=== PATIENT | male | born 1945 | race Caucasian/White ===

== ENCOUNTER → 2017-08-07 10:37 | Outpatient (CLI) | payer MEDICARE, BC, SELFPAY ==
--- NOTE | 2017-08-07 10:48 | XR_ITS ---
XR abdomen min 2V HISTORY: ITS.REASON: LLQ PAIN ORDERING PHYSICIAN: Matthew Cazares MD PATIENT AGE: 71 years COMPARISON: None FINDINGS: The bowel gas pattern is unremarkable. No obvious obstruction.. No abnormal calcifications are evident. No obvious renal or ureteral calculi.. No acute bony anomalies evident. Degenerative changes are present in the lumbar spine with lower lumbar scoliosis convex left with facet arthritic changes noted. Multiple pelvic calcifications are present consistent with phleboliths IMPRESSION: No acute finding
== END ==
PROVIDERS: PCP Family Medicine; Visit Provider Family Medicine
DX: R10.32 Left lower quadrant pain (principal)
CPT/HCPCS: 74019

== ENCOUNTER → 2017-09-28 12:22 | Outpatient (CLI) | payer MEDICARE, BC, SELFPAY ==
[2017-09-28 13:28] LABS: Blood Urea Nitrogen 13 mg/dL (7-18); Creatinine,Serum 1.43 mg/dL (0.70-1.30); Estimated Glomerular Filt Rate 49 ml/min (>60); GFR (African American) 59 ML/MIN (>60)
--- NOTE | 2017-09-28 13:47 | CT_ITS ---
CT abdomen pelvis w con COMPARISON: CT scan abdomen pelvis without contrast 10/05/2015 HISTORY: Left lower quadrant pain, known diffuse diverticulosis of the colon, fever TECHNIQUE: Multiaxial scans obtained from hemidiaphragms the pelvic floor and were performed with IV and oral contrast. Sagittal and coronal reformats were evaluated as well. FINDINGS: The lower lung mims are clear except for minimal atelectasis at the right base. There is mild generalized cardio megaly. There is a [id number] sized hiatal hernia. There is a dominant hypodense lesion consistent with hepatic cyst upper portion of the right lobe of the liver which has shown interval increase in size from the previous exam now measuring 5.1 x 5.5 x 5.2 cm. There are several other additional tiny hepatic cysts in both the right and left lobe of the liver. Stomach spleen [place] gallbladder appear grossly normal. The adrenal glands are normal. The kidneys are normal size and show symmetrical function both appearing normal. The small bowel is grossly normal. I do not definitely identify the appendix but there are no pericecal inflammatory changes. There is mild diffuse diverticulosis of the ascending and transverse colon with marked and diffuse diverticulosis of the descending and sigmoid colon. There is pericolonic fat stranding of the descending sigmoid junction consistent with acute diverticulitis. There is no obvious perforation and there is no abscess noted. Urinary bladder is partially decompressed, the prostate is slightly enlarged. IMPRESSION: 1 diffuse diverticulosis involving most of the colon but most prominent involving the descending and sigmoid colon with a focal area of acute diverticulitis descending sigmoid junction. 2. Interval enlargement of prominent cystic lesion involving the superior aspect of the right lobe of the liver
== END ==
PROVIDERS: PCP Family Medicine; Visit Provider Family Medicine
DX: R10.32 Left lower quadrant pain (principal); K57.30 Diverticulosis of large intestine without perforation or abscess without bleeding
CPT/HCPCS: 36415; 74177; 82565; 84520; Q9967

== ENCOUNTER → 2017-12-10 08:50 | Outpatient (POV) | payer MEDICARE, BC, SELFPAY | PROVIDERS: PCP Physician Assistant; Visit Provider Physician Assistant | DX: Z00.00 Encounter for general adult medical examination without abnormal findings (principal) ==

== ENCOUNTER → 2017-12-18 07:52 | Outpatient (CLI) | payer MEDICARE, BC, SELFPAY ==
[2017-12-18 11:10] LABS: Alanine Aminotransferase 31 U/L (12-78); Albumin Level 3.6 gm/dL (3.4-5.0); Alkaline Phosphatase 85 U/L (46-116); Aspartate Amino Transferase 23 U/L (15-37); Bilirubin,Direct 0.1 mg/dL (0.0-0.2); Bilirubin,Indirect 0.4 mg/dL (0.0-0.9); Bilirubin,Total 0.5 mg/dL (0.2-1.0); Cholesterol 120 mg/dL (140-200); HDL Cholesterol 30 mg/dL (27-67); LDL Cholesterol 50 mg/dL (0-130); Total Protein,Serum 7.4 gm/dL (6.4-8.2); Triglycerides 200 mg/dL (30-200); VLDL Cholesterol 40 mg/dL (0-40)
== END ==
PROVIDERS: PCP Internal Medicine; Visit Provider Urology
DX: I25.110 Atherosclerotic heart disease of native coronary artery with unstable angina pectoris (principal); R55 Syncope and collapse; R06.09 Other forms of dyspnea; R60.9 Edema, unspecified; E78.4 Other hyperlipidemia; R42 Dizziness and giddiness; I10 Essential (primary) hypertension
CPT/HCPCS: 36415; 80061; 80076

== ENCOUNTER → 2017-12-19 11:24 | Outpatient (CLI) | payer MEDICARE, BC, SELFPAY ==
--- NOTE | 2017-12-19 11:25 | NM_ITS ---
SPECT MYOCARDIAL PERFUSION SCAN, REST AND STRESS: EXERCISE STRESS: [facility] REVIEW QGS EF AND WALL MOTION EVALUATION: QPS - PERFUSION EVALUATION: HISTORY: Chest pain, dyspnea PROCEDURE: Rest imaging performed after administration of10.36 millicuries Tc MIBI. Dose administered at11:30 a.m., with imaging thereafter. Stress imaging was then performed following6 minutes of exercise stress. The patient achieved a heart [id number] with projected heart rate of128 . Resting BP149/93 with stress 156/90. At maximum exercise stress,29.9 millicuries Tc MIBI administered at1:10 a.m. with [id number] minutes thereafter. FINDINGS: Perfusion Evaluation: The single slice spect images as well as the [facility] bull's-eye data summary were reviewed. Wall Motion and Ejection Fraction Evaluation: Gated SPECT review and analysis used to evaluate these features. There is a 55 % left ventricular ejection fraction. There seems to be good wall motion Stress images reveal decreased activity in the apex inferior wall and a portion of the anterior wall. Rest images reveal improved activity. 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 High risk abnormal stress test with normal ejection fraction normal wall motion. Patient did experience angina with exercise
--- NOTE | 2017-12-19 12:23 | HMH.ITSHM ---
OMEPRAZOLE LEVOTHYROXINE ASA B12
--- NOTE | 2017-12-19 14:09 | HMH.ITSHM ---
lisinopril omeprazole levothyroxine aspirin b-12
== END ==
PROVIDERS: PCP Internal Medicine; Visit Provider Internal Medicine
DX: R06.00 Dyspnea, unspecified (principal); I25.10 Atherosclerotic heart disease of native coronary artery without angina pectoris; R94.31 Abnormal electrocardiogram [ECG] [EKG]
CPT/HCPCS: 78452; 93017; A9502

== ENCOUNTER → 2018-04-04 10:43 | Outpatient (CLI) | payer MEDICARE, BC, SELFPAY ==
[2018-04-08 05:21] LABS: PSA, Free 2.33 ng/mL
== END ==
PROVIDERS: PCP Family Medicine; Visit Provider Urology
DX: R97.20 Elevated prostate specific antigen [PSA] (principal)
CPT/HCPCS: 36415; 84153; 84154

== ENCOUNTER → 2018-04-11 06:16 | Outpatient (CLI) | payer MEDICARE, BC, SELFPAY ==
--- NOTE | 2018-04-11 06:18 | NM_ITS ---
History and Indications: Coronary artery disease, hypertension, diabetes, family history, chest pain, shortness of breath and fatigue Procedure: Patient exercised on Hadley protocol 7 minutes, resting heart rate was 57 bpm resting blood pressure 130/79, with exercise maximum heart rate achieved was 116 bpm which is equal to 77% of the maximum predicted heart rate and a blood pressure was 240/88. Test was started due to body discomfort and chest and shortness of breath. Patient has good exercise capacity achieved 10.1mets of workload on treadmill, the blood pressure response to exercise was adequate. Electrocardiogram: Resting electrocardiogram showed sinus bradycardia, nonspecific ST-T changes, with exercise there is [address] segment depression noted from the baseline EKG. The EKG portion of the exercise Myoview is positive for ischemia. Cardiac stress and resting SPECT images: Cardiac stress and rest SPECT images were obtained using technetium 99 Myoview 32.1 mCi at stress and 10.7 mCi at rest, gated SPECT further analysis of segmental wall motion and calculation of the ejection fraction also done. Cardiac stress and rest SPECT images show decreased tracer activity in the inferior wall which improves on the resting suggestive of reversible ischemia, computer derived ejection fraction is 56% with no regional wall motion abnormality, right ventricle is normal size and contractility. Conclusion: 1. The EKG portion of the exercise Myoview is positive for ischemia, patient has good exercise capacity achieved 10.1mets of workload on treadmill, the blood pressure response to exercise was adequate, patient did not achieve the target heart rate. Test was started due to widening discomfort and chest. 2. Mild reversible ischemia seen in the inferior wall, computer derived ejection fraction is percent with no regional wall motion abnormality, right ventricle is normal size and contractility. 3. Abnormal exercise Myoview study.
--- NOTE | 2018-04-11 09:08 | HMH.ITSHM ---
BISOPROLOL LEVOTHYROXINE ATORVASTATIN LISINOPRIL BRILINTIN MELATONIN
== END ==
PROVIDERS: PCP Family Medicine; Visit Provider Internal Medicine
DX: R06.09 Other forms of dyspnea; R42 Dizziness and giddiness; I11.9 Hypertensive heart disease without heart failure
CPT/HCPCS: 78452; 93017; A9502

== ENCOUNTER → 2018-04-18 14:06 | Outpatient (CLI) | payer MEDICARE, BC, SELFPAY ==
[2018-04-18 15:17] VITALS: PULSE 65
== END ==
PROVIDERS: PCP Family Medicine; Visit Provider Internal Medicine
DX: R06.09 Other forms of dyspnea (principal)
CPT/HCPCS: 94060; 94640; 94726; 94729

== ENCOUNTER 2018-04-22 08:55 | Outpatient (RCR) | payer MEDICARE, BC, SELFPAY | END 2018-07-05 15:08 | disposition home or self-care (01) | LOC: PT 08:55 | PROVIDERS: PCP Family Medicine; Visit Provider Internal Medicine | DX: I11.9 Hypertensive heart disease without heart failure (principal); R06.09 Other forms of dyspnea | CPT/HCPCS: 93798 ==

== ENCOUNTER → 2018-05-28 08:07 | Outpatient (POV) | payer MEDICARE, BC, SELFPAY | PROVIDERS: Visit Provider Dermatology | DX: Z00.00 Encounter for general adult medical examination without abnormal findings (principal) ==

== ENCOUNTER → 2018-09-26 09:39 | Outpatient (CLI) | payer MEDICARE, BC, SELFPAY | PROVIDERS: Visit Provider Urology | DX: R97.20 Elevated prostate specific antigen [PSA] (principal) | CPT/HCPCS: 36415; 84153 ==

== ENCOUNTER 2018-11-14 03:45 | Inpatient (IN) ==
[2018-11-14 04:28] LABS: Microscopic, Urine URINE MICROSCOPIC (MICROSCOPIC)
[2018-11-14 04:32] LABS: Basophils % 0.2 % (0.1-2.0); Eosinophils # 0.2 K/mm3 (0.0-0.4); Eosinophils % 1.5 % (0.1-12.0); Hematocrit 41.8 % (42.0-52.0); Hemoglobin 14.2 g/dL (14.1-18.0); Lymphocytes # 1.4 K/mm3 (0.7-4.5); Lymphocytes % 13.3 % (10-50); Mean Corpuscular Hemoglobin 30.9 pg (27.0-31.2); Mean Corpuscular Volume 91.1 fl (80-94); Mean Platelet Volume 7.5 fl (7.4-10.4); Monocytes # 0.5 K/mm3 (0.1-1.0); Monocytes % 4.8 % (1.7-9.3); Neutrophils # 8.2 K/mm3 (1.8-7.8); Neutrophils % 80.2 % (37.0-80.0); Platelet Count 170 K/mm3 (142-424); Red Blood Count 4.59 M/mm3 (4.60-6.20); Red Cell Distribution Width 14.2 % (11.5-17.5); White Blood Count 10.3 K/mm3 (4.8-10.8)
[2018-11-14 04:44] LABS: Albumin Level 3.7 gm/dL (3.4-5.0); Anion Gap 16.7 mEq/L (5-15); Appearance,Urine CLEAR (Clear); Bilirubin,Direct 0.1 mg/dL (0.0-0.2); Bilirubin,Indirect 0.4 mg/dL (0.0-0.9); Bilirubin,Total 0.5 mg/dL (0.2-1.0); Bilirubin,Urine Negative (Negative); Blood, Urine Negative (Negative); C-Reactive Protein 0.3 mg/L (0.0-0.9); Calcium 8.9 mg/dL (8.5-10.1); Color,Urine YELLOW (Yellow); Glucose,Urine (UA) Negative (Negative); Ketones,Urine Negative (Negative); Leukocyte Esterase,Urine Negative (Negative); Potassium 3.7 mmoL/L (3.5-5.1); Protein,Urine Negative (Negative); Total Protein,Serum 7.9 gm/dL (6.4-8.2); Urobilinogen,Urine 0.2 EU/dl (0.2)
[2018-11-14 04:50] LABS: Bacteria,Urine Trace /lpf; WBC,Urine Occasional #/hpf (0-3)
--- NOTE | 2018-11-14 06:34 | Emergency Department Note ---
ED Disposition Clinical Impression: Diverticulitis Disposition: Admitted As Inpatient Condition on Discharge: Fair Instructions: DI for Acute Abdomen Referrals: Matthew Cazares MD [Primary Care Provider] - - Critical Care Critical Care Time: No Attestation: On 11/14/18, the high probability of a clinically significant, sudden or life threatening deterioration of the following system(s) required my full and direct attention, intervention and personal management. The time I documented below is in addition to time spent performing reported procedures but includes the follo wing listed in this critical care notation. Medical Decision Making - Medical Records Medical records reviewed: Yes: I reviewed the patient's medical records. - Eduard Inquiry Pt receiving controlled substance: No Vital Signs: 11/14/18 03:54 11/14/18 04:42 11/14/18 05:24 Temperature 98.9 F Temperature Source Oral Pulse Rate [Right] 83 88 67 Respiratory Rate 18 16 18 Blood Pressure [Right Arm] 133/100 H 129/87 125/87 Blood Pressure Mean [Right Arm] 111 101 99 Blood Pressure Source [Right Arm] Automatic Cuff Automatic Cuff Automatic Cuff Blood Pressure Position [Right Arm] Sitting Sitting Supine 02 Sat by Pulse Oximetry 96 96 98 Oxygen Delivery Method Room Air Room Air 11/14/18 06:00 Temperature Temperature Source Pulse Rate [Right] 74 Respiratory Rate 18 Blood Pressure [Right Arm] 134/96 H Blood Pressure Mean [Right Arm] 108 Blood Pressure Source [Right Arm] Automatic Cuff Blood Pressure Position [Right Arm] Sitting 02 Sat by Pulse Oximetry 96 Oxygen Delivery Method Room Air - Lab Data Lab results reviewed: Yes: I reviewed the patient's lab results. Lab Results 11/14/18 04:02: WBC 10.3, RBC 4.59 L, Hgb 14.2, Hct 41.8 L, MCV 91.1, MCH 30.9, MCHC 34.0, RDW 14.2, Plt Count 170, MPV 7.5, Neut % (Auto) 80.2 H, Lymph % (Auto) 13.3, [place] % (Auto) 4.8, Eos % (Auto) 1.5, Baso % (Auto) 0.2, Neut # (Auto) 8.2 H, Lymph # (Auto) 1.4, [place] # (Auto) 0.5, Eos # (Auto) 0.2, Baso # (Auto) 0.0 11/14/18 04:02: Sodium 141, Potassium 3.7, Chloride 103, Carbon Dioxide 25, Anion Gap 16.7 H, BUN 16, Creatinine 1.47 H, Estimated Creat Clear 67, Estimated GFR 47 L, Est GFR ( Amer) 57 L, Glucose 118 H, Calcium 8.9, Total Bilirubin 0.5, Direct Bilirubin 0.1, Indirect Bilirubin 0.4, AST 20, ALT 33, Alkaline Phosphatase 84, C-Reactive Protein 0.3, Total Protein 7.9, Albumin 3.7, Amylase 77 11/14/18 04:02: Lactate 1.0 11/14/18 04:02: Urine Color Yellow, Urine Appearance Clear, Urine pH 6.0, Ur Specific [place] 1.020, Urine Protein Negative, Urine Glucose (UA) Negative, Urine Ketones Negative, Urine Blood Negative, Urine Nitrate Negative, Urine Bilirubin Negative, Urine Urobilinogen 0.2, Ur Leukocyte Esterase Negative, Urine WBC Occasional, Urine Bacteria Trace 11/14/18 04:02: ESR 20 11/14/18 04:02: Lipase 142 Result diagrams: 11/14/18 04:02 11/14/18 04:02 Orders (Tests/Meds): ED MEDICATIONS Generic Name Dose Route Start Last Admin Trade Name Freq PRN Reason Stop Dose Admin Sodium Chloride 1,000 mls @ 999 mls/hr 11/14/18 04:15 11/14/18 04:03 Sod Chlor 0.9% 1000ml Bag IV 11/14/18 05:15 999 mls/hr .Q1H1M RENU Administration Sodium Chloride 1,000 mls @ 999 mls/hr 11/14/18 05:15 11/14/18 05:19 Sod Chlor 0.9% 1000ml Bag IV 11/14/18 06:15 999 mls/hr .Q1H1M RENU Administration Discontinued Medications Generic Name Dose Route Start Last Admin Trade Name Freq PRN Reason Stop Dose Admin Diatrizoate Meglum/Diatrizoate Sod 30 ml 11/14/18 04:00 11/14/18 04:18 Gastrografin 66%-10% 30ml PO 11/14/18 04:01 30 ml ONCE ONE Administration Ioversol 75 ml 11/14/18 05:49 11/14/18 05:51 Rad-Optiray 350 100ml Vial IV 11/14/18 05:50 75 ml ONCE ONE Administration Protocol Ketorolac Tromethamine 30 mg 11/14/18 04:02 11/14/18 04:03 Toradol 30mg/Ml Vial IV 11/14/18 04:03 30 mg ONCE ONE Administration Morphine Sulfate 4 mg 11/14/18 06:28 Morphine 4mg/Ml Syringe IV 11/14/18 06:29 ONCE ONE Ondansetron HCl 4 mg 11/14/18 04:02 11/14/18 04:03 Zofran 4mg/2ml Vial IV 11/14/18 04:03 4 mg ONCE ONE Administration Ondansetron HCl 4 mg 11/14/18 06:28 Zofran 4mg/2ml Vial IV 11/14/18 06:29 ONCE ONE Sodium Chloride 10 ml 11/14/18 05:49 11/14/18 05:51 Rad-Saline Flush 10ml Syringe IV 11/14/18 05:50 10 ml ONCE ONE Administration ORDERS Category Date Time Status Blood Culture Stat Micro 11/14/18 04:02 Received - CT Data CT Scan: Abdomen, Pelvis Time Received: 06:[address] Reviewed: Yes: I have viewed the radiologist's interpretation Preliminary Findings: Abnormal (see report) - Physician Consults Physician Consulted: maurice Reason -: Admission Nausea/Vomiting/Diarrhea HPI - General Chief complaint: Abdominal Pain Stated complaint: Sharp pain in lower l side Time Seen by Provider: 11/14/18 04:30 Mode of Arrival: Ambulatory Source of Information: Patient, Relative, Medical Record Limitations: No Limitations Description of Symptoms (Recalled from ER Triage Doc. by RN): Lower Abd pain started about midnight tonight - History of Present Illness HPI Narrative: lt lower abd pain with nausea with hx of diverticulitis complaint: nausea, abdominal pain Onset (ago): hour(s) Associated Abdominal Pain: Yes Location of pain: LLQ Severity: moderate Associated symptoms: denies other symptoms - Related Data Home Medications Medication Instructions Recorded Confirmed aspirin 81 mg tablet,delayed 81 mg PO DAILY tab 11/15/17 11/14/18 release esomeprazole magnesium 40 mg 40 mg PO DAILY cap 11/15/17 11/14/18 capsule,delayed release levothyroxine 25 mcg tablet 25 mcg PO DAILY tab 11/15/17 11/14/18 bisoprolol fumarate 5 mg tablet 5 mg PO DAILY tab 12/03/17 11/14/18 lisinopril 10 mg tablet 10 mg PO DAILY tab 12/03/17 11/14/18 melatonin 10 mg capsule 10 mg PO HS PRN 01/01/18 11/14/18 Atorvastatin Calcium [Atorvastatin 10 mg PO DAILY 11/14/18 11/14/18 10mg Tab] Ticagrelor [Brilinta 90mg Tablet] 90 mg PO BID 11/14/18 11/14/18 Previous Rx's Medication Instructions Recorded nitroglycerin 0.4 mg sublingual 0.4 mg SUBLINGUAL Q5M PRN #30 tab 12/20/17 tablet Allergies Allergy/AdvReac Type Severity Reaction Status Date / Time Penicillins Allergy Unknown I-HIVES Verified 11/14/18 04:01 [facility] History - Hepatitis A Screen Drug use history?: No High risk sexual behaviors?: No History of sexually transmitted infection?: No Currently employed?: No Childcare worker?: No Do you have indoor plumbing?: Yes Do you have electricity?: Yes Attestation statement:: This patient has been screened for Hepatitis A risk factors. I have reviewed the patient's past medical history: Yes Medical History: Reports:: Gastroesophageal Reflux Disease(GERD), Hypertension Denies:: Cancer, Diabetes Mellitus Type 1, Diabetes Mellitus Type 2, Internal Pacemaker, MRSA, Seizures Other Medical History: Reports: Hypothyroidism Laterality Cases: Bilateral: Total Knee Replacement Other Surgeries: Yes: No Previous Surgery. No: Pacemaker Amputation: No Fractures: No - Social History Smoking Status: Never smoker Alcohol Intake: never Alcohol Intake Frequency:: other Substance Use Type: denies use Occupational Status: retired Housing: house Household Members: spouse - Psychiatric History Expresses thoughts of harming self/others: None Suicide Plan Description: No Plan Family Hx:: Heart Attack Comment: father from [place] complications at age 78 ROS Obtained: Yes All systems reviewed & no additional complaints - Constitutional Constitutional: Denies fever(s) - Eyes Eyes: Denies change in vision - ENT Ears, Nose, Mouth, and Throat: Denies sore throat - Cardiovascular Cardiovascular: Denies chest pain - Respiratory Respiratory: No cough - Gastrointestinal Gastrointestingal: Reports: abdominal pain, vomiting - Genitourinary Male Genitourinary: Denies hematuria - Musculoskeletal Musculoskeletal: Denies joint pain - Integumentary/Breasts Skin/Breast: Denies rash - Neurologic Neurologic: Denies seizure-like activity Physical Exam - General General appearance: alert, obese - Head Head exam: normocephalic - Eye Eye exam: Present: PERRL, EOMI. Absent: scleral icterus - ENT ENT exam: Present: mucous membranes dry - Neck Neck exam: Present: trachea midline - Respiratory Respiratory exam: Present: normal lung sounds bilaterally. Absent: respiratory distress - Cardiovascular Cardiovascular exam: Present: regular rate, systolic murmur - Abdominal Exam Abdominal exam: Present: soft, tenderness Abdominal tenderness: Present: LLQ, moderate - Extremities Exam Extremities exam: Absent: calf tenderness - Neurological Exam Neurological exam: Present: alert, oriented X3, CN II-XII intact - Psychiatric Psychiatric exam: Present: normal affect - Skin Skin exam: Absent: rash
--- NOTE | 2018-11-14 09:38 | Pharmacy Consult Notes ---
[facility] Pharmacy VTE Monitoring - Patient Demographics Admission date: 11/14/18 Report Date: 11/14/18 Time: 09:38 Allergies/Adverse Reactions: Patient Allergies Penicillins Allergy (Unknown, Verified 11/14/18 04:01) I-HIVES Height: 1.75 m Weight: 101.803 kg Patient Problems: Current Active Problems (Updated 11/14/18 @ 06:37 by Arvind Flores MD) Diverticulitis (Acute) - VTE Risk Labs: VTE Related Lab Results Hgb 14.2 g/dL (14.1-18.0) 11/14/18 04:02 Hct 41.8 % (42.0-52.0) L 11/14/18 04:02 Plt Count 170 K/mm3 (142-424) 11/14/18 04:02 BUN 16 mg/dL (7-18) 11/14/18 04:02 Creatinine 1.47 mg/dL (0.70-1.30) H 11/14/18 04:02 Estimated Creat Clear 67 mL/min (50-200) 11/14/18 04:02 Was VTE Risk Assessment Performed: Yes VTE Score: 6 VTE Risk Level: Moderate Risk - Prophylaxis VTE Prophylaxis Ordered?: Yes Types of VTE Prophylaxis: TEDS Knee High Location of Applied Device: Bilateral Lower Extremeties - VTE Diagnosis Confirmed Treatment or plan recommended: Continue Current Treatment
--- NOTE | 2018-11-14 10:46 | History & Physical Report ---
*Admission Date: 11/14/18 <Mira Wood 11/14/18 10:57> *Chief complaint: Diarrhea and abdominal pain <Gerard Wood11/14/18 10:57> *History of present illness: Mr. Bowers is a 72yo white male with hx of HTN, HLP, ASCVD, Hypothyroidism, GERD, and diverticulosis who awoke overnight around midnight with left lower quadrant abdominal pain and diarrhea. He also reports some nausea with one episode of "spitting up phlegm", however, he denies emesis. As his abdominal pain was increasing, he presented to the [facility] ED and was found to have evidence of diverticulitis on CT. He was admitted for IV antibiotics and hydration. This morning, he continues with left lower quadrant abdominal pain and diarrhea. He is only slightly nauseated. <Mira Wood 11/14/18 10:57> [facility] History Medical History: Reports:: Atherosclerotic Heart Disease <Matthew Cazares 11/14/18 11:22> Reports:: Gastroesophageal Reflux Disease(GERD), Hyperlipidemia, Hypertension Denies:: Cancer, Diabetes Mellitus Type 1, Diabetes Mellitus Type 2, Internal Pacemaker, MRSA, Seizures <Mira Wood 11/14/18 10:57> *Have you ever received a pneumonia vaccine?: Yes <Gerard Wood11/14/18 10:57> *Have you received a flu vaccine this season?: Yes <Gerard Wood11/14/18 10:57> Other Medical History: Reports: Other (diverticulosis of colon, colon polyps, BPH) <Matthew Cazares 11/14/18 11:22> Reports: Hypothyroidism <Gerard Wood11/14/18 10:57> Laterality Cases: Bilateral: Arthroscopy Knee, Total Knee Replacement <Mira Wood 11/14/18 10:57> Other Surgeries: Yes: Colonoscopy (most recent in 2014) <Matthew Cazares 11/14/18 11:22> Yes: No Previous Surgery, Cancer Surgery (melanoma skin CA removal), Other. No: Pacemaker <Mira Wood 11/14/18 10:57> Amputation: No <Mira Wood 11/14/18 10:57> Fractures: No <Israel,Mira - 11/14/18 10:57> - *Social History Smoking Status: Never smoker <IsraelMira - 11/14/18 10:57> Alcohol Intake: never <Gerard Wood11/14/18 10:57> Alcohol Intake Frequency:: other <Gerard Wood11/14/18 10:57> Substance Use Type: denies use <Israel11/14/18 10:57> *Occupational Status:: retired <IsraelGreard11/14/18 10:57> Housing: house <Gerard Wood11/14/18 10:57> Household Members: spouse <Gerard Wood11/14/18 10:57> *Travel in the last 8 weeks: None <IsraelMira - 11/14/18 10:57> - Psychiatric History Expresses thoughts of harming self/others: None <IsraelMira - 11/14/18 10:57> Suicide Plan Description: No Plan <IsraelMira - 11/14/18 10:57> Family Hx:: Heart Attack <Israel11/14/18 10:57> Review of Systems - Constitutional Reports headache(s), Denies body ache(s), Denies chills, Denies fever(s) <IsraelMira - 11/14/18 10:57> - ENT Reports neck pain (right neck stiffness and discomfort for 4-5 days), Denies nasal congestion, Denies sore throat <IsraelMira - 11/14/18 10:57> - *Cardiovascular Denies chest pain, Denies shortness of breath, Denies generalized swelling, Denies lightheadedness <IsraelMira - 11/14/18 10:57> - *Respiratory Denies chest congestion, Denies cough <Israel11/14/18 10:57> - *Gastrointestinal Reports loose stools, Reports nausea, Denies abdominal pain, Denies cramping, Denies vomiting <Gerard Wood11/14/18 10:57> - *Genitourinary Denies difficulty urinating <Israel11/14/18 10:57> - *Neurologic Reports headache(s), Denies seizure-like activity <Mira Wood - 11/14/18 10:57> Meds Home Medications Medication Instructions Recorded Confirmed Type aspirin 81 mg tablet,delayed 81 mg PO DAILY tab 11/15/17 11/14/18 History release esomeprazole magnesium 40 mg 40 mg PO DAILY cap 11/15/17 11/14/18 History capsule,delayed release levothyroxine 25 mcg tablet 25 mcg PO DAILY tab 11/15/17 11/14/18 History bisoprolol fumarate 5 mg tablet 5 mg PO DAILY tab 12/03/17 11/14/18 History lisinopril 10 mg tablet 10 mg PO DAILY tab 12/03/17 11/14/18 History nitroglycerin 0.4 mg sublingual 0.4 mg SUBLINGUAL Q5M PRN #30 tab 12/20/17 11/14/18 Rx tablet melatonin 10 mg capsule 10 mg PO HS PRN 01/01/18 11/14/18 History Atorvastatin Calcium [Atorvastatin 10 mg PO DAILY 11/14/18 11/14/18 History 10mg Tab] Ticagrelor [Brilinta 90mg Tablet] 90 mg PO BID 11/14/18 11/14/18 History <Matthew Cazares - 11/14/18 11:22> Allergies Allergy/AdvReac Type Severity Reaction Status Date / Time Penicillins Allergy Unknown I-HIVES Verified 11/14/18 04:01 <Matthew Cazares - 11/14/18 11:22> Exam Vital signs and Labs for Last 24 Hours: Temp Pulse Resp BP Pulse Ox 98 F 57 L 16 125/83 98 11/14/18 07:41 11/14/18 07:41 11/14/18 07:41 11/14/18 07:41 11/14/18 07:43 Laboratory Results - last 24 hr 11/14/18 04:02: WBC 10.3, RBC 4.59 L, Hgb 14.2, Hct 41.8 L, MCV 91.1, MCH 30.9, MCHC 34.0, RDW 14.2, Plt Count 170, MPV 7.5, Neut % (Auto) 80.2 H, Lymph % (Auto) 13.3, [place] % (Auto) 4.8, Eos % (Auto) 1.5, Baso % (Auto) 0.2, Neut # (Auto) 8.2 H, Lymph # (Auto) 1.4, [place] # (Auto) 0.5, Eos # (Auto) 0.2, Baso # (Auto) 0.0 11/14/18 04:02: Sodium 141, Potassium 3.7, Chloride 103, Carbon Dioxide 25, Anion Gap 16.7 H, BUN 16, Creatinine 1.47 H, Estimated Creat Clear 67, Estimated GFR 47 L, Est GFR ( Amer) 57 L, Glucose 118 H, Calcium 8.9, Total Bilirubin 0.5, Direct Bilirubin 0.1, Indirect Bilirubin 0.4, AST 20, ALT 33, Alkaline Phosphatase 84, C-Reactive Protein 0.3, Total Protein 7.9, Albumin 3.7, Amylase 77 11/14/18 04:02: Lactate 1.0 11/14/18 04:02: Urine Color Yellow, Urine Appearance Clear, Urine pH 6.0, Ur Specific [place] 1.020, Urine Protein Negative, Urine Glucose (UA) Negative, Urine Ketones Negative, Urine Blood Negative, Urine Nitrate Negative, Urine Bilirubin Negative, Urine Urobilinogen 0.2, Ur Leukocyte Esterase Negative, Urine WBC Occasional, Urine Bacteria Trace 11/14/18 04:02: ESR 20 11/14/18 04:02: Lipase 142 <[place],Matthew - 11/14/18 11:22> Temp Pulse Resp BP Pulse Ox 98 F 57 L 16 125/83 98 11/14/18 07:41 11/14/18 07:41 11/14/18 07:41 11/14/18 07:41 11/14/18 07:43 Laboratory Results - last 24 hr 11/14/18 04:02: WBC 10.3, RBC 4.59 L, Hgb 14.2, Hct 41.8 L, MCV 91.1, MCH 30.9, MCHC 34.0, RDW 14.2, Plt Count 170, MPV 7.5, Neut % (Auto) 80.2 H, Lymph % (Auto) 13.3, [place] % (Auto) 4.8, Eos % (Auto) 1.5, Baso % (Auto) 0.2, Neut # (Auto) 8.2 H, Lymph # (Auto) 1.4, [place] # (Auto) 0.5, Eos # (Auto) 0.2, Baso # (Auto) 0.0 11/14/18 04:02: Sodium 141, Potassium 3.7, Chloride 103, Carbon Dioxide 25, Anion Gap 16.7 H, BUN 16, Creatinine 1.47 H, Estimated Creat Clear 67, Estimated GFR 47 L, Est GFR ( Amer) 57 L, Glucose 118 H, Calcium 8.9, Total Bilirubin 0.5, Direct Bilirubin 0.1, Indirect Bilirubin 0.4, AST 20, ALT 33, Alkaline Phosphatase 84, C-Reactive Protein 0.3, Total Protein 7.9, Albumin 3.7, Amylase 77 11/14/18 04:02: Lactate 1.0 11/14/18 04:02: Urine Color Yellow, Urine Appearance Clear, Urine pH 6.0, Ur Specific [place] 1.020, Urine Protein Negative, Urine Glucose (UA) Negative, Urine Ketones Negative, Urine Blood Negative, Urine Nitrate Negative, Urine Bilirubin Negative, Urine Urobilinogen 0.2, Ur Leukocyte Esterase Negative, Urine WBC Occasional, Urine Bacteria Trace 11/14/18 04:02: ESR 20 11/14/18 04:02: Lipase 142 <Mira Wood 11/14/18 10:57> I & O for Last 24 hours: Intake & Output 11/11/18 11/12/18 11/13/18 11/14/18 23:59 23:59 23:59 23:59 Intake Total 1999 Output Total 400 / 400 Balance 1600 / 1600 Weight 224 lb 7 oz <Matthew Cazares - 11/14/18 11:22> Intake & Output 11/11/18 11/12/18 11/13/18 11/14/18 11:59 11:59 11:59 11:59 Intake Total 1999 Balance 1999 Weight 224 lb 7 oz <Mira Wood 11/14/18 10:57> - Constitutional no acute distress <Mira Wood 11/14/18 10:57> - *Routine HEENT Exam Head: Present: normocephalic, atraumatic <Mira Wood 11/14/18 10:57> Eye: Present: PERRL, normal accommodation <Mira Wood 11/14/18 10:57> ENT: Present: mucous membranes moist <Mira Wood 11/14/18 10:57> - *Routine Neck Exam Present: supple, full ROM. Absent: lymphadenopathy <Mira Wood 11/14/18 10:57> - *Routine Respiratory Exam Present: CTA bilaterally <Mira Wood 11/14/18 10:57> - *Routine Cardiovascular Exam Present: RRR <Mira Wood 11/14/18 10:57> - *Routine Abdominal Exam Comments: BS present x 4, soft, not distended, ttp LLQ with palpation of the LUQ causing LLQ pain as well <Mira Wood 11/14/18 10:57> - *Routine Extremities Exam Present: full ROM, pulses intact. Absent: edema, calf tenderness <Mira Wood 11/14/18 10:57> - *Routine Neurological Exam Present: alert, oriented X3, normal speech <Mira Wood 11/14/18 10:57> H&P: Result - Imaging and Cardiology CT scan - abdomen Status: final report <Mira Wood 11/14/18 10:57> Additional comments: IMPRESSION: Acute diverticulitis of the sigmoid colon. No abscess or perforation. Follow-up is recommended. This is the same area that diverticulitis was noted in on 09/28/2017. Neoplasm could have a similar appearance therefore, follow-up is suggested with colonoscopy once the acute inflammation has subsided. There is diffuse diverticulosis of the descending and sigmoid colon as before. <Mira Wood 11/14/18 10:57> Assessment and Plan (1) Diverticulitis Current visit: Yes Status: Acute Category: Medical Code(s): K57.92 - Diverticulitis of intestine, part unspecified, without perforation or abscess without bleeding (2) BRBPR (bright red blood per rectum) Current visit: Yes Status: Acute Category: Medical Code(s): K62.5 - Hemorrhage of anus and rectum (3) GERD (gastroesophageal reflux disease) Current visit: Yes Status: Acute Category: Medical Code(s): K21.9 - Gastro-esophageal reflux disease without esophagitis (4) Diverticulosis of colon Current visit: Yes Status: Acute Category: Medical Code(s): K57.30 - Diverticulosis of large intestine without perforation or abscess without bleeding (5) CAD (coronary artery disease) Current visit: No Status: Chronic Qualifiers: Coronary Disease-Associated Artery/Lesion type: [place] artery [place] vs. transplanted heart: [place] heart Associated angina: with stable angina Qualified Code(s): I25.118 - Atherosclerotic heart disease of [place] coronary artery with other forms of angina pectoris Category: Medical Code(s): I25.10 - Atherosclerotic heart disease of [place] coronary artery without angina pectoris (6) HLD (hyperlipidemia) Current visit: No Status: Chronic Qualifiers: Hyperlipidemia type: other hyperlipidemia Category: Medical Code(s): E78.5 - Hyperlipidemia, unspecified (7) HTN (hypertension) Current visit: No Status: Chronic Qualifiers: Hypertension type: essential hypertension Qualified Code(s): I10 - Essential (primary) hypertension Category: Medical Code(s): I10 - Essential (primary) hypertension <Matthew Cazares - 11/14/18 11:22> - Assessment and plan all Dx Assessment and Plan for all problems:: Saw patient agree with above note, will continue with antibiotic treatment initiated in the ER, OK for clear liquid diet today. <Matthew Cazares - 11/14/18 11:22> Will continue current care. Further per Dr. Cazares. <Mira Wood - 11/14/18 10:57>
[2018-11-15 07:21] LABS: Basophils % 0.1 % (0.1-2.0); Eosinophils # 0.1 K/mm3 (0.0-0.4); Eosinophils % 2.3 % (0.1-12.0); Hematocrit 36.4 % (42.0-52.0); Hemoglobin 12.5 g/dL (14.1-18.0); Lymphocytes # 1.1 K/mm3 (0.7-4.5); Mean Corpuscular HGB Conc 34.2 g/dL (31.8-35.4); Mean Corpuscular Hemoglobin 30.4 pg (27.0-31.2); Mean Platelet Volume 7.8 fl (7.4-10.4); Monocytes # 0.3 K/mm3 (0.1-1.0); Monocytes % 7.6 % (1.7-9.3); Neutrophils # 2.8 K/mm3 (1.8-7.8); Platelet Count 123 K/mm3 (142-424); White Blood Count 4.3 K/mm3 (4.8-10.8)
[2018-11-15 07:46] LABS: Anion Gap 13.6 mEq/L (5-15); Potassium 3.6 mmoL/L (3.5-5.1)
[2018-11-15 07:57] LABS: Calcium 7.9 mg/dL (8.5-10.1)
--- NOTE | 2018-11-15 08:20 | Progress Note ---
<Peggy Ring - Last Filed: 11/15/18 08:17> Internal Medicine - PN: Subj *Date: 11/15/18 *Time: 08:18 Interval history: Patient states he is feeling better this morning. He still has pain in the left lower quadrant but it has improved. He states he is no longer nauseated. He thinks the nausea was caused by the pain medication. He slept off and on last night. He is tolerating his diet. Exam Vital signs and Labs for Last 24 Hours: Temp Pulse Resp BP Pulse Ox 98.4 F 64 17 148/89 H 97 11/15/18 07:28 11/15/18 07:28 11/15/18 07:28 11/15/18 07:28 11/15/18 07:54 Laboratory Results - last 24 hr 11/15/18 06:35: WBC 4.3 L D, RBC 4.10 L, Hgb 12.5 L, Hct 36.4 L, MCV 89.0, MCH 30.4, MCHC 34.2, RDW 14.0, Plt Count 123 L D, MPV 7.8, Neut % (Auto) 64.0, Lymph % (Auto) 26.0, [place] % (Auto) 7.6, Eos % (Auto) 2.3, Baso % (Auto) 0.1, Neut # (Auto) 2.8, Lymph # (Auto) 1.1, [place] # (Auto) 0.3, Eos # (Auto) 0.1, Baso # (Auto) 0.0 11/15/18 06:53: Sodium 143, Potassium 3.6, Chloride 108 H, Carbon Dioxide 25, Anion Gap 13.6, BUN 9 D, Creatinine 1.24, Estimated Creat Clear 80, Estimated GFR 58 L, Est GFR ( Amer) 70 D, Glucose 104, Calcium 7.9 L D, Magnesium 2.0 I & O for Last 24 hours: Intake & Output 11/12/18 11/13/18 11/14/18 11/15/18 11:59 11:59 11:59 11:59 Intake Total 2000 / 1999 1640 / 1640 Output Total 400 / 400 1300 / 1300 Balance 1600 / 1600 340 / 340 Weight 224 lb 7 oz 225 lb 9 oz - Constitutional no acute distress - *Routine Respiratory Exam Present: CTA bilaterally - *Routine Cardiovascular Exam Present: RRR - *Routine Abdominal Exam Present: soft, normoactive bowel sounds, tenderness (ttp in the LLQ) - *Routine Extremities Exam Absent: cyanosis, clubbing, edema - *Routine Skin Exam Present: warm. Absent: rash - *Routine Neurological Exam Present: alert, oriented X3 Assessment and Plan (1) Diverticulitis Current visit: Yes Status: Acute Category: Medical Code(s): K57.92 - Diverticulitis of intestine, part unspecified, without perforation or abscess without bleeding (2) BRBPR (bright red blood per rectum) Current visit: Yes Status: Acute Category: Medical Code(s): K62.5 - Hemorrhage of anus and rectum (3) GERD (gastroesophageal reflux disease) Current visit: Yes Status: Acute Category: Medical Code(s): K21.9 - Gastro-esophageal reflux disease without esophagitis (4) Diverticulosis of colon Current visit: Yes Status: Acute Category: Medical Code(s): K57.30 - Diverticulosis of large intestine without perforation or abscess without bleeding (5) CAD (coronary artery disease) Current visit: No Status: Chronic Qualifiers: Coronary Disease-Associated Artery/Lesion type: [place] artery [place] vs. transplanted heart: [place] heart Associated angina: with stable angina Qualified Code(s): I25.118 - Atherosclerotic heart disease of [place] coronary artery with other forms of angina pectoris Category: Medical Code(s): I25.10 - Atherosclerotic heart disease of [place] coronary artery without angina pectoris (6) HLD (hyperlipidemia) Current visit: No Status: Chronic Qualifiers: Hyperlipidemia type: other hyperlipidemia Category: Medical Code(s): E78.5 - Hyperlipidemia, unspecified (7) HTN (hypertension) Current visit: No Status: Chronic Qualifiers: Hypertension type: essential hypertension Qualified Code(s): I10 - Essential (primary) hypertension Category: Medical Code(s): I10 - Essential (primary) hypertension - Assessment and plan all Dx Assessment and Plan for all problems:: Patient is improving symptomatically. He will need a colonoscopy once diverticulitis has resolved. Will discuss further care with Dr. Cazares. <Matthew Cazares - Last Filed: 11/15/18 09:07> Internal Medicine - PN: Subj *Date: 11/15/18 *Time: 09:05 Exam Vital signs and Labs for Last 24 Hours: Temp Pulse Resp BP Pulse Ox 98.4 F 64 17 148/89 H 97 11/15/18 07:28 11/15/18 07:28 11/15/18 07:28 11/15/18 07:28 11/15/18 07:54 Laboratory Results - last 24 hr 11/15/18 06:35: WBC 4.3 L D, RBC 4.10 L, Hgb 12.5 L, Hct 36.4 L, MCV 89.0, MCH 30.4, MCHC 34.2, RDW 14.0, Plt Count 123 L D, MPV 7.8, Neut % (Auto) 64.0, Lymph % (Auto) 26.0, [place] % (Auto) 7.6, Eos % (Auto) 2.3, Baso % (Auto) 0.1, Neut # (Auto) 2.8, Lymph # (Auto) 1.1, [place] # (Auto) 0.3, Eos # (Auto) 0.1, Baso # (Auto) 0.0 11/15/18 06:53: Sodium 143, Potassium 3.6, Chloride 108 H, Carbon Dioxide 25, Anion Gap 13.6, BUN 9 D, Creatinine 1.24, Estimated Creat Clear 80, Estimated GFR 58 L, Est GFR ( Amer) 70 D, Glucose 104, Calcium 7.9 L D, Magnesium 2.0 I & O for Last 24 hours: Intake & Output 11/12/18 11/13/18 11/14/18 11/15/18 23:59 23:59 23:59 23:59 Intake Total 3690 / 3690 580 / 580 Output Total 1700 / 1700 Balance 1989 580 / 580 Weight 224 lb 7 oz 225 lb 9 oz Assessment and Plan (1) Diverticulitis Current visit: Yes Status: Acute Category: Medical Code(s): K57.92 - Diverticulitis of intestine, part unspecified, without perforation or abscess without bleeding (2) BRBPR (bright red blood per rectum) Current visit: Yes Status: Acute Category: Medical Code(s): K62.5 - Hemorrhage of anus and rectum (3) GERD (gastroesophageal reflux disease) Current visit: Yes Status: Acute Category: Medical Code(s): K21.9 - Gastro-esophageal reflux disease without esophagitis (4) Diverticulosis of colon Current visit: Yes Status: Acute Category: Medical Code(s): K57.30 - Diverticulosis of large intestine without perforation or abscess without bleeding (5) CAD (coronary artery disease) Current visit: No Status: Chronic Qualifiers: Coronary Disease-Associated Artery/Lesion type: [place] artery [place] vs. transplanted heart: [place] heart Associated angina: with stable angina Qualified Code(s): I25.118 - Atherosclerotic heart disease of [place] coronary artery with other forms of angina pectoris Category: Medical Code(s): I25.10 - Atherosclerotic heart disease of [place] coronary artery without angina pectoris (6) HLD (hyperlipidemia) Current visit: No Status: Chronic Qualifiers: Hyperlipidemia type: other hyperlipidemia Category: Medical Code(s): E78.5 - Hyperlipidemia, unspecified (7) HTN (hypertension) Current visit: No Status: Chronic Qualifiers: Hypertension type: essential hypertension Qualified Code(s): I10 - Essential (primary) hypertension Category: Medical Code(s): I10 - Essential (primary) hypertension - Assessment and plan all Dx Assessment and Plan for all problems:: Saw patient. He vomited twice last night, he had no bowel movements. Plan a trial of full liquids today, will start Lovenox for DVT prophylaxis.
[2018-11-16 07:23] LABS: Basophils % 0.5 % (0.1-2.0); Eosinophils # 0.1 K/mm3 (0.0-0.4); Eosinophils % 2.7 % (0.1-12.0); Hematocrit 37.5 % (42.0-52.0); Hemoglobin 12.9 g/dL (14.1-18.0); Lymphocytes # 1.4 K/mm3 (0.7-4.5); Lymphocytes % 35.5 % (10-50); Mean Corpuscular HGB Conc 34.3 g/dL (31.8-35.4); Mean Corpuscular Hemoglobin 30.4 pg (27.0-31.2); Mean Corpuscular Volume 88.7 fl (80-94); Mean Platelet Volume 7.6 fl (7.4-10.4); Monocytes # 0.3 K/mm3 (0.1-1.0); Monocytes % 8.1 % (1.7-9.3); Neutrophils % 53.2 % (37.0-80.0); Platelet Count 137 K/mm3 (142-424); Red Blood Count 4.23 M/mm3 (4.60-6.20); Red Cell Distribution Width 14.1 % (11.5-17.5); White Blood Count 3.8 K/mm3 (4.8-10.8)
[2018-11-16 07:37] LABS: Anion Gap 13.6 mEq/L (5-15); Calcium 8.3 mg/dL (8.5-10.1); Potassium 3.6 mmoL/L (3.5-5.1)
--- NOTE | 2018-11-16 08:39 | Progress Note ---
Internal Medicine - PN: Subj *Date: 11/16/18 *Time: 08:37 Interval history: Patient feels a little better this morning. No vomiting over night, tolerating full liquids. Exam Vital signs and Labs for Last 24 Hours: Temp Pulse Resp BP Pulse Ox 97.6 F 82 18 128/81 97 11/16/18 08:00 11/16/18 08:00 11/16/18 08:00 11/16/18 08:00 11/16/18 08:00 Laboratory Results - last 24 hr 11/16/18 06:15: WBC 3.8 L, RBC 4.23 L, Hgb 12.9 L, Hct 37.5 L, MCV 88.7, MCH 30.4, MCHC 34.3, RDW 14.1, Plt Count 137 L, MPV 7.6, Neut % (Auto) 53.2, Lymph % (Auto) 35.5, [place] % (Auto) 8.1, Eos % (Auto) 2.7, Baso % (Auto) 0.5, Neut # (Auto) 2.0, Lymph # (Auto) 1.4, [place] # (Auto) 0.3, Eos # (Auto) 0.1, Baso # (Auto) 0.0 11/16/18 06:15: Sodium 141, Potassium 3.6, Chloride 109 H, Carbon Dioxide 22, Anion Gap 13.6, BUN 9, Creatinine 1.17, Estimated Creat Clear 84, Estimated GFR 62, Est GFR ( Amer) 75, Glucose 92, Calcium 8.3 L I & O for Last 24 hours: Intake & Output 11/13/18 11/14/18 11/15/18 11/16/18 23:59 23:59 23:59 23:59 Intake Total 3690 / 3690 1839 / 0 3626 / 3626 Output Total 1700 / 1700 Balance 1989 / 0 3626 / 3626 Weight 224 lb 7 oz 225 lb 8.985 oz 222 lb 14.4 oz Microbiology Reports for the Last 24 Hours: Microbiology 11/14/18 04:02 Blood Blood Culture - Preliminary NO GROWTH AFTER 48 HOURS 11/14/18 04:02 Blood Blood Culture - Preliminary NO GROWTH AFTER 48 HOURS - Constitutional no acute distress - *Routine HEENT Exam Head: Present: normocephalic Eye: Present: EOMI ENT: Present: mucous membranes moist - *Routine Neck Exam Present: supple. Absent: lymphadenopathy - *Routine Respiratory Exam Present: CTA bilaterally - *Routine Cardiovascular Exam Present: RRR - *Routine Abdominal Exam Present: soft, normoactive bowel sounds, tenderness (LLQ). Absent: rebound, guarding - *Routine Extremities Exam Absent: cyanosis, clubbing, edema - *Routine Skin Exam Present: warm. Absent: rash - *Routine Neurological Exam Present: alert, oriented X3 Assessment and Plan (1) Diverticulitis Current visit: Yes Status: Acute Category: Medical Code(s): K57.92 - Diverticulitis of intestine, part unspecified, without perforation or abscess without bleeding (2) BRBPR (bright red blood per rectum) Current visit: Yes Status: Acute Category: Medical Code(s): K62.5 - Hemorrhage of anus and rectum (3) GERD (gastroesophageal reflux disease) Current visit: Yes Status: Acute Category: Medical Code(s): K21.9 - Gastro-esophageal reflux disease without esophagitis (4) Diverticulosis of colon Current visit: Yes Status: Acute Category: Medical Code(s): K57.30 - Diverticulosis of large intestine without perforation or abscess without bleeding (5) CAD (coronary artery disease) Current visit: No Status: Chronic Qualifiers: Coronary Disease-Associated Artery/Lesion type: [place] artery [place] vs. transplanted heart: [place] heart Associated angina: with stable angina Qualified Code(s): I25.118 - Atherosclerotic heart disease of [place] coronary artery with other forms of angina pectoris Category: Medical Code(s): I25.10 - Atherosclerotic heart disease of [place] coronary artery without angina pectoris (6) HLD (hyperlipidemia) Current visit: No Status: Chronic Qualifiers: Hyperlipidemia type: other hyperlipidemia Category: Medical Code(s): E78.5 - Hyperlipidemia, unspecified (7) HTN (hypertension) Current visit: No Status: Chronic Qualifiers: Hypertension type: essential hypertension Qualified Code(s): I10 - Essential (primary) hypertension Category: Medical Code(s): I10 - Essential (primary) hypertension - Assessment and plan all Dx Assessment and Plan for all problems:: Patient is slowly improving. Plan to saline lock IVF today and advance to a bland/soft diet.
--- NOTE | 2018-11-17 10:13 | Progress Note ---
Internal Medicine - PN: Subj *Date: 11/17/18 *Time: 10:13 Exam Vital signs and Labs for Last 24 Hours: Temp Pulse Resp BP Pulse Ox 97.8 F 64 18 118/81 96 11/17/18 08:00 11/17/18 08:00 11/17/18 08:00 11/17/18 08:00 11/17/18 08:00 I & O for Last 24 hours: Intake & Output 11/14/18 11/15/18 11/16/18 11/17/18 23:59 23:59 23:59 23:59 Intake Total 3690 / 3690 1989 4916 / 4916 480 / 480 Output Total 1700 / 1700 Balance 1989 4916 / 4916 480 / 480 Weight 101.803 kg 102.313 kg 101.106 kg 100.607 kg Assessment and Plan (1) Diverticulitis Current visit: Yes Status: Acute Category: Medical Code(s): K57.92 - Diverticulitis of intestine, part unspecified, without perforation or abscess without bleeding (2) BRBPR (bright red blood per rectum) Current visit: Yes Status: Acute Category: Medical Code(s): K62.5 - Hemorrhage of anus and rectum (3) GERD (gastroesophageal reflux disease) Current visit: Yes Status: Acute Category: Medical Code(s): K21.9 - Gastro-esophageal reflux disease without esophagitis (4) Diverticulosis of colon Current visit: Yes Status: Acute Category: Medical Code(s): K57.30 - Diverticulosis of large intestine without perforation or abscess without bleeding (5) CAD (coronary artery disease) Current visit: No Status: Chronic Qualifiers: Coronary Disease-Associated Artery/Lesion type: [place] artery [place] vs. transplanted heart: [place] heart Associated angina: with stable angina Qualified Code(s): I25.118 - Atherosclerotic heart disease of [place] coronary artery with other forms of angina pectoris Category: Medical Code(s): I25.10 - Atherosclerotic heart disease of [place] coronary artery without angina pectoris (6) HLD (hyperlipidemia) Current visit: No Status: Chronic Qualifiers: Hyperlipidemia type: other hyperlipidemia Category: Medical Code(s): E78.5 - Hyperlipidemia, unspecified (7) HTN (hypertension) Current visit: No Status: Chronic Qualifiers: Hypertension type: essential hypertension Qualified Code(s): I10 - Essential (primary) hypertension Category: Medical Code(s): I10 - Essential (primary) hypertension The patient's infection will respond to the chosen ABx?: Yes Is the patient receiving the right drug, dose, and route?: Yes Could a more targeted ABx be ordered?: No (AFEBRILE, WBC DOWN, AND CULTURES -)
--- NOTE | 2018-11-17 11:04 | Progress Note ---
Internal Medicine - PN: Subj *Date: 11/17/18 *Time: 11:02 Interval history: Pt feels better today, anxious to go home. Exam Vital signs and Labs for Last 24 Hours: Temp Pulse Resp BP Pulse Ox 97.8 F 64 18 118/81 96 11/17/18 08:00 11/17/18 08:00 11/17/18 08:00 11/17/18 08:00 11/17/18 08:00 I & O for Last 24 hours: Intake & Output 11/14/18 11/15/18 11/16/18 11/17/18 23:59 23:59 23:59 23:59 Intake Total 3690 / 3690 1989 4916 / 4916 480 / 480 Output Total 1700 / 1700 Balance 1989 4916 / 4916 480 / 480 Weight 224 lb 7 oz 225 lb 8.985 oz 222 lb 14.4 oz 221 lb 12.8 oz - Constitutional no acute distress - *Routine HEENT Exam Head: Present: normocephalic Eye: Present: EOMI ENT: Present: mucous membranes moist - *Routine Neck Exam Present: supple. Absent: lymphadenopathy - *Routine Respiratory Exam Present: CTA bilaterally - *Routine Cardiovascular Exam Present: RRR - *Routine Abdominal Exam Present: soft, normoactive bowel sounds, tenderness (only minimal LLQ) - *Routine Extremities Exam Absent: cyanosis, clubbing, edema - *Routine Skin Exam Present: warm. Absent: rash - *Routine Neurological Exam Present: alert, oriented X3 Assessment and Plan (1) Diverticulitis Current visit: Yes Status: Acute Category: Medical Code(s): K57.92 - Diverticulitis of intestine, part unspecified, without perforation or abscess without bleeding (2) BRBPR (bright red blood per rectum) Current visit: Yes Status: Acute Category: Medical Code(s): K62.5 - Hemorrhage of anus and rectum (3) GERD (gastroesophageal reflux disease) Current visit: Yes Status: Acute Category: Medical Code(s): K21.9 - Gastro-esophageal reflux disease without esophagitis (4) Diverticulosis of colon Current visit: Yes Status: Acute Category: Medical Code(s): K57.30 - Diverticulosis of large intestine without perforation or abscess without bleeding (5) CAD (coronary artery disease) Current visit: No Status: Chronic Qualifiers: Coronary Disease-Associated Artery/Lesion type: cahto artery [place] vs. transplanted heart: cahto heart Associated angina: with stable angina Qualified Code(s): I25.118 - Atherosclerotic heart disease of cahto coronary artery with other forms of angina pectoris Category: Medical Code(s): I25.10 - Atherosclerotic heart disease of cahto coronary artery without angina pectoris (6) HLD (hyperlipidemia) Current visit: No Status: Chronic Qualifiers: Hyperlipidemia type: other hyperlipidemia Category: Medical Code(s): E78.5 - Hyperlipidemia, unspecified (7) HTN (hypertension) Current visit: No Status: Chronic Qualifiers: Hypertension type: essential hypertension Qualified Code(s): I10 - Essential (primary) hypertension Category: Medical Code(s): I10 - Essential (primary) hypertension - Assessment and plan all Dx Assessment and Plan for all problems:: Plan discharge today with oral Levaquin and Flagyl and iron. Office f/u in 5 days.
--- NOTE | 2018-11-18 13:39 | Discharge Summary ---
General - General Admission date:: 11/14/18 Discharge date: 11/17/18 HPI HPI: Mr. Bowers is a 72yo white male with hx of HTN, HLP, ASCVD, Hypothyroidism, GERD, and diverticulosis who awoke overnight around midnight with left lower quadrant abdominal pain and diarrhea. He also reports some nausea with one episode of "spitting up phlegm", however, he denies emesis. As his abdominal pain was increasing, he presented to the [facility] ED and was found to have evidence of diverticulitis on CT. He was admitted for IV antibiotics and hydration. Hospital Course Hospital Course: The patient's abdominal CT showed acute diverticulitis of the sigmoid colon. There was no abscess or perforation. Radiology did recommend a follow-up colonoscopy once inflammation subsided. The patient was continued on antibiotics and a clear liquid diet. He initally had vomiting and nausea, but this did improve and he began tolerating a diet, therefore it was advanced. He was also started on Lovenox for DVT prophylaxis. His diet was advanced to a bland diet and he tolerated this well. His pain improved and he was anxious to go home. He was stable to be discharged home on Levaquin and Flagyl along with iron and he will follow-up in the office with Dr. Cazares in 5 days. Objective Vital signs: Temp Pulse Resp BP Pulse Ox 97.8 F 64 18 118/81 96 11/17/18 08:00 11/17/18 08:00 11/17/18 08:00 11/17/18 08:00 11/17/18 08:00 Narrative: - Constitutional no acute distress - *Routine HEENT Exam Head: Present: normocephalic, atraumatic Eye: Present: PERRL, normal accommodation ENT: Present: mucous membranes moist - *Routine Neck Exam Present: supple, full ROM. Absent: lymphadenopathy - *Routine Respiratory Exam Present: CTA bilaterally - *Routine Cardiovascular Exam Present: RRR - *Routine Abdominal Exam Comments: BS present x 4, soft, not distended, ttp LLQ with palpation of the LUQ causing LLQ pain as well - *Routine Extremities Exam Present: full ROM, pulses intact. Absent: edema, calf tenderness - *Routine Neurological Exam Present: alert, oriented X3, normal speech Results Labs on day of discharge: Preliminary micro results at discharge 11/14/18 04:02 Blood Culture - Preliminary Blood NO GROWTH AFTER 48 HOURS 11/14/18 04:02 Blood Culture - Preliminary Blood NO GROWTH AFTER 48 HOURS DS: Diagnosis - Discharge Diagnosis (1) Diverticulitis Status: Acute (2) BRBPR (bright red blood per rectum) Status: Acute (3) GERD (gastroesophageal reflux disease) Status: Acute (4) Diverticulosis of colon Status: Acute (5) CAD (coronary artery disease) Status: Chronic (6) HLD (hyperlipidemia) Status: Chronic (7) HTN (hypertension) Status: Chronic Discharge Plan - Patient Discharge Instructions ACTIVITY: Continue current activity DIET: continue same diet Patient Instructions: DI for Diverticulitis, DI for Abdominal Pain-Adult - Follow up Plan Follow up with: Matthew Cazares MD [Primary Care Provider] - 11/22/18 Disposition: Home, Self-[facility] Medications: Home Medications Medication Instructions Recorded Confirmed Type aspirin 81 mg tablet,delayed 81 mg PO DAILY tab 11/15/17 11/14/18 History release esomeprazole magnesium 40 mg 40 mg PO DAILY cap 11/15/17 11/14/18 History capsule,delayed release levothyroxine 25 mcg tablet 25 mcg PO DAILY tab 11/15/17 11/14/18 History bisoprolol fumarate 5 mg tablet 5 mg PO DAILY tab 12/03/17 11/14/18 History lisinopril 10 mg tablet 10 mg PO DAILY tab 12/03/17 11/14/18 History nitroglycerin 0.4 mg sublingual 0.4 mg SUBLINGUAL Q5M PRN #30 tab 12/20/17 11/14/18 Rx tablet melatonin 10 mg capsule 10 mg PO HS PRN 01/01/18 11/14/18 History Atorvastatin Calcium [Atorvastatin 10 mg PO DAILY 11/14/18 11/14/18 History 10mg Tab] Ticagrelor [Brilinta 90mg Tablet] 90 mg PO BID 11/14/18 11/14/18 History Ferrous Sulfate [Ferrous Sulfate 325 mg PO DAILY #30 tab 11/17/18 Rx 325mg Tablet] levoFLOXacin [Levaquin 500mg 500 mg PO DAILY #7 tab 11/17/18 Rx tab] metroNIDAZOLE [Flagyl 500mg 500 mg PO TID #21 tab 11/17/18 Rx Tablet] Prescriptions/Medication Reconciliation: New Ferrous Sulfate [Ferrous Sulfate 325mg Tablet] 325 mg PO DAILY #30 tab metroNIDAZOLE [Flagyl 500mg Tablet] 500 mg PO TID #21 tab levoFLOXacin [Levaquin 500mg tab] 500 mg PO DAILY #7 tab Continued levothyroxine 25 mcg tablet 25 mcg PO DAILY tab aspirin 81 mg tablet,delayed release 81 mg PO DAILY tab lisinopril 10 mg tablet 10 mg PO DAILY tab bisoprolol fumarate 5 mg tablet 5 mg PO DAILY tab nitroglycerin 0.4 mg sublingual tablet 0.4 mg SUBLINGUAL Q5M PRN #30 tab PRN Reason: chest pain melatonin 10 mg capsule 10 mg PO HS PRN PRN Reason: Insomnia esomeprazole magnesium 40 mg capsule,delayed release 40 mg PO DAILY cap Atorvastatin Calcium [Atorvastatin 10mg Tab] 10 mg PO DAILY Ticagrelor [Brilinta 90mg Tablet] 90 mg PO BID
== END 2018-11-17 11:55 | disposition home or self-care (01) | DRG 392 ==
LOC: 2ND 03:45 → ER 03:45 → OBSVTOIN 06:34 → 2ND 07:43
PROVIDERS: ADMIT Family Medicine; ATTEND Family Medicine
CPT/HCPCS: 36415; 74177; 80048; 80076; 81001; 82150; 83605; 83690; 83735; 85025; 85651; 86140; 87040; 96365; 96366; 96367; 96375; 96376; 99285; J1956; J2405; Q9967

== ENCOUNTER → 2019-04-03 09:36 | Outpatient (CLI) | payer MEDICARE, BC, SELFPAY ==
[2019-04-04 10:11] LABS: PSA, Free 2.35 ng/mL; Prostate Specific Ag 7.6 ng/mL (0.0-4.0)
== END ==
PROVIDERS: Visit Provider Urology
DX: R97.20 Elevated prostate specific antigen [PSA] (principal)
CPT/HCPCS: 36415; 84153; 84154

== ENCOUNTER → 2019-07-07 09:38 | Outpatient (CLI) | payer MEDICARE, BC, SELFPAY ==
--- NOTE | 2019-07-07 09:38 | CA_ITS ---
APPROVED REPORT [employer] Manager: VIANEY Laterality: Bilateral Study Quality: Good Indications: screening CAD HTN HLP Doppler Spectral Velocity Analysis dICA (R) 78.20/33.80 cm/s dICA (L) 76.50/29.40 cm/s Gonsalo (R) 60.90/20.80 cm/s Gonsalo (L) 67.40/30.50 cm/s pICA (R) 44.10/15.40 cm/s pICA (L) 56.10/18.20 cm/s dCCA (R) 102.10/25.00 cm/s dCCA (L) 83.40/20.90 cm/s pCCA (R) 103.40/21.20 cm/s pCCA (L) 73.80/17.10 cm/s Vert (R) 35.30/10.30 cm/s Vert (L) 52.70/21.80 cm/s ICA/CCA 0.77 ICA/CCA 0.91 Conclusion No increased velocities to suggest hemodynamically significant stenosis in either internal carotid artery. Electronically signed by : Santhosh Morgan MD 07/07/2019 17:03:33
== END ==
PROVIDERS: PCP Family Medicine; Visit Provider Physician Assistant
DX: E78.5 Hyperlipidemia, unspecified (principal); I10 Essential (primary) hypertension; I11.9 Hypertensive heart disease without heart failure; I25.10 Atherosclerotic heart disease of native coronary artery without angina pectoris; R00.1 Bradycardia, unspecified; R42 Dizziness and giddiness
CPT/HCPCS: 93880

== ENCOUNTER → 2019-09-09 10:13 | Outpatient (POV) | payer MEDICARE, BC, SELFPAY | PROVIDERS: PCP Family Medicine; Visit Provider Dermatology | DX: Z00.00 Encounter for general adult medical examination without abnormal findings (principal) ==

== ENCOUNTER → 2019-10-02 10:39 | Outpatient (CLI) | payer MEDICARE, BC, SELFPAY ==
[2019-10-03 15:44] LABS: PSA, Free 3.66 ng/mL; Prostate Specific Ag 9.5 ng/mL (0.0-4.0)
== END ==
PROVIDERS: Visit Provider Urology
DX: R97.20 Elevated prostate specific antigen [PSA] (principal)
CPT/HCPCS: 84153; 84154

== ENCOUNTER 2019-11-23 22:00 | Observation (INO) | payer MEDICARE, BC, SELFPAY ==
[2019-11-23 22:12] VITALS: BP 150/104; PULSE 65; RESP 20; TEMP 36.6; O2SAT 96; BMI 33.2
--- NOTE | 2019-11-23 22:19 | CT_ITS ---
PROCEDURE: CT ABDOMEN PELVIS WO CON CLINICAL INDICATION: Abd and back pain nausea, abdominal pain, upper abdominal pain COMPARISON: ABDPELW CT abdomen pelvis w con from 11/14/2018 US GALLBLADDER from 11/24/2019 TECHNIQUE: Axial images obtained with sagittal and coronal reformats. All CT scans at the facility use one or more dose reduction, viz: automated exposure control, ma/kV adjustment per patient size (including targeted exams where dose is matched to indication, i.e. head), or iterative reconstruction technique. FINDINGS: LOWER THORAX: There is a noncalcified 6 mm nodule in the left lower lobe in the costophrenic angle unchanged. Small hiatal hernia suspected. There are coronary artery calcifications and/or stents noted. There is a 4.7 x 3.3 cm cyst in the hepatic dome and other smaller cystic lesions present in the liver which do not appear significantly changed. The spleen, adrenal gland, and pancreas have an unremarkable appearance. The gallbladder is distended with minimal stranding of the pericholecystic fat. There are left peripelvic renal cysts. No renal or ureteral calculi. No intestinal obstruction or free air. No evidence of appendicitis. There are multiple colonic diverticula noted throughout the colon but no evidence of diverticulitis. Urinary bladder wall is slightly thickened. There is degenerative disc disease at L4-5 with endplate sclerosis. IMPRESSION: 1. Distended gallbladder with mild stranding of the pericholecystic fat. Cholecystitis is a consideration. Gallbladder ultrasound suggested. 2. Pancolonic diverticulosis without diverticulitis. 3. Other nonacute findings as described above. Dictated by: Santhosh Morgan MD 11/24/2019 09:05 Electronically signed by Santhosh Morgan MD in [place] 11/24/2019 09:05
--- NOTE | 2019-11-23 22:22 | XR_ITS ---
PROCEDURE: XR CHEST 2V CLINICAL HISTORY: Pain Chest pain, history melanoma COMPARISON: CT ABDOMEN PELVIS WO CON from 11/23/2019 FINDINGS: The cardiomediastinal silhouette and pulmonary vascularity are within normal limits. No lobar consolidation or collapse. On the lateral view there is a small area of increased density overlying the T8 vertebral body anteriorly and may be due to overlying sclerosis of the vertebral body or osteophyte and may be confirmed with follow-up. No acute bony findings. IMPRESSION: No acute finding. Small area of increased density overlying the T8 vertebral body anteriorly and superiorly and may be due to an area of sclerosis/osteophyte. Cannot exclude underlying nodule and follow-up is suggested Dictated by: Santhosh Morgan MD 11/24/2019 05:33 Electronically signed by Santhosh Morgan MD in [place] 11/24/2019 05:33
--- NOTE | 2019-11-23 22:22 | ECG_ITS ---
APPROVED REPORT Exam: Resting ECG HR:62 bpm ECG Measurements Heart Rate 62 AXES VT 208 P 23 QRSd 92 QRS -19 QT 450 T -19 QTc 456 <Conclusion> Sinus rhythm with marked sinus arrhythmia Otherwise normal ECG Electronically signed by : Jamari May, 11/24/2019 20:57:37
[2019-11-23 22:27] LABS: Microscopic, Urine URINE MICROSCOPIC (MICROSCOPIC)
[2019-11-23 22:30] LABS: Basophils # 0.1 K/mm3 (0-0.2); Basophils % 0.7 % (0.1-2.0); Eosinophils # 0.2 K/mm3 (0.0-0.4); Eosinophils % 3.4 % (0.1-12.0); Hematocrit 42.1 % (42.0-52.0); Hemoglobin 14.7 g/dL (14.1-18.0); Lymphocytes # 3.2 K/mm3 (0.7-4.5); Mean Corpuscular Volume 88.5 fl (80-94); Mean Platelet Volume 8.5 fl (7.4-10.4); Monocytes # 0.6 K/mm3 (0.1-1.0); Monocytes % 7.7 % (1.7-9.3); Neutrophils # 3.2 K/mm3 (1.8-7.8); Neutrophils % 44.3 % (37.0-80.0); Platelet Count 148 K/mm3 (142-424); Red Blood Count 4.75 M/mm3 (4.60-6.20); Red Cell Distribution Width 14.1 % (11.5-17.5); White Blood Count 7.2 K/mm3 (4.8-10.8)
[2019-11-23 22:40] LABS: Appearance,Urine CLEAR (Clear); Bilirubin,Urine Negative (Negative); Blood, Urine Negative (Negative); Color,Urine YELLOW (Yellow); Glucose,Urine (UA) Negative (Negative); Ketones,Urine Negative (Negative); Leukocyte Esterase,Urine Negative (Negative); Nitrate,Urine Negative (Negative); PH,Urine 6.5 (5.0-8.5); Protein,Urine Negative (Negative); Specific Gravity, Urine 1.015 (1.005-1.030); Urobilinogen,Urine 0.2 EU/dl (0.2)
[2019-11-23 22:43] LABS: Amorphous Sediment,Urine Trace /lpf
[2019-11-23 22:45] LABS: Alanine Aminotransferase 27 U/L (12-78); Albumin Level 4.4 g/dl (3.5-5.0); Albumin/Globulin Ratio 1.3 (1.1-1.8); Alkaline Phosphatase 79 U/L (38-126); Anion Gap 11.7 mEq/L (5-15); Aspartate Amino Transferase 33 U/L (17-59); Bilirubin,Total 0.5 mg/dl (0.2-1.3); Blood Urea Nitrogen 18 mg/dl (9-20); Calcium 9.5 mg/dl (8.4-10.2); Carbon Dioxide 25 mmol/L (22.0-30.0); Chloride 107 mmol/L (98-107); Creatinine Clearance Estimated 70 mL/min (50-200); Estimated Glomerular Filt Rate 50 ml/min (>60); GFR (African American) 60 ML/MIN (>60); Globulin 3.4 g/dL (1.3-3.2); Glucose 102 mg/dl (74-100); Potassium 3.7 mmoL/L (3.5-5.1); Sodium 140 mmol/L (136-145); Total Protein,Serum 7.8 g/dl (6.3-8.2)
[2019-11-23 22:48] LABS: Amylase 119 U/L (30-110); Lipase 120 U/L (23-300)
[2019-11-23 22:50] LABS: C-Reactive Protein 1.9 mg/L (0-4)
[2019-11-23 22:51] VITALS: BP 152/86; PULSE 86; RESP 16; O2SAT 97
[2019-11-23 22:58] LABS: Erythrocyte Sedimentation Rate 19 mm/hr (0-20)
[2019-11-23 23:01] LABS: Troponin I < 0.01 ng/ml (0.00-0.034)
--- NOTE | 2019-11-23 23:01 | PC.NURSE ---
Pt's updated on admission and condition
[2019-11-23 23:06] LABS: Lactic Acid 1.5 mmol/L (0.7-2.1)
--- NOTE | 2019-11-23 23:11 | HMH.EDNVD ---
ED Disposition Clinical Impression: Cholecystitis Disposition: Admitted As Inpatient Condition on Discharge: Fair Instructions: DI for Acute Abdomen Referrals: Matthew Cazares MD [Primary Care Provider] - - Critical Care Critical Care Time: No Attestation: On 11/23/19, the high probability of a clinically significant, sudden or life threatening deterioration of the following system(s) required my full and direct attention, intervention and personal management. The time I documented below is in addition to time spent performing reported procedures but includes the following listed in this critical care notation. Medical Decision Making - Medical Records Medical records reviewed: Yes: I reviewed the patient's medical records. - Eduard Inquiry Pt receiving controlled substance: No Vital Signs: 11/23/19 22:12 11/23/19 22:51 Temperature 97.9 F Temperature Source Oral Pulse Rate [Right] 65 86 Respiratory Rate 20 16 Blood Pressure [Right Arm] 150/104 H 152/86 H Blood Pressure Mean [Right Arm] 119 108 Blood Pressure Source [Right Arm] Automatic Cuff Blood Pressure Position [Right Arm] Supine 02 Sat by Pulse Oximetry 96 97 Oxygen Delivery Method Room Air Room Air - Lab Data Lab results reviewed: Yes: I reviewed the patient's lab results. Lab Results 11/23/19 22:15: Urine Color Yellow, Urine Appearance Clear, Urine pH 6.5, Ur Specific [place] 1.015, Urine Protein Negative, Urine Glucose (UA) Negative, Urine Ketones Negative, Urine Blood Negative, Urine Nitrate Negative, Urine Bilirubin Negative, Urine Urobilinogen 0.2, Ur Leukocyte Esterase Negative, Amorphous Sediment Trace 11/23/19 22:15: WBC 7.2, RBC 4.75, Hgb 14.7, Hct 42.1, MCV 88.5, MCH 31.0, MCHC 35.0, RDW 14.1, Plt Count 148, MPV 8.5, Neut % (Auto) 44.3, Lymph % (Auto) 44.0, [place] % (Auto) 7.7, Eos % (Auto) 3.4, Baso % (Auto) 0.7, Neut # (Auto) 3.2, Lymph # (Auto) 3.2, [place] # (Auto) 0.6, Eos # (Auto) 0.2, Baso # (Auto) 0.1, ESR 19 11/23/19 22:15: Sodium 140, Potassium 3.7, Chloride 107, Carbon Dioxide 25, Anion Gap 11.7, BUN 18, Creatinine 1.40 H, Estimated Creat Clear 70, Estimated GFR 50 L, Est GFR ( Amer) 60, Glucose 102 H, Calcium 9.5, Total Bilirubin 0.5, AST 33, ALT 27, Alkaline Phosphatase 79, Troponin I < 0.01, C-Reactive Protein 1.9, Total Protein 7.8, Albumin 4.4, Globulin 3.4 H, Albumin/Globulin Ratio 1.3 11/23/19 22:15: Amylase 119 H, Lipase 120 11/23/19 22:50: Lactate 1.5 Result diagrams: 11/23/19 22:15 11/23/19 22:15 Orders (Tests/Meds): ED MEDICATIONS Generic Name Dose Route Start Last Admin Trade Name Freq PRN Reason Stop Dose Admin Sodium Chloride 1,000 mls @ 999 mls/hr 11/23/19 22:30 11/23/19 22:42 Sod Chlor 0.9% 1000ml Bag IV 11/23/19 23:30 999 mls/hr .Q1H1M RENU Administration Sodium Chloride 8 ml 11/23/19 22:29 11/23/19 22:42 Sodium Chloride 0.9% 10ml Vial IV 12/23/19 22:28 8 ml NEEDED PRN Administration dilute pepcid Discontinued Medications Generic Name Dose Route Start Last Admin Trade Name Bonifacioq PRN Reason Stop Dose Admin Butorphanol Tartrate 1 mg 11/23/19 22:29 11/23/19 22:42 Stadol 1mg/1ml Vial IV 11/23/19 22:30 Not Given ONCE ONE Famotidine 20 mg 11/23/19 22:29 11/23/19 22:42 Pepcid 20mg/2ml Vial IV 11/23/19 22:30 20 mg ONCE ONE Administration Hydromorphone HCl 1 mg 11/23/19 22:39 11/23/19 22:42 Dilaudid 2mg/Ml Syringe IV 11/23/19 22:40 1 mg ONCE ONE Administration Hydromorphone HCl 1 mg 11/23/19 23:13 11/23/19 23:21 Dilaudid 2mg/Ml Syringe IV 11/23/19 23:14 1 mg ONCE ONE Administration Metoclopramide HCl 10 mg 11/23/19 22:29 11/23/19 22:42 Reglan 10mg/2ml Vial IVP 11/23/19 22:30 10 mg ONCE ONE Administration Ondansetron HCl 4 mg 11/23/19 22:21 11/23/19 22:41 Zofran 4mg/2ml Vial IV 11/23/19 22:22 4 mg ONCE ONE Administration ORDERS Category Date Time Status CT abdomen pelvis wo con Stat Cat Sca
--- NOTE | 2019-11-23 23:19 | PC.NURSE ---
Dr Flores on phone with Dr Rodriguez for admission
[2019-11-23 23:48] VITALS: BP 148/78; PULSE 84; RESP 16; TEMP 36.6; O2SAT 97
[2019-11-24] VITALS (21 sets, daily range): BP systolic 127–145; BP diastolic 78–98; PULSE 79–94; RESP 14–20; TEMP 36.3–43; O2SAT 91–99; BMI 33.0
--- NOTE | 2019-11-24 00:35 | PC.NURSE ---
pt arrived to floor via wheelchair from ED
[2019-11-24 02:05] LABS: Troponin I < 0.01 ng/ml (0.00-0.034)
[2019-11-24 04:44] LABS: Alanine Aminotransferase 24 U/L (12-78); Albumin Level 4.1 g/dl (3.5-5.0); Albumin/Globulin Ratio 1.3 (1.1-1.8); Alkaline Phosphatase 71 U/L (38-126); Anion Gap 11.4 mEq/L (5-15); Aspartate Amino Transferase 30 U/L (17-59); Bilirubin,Total 0.4 mg/dl (0.2-1.3); Blood Urea Nitrogen 15 mg/dl (9-20); Calcium 9.2 mg/dl (8.4-10.2); Carbon Dioxide 25 mmol/L (22.0-30.0); Chloride 108 mmol/L (98-107); Creatinine Clearance Estimated 81 mL/min (50-200); Estimated Glomerular Filt Rate 60 ml/min (>60); GFR (African American) 72 ML/MIN (>60); Globulin 3.2 g/dL (1.3-3.2); Glucose 102 mg/dl (74-100); Potassium 5.4 mmoL/L (3.5-5.1); Sodium 139 mmol/L (136-145); Total Protein,Serum 7.3 g/dl (6.3-8.2)
[2019-11-24 05:05] LABS: Troponin I < 0.01 ng/ml (0.00-0.034)
--- NOTE | 2019-11-24 06:15 | PC.NURSE ---
Pt to floor 0035, during admission process reported pain increasing. Given in report from Nanda Gonzalez Rn it was difficult to get pain under control when pt first arrived, also vomiting. Phoned Dr Rodriguez who gave additional order for Dilaudid at that time and increased Dilaudid from 1 mg every 4 hours to 2mg every 4 hours. Shortly after giving that dose for breakthrough pain, pt became nauseated again, it would be quite some time before Zofran would be available to give. Dr Rodriguez phoned again with Phenergan order 12.5mg IV every 4 hours PRN N/V. Phenergan given with pt sleeping thereafter, awakening easily for vital signs then back to sleep. Resting at this time, call light w/i reach, IV infusing well, monitoring continues.
--- NOTE | 2019-11-24 07:24 | HMH.PHAVTE ---
[facility] Pharmacy VTE Monitoring - Patient Demographics Admission date: 11/24/19 Report Date: 11/24/19 Time: 07:24 Allergies/Adverse Reactions: Patient Allergies Penicillins Allergy (Unknown, Verified 10/02/19 10:03) I-HIVES codeine Allergy (Verified 11/23/19 23:51) Height: 1.75 m Weight: 101.293 kg Patient Problems: Current Active Problems Cholecystitis (Acute) - VTE Risk Labs: VTE Related Lab Results Hgb 14.7 g/dL (14.1-18.0) 11/23/19 22:15 Hct 42.1 % (42.0-52.0) 11/23/19 22:15 Plt Count 148 K/mm3 (142-424) 11/23/19 22:15 BUN 15 mg/dl (9-20) 11/24/19 04:30 Creatinine 1.20 mg/dl (0.66-1.25) 11/24/19 04:30 Estimated Creat Clear 81 mL/min (50-200) 11/24/19 04:30 Was VTE Risk Assessment Performed: Yes VTE Score: 3 VTE Risk Level: Low Risk Clinical Trial Participant: No - Prophylaxis VTE Prophylaxis Ordered?: Yes Types of VTE Prophylaxis: TEDS Knee High Location of Applied Device: Bilateral Lower Extremeties
--- NOTE | 2019-11-24 07:27 | HMH.PHAINT ---
HOME MEDICATION RECONCILIATION COMPLETED USING LIST FROM [facility]
--- NOTE | 2019-11-24 07:46 | PC.NURSE ---
DR. FERNANDEZ PHONED THIS RN IN REGARDS TO SURGERY CONSULT. THIS RN REPORTED INFORMATION, STATED OKAY.
--- NOTE | 2019-11-24 08:00 | US_ITS ---
PROCEDURE: US GALLBLADDER CLINICAL INDICATION: abd pain Abdominal pain, follow-up abnormal CT with enlarged gallbladder COMPARISON: No exams were available for comparison FINDINGS: Pancreas: Poorly visualized due to overlying bowel Liver: 4.4 cm hepatic cyst in the a patent dome.. There is appropriate direction of blood flow within a non dilated portal vein. Right kidney: Unremarkable appearing. No hydronephrosis. Gallbladder: The gallbladder is distended with mild thickening of the wall. The gallbladder wall measures up to 5 mm. No shadowing stones are evident. There is minimal amount of pericholecystic fluid suspected. IMPRESSION: Distended gallbladder with mildly thickened wall and minimal pericholecystic fluid. No stones are evident. A calculus cholecystitis is a consideration. Please correlate with clinical findings. Dictated by: Santhosh Morgan MD 11/24/2019 09:08 Electronically signed by Santhosh Morgan MD in [place] 11/24/2019 09:08
--- NOTE | 2019-11-24 09:25 | HMH.GSCON ---
*Admission Date: 11/24/19 *Reason for consult:: Cholecystitis *History of present illness: Patient is a very pleasant 73-year-old male who is under the care of Dr. Matthew Cazares. He presented to the emergency department late yesterday evening after he had acute onset of epigastric and right upper quadrant pain radiating through to his back. This was quite severe. He underwent evaluation in the emergency department which included noncontrast CT scan. By [facility] report this was read as hydropic gallbladder . He was admitted for inpatient management. He states that his symptoms have somewhat subsided since admission but he still does have some tenderness in the epigastrium. He has a history of previous diverticulitis but the symptoms do not resemble previous diverticulitis symptoms. He underwent gallbladder ultrasound this morning. Review of Systems - Review of Systems Review of systems:: pertinent systems reviewed and negative unless documented below - *Neurologic Denies seizure-like activity [facility] History Medical History: Reports:: Atherosclerotic Heart Disease, Cancer (right shoulder and right omar), Gastroesophageal Reflux Disease(GERD), Hyperlipidemia, Hypertension Denies:: Diabetes Mellitus Type 1, Diabetes Mellitus Type 2, Internal Pacemaker, Lung Disease, MRSA, Seizures *Have you ever received a pneumonia vaccine?: Yes *Have you received a flu vaccine this season?: Yes Other Medical History: Reports: Arthritis, Hypothyroidism, Thyroid Disease (mildest dose of Sythroid), Other. Denies: Blood Transfusion Reaction Laterality Cases: Right: Carpal Tunnel Release, Other, Bilateral: Arthroscopy Knee, Total Knee Replacement Other Surgeries: Yes: No Previous Surgery, Appendectomy, Cancer Surgery, Cardiac Catheterization, Colonoscopy, Coronary Stent, EGD, Other. No: Pacemaker Amputation: No Fractures: No - *Social History Educational Level: Completed High School Smoking Status: Never smoker Alcohol Intake: never Alcohol Intake Frequency:: other Substance Use Type: denies use *Occupational Status:: employed Housing: house Household Members: spouse *Travel in the last 8 weeks: None Family Hx:: Heart Attack, Hyperlipidemia, Hypertension Meds Home Medications Medication Instructions Recorded Confirmed Type aspirin 81 mg tablet,delayed 81 mg PO DAILY tab 11/15/17 11/24/19 History release esomeprazole magnesium 40 mg 40 mg PO DAILY cap 11/15/17 11/24/19 History capsule,delayed release levothyroxine 25 mcg tablet 25 mcg PO DAILY tab 11/15/17 11/24/19 History bisoprolol fumarate 5 mg tablet 5 mg PO DAILY tab 12/03/17 11/24/19 History lisinopril 10 mg tablet 10 mg PO DAILY tab 12/03/17 11/24/19 History nitroglycerin 0.4 mg sublingual 0.4 mg SUBLINGUAL Q5M PRN #30 tab 12/20/17 11/23/19 Rx tablet melatonin 10 mg capsule 10 mg PO HS PRN 01/01/18 11/24/19 History Atorvastatin Calcium [Atorvastatin 10 mg PO DAILY 11/14/18 11/24/19 History 10mg Tab] Allergies Allergy/AdvReac Type Severity Reaction Status Date / Time Penicillins Allergy Unknown I-HIVES Verified 10/02/19 10:03 codeine Allergy Verified 11/23/19 23:51 Exam Vital signs and Labs for Last 24 Hours: Temp Pulse Resp BP Pulse Ox 98.5 F 94 H 20 144/98 H 94 L 11/24/19 08:00 11/24/19 08:00 11/24/19 08:00 11/24/19 08:00 11/24/19 08:00 Laboratory Results - last 24 hr 11/23/19 22:15: Urine Color Yellow, Urine Appearance Clear, Urine pH 6.5, Ur Specific [place] 1.015, Urine Protein Negative, Urine Glucose (UA) Negative, Urine Ketones Negative, Urine Blood Negative, Urine Nitrate Negative, Urine Bilirubin Negative, Urine Urobilinogen 0.2, Ur Leukocyte Esterase Negative, Amorphous Sediment Trace 11/23/19 22:15: WBC 7.2, RBC 4.75, Hgb 14.7, Hct 42.1, MCV 88.5, MCH 31.0, MCHC 35.0, RDW 14.1, Plt Count 148, MPV 8.5, Neut % (Auto) 44.3, Lymph % (Auto) 44.0, [place] % (Auto) 7.7, Eos % (Auto) 3.4, Baso % (Auto) 0.7, Neut # (Auto) 3.2, Lymph # (Auto) 3
--- NOTE | 2019-11-24 09:36 | HMH.HP ---
*Admission Date: 11/24/19 <Teresa Muhammad 11/24/19 09:42> *Chief complaint: Abdominal pain <Teresa Muhammad 11/24/19 09:42> *History of present illness: Mr Bowers is a 73-year-old female with a history of coronary artery disease with stent in 2018, hypertension, GERD, hypothyroidism, peptic ulcer disease, lumbar degenerative disc disease, osteoarthritis, melanoma x2, pandiverticulosis, BPH who presented to [facility] with right upper quadrant radiating to the back. He did experience nausea as well. He did not vomit until this a.m. He has had diarrhea stools for the past 2 days.Has fever hematemesis melena and hematochezia. With evaluation in the emergency room He was given a liter of IV fluids, Stadol, Pepcid, Dilaudid, Reglan and Zofran IV; laboratory data revealed a normal CBC, normal renal function, potassium of 3.7, normal troponin I, and a slightly elevated amylase at 119. Patient has vomited once this morning. Pain has improved. He has been seen by surgery who report an abnormal gallbladder ultrasound. Patient has been seen by cardiology for clearance for surgery with the following: Assessment and Plan for all problems:: 1. Preop evaluation for cholecystectomy. Patient has a history of coronary artery disease that appears clinically stable at this time on current medical therapy. Will obtain an echocardiogram to confirm preserved ejection fraction but feel that the patient is a low and acceptable risk to proceed with planned gallbladder surgery. 2. History of coronary artery disease, clinically stable on medical therapy. Continue aspirin therapy. 3. Hypertension, controlled on combination of beta-jason and BALBIR inhibitor therapy. 4. Hyperlipidemia, continue statin therapy. <Teresa Muhammad 11/24/19 11:42> [facility] History Medical History: Reports:: Atherosclerotic Heart Disease, Cancer (right shoulder and right omar), Gastroesophageal Reflux Disease(GERD), Hyperlipidemia, Hypertension Denies:: Diabetes Mellitus Type 1, Diabetes Mellitus Type 2, Internal Pacemaker, Lung Disease, MRSA, Seizures <Teresa Muhammad 11/24/19 09:42> *Have you ever received a pneumonia vaccine?: Yes <Teresa Muhammad 11/24/19 09:42> *Have you received a flu vaccine this season?: Yes <Teresa Muhammad 11/24/19 09:42> Other Medical History: Reports: Arthritis, Hypothyroidism, Thyroid Disease (mildest dose of Sythroid), Other. Denies: Blood Transfusion Reaction <Teresa Muhammad 11/24/19 09:42> Laterality Cases: Right: Carpal Tunnel Release, Other, Bilateral: Arthroscopy Knee, Cataract, Total Knee Replacement <Teresa Muhammad 11/24/19 13:02> Other Surgeries: Yes: Appendectomy, Cancer Surgery, Cardiac Catheterization, Colonoscopy, Coronary Stent, EGD, Skin Cancer Excision (melanoma excision x 2). No: Pacemaker <Teresa Muhammad 11/24/19 11:42> Amputation: No <Teresa Muhammad 11/24/19 09:42> Fractures: No <Teresa Muhammad 11/24/19 09:42> Comment: Bleeding ulcer 1973; melanoma removed from the right shoulder 2002; torn ACL surgery in 1997 and 2004; rotator cuff tear repair right shoulder 2010 <Teresa Muhammad 11/24/19 13:02> - *Social History Educational Level: Completed High School <Teresa Muhammad 11/24/19 09:42> Smoking Status: Never smoker <Teresa Muhammad 11/24/19 09:42> Alcohol Intake: never <Teresa Muhammad 11/24/19 09:42> Alcohol Intake Frequency:: other <Teresa Muhammad 11/24/19 09:42> Substance Use Type: denies use <Teresa Muhammad 11/24/19 09:42> *Occupational Status:: employed <Teresa Muhammad 11/24/19 09:42> Housing: house <Teresa Muhammad 11/24/19 09:42> Household Members: spouse <Teresa Muhammad 11/24/19 09:42> *Travel in the last 8 weeks: None <Teresa Muhammad 11/24/19 09:42> Family Hx:: Heart Attack, Hyperlipidemia, Hypertension <Teresa Muhammad 11/24/19 09:42> Review of Systems - Constitutional Reports headache(s), Denies fever(s) <Teresa Muhammad 11/24/19 11:42> - Eyes Reports change in vision
--- NOTE | 2019-11-24 09:59 | HMH.CNCARD ---
History of Present Illness Consult date: 11/24/19 Requesting physician: Santi Paz Consult reason: pre-op evaluation Chief complaint: Abdominal pain Additional Medical History:: 1. Hypertension, since 1999 2. Hypothyroidism, since 2009 3. Family history of coronary artery disease in his father with history of CVA in his 50s and RI in his early 70s 4. History of near syncope, chest pain and abnormal EKG A. Cardiac cath, 2014, mild CAD with insignificant myocardial bridge of the mid LAD segment B. Drug-eluting stent to ramus artery, 12/2017 ANGIOGRAPHIC RESULTS: 1. The left main artery normal 2. The left anterior descending artery is proximally normal and then has mid vessel 30% stenoses. 3. The ramus intermedius is a large vessel and has a proximal 50 and 70% stenosis 4. The circumflex artery is a large caliber dominant vessel and normal 5. The right coronary artery is nondominant yet still a large vessel and normal 6. The DIAS ventriculogram reveals normal 65% 7. The left ventricular end-diastolic pressure normal left ventricular end-diastolic pressure IMPRESSION: 1. Severe disease in the large ramus intermedius 2. Successful stenting of the large ramus intermedius severe disease reduced to 0% with 1 drug-eluting stent 3. Normal ejection fraction 4. Normal left ventricular end-diastolic pressure C. Abnormal stress test, 03/2018, with inferior ischemia felt to be secondary to diaphragmatic attenuation due to normal wall motion and 10.1 METS of activity achieved on a treadmill with baseline abnormal EKG exacerbated during activity. Patient has remained asymptomatic since then on beta-jason therapy. 5. 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 6. GERD with history of peptic ulcer disease 7. History melanoma x2 of right shoulder and cheek 8. Pandiverticulosis History of present illness: Mr Bowers is a 73-year-old female with a history of coronary artery disease with stent in 2018, hypertension, GERD, hypothyroidism, peptic ulcer disease, lumbar degenerative disc disease, osteoarthritis, melanoma x2, pandiverticulosis, BPH who presented to [facility] with right upper quadrant radiating to the back. He did experience nausea as well. He did not vomit until this a.m. He has had diarrhea stools for the past 2 days.Has fever hematemesis melena and hematochezia. With evaluation in the emergency room He was given a liter of IV fluids, Stadol, Pepcid, Dilaudid, Reglan and Zofran IV laboratory data revealed a normal CBC, normal renal function, potassium of 3.7, normal troponin I, and a slightly elevated amylase at 119. Patient is vomited once this morning. Pain has improved. He has been seen by surgery who report an abnormal gallbladder ultrasound. The above per Teresa Muhammad APRN for Dr. Cazares. Patient has remained asymptomatic from a cardiac standpoint since his coronary stenting in 2018. 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 [facility] History Medical History: Reports:: Atherosclerotic Heart Disease, Cancer (right shoulder and right omar), Gastroesophageal Reflux Disease(GERD), Hyperlipidemia, Hypertension Denies:: Diabetes Mellitus Type 1, Diabetes Mellitus Type 2, Internal Pacemaker, Lung Disease, MRSA, Seizures *Have you ever received a pneumonia vaccine?: Yes *Have you received a flu vaccine this season?: Yes Other Medical History: Reports: Arthritis, Hypothyroidism, Thyroid Disease (mildest dose of Sythroid), Other. Denies: Blood Transfusion Reaction Laterality Cases: Right: Carpal Tunnel Release, Other, Bilateral: Arthroscopy Knee, Total Knee Replacement Other Surgeries: Yes: No Previous Surgery, Appendectomy, Cancer Surgery, Cardiac Catheterization, Colonoscopy, Coronary Stent, EGD, Other. No: Pacemaker Amputation: No Fractures: No - *
--- NOTE | 2019-11-24 10:25 | CA_ITS ---
APPROVED REPORT EXAM: Comprehensive 2D, Doppler, and color-flow Echocardiogram Passenger Booking Clerk: Airam Cheney RT(R) Ht: 5 ft 8 in Wt: 223lbs BSA: 2.14 BP: 133/95 mmHg Indications: CP, HTN, Hyperlipidemia, CAD, stents, GERD, Gallbladder surgery today 2D Dimensions LVOT 2.20 cm (M/F) 1.5-2.5 M-Mode Dimensions RVDd 2.85 cm (0.9-2.6) LVDd 3.98 cm (3.5-5.7) LVDs 2.97 cm (3.5-5.7) IVSd 1.08 cm (0.6-1.1) PWd 0.80 cm (0.6-1.1) EF (Teich) 50.60% FS 25.40% EDV (Teich) 69.20 mL ESV (Teich) 34.20 mL Left Ventricle Left atrium is mildly enlarged, left ventricle is normal size, mild concentric left ventricular hypertrophy, visually estimated ejection fraction 55% with no regional wall motion abnormality, grade 1 diastolic dysfunction seen without tissue Doppler evidence of raise left atrial pressure. Right Ventricle Right atrium right ventricular normal size and contractility. Aortic Valve Aortic valve is minimally thickened and fibrosed, there is no aortic stenosis or aortic insufficiency. Mitral Valve Mitral valve leaflets are minimally thickened, there is no mitral stenosis, there is mild mitral regurgitation. Tricuspid Valve Tricuspid valve grossly normal, there is mild tricuspid regurgitation. Tricuspid regurgitation jet velocity is inadequate for calculation of the right ventricular systolic pressure. Pulmonic Valve Pulmonic valve is poorly visualized. Great Vessels Aortic root is normal size. Pericardium No significant pericardial effusion noted. Conclusion 1. Mildly enlarged left atrium, normal left ventricular size, mild concentric left ventricular hypertrophy, visually estimated ejection fraction 55% with no regional wall motion abnormality, grade 1 diastolic dysfunction seen without tissue Doppler evidence of raise left atrial pressure. 2. Mild mitral and tricuspid regurgitation. 3. No significant pericardial effusion noted. Electronically signed by : Derrek Ambrosio, 11/24/2019 20:11:10
--- NOTE | 2019-11-24 11:30 | PC.NURSE ---
PATIENT OFF FLOOR FOR SURGERY
--- NOTE | 2019-11-24 13:22 | P.PN_ITS ---
[facility] Anesthesia Checklist - Patient Identification Patient Identification: Arm Band - Structural Data Admitted From: Inpatient Planned Operative Procedure/s: laparoscopic cholecystectomy Consent for Planned Operative Procedure(s) Verified: Yes Verified Documents: Surgical Consent, History and Physical - NPO Status Verified Time NPO: 00:00 - Additional verifications Anesthesia Reactions: No (nausea) Hx Blood Transfusions: No Blood Transfusion Reaction: No - Airway Assessment C-Spine Mobility Assessed: Yes TMJ Mobility Assessed: Yes Dentition: Good Dentition (lower. Upper dentures) - Neurological Assessment Level of Consciousness: Awake, Alert - Anesthesia Plan Anesthesia Risk discussed: Yes Anesthesia Plan: Verified ASA Class: III Anesthesia Type: General [facility] History I have reviewed the patient's past medical history: Yes Medical History: Reports:: Atherosclerotic Heart Disease, Cancer (right shoulder and right omar), Coronary Artery Disease, Gastroesophageal Reflux Disease(GERD), Hyperlipidemia, Hypertension Denies:: Diabetes Mellitus Type 1, Diabetes Mellitus Type 2, Internal Pacemaker, Lung Disease, MRSA, Seizures *Have you ever received a pneumonia vaccine?: Yes *Have you received a flu vaccine this season?: Yes Other Medical History: Reports: Arthritis, Hypothyroidism, Thyroid Disease (mildest dose of Sythroid), Other. Denies: Blood Transfusion Reaction Anesthesia experience/problems:: nac Laterality Cases: Right: Carpal Tunnel Release, Other, Bilateral: Arthroscopy Knee, Cataract, Total Knee Replacement Other Surgeries: Yes: Appendectomy, Cancer Surgery, Cardiac Catheterization, Colonoscopy, Coronary Stent, EGD, Skin Cancer Excision (melanoma excision x 2), Other. No: Pacemaker Amputation: No Fractures: No - *Social History Educational Level: Completed High School Smoking Status: Never smoker Alcohol Intake: never Alcohol Intake Frequency:: other Substance Use Type: denies use *Occupational Status:: employed Housing: house Household Members: spouse *Travel in the last 8 weeks: None Family Hx:: Heart Attack, Hyperlipidemia, Hypertension
--- NOTE | 2019-11-24 14:19 | HMH.OPNOTE ---
Date of procedure: 11/24/19 Pre-op Diagnosis:: Acute cholecystitis Post-op Diagnosis:: Same Procedure performed:: Laparoscopic cholecystectomy Surgeon:: Santi Paz MD Anesthesia: HERSON Estimated blood loss (mL): 20 Clinical Note:: Patient is a very pleasant 73-year-old male who is under the care of Dr. Matthew Cazares. He presented to the emergency department late yesterday evening after he had acute onset of epigastric and right upper quadrant pain radiating through to his back. This was quite severe. He underwent evaluation in the emergency department which included noncontrast CT scan. By [facility] report this was read as hydropic gallbladder . He was admitted for inpatient management. He states that his symptoms have somewhat subsided since admission but he still does have some tenderness in the epigastrium. He has a history of previous diverticulitis but the symptoms do not resemble previous diverticulitis symptoms. He underwent gallbladder ultrasound this morning. Which revealed findings of thickened distended gallbladder consistent with hydropic gallbladder with some pericholecystic fluid. Patient had clinical evidence of and imaging findings consistent with cholecystitis. Plan was made to proceed with cholecystectomy. Operative findings:: He has not adhesions from previous surgery in the upper mid abdomen. He had findings consistent with hydropic gallbladder. There were no obvious stones. Gallbladder gradually tapered to the cystic duct. Operative note:: Patient was taken to the operating room. He was given preoperative intravenous antibiotics. In the operating room he was placed in a supine position. General anesthesia was induced via endotracheal tube. Abdomen was prepped and draped in the standard surgical fashion. Due to upper midline laparotomy scar Veress needle was inserted through small incision on the left subcostal region. CO2 pneumoperitoneum was achieved to 15 mmHg. Due to the previous laparotomy scar 5 mm trocar was inserted inferior to the umbilicus. Adhesions were encountered and good visualization was unable to be achieved. Therefore additional 5 mm trocar was inserted in the right upper abdomen. Exposure was achieved. Veress needle was observed and removed. There were some loops of bowel adherent to the mid abdomen superior to the umbilicus. These were partially taken down using Metzenbaum dissection. This allowed for placement of 5 mm trocar. Please note that a 10 mm trocar was inserted in the epigastrium. 5 mm umbilical trocar was then removed and replaced with the 11 mm umbilical trocar. Patient was then positioned in reverse Trendelenburg with left side down. Additional 5 mm trocar was inserted in the right upper abdomen. Gallbladder was identified and found to be thickened and acutely inflamed. There were some adhesions of the gallbladder. Gallbladder was grasped retracted anteriorly and superiorly over the dome of the liver. Adhesions were taken down using blunt dissection with some use of BALBIR ultrasonic harmonic grecia. Dissection was carried out at the neck of the gallbladder. The gallbladder neck appeared to gradually taper her to the cystic duct. There was some unavoidable spillage of bile during the dissection process which was consistent with hydropic gallbladder characterized as thin mucous bile. Ultimately the apparent cystic duct was isolated and multiply clipped and then sharply divided. The cystic artery had been cauterized with BALBIR ultrasonic robotic grecia and divided. The gallbladder was dissected free from the liver in a retrograde fashion using BALBIR ultrasonic harmonic grecia. Gallbladder was placed within an Endo Catch retrieval device and removed from the peritoneal cavity via the umbilical trocar site which required some extension of the fascial incision for delivery. Thorough inspection was carried out of the adherent loops of small bowel and there was no evidence of any
--- NOTE | 2019-11-24 14:27 | HMH.ANESI ---
[facility] Anesthesia Record Part I Intake, IV Amount: 1,000 Estimated blood loss (mL): 30 Urine output (mL): 0 (NM) Blood Products used (#): none Blood Pressure: 138/86 SaO2: 97 Pulse Rate: 90 Respiratory Rate: 16 Temperature: 97.6 F Patient is:: Awake, Drowsy, Stable Stable to PACU at:: 14:18
--- NOTE | 2019-11-24 15:02 | PC.NURSE ---
PATIENT ARRIVED BACK ON FLOOR VIA BED.
--- NOTE | 2019-11-24 19:15 | PC.NURSE ---
report given to bartolome
--- NOTE | 2019-11-24 20:40 | PC.NURSE ---
THIS RN ASSESSED PATIENTS SURGERY SITES, SITE AT UMBILICUS GAUZE WAS SATURATED WITH BRIGHT RED BLOOD. THIS RN REMOVED OLD DRESSING, WIPED AREA WITH 4X4 GAUZE, APPLIED NON ADHERENT GAUZE AND SECURED WITH TEGADERM. THIS RN REASSESSED SITE AND MINIMAL BLOODY DRAINAGE NOTED.
[2019-11-25] VITALS (7 sets, daily range): BP systolic 114–138; BP diastolic 71–91; PULSE 63–87; RESP 16–18; TEMP 36.3–36.9; O2SAT 93–98; BMI 32.8
--- NOTE | 2019-11-25 06:01 | PC.NURSE ---
Pt is A&Ox4 and has ambulated independently a few times to the BR and tolerated well. Pt has c/o pain 1x, medicated per MAR. Pt has denied any N/V/D. Pt reports he has passed some flatus and is burping this AM. Pt tolerated Clears well, pt looking forward to possibly advancing diet to solids this am. ABD is soft, tender to umbilicus and r side. Bleeding noted to umbilicus dressing and the 2 right side dressings, borders marked. No advancement on the the 2 right sided dressings, advancement on umbilicus site & new border marked. Telfa is almost saturated about 80-90% of pad is dry. SCUDs in place to BLE. Lungs CTA. VSS, will continue to monitor.
[2019-11-25 06:27] LABS: Basophils % 0.2 % (0.1-2.0); Eosinophils % 0.3 % (0.1-12.0); Hematocrit 38.1 % (42.0-52.0); Hemoglobin 12.8 g/dL (14.1-18.0); Lymphocytes # 1.1 K/mm3 (0.7-4.5); Lymphocytes % 16.5 % (10-50); Mean Corpuscular HGB Conc 33.5 g/dL (31.8-35.4); Mean Corpuscular Hemoglobin 30.1 pg (27.0-31.2); Mean Corpuscular Volume 89.7 fl (80-94); Mean Platelet Volume 8.5 fl (7.4-10.4); Monocytes # 0.6 K/mm3 (0.1-1.0); Monocytes % 8.7 % (1.7-9.3); Neutrophils # 5.2 K/mm3 (1.8-7.8); Neutrophils % 74.4 % (37.0-80.0); Platelet Count 139 K/mm3 (142-424); Red Blood Count 4.25 M/mm3 (4.60-6.20)
[2019-11-25 06:55] LABS: Chloride 107 mmol/L (98-107); Sodium 137 mmol/L (136-145)
[2019-11-25 06:57] LABS: Alkaline Phosphatase 69 U/L (38-126); Bilirubin,Total 1.1 mg/dl (0.2-1.3); Blood Urea Nitrogen 10 mg/dl (9-20); Carbon Dioxide 23 mmol/L (22.0-30.0); Creatinine Clearance Estimated 88 mL/min (50-200); Estimated Glomerular Filt Rate 66 ml/min (>60); GFR (African American) 80 ML/MIN (>60)
[2019-11-25 06:58] LABS: Albumin Level 3.7 g/dl (3.5-5.0); Albumin/Globulin Ratio 1.2 (1.1-1.8); Calcium 8.8 mg/dl (8.4-10.2); Globulin 3.1 g/dL (1.3-3.2); Glucose 107 mg/dl (74-100); Total Protein,Serum 6.8 g/dl (6.3-8.2)
[2019-11-25 06:59] LABS: Alanine Aminotransferase 21 U/L (12-78); Aspartate Amino Transferase 37 U/L (17-59)
--- NOTE | 2019-11-25 07:03 | HMH.GSPN ---
Subjective Narrative: Overall patient feels better. His only complaint is sinus headache. He has tolerated clear liquids. Exam Vital signs and Labs for Last 24 Hours: Temp Pulse Resp BP Pulse Ox 98.2 F 82 18 128/78 95 11/25/19 04:00 11/25/19 04:00 11/25/19 04:00 11/25/19 04:00 11/25/19 04:00 Laboratory Results - last 24 hr 11/25/19 06:10: WBC 7.0, RBC 4.25 L, Hgb 12.8 L, Hct 38.1 L, MCV 89.7, MCH 30.1, MCHC 33.5, RDW 14.0, Plt Count 139 L, MPV 8.5, Neut % (Auto) 74.4, Lymph % (Auto) 16.5, [place] % (Auto) 8.7, Eos % (Auto) 0.3, Baso % (Auto) 0.2, Neut # (Auto) 5.2, Lymph # (Auto) 1.1, [place] # (Auto) 0.6, Eos # (Auto) 0.0, Baso # (Auto) 0.0 11/25/19 06:10: Sodium 137, Potassium 4.0 D, Chloride 107, Carbon Dioxide 23, Anion Gap 11.0, BUN 10 D, Creatinine 1.10, Estimated Creat Clear 88, Estimated GFR 66, Est GFR ( Amer) 80, Glucose 107 H, Calcium 8.8, Total Bilirubin 1.1, AST 37, ALT 21, Alkaline Phosphatase 69, Total Protein 6.8, Albumin 3.7, Globulin 3.1, Albumin/Globulin Ratio 1.2 I & O for Last 24 hours: Intake & Output 11/22/19 11/23/19 11/24/19 11/25/19 11:59 11:59 11:59 11:59 Intake Total [id number] Balance 1430 Weight 223 lb 5 oz 221 lb 8 oz - *Routine Abdominal Exam Present: soft Progress Note: A&P (1) Cholecystitis Status: Acute Current Visit: Yes (2) Diverticulosis of colon Status: Chronic Current Visit: No (3) GERD (gastroesophageal reflux disease) Status: Chronic Current Visit: No (4) CAD (coronary artery disease) Status: Chronic Current Visit: No (5) HLD (hyperlipidemia) Status: Chronic Current Visit: No (6) HTN (hypertension) Status: Chronic Current Visit: No Assessment and Plan for All Diagnoses:: Advance diet. If tolerates without issue possible discharge this afternoon.
--- NOTE | 2019-11-25 07:04 | P.PN_ITS ---
[facility] Anesthesia Record Part II Discharge Time: 15:00 Destination: Medical Surgical Department PACU nurse assessment reviewed?: Yes Patient Condition:: Good Anesthesia Complications:: None Swallowing reflex intact?: Yes Cyanosis?: No Blood Pressure: 138/91 Pulse Rate: 87 Temperature: 97.4 F Mental Status: Alert & Oriented Pain level:: 0 Nausea and/or vomitting:: Nauseated Intake, IV Amount: 0
--- NOTE | 2019-11-25 08:59 | HMH.ACPN2 ---
<Teresa Muhammad - Last Filed: 11/25/19 08:59> Internal Medicine - PN: Subj *Date: 11/25/19 *Time: 08:59 Interval history: Patient slept at intervals. He has some abdominal discomfort with ambulation. He has been up to the bathroom several times. He had eggs and a full breakfast this morning. He denies chest pain and shortness of breath. He has no nausea no vomiting. Bowels have not moved. He has passed some gas. He is voiding without difficulty. Per nursing: He has had some oozing from his lower surgical incision. Exam Vital signs and Labs for Last 24 Hours: Temp Pulse Resp BP Pulse Ox 98.4 F 69 18 121/90 96 11/25/19 07:39 11/25/19 07:39 11/25/19 07:39 11/25/19 07:39 11/25/19 07:39 Laboratory Results - last 24 hr 11/25/19 06:10: WBC 7.0, RBC 4.25 L, Hgb 12.8 L, Hct 38.1 L, MCV 89.7, MCH 30.1, MCHC 33.5, RDW 14.0, Plt Count 139 L, MPV 8.5, Neut % (Auto) 74.4, Lymph % (Auto) 16.5, [place] % (Auto) 8.7, Eos % (Auto) 0.3, Baso % (Auto) 0.2, Neut # (Auto) 5.2, Lymph # (Auto) 1.1, [place] # (Auto) 0.6, Eos # (Auto) 0.0, Baso # (Auto) 0.0 11/25/19 06:10: Sodium 137, Potassium 4.0 D, Chloride 107, Carbon Dioxide 23, Anion Gap 11.0, BUN 10 D, Creatinine 1.10, Estimated Creat Clear 88, Estimated GFR 66, Est GFR ( Amer) 80, Glucose 107 H, Calcium 8.8, Total Bilirubin 1.1, AST 37, ALT 21, Alkaline Phosphatase 69, Total Protein 6.8, Albumin 3.7, Globulin 3.1, Albumin/Globulin Ratio 1.2 I & O for Last 24 hours: Intake & Output 11/22/19 11/23/19 11/24/19 11/25/19 11:59 11:59 11:59 11:59 Intake Total 1431 / 1431 2320 / 2320 Balance 1431 / 1431 2320 / 2320 Weight 223 lb 5 oz 221 lb 8 oz Radiology Reports for the Last 24 Hours: Echocardiogram 11/24/2019 Conclusion 1. Mildly enlarged left atrium, normal left ventricular size, mild concentric left ventricular hypertrophy, visually estimated ejection fraction 55% with no regional wall motion abnormality, grade 1 diastolic dysfunction seen without tissue Doppler evidence of raise left atrial pressure. 2. Mild mitral and tricuspid regurgitation. 3. No significant pericardial effusion noted. - Constitutional no acute distress Comments: Appears comfortable. - *Routine Respiratory Exam Present: CTA bilaterally (Anteriorly and posteriorly) - *Routine Cardiovascular Exam Present: RRR - *Routine Abdominal Exam Present: soft, normoactive bowel sounds, tenderness (Postop), distended Comments: Lower surgical incision site with small amount bloody drainage - *Routine Extremities Exam Absent: edema, calf tenderness - *Routine Neurological Exam Present: alert, oriented X3 Assessment and Plan (1) Cholecystitis Current visit: Yes Status: Acute Category: Medical Code(s): K81.9 - Cholecystitis, unspecified (2) Diverticulosis of colon Current visit: No Status: Chronic Category: Medical Code(s): K57.30 - Diverticulosis of large intestine without perforation or abscess without bleeding (3) GERD (gastroesophageal reflux disease) Current visit: No Status: Chronic Category: Medical Code(s): K21.9 - Gastro-esophageal reflux disease without esophagitis (4) CAD (coronary artery disease) Current visit: No Status: Chronic Qualifiers: Coronary Disease-Associated Artery/Lesion type: redding artery [place] vs. transplanted heart: redding heart Associated angina: with stable angina Qualified Code(s): I25.118 - Atherosclerotic heart disease of redding coronary artery with other forms of angina pectoris Category: Medical Code(s): I25.10 - Atherosclerotic heart disease of redding coronary artery without angina pectoris (5) HLD (hyperlipidemia) Current visit: No Status: Chronic Qualifiers: Hyperlipidemia type: other hyperlipidemia Qualified Code(s): E78.49 - Other hyperlipidemia Category: Medical Code(s): E78.5 - Hyperlipidemia, unspecified (6) HTN (hypertension) Current visit: No Statu
--- NOTE | 2019-11-25 09:26 | HMH.PNCARD ---
Subjective Date: 11/25/19 Time: 09:26 Principal diagnosis: abdominal pain Interval history: 73-year-old white male in bed in no acute distress. States he is feeling better today after surgery to remove his gallbladder yesterday. He denies any chest pain, pressure or tightness. He has eaten breakfast without problems this morning. Exam Vital signs and Labs for Last 24 Hours: Temp Pulse Resp BP Pulse Ox 98.4 F 69 18 121/90 96 11/25/19 07:39 11/25/19 07:39 11/25/19 07:39 11/25/19 07:39 11/25/19 07:39 Laboratory Results - last 24 hr 11/25/19 06:10: WBC 7.0, RBC 4.25 L, Hgb 12.8 L, Hct 38.1 L, MCV 89.7, MCH 30.1, MCHC 33.5, RDW 14.0, Plt Count 139 L, MPV 8.5, Neut % (Auto) 74.4, Lymph % (Auto) 16.5, [place] % (Auto) 8.7, Eos % (Auto) 0.3, Baso % (Auto) 0.2, Neut # (Auto) 5.2, Lymph # (Auto) 1.1, [place] # (Auto) 0.6, Eos # (Auto) 0.0, Baso # (Auto) 0.0 11/25/19 06:10: Sodium 137, Potassium 4.0 D, Chloride 107, Carbon Dioxide 23, Anion Gap 11.0, BUN 10 D, Creatinine 1.10, Estimated Creat Clear 88, Estimated GFR 66, Est GFR ( Amer) 80, Glucose 107 H, Calcium 8.8, Total Bilirubin 1.1, AST 37, ALT 21, Alkaline Phosphatase 69, Total Protein 6.8, Albumin 3.7, Globulin 3.1, Albumin/Globulin Ratio 1.2 I & O for Last 24 hours: Intake & Output 11/22/19 11/23/19 11/24/19 11/25/19 11:59 11:59 11:59 11:59 Intake Total 1431 / 1431 2320 / 2320 Balance 1431 / 1431 2320 / 2320 Weight 223 lb 5 oz 221 lb 8 oz - *Routine Respiratory Exam Present: CTA bilaterally. Absent: accessory muscle use, rales, rhonchi, wheezes - *Routine Cardiovascular Exam Present: RRR. Absent: murmur, gallop, rubs - *Routine Neurological Exam Present: alert, oriented X3, moving all extremities Progress Note: A&P (1) Cholecystitis Status: Acute Current Visit: Yes (2) Diverticulosis of colon Status: Chronic Current Visit: No (3) GERD (gastroesophageal reflux disease) Status: Chronic Current Visit: No (4) CAD (coronary artery disease) Status: Chronic Current Visit: No (5) HLD (hyperlipidemia) Status: Chronic Current Visit: No (6) HTN (hypertension) Status: Chronic Current Visit: No Assessment and Plan for All Diagnoses:: 1. Cardiac status stable with echocardiogram yesterday showing preserved ejection fraction with no significant valvular heart disease. 2. Status post cholecystectomy 3. Hypertension, blood pressure controlled No further recommendations from cardiology standpoint. We will sign off. Patient has a follow-up appointment scheduled already.
--- NOTE | 2019-11-25 12:51 | P.PN_ITS ---
Subjective Patient reports: feels better Narrative: Tolerated diet without difficulty. Exam Vital signs and Labs for Last 24 Hours: Temp Pulse Resp BP Pulse Ox 98.1 F 63 18 114/71 98 11/25/19 11:06 11/25/19 11:06 11/25/19 11:06 11/25/19 11:06 11/25/19 11:06 Laboratory Results - last 24 hr 11/25/19 06:10: WBC 7.0, RBC 4.25 L, Hgb 12.8 L, Hct 38.1 L, MCV 89.7, MCH 30.1, MCHC 33.5, RDW 14.0, Plt Count 139 L, MPV 8.5, Neut % (Auto) 74.4, Lymph % (Auto) 16.5, [place] % (Auto) 8.7, Eos % (Auto) 0.3, Baso % (Auto) 0.2, Neut # (Aut o) 5.2, Lymph # (Auto) 1.1, [place] # (Auto) 0.6, Eos # (Auto) 0.0, Baso # (Auto) 0.0 11/25/19 06:10: Sodium 137, Potassium 4.0 D, Chloride 107, Carbon Dioxide 23, Anion Gap 11.0, BUN 10 D, Creatinine 1.10, Estimated Creat Clear 88, Estimated GFR 66, Est GFR ( Amer) 80, Glucose 107 H, Calcium 8.8, Total Bilirubin 1.1, AST 37, ALT 21, Alkaline Phosphatase 69, Total Protein 6.8, Albumin 3.7, Globulin 3.1, Albumin/Globulin Ratio 1.2 I & O for Last 24 hours: Intake & Output 11/23/19 11/24/19 11/25/19 11/26/19 11:59 11:59 11:59 11:59 Intake Total 1431 / 1431 2320 / 2320 360 / 360 Balance 1431 / 1431 2320 / 2320 360 / 360 Weight 223 lb 5 oz 221 lb 8 oz - *Routine Abdominal Exam Present: soft Progress Note: A&P (1) Cholecystitis Status: Acute Current Visit: Yes (2) Diverticulosis of colon Status: Chronic Current Visit: No (3) GERD (gastroesophageal reflux disease) Status: Chronic Current Visit: No (4) CAD (coronary artery disease) Status: Chronic Current Visit: No (5) HLD (hyperlipidemia) Status: Chronic Current Visit: No (6) HTN (hypertension) Status: Chronic Current Visit: No Assessment and Plan for All Diagnoses:: Should be okay for discharge today.
--- NOTE | 2019-11-25 13:22 | HMH.PHAINT ---
DISCHARGE COUNSELING COMPLETED ON PATIENT. ONLY NEW PRESCRIPTION IS NORCO 5 1-2 TAB Q6HP FOR PAIN. THIS PRESCRIPTION WAS PRINTED OFF. PATIENT IS TO CONTINUE ALL OTHER HOME MEDICATIONS AT THIS TIME. PATIENT VERBALIZED UNDERSTANDING AND HAD NO QUESTIONS. -BRYCE LEONE, BARID
--- NOTE | 2019-11-25 14:18 | PC.NURSE ---
it was noted pt norco was not sent to a pharmacy. when calling dr. melton is asked if the patient felt he needed the pain medication. the patient stated he did not and dr. melton stated to have patient call the office if patient was to feel he needed pain medication.
--- NOTE | 2019-11-30 15:04 | HMH.DCSUM ---
General - General Admission date:: 11/24/19 Discharge date: 11/25/19 HPI HPI: Mr Bowers is a 73-year-old female with a history of coronary artery disease with stent in 2018, hypertension, GERD, hypothyroidism, peptic ulcer disease, lumbar degenerative disc disease, osteoarthritis, melanoma x2, pandiverticulosis, BPH who presented to [facility] with right upper quadrant radiating to the back. He did experience nausea as well. He did not vomit until this a.m. He has had diarrhea stools for the past 2 days. Denies fever hematemesis melena and hematochezia. With evaluation in the emergency room He was given a liter of IV fluids, Stadol, Pepcid, Dilaudid, Reglan and Zofran IV; laboratory data revealed a normal CBC, normal renal function, potassium of 3.7, normal troponin I, and a slightly elevated amylase at 119. Hospital Course Hospital Course: The patient had an abnormal gallbladder ultrasound and was seen by surgery. He was also seen by cardiology for clearance for a cholecystectomy. Cardiology ordered an echocardiogram, but felt he was low and acceptable risk to proceed with gallbladder surgery. The echo showed an EF of 55% with grade 1 diastolic dysfunction. The patient was taken to the OR by Dr. Paz and he performed a laparoscopic cholecystectomy on 11/24/2019. The patient felt better after surgery and was able to tolerate clear liquids. He had some abdominal discomfort with ambulation but was able to use the bathroom and tolerated an advanced diet. He had no further nausea or vomiting and he was passing gas. He was stable to be discharged home with an outpatient follow-up with Dr. Paz. Objective Vital signs: Temp Pulse Resp BP Pulse Ox 98.1 F 64 18 114/71 98 11/25/19 11:06 11/25/19 12:00 11/25/19 11:06 11/25/19 11:06 11/25/19 11:06 Narrative: - Constitutional no acute distress - *Routine HEENT Exam Head: Present: normocephalic, atraumatic Eye: Present: PERRL. Absent: conjunctival icterus, scleral injection ENT: Present: mucous membranes moist, oropharynx clear, nares patent - *Routine Neck Exam Present: supple. Absent: carotid bruit, lymphadenopathy, thyromegaly - *Routine Respiratory Exam Present: CTA bilaterally (A&P) - *Routine Cardiovascular Exam Present: RRR - *Routine Abdominal Exam Present: soft, normoactive bowel sounds, tenderness (mild in RUQ and epigastrium; negative Soares's) - *Routine Extremities Exam Present: pulses intact. Absent: edema, calf tenderness - *Routine Neurological Exam Present: alert, oriented X3 DS: Diagnosis - Discharge Diagnosis (1) Cholecystitis Status: Acute (2) Diverticulosis of colon Status: Chronic (3) GERD (gastroesophageal reflux disease) Status: Chronic (4) CAD (coronary artery disease) Status: Chronic (5) HLD (hyperlipidemia) Status: Chronic (6) HTN (hypertension) Status: Chronic Discharge Plan - Patient Discharge Instructions ACTIVITY: No heavy lifting DIET: advance to your usual diet Patient Instructions: DI for Cholecystitis - Follow up Plan Follow up with: Santi Paz MD [Staff Physician] - 12/12/19 10:30 am Disposition: Home, Self-[facility] Medications: Home Medications Medication Instructions Recorded Confirmed Type aspirin 81 mg tablet,delayed 81 mg PO DAILY tab 11/15/17 11/26/19 History release esomeprazole magnesium 40 mg 40 mg PO DAILY cap 11/15/17 11/26/19 History capsule,delayed release levothyroxine 25 mcg tablet 25 mcg PO DAILY tab 11/15/17 11/26/19 History bisoprolol fumarate 5 mg tablet 5 mg PO DAILY tab 12/03/17 11/26/19 History lisinopril 10 mg tablet 10 mg PO DAILY tab 12/03/17 11/26/19 History melatonin 10 mg capsule 10 mg PO HSP PRN 01/01/18 11/26/19 History Atorvastatin Calcium [Atorvastatin 10 mg PO DAILY 11/14/18 11/26/19 History 10mg Tab] Hydrocod/Acet 5/325 mg [[place] 1 - 2 tab
== END 2019-11-25 14:15 | disposition home or self-care (01) ==
LOC: ER 22:26 → 2ND 23:28
PROVIDERS: Surgery; Admitting Provider Family Medicine; Emergency Provider Emergency Medicine; PCP Family Medicine; Visit Provider Family Medicine
PROC: 0FT44ZZ Resection of Gallbladder, Percutaneous Endoscopic Approach (ICD-10-PCS; CPT 47562; principal; 2019-11-24 12:00)
DX: K81.0 Acute cholecystitis (principal); K57.30 Diverticulosis of large intestine without perforation or abscess without bleeding; E03.9 Hypothyroidism, unspecified; I10 Essential (primary) hypertension; I25.118 Atherosclerotic heart disease of native coronary artery with other forms of angina pectoris; Z95.5 Presence of coronary angioplasty implant and graft; Z88.0 Allergy status to penicillin; Z88.5 Allergy status to narcotic agent
CPT/HCPCS: 47562; 36415; 71046; 74176; 76705; 80053; 81001; 82150; 83605; 83690; 84484; 85025; 85651; 86140; 87040; 88304; 93005; 93306; 96365; 96366; 96375; 96376; 99285; G0378; J1335; J2405

== ENCOUNTER 2019-11-26 06:56 | Observation (INO) | payer MEDICARE, BC, SELFPAY ==
[2019-11-26] VITALS (25 sets, daily range): BP systolic 95–134; BP diastolic 61–84; PULSE 50–73; RESP 15–20; TEMP 36.2–36.8; O2SAT 93–97; BMI 33.2; BMI 33.0
--- NOTE | 2019-11-26 | IR_ITS ---
APPROVED REPORT Patient Location: Inpatient [employer] Technician: LADONNA Small RT (R) PROCEDURES Left heart catheterization Left ventriculogram Selective coronary angiogram INDICATION Known coronary artery disease, History of coronary stenting, Unstable angina Informed consent was obtained prior to the procedure. COMPLICATIONS NONE Estimated Blood Loss: LESS THAN 10 ML TECHNIQUE One percent lidocaine used to anesthetize the right anterior aspect of the wrist. The right radial artery was accessed via the Seldinger technique. A 6 Japanese sheath was placed in the right radial artery. 2.5 mg of verapamil, 800 mcg of nitroglycerin, 1mg Lidocaine and 5000 U Heparin were given through the arterial sheath. The trap catheter was also used to perform left heart catheterization, left ventriculogram and selective coronary angiogram. At the end of the procedure the sheath was removed good hemostasis was achieved using Traclet band, patient was transferred to the postop holding area in stable condition. ANGIOGRAPHIC RESULTS The left main artery Normal The left anterior descending artery Has a stent in the proximal segment which is widely patent free of in-stent restenosis with excellent proximal distal transitioning The circumflex artery Is a large dominant vessel and normal The right coronary artery Nondominant with mild proximal 10% stenosis The DIAS ventriculogram reveals Normal 65% The left ventricular end-diastolic pressure 10 mmHg IMPRESSION Widely patent proximal LAD stent Normal ejection fraction Normal left ventricular end-diastolic pressure PLAN 1. Treatment of noncardiac chest pain Electronically signed by : Jose De Jesus Madsen, 11/26/2019 10:58:22
--- NOTE | 2019-11-26 06:45 | ECG_ITS ---
APPROVED REPORT Exam: Resting ECG HR:53 bpm ECG Measurements Heart Rate 53 AXES SD 200 P 32 QRSd 96 QRS -42 QT 410 T -16 QTc 384 <Conclusion> Sinus bradycardia Left axis deviation Possible Anterior infarct, age undetermined Abnormal ECG Electronically signed by : Jamari May, 11/27/2019 21:55:35
[2019-11-26 07:08] LABS: Basophils % 0.5 % (0.1-2.0); Eosinophils # 0.2 K/mm3 (0.0-0.4); Eosinophils % 3.3 % (0.1-12.0); Hematocrit 40.3 % (42.0-52.0); Hemoglobin 13.4 g/dL (14.1-18.0); Lymphocytes # 2.8 K/mm3 (0.7-4.5); Lymphocytes % 43.9 % (10-50); Mean Corpuscular HGB Conc 33.3 g/dL (31.8-35.4); Mean Corpuscular Hemoglobin 30.6 pg (27.0-31.2); Mean Corpuscular Volume 91.6 fl (80-94); Mean Platelet Volume 8.2 fl (7.4-10.4); Monocytes # 0.5 K/mm3 (0.1-1.0); Neutrophils # 2.9 K/mm3 (1.8-7.8); Neutrophils % 45.3 % (37.0-80.0); Platelet Count 127 K/mm3 (142-424); White Blood Count 6.3 K/mm3 (4.8-10.8)
[2019-11-26 07:11] LABS: Anion Gap 9.7 mEq/L (5-15); Blood Urea Nitrogen 14 mg/dl (9-20); Calcium 9.4 mg/dl (8.4-10.2); Carbon Dioxide 26 mmol/L (22.0-30.0); Chloride 107 mmol/L (98-107); Creatinine Clearance Estimated 82 mL/min (50-200); Estimated Glomerular Filt Rate 60 ml/min (>60); GFR (African American) 72 ML/MIN (>60); Glucose 102 mg/dl (74-100); Potassium 3.7 mmoL/L (3.5-5.1); Sodium 139 mmol/L (136-145)
--- NOTE | 2019-11-26 07:15 | ECG_ITS ---
APPROVED REPORT Exam: Resting ECG HR:53 bpm ECG Measurements Heart Rate 53 AXES ME 206 P 41 QRSd 90 QRS -38 QT 432 T -24 QTc 405 <Conclusion> Sinus bradycardia Left axis deviation Minimal voltage criteria for LVH, may be normal variant Possible Anterior infarct, age undetermined Abnormal ECG Electronically signed by : Jamari May, 11/27/2019 21:55:27
[2019-11-26 07:24] LABS: Troponin I < 0.01 ng/ml (0.00-0.034)
--- NOTE | 2019-11-26 07:36 | HMH.EDCP ---
ED Disposition Clinical Impression: Angina at rest Disposition: Admitted as Observation Condition on Discharge: Good Referrals: Matthew Cazares MD [Primary Care Provider] - - Critical Care Critical Care Time: No Attestation: On 11/26/19, the high probability of a clinically significant, sudden or life threatening deterioration of the following system(s) required my full and direct attention, intervention and personal management. The time I documented below is in addition to time spent performing reported procedures but includes the following listed in this critical care notation. Medical Decision Making - Medical Records Medical records reviewed: Yes: I reviewed the patient's medical records. - Eduard Inquiry Pt receiving controlled substance: No Vital Signs: 11/26/19 06:48 11/26/19 07:15 Temperature 98.1 F Temperature Source Oral Pulse Rate [Right] 57 L 53 L Respiratory Rate 16 18 Blood Pressure [Right Arm] 115/84 120/79 Blood Pressure Mean [Right Arm] 94 92 Blood Pressure Source [Right Arm] Automatic Cuff Blood Pressure Position [Right Arm] Supine 02 Sat by Pulse Oximetry 97 96 Oxygen Delivery Method Room Air Room Air - Lab Data Lab results reviewed: Yes: I reviewed the patient's lab results. Lab Results 11/26/19 06:40: WBC 6.3, RBC 4.40 L, Hgb 13.4 L, Hct 40.3 L, MCV 91.6, MCH 30.6, MCHC 33.3, RDW 14.0, Plt Count 127 L, MPV 8.2, Neut % (Auto) 45.3, Lymph % (Auto) 43.9, [place] % (Auto) 7.0, Eos % (Auto) 3.3, Baso % (Auto) 0.5, Neut # (Auto) 2.9, Lymph # (Auto) 2.8, [place] # (Auto) 0.5, Eos # (Auto) 0.2, Baso # (Auto) 0.0 11/26/19 06:40: Sodium 139, Potassium 3.7, Chloride 107, Carbon Dioxide 26, Anion Gap 9.7, BUN 14 D, Creatinine 1.20, Estimated Creat Clear 82, Estimated GFR 60, Est GFR ( Amer) 72, Glucose 102 H, Calcium 9.4, Troponin I < 0.01 Result diagrams: 11/26/19 06:40 11/26/19 06:40 Orders (Tests/Meds): ED MEDICATIONS Generic Name Dose Route Start Last Admin Trade Name Freq PRN Reason Stop Dose Admin Sodium Chloride 1,000 mls @ 999 mls/hr 11/26/19 07:00 11/26/19 07:09 Sod Chlor 0.9% 1000ml Bag IV 11/26/19 08:00 999 mls/hr .Q1H1M RENU Administration Discontinued Medications Generic Name Dose Route Start Last Admin Trade Name Freq PRN Reason Stop Dose Admin Nitroglycerin 1 gm 11/26/19 06:59 11/26/19 07:09 Nitroglycerin 1 Inch Oint Udp TD 11/26/19 07:00 1 gm ONCE ONE Administration Ondansetron HCl 4 mg 11/26/19 06:59 11/26/19 07:09 Zofran 4mg/2ml Vial IV 11/26/19 07:00 4 mg ONCE ONE Administration ORDERS Category Date Time Status XR chest 2V Stat Exams 11/26/19 06:59 Ordered Troponin I Q3H Lab 11/26/19 10:00 Ordered Troponin I Q3H Lab 11/26/19 13:00 Ordered - ECG Data Tracing #1 Normal Sinus Rhythm: Yes Ischemic changes: poor r wave progression, other (lat st depression) ECG compared to prior tracings: this ECG reveals significant changes Tracing #2 Normal Sinus Rhythm: Yes Ischemic changes: non-specific ST-T wave changes - Physician Consults Physician Consulted: emma Reason -: Pt condition Additional Consult: dora Reason -: Admission - Reevaluation(s) Time: 07:42 Reevaluation #1: doing better Medical Decision Narrative: known ht dis and recent surg with ekg changes Chest Pain HPI - General Chief Complaint: Chest Pain Stated Complaint: chest pain Time Seen by Provider: 11/26/19 07:00 Mode of Arrival: EMS Source of Information: Patient, EMS, Medical Record Limitations: No Limitations Description of Symptoms (Recalled from ER Triage Doc. by RN): Pt c/o left chest pain and mid back starting this morning, pt was here sunday with GB removal. Pt states he took a nitro at home with relief. EMS gave 324 ASA in transport. - History of Present Illness HPI narrative: pt with recent gb surg and has known heart disease presents with acute onset of lt sided chest pain this am -
--- NOTE | 2019-11-26 08:17 | P.CONPHA_ITS ---
[facility] Pharmacy VTE Monitoring - Patient Demographics Admission date: 11/26/19 Report Date: 11/26/19 Time: 08:17 Allergies/Adverse Reactions: Patient Allergies Penicillins Allergy (Unknown, Verified 10/02/19 10:03) I-HIVES codeine Allergy (Verified 11/23/19 23:51) Height: 1.75 m Weight: 102.058 kg Patient Problems: Current Active Problems Angina at rest (Acute) - VTE Risk Labs: VTE Related Lab Results Hgb 13.4 g/dL (14.1-18.0) L 11/26/19 06:40 Hct 40.3 % (42.0-52.0) L 11/26/19 06:40 Plt Count 127 K/mm3 (142-424) L 11/26/19 06:40 BUN 14 mg/dl (9-20) D 11/26/19 06:40 Creatinine 1.20 mg/dl (0.66-1.25) 11/26/19 06:40 Estimated Creat Clear 82 mL/min (50-200) 11/26/19 06:40 - Prophylaxis VTE Prophylaxis Ordered?: Yes Types of VTE Prophylaxis: TEDS Knee High Location of Applied Device: Bilateral Lower Extremeties - VTE Diagnosis Confirmed Treatment or plan recommended: Continue Current Treatment
--- NOTE | 2019-11-26 08:19 | HMH.PHAINT ---
MEDICATION RECONCILIATION COMPLETED ON PATIENT USING DISCHARGE SUMMARY FROM PREVIOUS ADMISSION (YESTERDAY). -BARI SIBLEYD
--- NOTE | 2019-11-26 09:07 | HMH.HP ---
*Admission Date: 11/26/19 <Peggy Ring 11/26/19 09:14> *Chief complaint: chest pain <Peggy Ring 11/26/19 09:14> *History of present illness: Mr. Bowers is a 73-year-old male who was just recently discharged from & after gallbladder removal. He states he got up to go to the bathroom this morning around 5 AM and when he was coming back to his bed, he began having pain in his back between his shoulder blades. The pain then radiated to the left side of his chest and was stabbing in nature. He states it did not radiate to his neck or down his arm. He became very short of breath and states he was clammy. He took a nitro and called 911. By the time 911 arrived at his home, his chest pain was starting to ease. He was given aspirin in route to the ER. He did have an EKG which was abnormal. His initial troponin was normal. He was admitted and cardiology was consulted. At this time, his chest pain has improved. He states it is almost resolved but he now has a headache from the nitroglycerin. Of note, he did have a stent placed [address] Madsen. <Peggy Ring 11/26/19 09:14> [facility] History I have reviewed the patient's past medical history: Yes <Peggy Ring 11/26/19 09:14> Medical History: Reports:: Atherosclerotic Heart Disease, Cancer (right shoulder and right omar), Coronary Artery Disease, Gastroesophageal Reflux Disease(GERD), Hyperlipidemia, Hypertension Denies:: Diabetes Mellitus Type 1, Diabetes Mellitus Type 2, Internal Pacemaker, Lung Disease, MRSA, Seizures <Peggy Ring 11/26/19 09:14> *Have you ever received a pneumonia vaccine?: Yes <Peggy Ring 11/26/19 09:14> *Have you received a flu vaccine this season?: Yes <Peggy Ring 11/26/19 09:14> Other Medical History: Reports: Arthritis, Hypothyroidism, Thyroid Disease (mildest dose of Sythroid), Other. Denies: Blood Transfusion Reaction <Peggy Ring 11/26/19 09:14> Laterality Cases: Right: Carpal Tunnel Release, Other, Bilateral: Arthroscopy Knee [facility] Other Surgeries: Yes: No Previous Surgery, Appendectomy, Cancer Surgery, Cardiac Catheterization, Cholecystectomy, Colonoscopy, Coronary Stent, EGD, Skin Cancer Excision (melanoma excision x 2), Other. No: Pacemaker <[facility] 11/26/[facility] 09:14> Amputation: No <[facility] 11/26/19 09:14> Fractures: No <[facility] 11/26/[facility] 09:14> - *Social History Smoking Status: Never smoker <[facility] 11/26/19 09:14> Alcohol Intake: never <[facility] 11/26/19 09:14> Alcohol Intake Frequency:: other <[facility] 11/26/19 09:14> Substance Use Type: denies use <[facility] 11/26/19 09:14> *Occupational Status:: retired <[facility] 11/26/[facility] 09:14> Housing: house <[facility] 11/26/19 09:14> Household Members: spouse <[facility] 11/26/19 09:14> *Travel in the last 8 weeks: None <[facility] 11/26/19 09:14> Family Hx:: Heart Attack, Hyperlipidemia, Hypertension <[facility] 11/26/19 09:14> Review of Systems - Constitutional Reports weakness, Denies chills, Denies fatigue <[facility] 11/26/19 09:14> - Eyes Denies blurry vision, Denies double vision <[facility] 11/26/[facility] 09:14> - ENT Reports nasal congestion, Denies sore throat <[facility] 11/26/19 09:14> - *Cardiovascular Reports chest pain, Reports shortness of breath, Denies leg swelling, Denies rapid, pounding, or irregular heartbeat <[facility] 11/26/19 09:14> - *Respiratory Reports cough, Denies chest congestion <[facility] 11/26/19 09:14> - *Gastrointestinal Reports abdominal pain (at incision sites), Reports nausea, Denies loose stools, Denies vomiting <Peggy Ring 11/26/19 09:14> - *Genitourinary Denies difficulty urinating, Denies painful urination <Peggy Ring 11/26/19 09:14> - *Musculoskeletal Denies joint pain <Peggy Ring 11/26/19 09:14> - *Neurologic Reports headache(s), Denies l
--- NOTE | 2019-11-26 09:24 | HMH.CNCARD ---
<Aziza Camilo - Last Filed: 11/26/19 09:39> History of Present Illness Consult date: 11/26/19 Requesting physician: Matthew Cazares Consult reason: chest pain Chief complaint: chest pain Additional Medical History:: 1. CAD with stenting in 2018 2. htn 3. hld 4. GERD 5. thyroid disease History of present illness: This is a 73-year-old gentleman who was admitted to the hospital with chest pain. He had his gallbladder removed 2 days ago and had been doing fine until around 5 AM this morning when he had sudden onset of pain. He states it started between his shoulder blades and it was a sharp twisting sensation that radiated through to his chest and felt like a sharp stabbing pain in the left side of his chest. He states that this did radiate to his bilateral neck as well. It was associated with shortness of breath and nausea. He states that he had a lot of burning and indigestion in his chest as well. The patient decided to come to the emergency department. He did have some ST depression and he was treated with nitroglycerin. His chest pain improved and his EKG also improved. This morning he is still complaining of a lot of burning and indigestion in his chest as well as nausea. He states that it is kind of hard to breathe at times because of all of the indigestion and burning in his chest. The patient does have known coronary artery disease with stenting in 2018. He denies any fever, chills, vomiting, diarrhea, PND or orthopnea. [facility] History I have reviewed the patient's past medical history: Yes Medical History: Reports:: Atherosclerotic Heart Disease, Cancer (right shoulder and right omar), Coronary Artery Disease, Gastroesophageal Reflux Disease(GERD), Hyperlipidemia, Hypertension Denies:: Diabetes Mellitus Type 1, Diabetes Mellitus Type 2, Internal Pacemaker, Lung Disease, MRSA, Seizures *Have you ever received a pneumonia vaccine?: Yes *Have you received a flu vaccine this season?: Yes Other Medical History: Reports: Arthritis, Hypothyroidism, Thyroid Disease (mildest dose of Sythroid), Other. Denies: Blood Transfusion Reaction Laterality Cases: Right: Carpal Tunnel Release, Other, Bilateral: Arthroscopy Knee Other Surgeries: Yes: No Previous Surgery, Appendectomy, Cancer Surgery, Cardiac Catheterization, Cholecystectomy, Colonoscopy, Coronary Stent, EGD, Skin Cancer Excision (melanoma excision x 2), Other. No: Pacemaker Amputation: No Fractures: No - *Social History Smoking Status: Never smoker Alcohol Intake: never Alcohol Intake Frequency:: other Substance Use Type: denies use *Occupational Status:: retired Housing: house Household Members: spouse *Travel in the last 8 weeks: None Family Hx:: Heart Attack, Hyperlipidemia, Hypertension Meds Home Medications Medication Instructions Recorded Confirmed Type aspirin 81 mg tablet,delayed 81 mg PO DAILY tab 11/15/17 11/26/19 History release esomeprazole magnesium 40 mg 40 mg PO DAILY cap 11/15/17 11/26/19 History capsule,delayed release levothyroxine 25 mcg tablet 25 mcg PO DAILY tab 11/15/17 11/26/19 History bisoprolol fumarate 5 mg tablet 5 mg PO DAILY tab 12/03/17 11/26/19 History lisinopril 10 mg tablet 10 mg PO DAILY tab 12/03/17 11/26/19 History melatonin 10 mg capsule 10 mg PO HSP PRN 01/01/18 11/26/19 History Atorvastatin Calcium [Atorvastatin 10 mg PO DAILY 11/14/18 11/26/19 History 10mg Tab] Hydrocod/Acet 5/325 mg [[place] 1 - 2 tab PO Q6HP PRN #21 tab 11/25/19 11/26/19 Rx 5/325mg tablet] Allergies Allergy/AdvReac Type Severity Reaction Status Date / Time Penicillins Allergy Unknown I-HIVES Verified 10/02/19 10:03 codeine Allergy Verified 11/23/19 23:51 Review of Systems - Review of Systems Review of systems:: pertinent systems reviewed and negative unless documented below - *Cardiovascular Reports chest pain, Reports chest pain at rest, Reports chest pain with activity, Reports excessive sweating (hands), Reports shortnes
[2019-11-26 10:37] LABS: Chol/HDL Ratio 2.1 (1-3.5); Cholesterol 93 mg/dl (140-200); HDL Cholesterol 44 mg/dl (40-60); Triglycerides 102 mg/dl (30-150); VLDL Cholesterol 20 mg/dL (0-40)
--- NOTE | 2019-11-26 19:15 | PC.NURSE ---
report given to yazmin
--- NOTE | 2019-11-26 19:30 | PC.NURSE ---
@ 1300 TRACELET DIALED DOWN TO 10, PT RANG OUT @ 1310 SAYING THAT HE WAS BLEEDING FROM SITE. TRACELET DIALED BACK UP AT THIS TIME, W/ BLEEDING SUBSIDING AT THAT TIME. 1335 - TRACELET DIALED DOWN TO 10 1350 - TRACELET DIALED TO 8 1410 - TRACELET DIALED TO 6 1435 - TRACELET DIALED TO 4 1450 - TRACELET DIALED TO 2 1510 - TRACELET DIALED TO 0 TRACELET OBSERVED AND REMOVED W/ NO S/S OF BLEEDING. TELFA AND TEGADERM PLACED ON RADIAL SITE. EDUCATION GIVEN ON RESTRICTIONS. PT VERBALIZED UNDERSTANDING.
[2019-11-27] VITALS: BP 132/84; PULSE 68; PULSE 70; RESP 18; TEMP 36.9; O2SAT 96
[2019-11-27 04:00] VITALS: BP 115/77; PULSE 60; PULSE 62; RESP 17; TEMP 36.8; O2SAT 96
--- NOTE | 2019-11-27 04:57 | PC.NURSE ---
Pt rested well this shift. No complaints reported to staff. Pt has been standby assist to BR and has voided clear, yellow urine w/o issues. Right radial cath site drsg is c/d/i w/o evidence of bleeding or hematoma. NSR/Valdo on Tele. VSS.
[2019-11-27 05:00] VITALS: BMI 33.3
[2019-11-27 07:58] VITALS: BP 121/89; PULSE 72; RESP 18; TEMP 36.8; O2SAT 98
--- NOTE | 2019-11-27 08:26 | HMH.PNCARD ---
Subjective Date: 11/27/19 Time: 08:26 Principal diagnosis: back pain Interval history: 73-year-old white male in bed in no acute distress. Right radial cath site looks good. Patient relates some soreness but otherwise okay. He believes he has been discharged home but is waiting Dr. Cazares's visit this morning. Exam Vital signs and Labs for Last 24 Hours: Temp Pulse Resp BP Pulse Ox 98.2 F 72 18 121/89 98 11/27/19 07:58 11/27/19 07:58 11/27/19 07:58 11/27/19 07:58 11/27/19 07:58 Laboratory Results - last 24 hr 11/26/19 06:40: Triglycerides 102, Cholesterol 93 L, LDL Cholesterol Direct 42.70 L, VLDL Cholesterol 20, HDL Cholesterol 44, Cholesterol/HDL Ratio 2.1 I & O for Last 24 hours: Intake & Output 11/24/19 11/25/19 11/26/19 11/27/19 11:59 11:59 11:59 11:59 Intake Total 1953 / 1952 Output Total 600 / 600 Balance 1353 / 1353 Weight 224 lb 3 oz 225 lb 2 oz - *Routine Respiratory Exam Present: CTA bilaterally. Absent: accessory muscle use, rales, rhonchi, wheezes - *Routine Cardiovascular Exam Present: RRR. Absent: murmur, gallop, rubs Progress Note: A&P (1) Angina at rest Status: Acute Current Visit: Yes (2) Status post cholecystectomy Status: Acute Current Visit: Yes (3) CAD (coronary artery disease) Status: Chronic Current Visit: No (4) GERD (gastroesophageal reflux disease) Status: Chronic Current Visit: No (5) HLD (hyperlipidemia) Status: Chronic Current Visit: No (6) HTN (hypertension) Status: Chronic Current Visit: No (7) Abnormal EKG Status: Acute Current Visit: Yes Assessment and Plan for All Diagnoses:: 1. Status post cholecystectomy earlier this week 2. Back pain with stable coronary artery disease by cardiac catheterization yesterday. Okay for discharge from cardiology standpoint with follow-up in 1 week. Continue home medications including bisoprolol, lisinopril, atorvastatin and aspirin.
--- NOTE | 2019-11-27 08:30 | HMH.ACPN2 ---
<Peggy Ring - Last Filed: 11/27/19 08:30> Internal Medicine - PN: Subj *Date: 11/27/19 *Time: 08:30 Interval history: Patient states he is feeling well this morning. He has had no further chest pain or shortness of breath. He states he had some belching yesterday but this is resolved today. He slept well and wants to go home today. Exam Vital signs and Labs for Last 24 Hours: Temp Pulse Resp BP Pulse Ox 98.2 F 72 18 121/89 98 11/27/19 07:58 11/27/19 07:58 11/27/19 07:58 11/27/19 07:58 11/27/19 07:58 Laboratory Results - last 24 hr 11/26/19 06:40: Triglycerides 102, Cholesterol 93 L, LDL Cholesterol Direct 42.70 L, VLDL Cholesterol 20, HDL Cholesterol 44, Cholesterol/HDL Ratio 2.1 I & O for Last 24 hours: Intake & Output 11/24/19 11/25/19 11/26/19 11/27/19 11:59 11:59 11:59 11:59 Intake Total 1953 / 1952 Output Total 600 / 600 Balance 1353 / 1353 Weight 224 lb 3 oz 225 lb 2 oz - Constitutional no acute distress - *Routine Respiratory Exam Present: CTA bilaterally - *Routine Cardiovascular Exam Present: RRR - *Routine Abdominal Exam Present: soft, normoactive bowel sounds, tenderness (around incision sites) - *Routine Extremities Exam Absent: cyanosis, clubbing, edema - *Routine Skin Exam Present: warm. Absent: rash - *Routine Neurological Exam Present: alert, oriented X3 Assessment and Plan (1) Angina at rest Current visit: Yes Status: Acute Category: Medical Code(s): I20.8 - Other forms of angina pectoris (2) Status post cholecystectomy Current visit: Yes Status: Acute Category: Surgical Code(s): Z90.49 - Acquired absence of other specified parts of digestive tract (3) CAD (coronary artery disease) Current visit: No Status: Chronic Category: Medical Code(s): I25.10 - Atherosclerotic heart disease of [place] coronary artery without angina pectoris (4) GERD (gastroesophageal reflux disease) Current visit: No Status: Chronic Category: Medical Code(s): K21.9 - Gastro-esophageal reflux disease without esophagitis (5) HLD (hyperlipidemia) Current visit: No Status: Chronic Category: Medical Code(s): E78.5 - Hyperlipidemia, unspecified (6) HTN (hypertension) Current visit: No Status: Chronic Category: Medical Code(s): I10 - Essential (primary) hypertension (7) Abnormal EKG Current visit: Yes Status: Acute Category: Medical Code(s): R94.31 - Abnormal electrocardiogram [ECG] [EKG] - Assessment and plan all Dx Assessment and Plan for all problems:: Cardiology has seen the patient and feel he can be discharged home. Possible discharge home today. Will discuss with Dr. Cazares. <Matthew Cazares - Last Filed: 11/27/19 08:55> Internal Medicine - PN: Subj *Date: 11/27/19 *Time: 08:54 Exam Vital signs and Labs for Last 24 Hours: Temp Pulse Resp BP Pulse Ox 98.2 F 72 18 121/89 98 11/27/19 07:58 11/27/19 07:58 11/27/19 07:58 11/27/19 07:58 11/27/19 07:58 Laboratory Results - last 24 hr 11/26/19 06:40: Triglycerides 102, Cholesterol 93 L, LDL Cholesterol Direct 42.70 L, VLDL Cholesterol 20, HDL Cholesterol 44, Cholesterol/HDL Ratio 2.1 I & O for Last 24 hours: Intake & Output 11/24/19 11/25/19 11/26/19 11/27/19 23:59 23:59 23:59 23:59 Intake Total 480 / 480 1473 / 1473 Output Total 600 / 600 Balance -120 / -120 1473 / 1473 Weight 224 lb 3 oz 225 lb 2 oz Assessment and Plan (1) Angina at rest Current visit: Yes Status: Acute Category: Medical Code(s): I20.8 - Other forms of angina pectoris (2) Status post cholecystectomy Current visit: Yes Status: Acute Category: Surgical Code(s): Z90.49 - Acquired absence of other specified parts of digestive tract (3) CAD (coronary artery disease) Current visit: No Status: Chronic Qualifiers: Coronary Disease-Associated Artery/Lesion type: [place] artery [place] vs. transplanted he
--- NOTE | 2019-11-27 09:38 | HMH.PHAINT ---
DISCHARGE COUNSELING COMPLETED ON PATIENT. PATIENT IS TO CONTINUE ALL HOME MEDICATIONS. NO NEW MEDICATIONS AT THIS TIME. PATIENT VERBALIZED UNDERSTANDING AND HAD NO QUESTIONS AT THIS TIME. -BRYCE LEONE, BARID
--- NOTE | 2019-11-27 10:24 | PC.NURSE ---
Addendum entered by Wen Swift RN 11/27/19 10:27: IV TO LFA DC'D AND DRESSED W/ GAUZE AND KOBAN. Original Note: DISCHARGE PAPERWORK REVIEWED W/ PATIENT. POST-CATH RADIAL SITE EDUCATION REVIEWED ALONG W/ RESTRICTIONS. PT VERBALIZED UNDERSTANDING. NO MED CHANGES THIS HOSPITAL STAY, PT IS TO CONTINUE W/ PREVIOUS HOME MEDS. PT STATES HE FEELS MUCH BETTER AND HAS NOT HAD ANY EPISODES OF CHEST PAIN SINCE PRIOR TO HEART CATH YESTERDAY. DRESSING TO (R) WRIST C/D/I W/ NO S/S OF BLEEDING.
--- NOTE | 2019-11-30 15:32 | HMH.DCSUM ---
General - General Admission date:: 11/26/19 Discharge date: 11/27/19 HPI HPI: Mr. Bowers is a 73-year-old male who was just recently [facility] after gallbladder removal. He states he got up to go to the bathroom this morning around 5 AM and when he was coming back to his bed, he began having pain in his back between his shoulder blades. The pain then radiated to the left side of his chest and was stabbing in nature. He states it did not radiate to his neck or down his arm. He became very short of breath and states he was clammy. He took a nitro and called 911. By the time 911 arrived at his home, his chest pain was starting to ease. He was given aspirin in route to the ER. He did have an EKG which was abnormal. His initial troponin was normal. He was admitted and cardiology was consulted. At this time, his chest pain has improved. He states it is almost resolved but he now has a headache from the nitroglycerin. Of note, he did have a stent placed [address] Madsen. Hospital Course Hospital Course: The patient was admitted and his initial troponin was normal, but his EKG was concerning for acute coronary syndrome. Cardiology decided to perform a left heart cath. It showed a widely patent proximal LAD stent and a normal ejection fraction. Cardiology felt he could be discharged home on his current medications and would need to follow-up with them in 1 week. Patient's chest pain resolved and never returned. He slept well and was anxious to be discharged home. He will follow-up with both Dr. Cazares cardiology as well as Dr. Paz. Objective Vital signs: Temp Pulse Resp BP Pulse Ox 98.2 F 72 18 121/89 98 11/27/19 07:58 11/27/19 07:58 11/27/19 07:58 11/27/19 07:58 11/27/19 07:58 Narrative: - Constitutional no acute distress - *Routine HEENT Exam Head: Present: normocephalic Eye: Present: EOMI, PERRL ENT: Present: mucous membranes dry - *Routine Neck Exam Present: supple. Absent: lymphadenopathy - *Routine Respiratory Exam Present: CTA bilaterally - *Routine Cardiovascular Exam Present: RRR - *Routine Abdominal Exam Present: soft, normoactive bowel sounds, tenderness (around incision sites) - *Routine Extremities Exam Absent: cyanosis, clubbing, edema - *Routine Skin Exam Present: warm. Absent: rash - *Routine Neurological Exam Present: alert, oriented X3 DS: Diagnosis - Discharge Diagnosis (1) Angina at rest Status: Acute (2) Status post cholecystectomy Status: Acute (3) CAD (coronary artery disease) Status: Chronic (4) GERD (gastroesophageal reflux disease) Status: Chronic (5) HLD (hyperlipidemia) Status: Chronic (6) HTN (hypertension) Status: Chronic (7) Abnormal EKG Status: Acute Discharge Plan - Patient Discharge Instructions ACTIVITY: Continue current activity DIET: continue same diet Patient Instructions: Heart-Healthy Diet, DI for Cardiac Catheterization, DI for Chest Pain - Follow up Plan Follow up with: Matthew Cazares MD [Primary Care Provider] - (as needed) Disposition: Home, Self-Nursing Home Medications: Home Medications Medication Instructions Recorded Confirmed Type aspirin 81 mg tablet,delayed 81 mg PO DAILY tab 11/15/17 11/26/19 History release esomeprazole magnesium 40 mg 40 mg PO DAILY cap 11/15/17 11/26/19 History capsule,delayed release levothyroxine 25 mcg tablet 25 mcg PO DAILY tab 11/15/17 11/26/19 History bisoprolol fumarate 5 mg tablet 5 mg PO DAILY tab 12/03/17 11/26/19 History lisinopril 10 mg tablet 10 mg PO DAILY tab 12/03/17 11/26/19 History melatonin 10 mg capsule 10 mg PO HSP PRN 01/01/18 11/26/19 History Atorvastatin Calcium [Atorvastatin 10 mg PO DAILY 11/14/18 11/26/19 History 10mg Tab] Hydrocod/Acet 5/325 mg [[place] 1 - 2 tab PO Q6HP PRN #21 tab 11/25/19 11/26/19 Rx 5/325mg tablet] Prescriptio
== END 2019-11-27 10:00 | disposition home or self-care (01) ==
LOC: ER 07:50 → 2ND 07:55
PROVIDERS: Internal Medicine; Nurse Practitioner Family; Admitting Provider Family Medicine; Emergency Provider Emergency Medicine; PCP Family Medicine; Visit Provider Family Medicine
DX: I25.110 Atherosclerotic heart disease of native coronary artery with unstable angina pectoris (principal); I10 Essential (primary) hypertension; E78.5 Hyperlipidemia, unspecified; R94.31 Abnormal electrocardiogram [ECG] [EKG]; E03.9 Hypothyroidism, unspecified; Z79.899 Other long term (current) drug therapy
CPT/HCPCS: 80048; 80061; 84484; 85025; 93005; 93458; 96365; 96375; 99152; 99284; C1725; C1769; G0378; J1644; J2405; Q9967

== ENCOUNTER → 2019-12-09 14:37 | Outpatient (POV) | payer MEDICARE, BC, SELFPAY | PROVIDERS: PCP Family Medicine; Visit Provider Physician Assistant | DX: Z00.00 Encounter for general adult medical examination without abnormal findings (principal) ==

== ENCOUNTER → 2020-01-13 09:54 | Outpatient (CLI) | payer MEDICARE, BC, SELFPAY ==
[2020-01-13 10:49] LABS: Blood Urea Nitrogen 14 mg/dl (9-20); Estimated Glomerular Filt Rate 50 ml/min (>60); GFR (African American) 60 ML/MIN (>60)
--- NOTE | 2020-01-13 12:05 | CT_ITS ---
PROCEDURE: CT ABDOMEN PELVIS W CON CLINICAL INDICATION: LLQ ABD PAIN,COLON DIVERTICULOSIS COMPARISON: CT ABDOMEN PELVIS WO CON from 11/23/2019 TECHNIQUE: IV Contrast: 75ML OPTIRAY 350 Oral Contrast None Axial images obtained with sagittal and coronal reformats. All CT scans at the facility use one or more dose reduction, viz: automated exposure control, ma/kV adjustment per patient size (including targeted exams where dose is matched to indication, i.e. head), or iterative reconstruction technique. FINDINGS: There is mild hypoventilation noted at both lung bases. There are scattered cystic lesions throughout the hepatic parenchyma. The largest cyst is located within the right dome measuring 43 millimeters. The patient is status post cholecystectomy. There is a small hiatal hernia. The adrenal glands, pancreas, spleen, kidneys, aorta, small bowel and area of the appendix is unremarkable. There is no significant adenopathy. Soft tissue and bony structures are intact. Pancolonic diverticulosis is noted. There is no significant adenopathy. CT scan of the pelvis with contrast: The prostate is enlarged. The seminal vesicles are unremarkable. There is diverticulosis of the descending and sigmoid colon with inflammatory infiltration of the pericolonic fat planes at the level the mid descending colon. IMPRESSION: Han colonic diverticulosis, diverticulitis within the mid descending colon, multiple hepatic cysts, status post cholecystectomy Dictated by: Ike Denny 01/13/2020 14:06 Electronically signed by Ike Denny in [place] 01/13/2020 14:06
== END ==
PROVIDERS: PCP Family Medicine; Visit Provider Family Medicine
DX: R10.32 Left lower quadrant pain (principal); K57.30 Diverticulosis of large intestine without perforation or abscess without bleeding
CPT/HCPCS: 36415; 74177; 82565; 84520; Q9967

== ENCOUNTER → 2020-02-10 09:23 | Outpatient (POV) | payer MEDICARE, BC, SELFPAY | PROVIDERS: PCP Family Medicine; Visit Provider Dermatology | DX: Z00.00 Encounter for general adult medical examination without abnormal findings (principal) ==

== ENCOUNTER → 2020-04-05 13:22 | Outpatient (CLI) | payer MEDICARE, BC, SELFPAY ==
[2020-04-07 16:47] LABS: PSA, Free 2.69 ng/mL
== END ==
PROVIDERS: Visit Provider Urology
DX: R97.20 Elevated prostate specific antigen [PSA] (principal)
CPT/HCPCS: 36415; 84153; 84154

== ENCOUNTER → 2020-05-11 09:32 | Outpatient (POV) | payer MEDICARE, BC, SELFPAY | PROVIDERS: Visit Provider Dermatology | DX: Z00.00 Encounter for general adult medical examination without abnormal findings (principal) ==

== ENCOUNTER → 2020-07-12 13:39 | Outpatient (CLI) | payer MEDICARE, BC, SELFPAY | PROVIDERS: PCP Family Medicine; Visit Provider Urology | DX: R00.2 Palpitations; I25.10 Atherosclerotic heart disease of native coronary artery without angina pectoris; I11.9 Hypertensive heart disease without heart failure; R60.9 Edema, unspecified; E78.5 Hyperlipidemia, unspecified | CPT/HCPCS: 93270 ==

== ENCOUNTER → 2020-07-21 08:23 | Outpatient (CLI) | payer MEDICARE, BC, SELFPAY ==
--- NOTE | 2020-07-21 08:29 | MR_ITS ---
PROCEDURE: MR LUMBAR SPINE WO CON Referring Doctor: Matthew Cazares Patient Age:74Y CLINICAL INDICATION: LBP degenerative disc disease with left leg numbness tingling and pain no recent trauma or injury. COMPARISON: CR LS5 LUMBAR SPINE 5 VIEWS from 10/02/[address] abdomen pelvis w con from 09/28/[address] abdomen pelvis w con from 11/14/[address] ABDOMEN PELVIS WO CON from 11/23/[address] ABDOMEN PELVIS W CON from 01/13/2020 TECHNIQUE: Standard multiplanar multiecho sequences are performed without contrast. 3-D MIP and myelographic images are also rendered and reviewed FINDINGS: Vertebral bodies are intact no compression fractures Multilevel degenerative disc changes- with degenerative disc space narrowing most pronounced at L4/5 followed by L5/S1 and to lesser degree L2/3. Degenerative facet changes throughout [id number] evident L4/5-L5/S1 but also seen at L3/4-L2/3 L5/S1. Degenerative disc space narrowing with only scant foraminal bulge. Mild facet hypertrophy. Mild/moderate bilateral foraminal encroachment. No spinal stenosis L4/5. Degenerative disc space narrowing most pronounced at this level. Most pronounced to the right and associated with mild levoscoliosis at this level.. Mild spondylotic disc bulge with minimal spurring from the margin the disc most evident towards the right foramen more so than left. There is also moderate facet hypertrophy most evident to the right, indenting the thecal sac on right and. The features combine to yield bilateral foraminal encroachment most evident to the right. Mild spinal stenosis. Of reactive of sclerotic endplate changes are most evident to the right the the and actually better seen on prior CT from December 2019 L3/4 disc height fairly well maintained with only some borderline narrowing. Only minor foraminal disc bulging. Howevermoderate facet hypertrophy yields moderate bilateral foraminal encroachment most pronounced on the left.. Borderline-mild spinal stenosis due to the combination of features L2/3.. Degenerative disc space narrowing most evident to the left. Diffuse mild disc osteophyte features posteriorly but with additional small disc protrusion left paracentral as seen on sagittal image 9 of with minimal spurring encroaching follow left foramen as seen on sagittal image 11. Also fairly generous bilateral facet hypertrophy. These features combine to yield of central canal stenosis most pronounced at this level along with effacement of the thecal sac to the left and left foraminal encroachment L1/2. Disc intact foramen widely patent. Mild facet arthropathy, hypertrophy a very slightly narrow the spinal canal T12/L1-, and T11/12 disc intact and unremarkable. Conus ends appropriately at L1 The 3D myelogram image set nicely demonstrates multiple levels of moderate narrowing the spinal canal. The most prominent epidural indentation is seen on the left at L2/3-due to the a leftward disc protrusion here. There is also slight tapering of the spinal canal at L4/5 and to less degree L3/4, L5/S1 mainly reflecting facet hypertrophy at also reflecting the lumbar spondylosis and mild disc bulging IMPRESSION: Multilevel degenerative changes lumbar spine.. Findings most notable at L2/3 where there is a the moderate spinal stenosis and along with small disc protrusion to the left indenting thecal sac: ---the details L2/3-. Moderate spinal stenosis is most evident at L2/3 level; also with foraminal encroachment Left greater than right. Due to combination of spondylosis, with small leftward disc protrusion, and facet hypertrophy. L3/4. . Mild spinal stenosis with moderate bilateral foraminal encroachment most evident
== END ==
PROVIDERS: PCP Family Medicine; Visit Provider Family Medicine
DX: M54.40 Lumbago with sciatica, unspecified side (principal); M51.36 Other intervertebral disc degeneration, lumbar region; M47.816 Spondylosis without myelopathy or radiculopathy, lumbar region
CPT/HCPCS: 72148; 76376

== ENCOUNTER 2020-08-06 15:35 | Emergency (ER) | payer MEDICARE, BC, SELFPAY ==
[2020-08-06 15:40] VITALS: BP 150/77; PULSE 60; RESP 14; TEMP 36.6; O2SAT 96; BMI 32.5
--- NOTE | 2020-08-06 15:56 | HMH.EDUTC ---
[facility] [place] Clinical Impression: Exposure to COVID-19 virus Disposition: Home, Self-Care Condition on Discharge: Good Instructions: Preventing the Spread of Coronavirus Discharge Instructions Additional Instructions: You have been tested for COVID19. Please isolate yourself as if you are positive until test results received. Return to ER if symptoms worsen so that you have difficulty breathing, dehydration, etc. Referrals: Matthew Cazares MD [Primary Care Provider] - Time of Disposition: 15:59 Medical Decision Making - Eduard Inquiry Pt receiving controlled substance: No Orders (Tests/Meds): ORDERS Category Date Time Status Covid-19 Nasal PCR ([facility]) Routine Lab 08/06/20 15:40 Ordered [facility] [place] HPI - General Stated complaint: covid exposure Time Seen by Provider: 08/06/20 15:56 - History of Present Illness Provider Complaint: Patient has had nasal congestion and mild fever for a few days. Daughter tested positive for COVID19 earlier today. Onset (ago): day(s) (3) Location: face, chest Relieving factors: none Exacerbating factors: none Associated symptoms: denies other symptoms Treatments prior to arrival: none - Related Data Home Medications Medication Instructions Recorded Confirmed aspirin 81 mg tablet,delayed 81 mg PO DAILY tab 11/15/17 07/28/20 release esomeprazole magnesium 40 mg 40 mg PO DAILY cap 11/15/17 07/28/20 capsule,delayed release levothyroxine 25 mcg tablet 25 mcg PO DAILY tab 11/15/17 07/28/20 mecobalamin (vitamin B12) 1,000 1,000 mcg PO DAILY 12/31/19 07/28/20 mcg chewable tablet Previous Rx's Medication Instructions Recorded atorvastatin 10 mg tablet 10 mg PO DAILY #90 tab 12/31/19 bisoprolol fumarate 5 mg tablet 5 mg PO DAILY #90 tab 12/31/19 lisinopril 10 mg tablet 10 mg PO DAILY #90 tab 12/31/19 nitroglycerin 0.4 mg sublingual 0.4 mg SUBLINGUAL Q5M PRN #20 tab 06/30/20 tablet Allergies Allergy/AdvReac Type Severity Reaction Status Date / Time Penicillins Allergy Unknown I-HIVES Verified 07/28/20 09:06 codeine Allergy Verified 07/28/20 09:06 [facility] History - Hepatitis A Screen Attestation statement:: This patient has been screened for Hepatitis A risk factors. I have reviewed the patient's past medical history: Yes Medical History: Reports:: Atherosclerotic Heart Disease, Cancer, Coronary Artery Disease, Gastroesophageal Reflux Disease(GERD), Heart Murmur, Hyperlipidemia, Hypertension, Myocardial Infarction Denies:: Diabetes Mellitus Type 1, Diabetes Mellitus Type 2, Internal Pacemaker, Lung Disease, MRSA, Seizures Other Medical History: Reports: Arthritis, Hypothyroidism, Thyroid Disease, Other. Denies: Blood Transfusion Reaction Comment: bleeding ulcer Laterality Cases: Right: Carpal Tunnel Release, Other, Bilateral: Arthroscopy Knee Other Surgeries: Yes: No Previous Surgery, Appendectomy, Cancer Surgery, Cardiac Catheterization, Cholecystectomy, Colonoscopy, Coronary Stent, EGD, Skin Cancer Excision (melanoma excision x 2), Other. No: Pacemaker Amputation: No Fractures: No Comment: Bleeding ulcer 1973; melanoma removed from the right shoulder 2002; torn ACL surgery in 1997 and 2004; rotator cuff tear repair right shoulder 2010 - Social History Smoking Status: Never smoker Alcohol Intake: never Alcohol Intake Frequency:: other Substance Use Type: denies use Occupational Status: retired, employed Housing: house Household Members: spouse Family Hx:: Heart Attack Comment: father from [place] complications at age 78 ROS Obtained: Yes All systems reviewed & no additional complaints - Constitutional Constitutional: Reports fever(s) - ENT Ears, Nose, Mouth, and Throat: Reports sinus pain, Reports sinus pressure Physical Exam - General General appearance: alert, in no apparent distress - Head Head exam: normocephalic - Eye Eye exam: Present: PERRL - ENT ENT exam: Present: normal oropharynx - Neck Neck exam: Present: n
[2020-08-06 16:02] VITALS: BP 150/77; PULSE 60; RESP 14; TEMP 36.6; O2SAT 96
== END 2020-08-06 16:05 | disposition home or self-care (01) ==
PROVIDERS: Emergency Provider Physician Assistant; PCP Family Medicine
DX: Z20.822 Contact with and (suspected) exposure to COVID-19 (principal); E03.9 Hypothyroidism, unspecified; I25.2 Old myocardial infarction; I10 Essential (primary) hypertension; E78.5 Hyperlipidemia, unspecified; K21.9 Gastro-esophageal reflux disease without esophagitis; Z79.899 Other long term (current) drug therapy; Z88.0 Allergy status to penicillin; Z88.5 Allergy status to narcotic agent
CPT/HCPCS: G0463; 99202; U0003

== ENCOUNTER → 2020-08-17 07:56 | Outpatient (CLI) | payer MEDICARE, BC, SELFPAY ==
[2020-08-17 10:06] LABS: Coronavirus 19 IgG Antibody Negative (Negative); Coronavirus 19 IgM Antibody Negative (Negative)
== END ==
PROVIDERS: PCP Family Medicine; Visit Provider Surgery
DX: Z01.812 Encounter for preprocedural laboratory examination (principal); Z20.822 Contact with and (suspected) exposure to COVID-19; Z12.11 Encounter for screening for malignant neoplasm of colon; Z86.010 Personal history of colon polyps
CPT/HCPCS: 36415; 86328

== ENCOUNTER 2020-08-19 06:29 | Day surgery (SDC) | payer MEDICARE, BC, SELFPAY ==
[2020-08-19 06:48] VITALS: BP 148/98; PULSE 70; RESP 20; TEMP 36.1; O2SAT 95; BMI 32.5
[2020-08-19 07:27] VITALS: O2SAT 97
[2020-08-19 08:09] VITALS: BP 101/53; PULSE 62; RESP 18; TEMP 36.2; O2SAT 92
--- NOTE | 2020-08-19 08:10 | HMH.SCOPE ---
- Procedure: Date: 08/19/20 Patient Date of :: 1945 Procedure Performed:: Colonoscopy with biopsy Indications:: History of polyps Moderate to poor bowel preparation on colonoscopy in January 2019 leading to difficulty in visualization Extensive diverticulosis Hemorrhoidal tags and cushions Performing Provider:: Tomas Hill MD Referring Provider:: . Sedation:: Monitored anesthesia care Procedure:: After informed consent was obtained the patient was taken to the endoscopy suite. Sedation ensued after the patient was transferred to the left lateral decubitus position. Pulse, blood pressure, and oxygen saturation were monitored throughout the procedure. Digital rectal exam revealed no significant abnormality. The colonoscope was placed in position. The entire colon was evaluated. The colonoscope was carefully removed and the patient was transferred to recovery in stable condition. Please see findings and specimens below for detail. Findings:: Hemorrhoidal tags and cushions (unchanged) Bowel preparation relatively poor with focal areas of formed stool Unchanged significant diverticulosis Focal inflammatory changes at 30 cm Note: Some of the limitations with regard to bowel preparation are likely secondary to extensive diverticulosis with dislodged pockets of retained stool . Specimens:: Biopsy of focal inflammation at 30 cm Recommendations:: Follow-up pathology Repeat colonoscopy in 3-5 years secondary to history of polyps and ongoing limitations in visualization Complications:: No immediate Estimated blood obtained (mL): 1
[2020-08-19 08:19] VITALS: BP 97/69; PULSE 63; RESP 18; TEMP 36.2; O2SAT 92
[2020-08-19 08:29] VITALS: BP 97/63; PULSE 67; RESP 18; O2SAT 93
--- NOTE | 2020-08-19 08:34 | HMH.ANESCL ---
[facility] Anesthesia Checklist - Patient Identification Patient Identification: Arm Band, Verbal (Name & ) - Structural Data Admitted From: Home Planned Operative Procedure/s: colon Consent for Planned Operative Procedure(s) Verified: Yes Verified Documents: History and Physical - NPO Status Verified Time NPO: 00:00 - Chart Verification Results Verified: CBC, BMP - Additional verifications Patient : No Anesthesia Reactions: No (nausea) Hx Blood Transfusions: No Blood Transfusion Reaction: No Cephalosporin Allergy: No Previous Colonoscopy: Yes - Cardiovascular Assessment Heart Sounds: S1 & S2 Pulse Strength: Baseline Pulse Rhythm: Regular Peripheral Edema: No - Airway Assessment C-Spine Mobility Assessed: Yes TMJ Mobility Assessed: Yes Dentition: Dentures-good fit - Neurological Assessment Level of Consciousness: Awake, Alert, Appropriate Hx Seizures: No Numbness or tingling in extremities: No - Anesthesia Plan Anesthesia Risk discussed: Yes Anesthesia Plan: Verified ASA Class: III Anesthesia Type: MAC [facility] History I have reviewed the patient's past medical history: Yes Medical History: Reports:: Atherosclerotic Heart Disease, Cancer (skin), Coronary Artery Disease, Gastroesophageal Reflux Disease(GERD), Heart Murmur, Hyperlipidemia, Hypertension, Myocardial Infarction Denies:: Diabetes Mellitus Type 1, Diabetes Mellitus Type 2, Internal Pacemaker, Lung Disease, MRSA, Seizures *Have you ever received a pneumonia vaccine?: Yes *Have you received a flu vaccine this season?: Yes Other Medical History: Reports: Arthritis, Hypothyroidism, Thyroid Disease, Other. Denies: Blood Transfusion Reaction Anesthesia experience/problems:: none Laterality Cases: Right: Carpal Tunnel Release, Other, Bilateral: Arthroscopy Knee Other Surgeries: Yes: No Previous Surgery, Appendectomy, Cancer Surgery, Cardiac Catheterization, Cholecystectomy, Colonoscopy, Coronary Stent, EGD, Skin Cancer Excision (melanoma excision x 2), Other. No: Pacemaker Amputation: No Fractures: No - *Social History Last grade of school completed: High school graduate Smoking Status: Never smoker Alcohol Intake: never Alcohol Intake Frequency:: other Substance Use Type: denies use *Occupational Status:: employed, retired Housing: house Household Members: spouse, family *Travel in the last 8 weeks: None Family Hx:: Heart Attack
[2020-08-19 08:41] VITALS: BP 112/71; PULSE 57; RESP 18; O2SAT 94
== END 2020-08-19 08:42 | disposition home or self-care (01) ==
LOC: OUTP 06:30
PROVIDERS: PCP Family Medicine; Visit Provider Surgery
PROC: 0DJD8ZZ Inspection of Lower Intestinal Tract, Via Natural or Artificial Opening Endoscopic (ICD-10-PCS; CPT G0121; principal; 2020-08-19 07:30)
DX: Z12.11 Encounter for screening for malignant neoplasm of colon (principal); Z86.010 Personal history of colon polyps; K57.30 Diverticulosis of large intestine without perforation or abscess without bleeding; K64.0 First degree hemorrhoids; Z79.82 Long term (current) use of aspirin; Z79.899 Other long term (current) drug therapy; Z88.0 Allergy status to penicillin; Z88.6 Allergy status to analgesic agent; I25.10 Atherosclerotic heart disease of native coronary artery without angina pectoris; E78.5 Hyperlipidemia, unspecified; I10 Essential (primary) hypertension; I25.2 Old myocardial infarction
CPT/HCPCS: G0121; 88305

== ENCOUNTER → 2020-08-23 08:19 | Outpatient (POV) | payer MEDICARE, BC, SELFPAY ==
[2020-08-23 08:47] VITALS: BP 125/77; PULSE 55; RESP 18; TEMP 36.8; O2SAT 99; BMI 32.5
--- NOTE | 2020-08-23 09:47 | HMH.PMCON ---
Assessment and Plan (1) Degenerative joint disease (DJD) of lumbar spine Status: Chronic Category: Medical Code(s): M47.816 - Spondylosis without myelopathy or radiculopathy, lumbar region (2) Radiculopathy Status: Chronic Category: Medical Code(s): M54.10 - Radiculopathy, site unspecified - Assessment and plan all Dx Assessment and Plan for all problems:: We will schedule the patient for an L4-L5 lumbar epidural steroid injection along with physical therapy. I do think that this would benefit him given his symptomology I will follow-up with him after this reassess his symptoms at that time. Patient has no active infections. Patient is not on any anticoagulation therapy. If he has any questions he has been instructed to call the office if he has any issues prior to his next appointment. Dr. Blood has reviewed this note and agrees with this plan of care. This note was dictated using voice recognition software and may contain errors or omissions HPI - Data of Consult Consult date: 08/23/20 Requesting Physician: Preeti Oliveira APRN Primary Care Provider: Matthew Cazares MD - Consult Narrative Reason for consult: Back pain, leg pain History of present illness: Mr. Bowers is a 74 year old male who presents today for consultation regards to his back and leg pain. He rates his pain a 5 out of 10. He has had this pain for several years however it is getting worse. Patient has difficulty with bending, lifting, riding a tractor. Patient states that resting does decrease his pain. Patient has numbness in bilateral lower extremities. Patient stays as active as possible. Patient has tried anti-inflammatories with no success. He has a recent MRI showing degenerative changes along with facet arthropathy and stenosis. CC: Preeti Oliveira APRN [facility] History I have reviewed the patient's past medical history: Yes Medical History: Reports:: Atherosclerotic Heart Disease, Coronary Artery Disease, Gastroesophageal Reflux Disease(GERD), Heart Murmur, Hyperlipidemia, Hypertension, Myocardial Infarction Denies:: Cancer, Diabetes Mellitus Type 1, Diabetes Mellitus Type 2, Internal Pacemaker, Lung Disease, MRSA, Seizures *Have you ever received a pneumonia vaccine?: Yes *Have you received a flu vaccine this season?: Yes Other Medical History: Reports: Arthritis, Hypothyroidism, Thyroid Disease, Other. Denies: Blood Transfusion Reaction Laterality Cases: Right: Carpal Tunnel Release, Other, Bilateral: Arthroscopy Knee Other Surgeries: Yes: No Previous Surgery, Appendectomy, Cancer Surgery, Cardiac Catheterization, Cholecystectomy, Colonoscopy, Coronary Stent, EGD, Skin Cancer Excision (melanoma excision x 2), Other. No: Pacemaker Amputation: No Fractures: No - *Social History Smoking Status: Never smoker Alcohol Intake: never Alcohol Intake Frequency:: other Substance Use Type: denies use *Occupational Status:: retired Housing: house Household Members: spouse, family *Travel in the last 8 weeks: None Family Hx:: Unable to obtain Review of Systems - Review of Systems ROS General: no recent weight change, no fever, no sleep disturbances Respiratory: no cough, no shortness of air, no recurring pulmonary infections Cardiovascular/Peripheral Vascular: No chest pain, No palpitations, no edema, no shortness of breath. Gastrointestinal: no new onset incontinence, normal bowel movements reported Genitourinary: no new onset incontinence Musculoskeletal: Back pain, leg pain Psychiatric: normal mood/ affect Neurological: [denies new onset weakness in extremities], [denies new onset balance issues] Meds Home Medications Medication Instructions Recorded Confirmed Type aspirin 81 mg tablet,delayed 81 mg PO DAILY tab 11/15/17 08/19/20 History release esomeprazole magnesium 40 mg 40 mg PO DAILY cap 11/15/17 08/19/20 History capsule,delayed release levothyroxine 25 mcg tablet 25 mcg PO DAILY tab 0
== END ==
PROVIDERS: PCP Family Medicine; Visit Provider Clinical Nurse Specialist Family Health
DX: M47.896 Other spondylosis, lumbar region (principal); M54.10 Radiculopathy, site unspecified
CPT/HCPCS: 99202; G0463

== ENCOUNTER 2020-08-31 11:00 | Outpatient (RCR) | payer MEDICARE, BC, SELFPAY ==
--- NOTE | 2020-08-26 10:49 | HMH.PTOPEV ---
PT Outpatient Evaluation Rehab PT Outpatient Evaluation Start: 08/26/20 09:48 Freq: Status: Active Protocol: Document 08/26/20 10:23 MIKO (Rec: 08/26/20 10:49 MIKO [id number]) Electronically Signed By Norris Wilson, PT 08/26/20 10:23 Outpatient Therapy Subjective History Subjective History Patient is a 74 year old male presenting to outpatient PT with reports of chronic LPB with intermittent LLE radicular symptoms starting approximately 1 year ago that has progressively gotten worse . Most recent imaging indicates multi-level DDD and bulging disc specifically to L2/3 L3/4 levels. Patient reports burning to L hip, and NT to L foot. Comorbidities include hx of B TKA, R RCR, appendectomy, stent x 1 and HTN. Chief Complaint Pain,Stiff,Paresthesia Symptom Type Ache,Burning,Numbness,Tingling Symptoms Relieved By Rest/Positioning,Activity Symptoms Aggravated By Sitting,Standing,Bending/ Stooping,Physical Activity, Lifting Prior Functional Limitations Lifting,Housework,Standing, Sitting,Squatting,Recreation Activity,Walking,Bending/ Stooping Current Functional Limitations Lifting,Housework,Standing, Sitting,Squatting,Recreation Activity,Walking,Bending/ Stooping Symptom Description Constant but Variable Level of pain today (0-10) 3 Pain scale - at its best (0-10) 1 Pain scale - at its worst (0-10) 9 Lumbopelvic Eval Posture Thoracic Spine Posture Standing Position Increased Kyphosis Lumbar Spine Posture Standing Position Decreased Lordosis Assistive device Assistive Devices None / NA Palapation tenderness left lumbar spinal tenderness Yes: L2/3 2/4 paraspinal tenderness Yes: buttock tenderness Yes: Accessory Movement L2 left L3 left L4 left L5 left S1 left Range of Motion Lumbar Spine Active Flexion Range of 78 Motion (degrees) Lumbar Spine Active Extension Range of 18 Motion (degrees) Left Lumbar Spine Lateral Flex
== END 2020-08-31 11:05 | disposition home or self-care (01) ==
LOC: PT 11:00
PROVIDERS: PCP Family Medicine; Visit Provider Clinical Nurse Specialist Family Health
DX: M54.5 Low back pain (principal); M79.605 Pain in left leg
CPT/HCPCS: 97163

== ENCOUNTER 2020-09-10 09:19 | Day surgery (SDC) | payer MEDICARE, BC, SELFPAY ==
[2020-09-10 09:26] VITALS: BP 140/79; PULSE 61; RESP 18; TEMP 36.6; O2SAT 98; BMI 32.5
[2020-09-10 10:26] VITALS: BP 142/74; PULSE 85; RESP 18
[2020-09-10 10:28] VITALS: BP 138/85; PULSE 85; RESP 18; O2SAT 98
--- NOTE | 2020-09-10 10:41 | P.PCN_ITS ---
- Procedure Date: 09/10/20 Time: 10:42 Anesthesiologist:: Clive Blood MD Complications:: None Pre-procedure Diagnosis:: Degenerative disc disease of lumbar spine with lumbar radiculopathy symptoms and spinal stenosis with neurogenic claudication symptoms Post-procedure Diagnosis:: Same Indications for Procedure:: The patient is a pleasant 74-year-old white male who we are treating for low back pain with lumbar radicular symptoms and spinal stenosis with neurogenic claudication symptoms. Patient has increasing pain in his low back and legs especially after walking and standing. Will do lumbar epidural steroid injection today to assess levels of stenosis and candidacy for mill invasive lumbar decompression. Also this will hopefully help with some of his symptoms. Procedure Details:: Lumbar epidural steroid injection under fluoroscopy Informed consent was obtained and the risk and benefits of the procedure was explained to the patient. The patient was taken to the procedure room. The patient was placed prone on the procedure table. The patient was prepped and draped in sterile fashion. C-arm fluoroscopy was used to view the lumbar spine. Skin and subcutaneous tissues were anesthetized using lidocaine. I placed an 18-gauge epidural needle and advanced into the L4-L5 interspace using fluoroscopic guidance and [id number] to air. After confirmation of needle placement in the epidural space with dye I injected 2 mL of lidocaine 1.5% with Depo-Medrol 80 mg. Patient tolerated the procedure well with no complications. Plan and Disposition:: Based on epidurogram and review of MRI patient does have some mild to moderate spinal stenosis at L2-L3 and L3-L4. We will seek approval for minimally invasiv e lumbar decompression of L2-L3 and L3-L4 bilaterally.
[2020-09-10 10:47] VITALS: BP 144/93; PULSE 60; RESP 18; O2SAT 98
== END 2020-09-10 10:48 | disposition home or self-care (01) ==
LOC: SC.PAINP 09:23
PROVIDERS: PCP Family Medicine; Visit Provider Anesthesiology
DX: M51.16 Intervertebral disc disorders with radiculopathy, lumbar region (principal); M48.062 Spinal stenosis, lumbar region with neurogenic claudication; I25.10 Atherosclerotic heart disease of native coronary artery without angina pectoris; E03.9 Hypothyroidism, unspecified; I10 Essential (primary) hypertension; I25.2 Old myocardial infarction; K21.9 Gastro-esophageal reflux disease without esophagitis; M19.90 Unspecified osteoarthritis, unspecified site; Z88.6 Allergy status to analgesic agent; Z88.0 Allergy status to penicillin; Z79.899 Other long term (current) drug therapy; Z79.82 Long term (current) use of aspirin
CPT/HCPCS: 62323; J1040; Q9966

== ENCOUNTER → 2020-09-27 09:04 | Outpatient (CLI) | payer MEDICARE, BC, SELFPAY ==
[2020-09-28 15:42] LABS: Prostate Specific Ag 10.2 ng/mL (0.0-4.0)
[2020-09-28 15:43] LABS: PSA, Free 2.92 ng/mL
== END ==
PROVIDERS: Visit Provider Urology
DX: R97.20 Elevated prostate specific antigen [PSA] (principal)
CPT/HCPCS: 36415; 84153; 84154

== ENCOUNTER → 2020-10-04 08:30 | Outpatient (POV) | payer MEDICARE, BC, SELFPAY ==
--- NOTE | 2020-10-04 08:56 | HMH.PAINSOAP ---
[facility] Pain Management SOAP Note Subjective:: Patient is a 74-year-old white male who presents today for follow-up after lumbar epidural steroid injection and epidurogram. Patient states he got minimal relief rating his pain a 4 out of 10. Patient does have spinal stenosis with neurogenic claudication. Dr. Sawant offered a minimally invasive lumbar decompression to him at his visit however with his insurance this may be an issue. I discussed with him that we would try to get this approved. Patient states he wants to move forward with this we went through the entire procedure utilizing visual proximal. Patient was also given education and information to take home. He is not on any anticoagulation therapy. Patient states that he is in pain when he is walking and standing and is relieved by leaning forward and sitting. ROS General: no recent weight change, no fever, no sleep disturbances Respiratory: no cough, no shortness of air, no recurring pulmonary infections Cardiovascular/Peripheral Vascular: No chest pain, No palpitations, no edema, no shortness of breath. Gastrointestinal: no new onset incontinence, normal bowel movements reported Genitourinary: no new onset incontinence Musculoskeletal: Back pain, leg pain Psychiatric: normal mood/ affect Neurological: Weakness bilateral lower extremities when standing, [denies new onset balance issues] Objective:: Physical Exam General: Alert and oriented x3, no acute distress, pleasant and cooperative, [on room air] Lungs: Resps E/U, Symmetrical chest expansion, Eyes: PERRL Musculoskeletal: Flexion and extension of lumbar spine somewhat guarded secondary to pain, deep tendon reflexes normal, strength in upper and lower extremities [5/5], [abnormal gait noted] Neurological: 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 I will follow-up with him after this reassess his symptoms at that time he has been instructed to call the office if he has any issues prior to his next appointment. According to Dr. Sawant note patient needs an L2-L3 L3-L4 bilateral minimally invasive lumbar decompression. Dr. Blood has reviewed this note and agrees with this plan of care. This note was dictated using voice recognition software and may contain errors or omissions [facility] History I have reviewed the patient's past medical history: Yes Medical History: Reports:: Atherosclerotic Heart Disease, Cancer (skin), Coronary Artery Disease, Gastroesophageal Reflux Disease(GERD), Heart Murmur, Hyperlipidemia, Hypertension, Myocardial Infarction Denies:: Diabetes Mellitus Type 1, Diabetes Mellitus Type 2, Internal Pacemaker, Lung Disease, MRSA, Seizures *Have you ever received a pneumonia vaccine?: No *Have you received a flu vaccine this season?: No Other Medical History: Reports: Arthritis, Hypothyroidism, Thyroid Disease, Other. Denies: Blood Transfusion Reaction Laterality Cases: Right: Carpal Tunnel Release, Other, Bilateral: Arthroscopy Knee Other Surgeries: Yes: No Previous Surgery, Appendectomy, Cancer Surgery (skin lesion removal), Cardiac Catheterization, Cholecystectomy, Colonoscopy, Coronary Stent, EGD, Skin Cancer Excision (melanoma excision x 2), Other. No: Pacemaker Amputation: No Fractures: No - *Social History Smoking Status: Never smoker Alcohol Intake: never Alcohol Intake Frequency:: other Substance Use Type: denies use *Occupational Status:: retired Housing: house Household Members: spouse *Travel in the last 8 weeks: None Family Hx:: Unable to obtain
[2020-10-04 09:44] VITALS: BP 129/76; PULSE 65; RESP 18; O2SAT 98; BMI 32.5
== END ==
PROVIDERS: PCP Family Medicine; Visit Provider Clinical Nurse Specialist Family Health
DX: M51.16 Intervertebral disc disorders with radiculopathy, lumbar region (principal); M48.062 Spinal stenosis, lumbar region with neurogenic claudication
CPT/HCPCS: 99212; G0463

== ENCOUNTER → 2020-11-09 08:19 | Outpatient (POV) | payer MEDICARE, BC, SELFPAY | PROVIDERS: Visit Provider Dermatology | DX: Z00.00 Encounter for general adult medical examination without abnormal findings (principal) ==

== ENCOUNTER → 2021-01-10 06:18 | Outpatient (CLI) | payer MEDICARE, BC, SELFPAY ==
--- NOTE | 2021-01-10 06:22 | NM_ITS ---
APPROVED REPORT Exam: Nuclear Stress Test Indication: CAD, SOB, HTN, High cholesterol, Family history Patient Location: Outpatient Stress Tech: Mary Willams CT Tech:Lorin Beltran, ARRT, RT (R)(N) Ht: 5 ft 9 in Wt: 230 lbs HR: 56 bpm BP: 157/86 mmHg BSA: 2.19 m2 BMI: 33.9 History: CAD, SOB, HTN, High cholesterol, Family history Procedure: Patient exercised on Hadley protocol 7:51 minutes and sec, resting heart rate 56 bpm, resting blood pressure 157/86 mmHg, with exercise maximum heart rate achived was 126 bpm which is 101 % of the maximum predicted heart rate and blood pressure was 170/83 mmHg. Test was stopped due to SOA and leg fatigue. Patient has GERD exercise capacity, achieved 10.1 METs of workload on treadmill, the blood pressure response to exercise was Adequate. Electrocardiogram Resting electrocardiogram shows sinus rhythm, with exercise there is less than 1.[address] segment depression noted from the baseline EKG. The EKG portion of the exercise Myoview is negative for ischemia. Cardiac Stress and Resting SPECT Images: Cardiac Stress and Resting SPECT images were obtained using technetium 99m Myoview 31.1 mCi stress and 10.57 mCi at rest. Gated SPECT for analysis of segmental wall motion and calculation of the ejection fraction also done. Prone images were also obtained. Cardiac stress and resting SPECT images show uniform myocardial activity without segmental perfusion abnormality, computer derived ejection fraction is 56% with no regional wall motion abnormality, right ventricle is normal size and contractility. Conclusion: 1. The EKG portion of the exercise Myoview is negative for ischemia, patient has good exercise capacity achieved 10.1 METs of workload on treadmill, the blood pressure response to exercise was adequate, patient complained of chest discomfort with exercise relieved with rest. 2. No scintigraphic evidence of reversible ischemia seen, computer derived ejection fraction is 56% with no regional wall motion abnormality, right ventricle is normal size and contractility. 3. Normal myocardial perfusion imaging however patient complained of chest discomfort with exercise. Clinical correlation is recommended. Electronically signed by : Derrek Ambrosio, 01/10/2021 19:11:14
--- NOTE | 2021-01-10 08:27 | HMH.ITSHM ---
Current Home Medications as stated by this patient Andrea Bowers or wholesale representative. []NITRO VITAMIN B12 LISINOPRIL LEVOTHYROXINE ESOMEPRAZOLE BISOPROLOL ATORVASTATIN ASA
--- NOTE | 2021-01-10 09:52 | CA_ITS ---
APPROVED REPORT Exam: Exercise Treadmill Technologist: Mary Willams, Ht: 5 ft 9 in Wt: 230 lbs BSA: 2.19 m2 HR: 56 bpm BP: 157/86 mmHg Medical History Medications: Lisinopril,,,,, Aspirin,,,,, Lipitor,,,,, BisOPROLOL,,,,, Esomeprazole,,,,, LevothROXINE,,,,, Nirtoglycerin,,,,, Stress Test Details Test: Manual Treadmill HR Resting HR: 56 bpm Max Heart Rate (APMHR): 147.418848 bpm Max HR Achieved: 126 bpm Target HR (85% APMHR): 124.593490 bpm % of APMHR: 85.71 Recovery HR: 82 bpm BP Resting BP: 151/89 mmHg Max BP: 170/83 mmHg Recovery BP: 142.0/85.0 mmHg ECG Resting ECG: NSR with T wave inversion Inferiorly Clinical Reason for Termination: Dyspnea, Chest pain Exercise duration: 07:51 min Highest Stage Achieved: Exercise capacity: 10.1 METs Stress ECG Conclusion Max HR: 126 % of PM: 101 MET's: 10.1 Test stopped due to: SOA, leg fatigue Symptoms: (+)SOA, leg fatigue, mild chest pain. Arrhythmias/Ectopy: Rare Atrial couplet. ST-T Changes: <1.5mm ST segment changes. Conclusion: Abnormal, Negative EKG, good activity level. (+)SOA/CP. Suggest clinical correlation. Test Summary REST . . . . . . . Sitting REST . . . . . . . Standing REST 07:27 0.0 1.2 56 . 151/ 89 . . Stage 1 01:00 10.0 1.7 83 . . . . Stage 1 02:00 10.0 1.7 91 . . . . Stage 1 03:00 10.0 1.7 92 . 160/ 92 . . Stage 2 01:00 12.0 2.5 100 . . . . Stage 2 02:00 12.0 2.5 107 . . . . Stage 2 03:00 12.0 2.5 112 . 162/ 92 . . Stage 3 . . . . . . . Protocol changed to Manual Treadmill Stage 3 01:00 14.0 3.2 121 . . . . Stage 3 01:51 14.0 3.1 124 . . . Stop exercise at 07:51 RECOVERY 01:00 0.0 0.0 110 . . . . RECOVERY 02:00 0.0 0.0 94 . . . . RECOVERY 03:00 0.0 0.0 87 . 170/ 83 . . RECOVERY 04:00 0.0 0.0 82 . 170/ 83 . . RECOVERY 05:00 0.0 0.0 80 . 170/ 83 . . RECOVERY 06:00 0.0 0.0 84 . 170/ 83 . . RECOVERY 06:23 0.0 0.0 84 . 142/ 85 . . Electronically signed by : Derrek Ambrosio, 01/10/2021 18:33:15
== END ==
PROVIDERS: PCP Family Medicine; Visit Provider Physician Assistant
DX: E78.5 Hyperlipidemia, unspecified (principal); I11.9 Hypertensive heart disease without heart failure; I25.10 Atherosclerotic heart disease of native coronary artery without angina pectoris; Z02.4 Encounter for examination for driving license; R07.9 Chest pain, unspecified; R00.2 Palpitations
CPT/HCPCS: 78452; 93017; A9502

== ENCOUNTER → 2021-02-08 08:44 | Outpatient (CLI) | payer MEDICARE, BC, SELFPAY ==
[2021-02-08 09:03] LABS: Basophils % 0.5 % (0.1-2.0); Eosinophils # 0.3 K/mm3 (0.0-0.4); Eosinophils % 4.3 % (0.1-12.0); Hemoglobin 14.4 g/dL (14.1-18.0); Lymphocytes # 2.1 K/mm3 (0.7-4.5); Lymphocytes % 34.6 % (10-50); Mean Corpuscular HGB Conc 34.3 g/dL (31.8-35.4); Mean Corpuscular Hemoglobin 30.3 pg (27.0-31.2); Mean Corpuscular Volume 88.3 fl (80-94); Mean Platelet Volume 8.3 fl (7.4-10.4); Monocytes # 0.6 K/mm3 (0.1-1.0); Monocytes % 9.3 % (1.7-9.3); Neutrophils # 3.1 K/mm3 (1.8-7.8); Neutrophils % 51.2 % (37.0-80.0); Platelet Count 146 K/mm3 (142-424); Red Blood Count 4.76 M/mm3 (4.60-6.20); Red Cell Distribution Width 13.9 % (11.5-17.5)
[2021-02-08 09:45] LABS: Chloride 107 mmol/L (98-107)
[2021-02-08 09:46] LABS: Potassium 4.7 mmoL/L (3.5-5.1); Sodium 144 mmol/L (136-145)
[2021-02-08 09:49] LABS: Anion Gap 15.7 mEq/L (5-15); Blood Urea Nitrogen 25 mg/dl (9-20); Calcium 9.6 mg/dl (8.4-10.2); Carbon Dioxide 26 mmol/L (22.0-30.0); Estimated Glomerular Filt Rate 37 ml/min (>60); GFR (African American) 45 ML/MIN (>60); Glucose 98 mg/dl (74-100)
== END ==
PROVIDERS: Visit Provider Anesthesiology Pain Medicine
DX: Z01.818 Encounter for other preprocedural examination (principal); Z20.822 Contact with and (suspected) exposure to COVID-19; M48.00 Spinal stenosis, site unspecified
CPT/HCPCS: 36415; 80048; 85025; U0003

== ENCOUNTER 2021-02-09 05:57 | Day surgery (SDC) | payer MEDICARE, BC, SELFPAY ==
[2021-02-07 15:16] VITALS: BMI 32.5
--- NOTE | 2021-02-08 12:47 | PC.NURSE ---
Addendum entered by Kailee Dietrich CNA 02/08/21 12:53: Patient called back, he is aware of time change and said he will be at hospital at 6 AM. Original Note: Left Message for patient to come in at 6 AM, since the time of his procedure was moved up. [phone]. Tried the [phone] and wasn't able to dial out for this number.
[2021-02-09] VITALS (12 sets, daily range): BP systolic 104–153; BP diastolic 62–92; PULSE 62–110; RESP 14–18; TEMP 36.2–36.8; O2SAT 93–100
--- NOTE | 2021-02-09 07:05 | P.PN_ITS ---
[facility] Anesthesia Checklist - Patient Identification Patient Identification: Arm Band - Structural Data Admitted From: Home Planned Operative Procedure/s: Lumbar decompression Consent for Planned Operative Procedure(s) Verified: Yes - NPO Status Verified Time NPO: 00:00 - Additional verifications Anesthesia Reactions: Yes (vomiting) Hx Blood Transfusions: Yes Blood Transfusion Reaction: No - Airway Assessment C-Spine Mobility Assessed: Yes TMJ Mobility Assessed: Yes Dentition: Edentulous - Neurological Assessment Level of Consciousness: Awake Hx Seizures: No Numbness or tingling in extremities: Yes - Anesthesia Plan Anesthesia Risk discussed: Yes Anesthesia Plan: Verified ASA Class: III Anesthesia Type: General [facility] History I have reviewed the patient's past medical history: Yes Medical History: Reports:: Atherosclerotic Heart Disease, Cancer, Coronary Artery Disease, Gastroesophageal Reflux Disease(GERD), Heart Murmur, Hyperlipidemia, Hypertension Denies:: Diabetes Mellitus Type 1, Diabetes Mellitus Type 2, Internal Pacemaker, Lung Disease, MRSA, Seizures *Have you ever received a pneumonia vaccine?: Yes *Have you received a flu vaccine this season?: Yes Other Medical History: Reports: Arthritis, Hypothyroidism, Thyroid Disease, Other. Denies: Blood Transfusion Reaction Anesthesia experience/problems:: N/V Laterality Cases: Right: Carpal Tunnel Release, Other, Bilateral: Arthroscopy Knee Other Surgeries: Yes: No Previous Surgery, Appendectomy, Cancer Surgery, Cardiac Catheterization, Cholecystectomy, Colonoscopy, Coronary Stent, EGD, Skin Cancer Excision (melanoma excision x 2), Other. No: Pacemaker Amputation: No Fractures: No - *Social History Last grade of school completed: High school graduate Smoking Status: Never smoker Alcohol Intake: never Alcohol Intake Frequency:: other Substance Use Type: denies use *Occupational Status:: employed Housing: house Household Members: spouse *Travel in the last 8 weeks: None Family Hx:: Unable to obtain
--- NOTE | 2021-02-09 10:02 | P.PN_ITS ---
[facility] Anesthesia Record Part I Intake, IV Amount: 500 Estimated blood loss (mL): 0 Urine output (mL): 0 Blood Pressure: 123/67 SaO2: 93 Pulse Rate: 107 Respiratory Rate: 14 Temperature: 98.3 F Patient is:: Drowsy, Oral/Nasal airway Stable to PACU at:: 10:00
--- NOTE | 2021-02-09 10:05 | P.PCN_ITS ---
- Procedure Date: 02/09/21 Time: 10:05 Anesthesiologist:: Brittney Das MD Complications:: None Pre-procedure Diagnosis:: Degenerative disc disease of the lumbar spine, lumbar radiculopathy, lumbar spinal stenosis with neurogenic claudication related to hypertrophied ligamentum flavum Post-procedure Diagnosis:: Same Indications for Procedure:: This patient is a very pleasant 75-year-old white male who presents today with chronic low back pain radiating into bilateral lower extremities related to the above diagnosis. Tried and failed conservative treatment including oral pain medication, injection therapy, and home exercise program for greater than 6 weeks. He continues to experience back and leg pain with prolonged standing and walking that is better with sitting down or laying down or leaning forward with the aid of a shopping cart. We previously discussed with the patient regarding the mild procedure and he is very interested and would like to proceed. The plan for today is for the patient to undergo the mild procedure at L2-L3 and L3-L4 bilaterally. Procedure Details:: Informed consent was obtained and the risk and benefits of the procedure was explained to the patient. The patient was taken to the operating room and placed prone on the procedure table. The patient was prepped and draped in sterile fashion. C-arm fluoroscopy was used to view the lumbar spine. The skin and subcutaneous tissues were anesthetized using lidocaine. A epidural needle was inserted and advanced into the L3-L4 interspace. After confirmation of needle placement in the epidural space, dye was injected in a contralateral oblique view. There was an epidurogram seen at L2-L3 and L3-L4. Significant stenosis was seen at L2-L3 and L3-L4. The skin and subcutaneous tissues again were anesthetized using lidocaine. An incision was made and a access trocar was inserted and advanced to contact at the superior aspect of the L3 lamina on the left side. And a contralateral oblique view the side was viewed. Using a bone rongeur and tissue sculptor we debulked bone from the L2-L3 interspace on the left side. Next, an incision was made and a access trocar was inserted and advanced to contact at the superior aspect of the L4 lamina on the left side. And a contralateral oblique view the side was viewed. Using a bone rongeur and tissue sculptor we debulked bone from the L3-L4 interspace on the left side. We then used the tissue sculptor to debulk ligament at the L3-L4. interspace on the left side. We then moved over to the right side and debulked bone and ligament from L2-L3 and L3-L4 on the right side. There is opening of the stenosis at L2- L3 and L3-L4 bilaterally. The access trocar was removed. A total of 5 mL's of dye was used. There is good spread of dye above and below this level as well. We injected 80 mg Depo-Medrol through the epidural needle. The epidural needle was removed and dressings were placed. This encounter for exam is for normal comparison and control in a clinical research program Patient was taken to recovery in stable condition. Patient was discharged home neurologically intact and with good relief of pain symptoms. Plan and Disposition:: We will follow-up with this patient in 2 weeks. Will reevaluate symptoms at that time.
--- NOTE | 2021-02-09 12:19 | HMH.ANESII ---
[facility] Anesthesia Record Part II Discharge Time: 10:40 Destination: Surgical Day Care (OP Surgery) PACU nurse assessment reviewed?: Yes Patient Condition:: Good Anesthesia Complications:: None Swallowing reflex intact?: Yes Cyanosis?: No Blood Pressure: 116/68 Pulse Rate: 105 Temperature: 97.8 F Mental Status: Alert & Oriented Pain level:: 0 Nausea and/or vomitting:: None Intake, IV Amount: 0
== END 2021-02-09 11:30 | disposition home or self-care (01) ==
LOC: OR 06:02
PROVIDERS: PCP Family Medicine; Visit Provider Anesthesiology Pain Medicine
DX: M51.16 Intervertebral disc disorders with radiculopathy, lumbar region (principal); M48.062 Spinal stenosis, lumbar region with neurogenic claudication; Z00.6 Encounter for examination for normal comparison and control in clinical research program; I25.10 Atherosclerotic heart disease of native coronary artery without angina pectoris; K21.9 Gastro-esophageal reflux disease without esophagitis; E78.5 Hyperlipidemia, unspecified; I10 Essential (primary) hypertension; R01.1 Cardiac murmur, unspecified; E03.9 Hypothyroidism, unspecified; M19.90 Unspecified osteoarthritis, unspecified site; Z90.49 Acquired absence of other specified parts of digestive tract; Z85.828 Personal history of other malignant neoplasm of skin
CPT/HCPCS: 0275T; 96374; C1889; J0131; J1040; J2405; J3370

== ENCOUNTER → 2021-02-15 08:50 | Outpatient (POV) | payer MEDICARE, BC, SELFPAY | PROVIDERS: Visit Provider Dermatology | DX: Z00.00 Encounter for general adult medical examination without abnormal findings (principal) ==

== ENCOUNTER → 2021-02-28 10:02 | Outpatient (POV) | payer MEDICARE, BC, SELFPAY ==
[2021-02-28 10:18] VITALS: BP 135/80; PULSE 60; RESP 18; O2SAT 96; BMI 32.5
[2021-02-28 10:37] VITALS: BP 135/80; PULSE 60; RESP 18; O2SAT 96; BMI 32.5
--- NOTE | 2021-02-28 10:55 | HMH.PAINSOAP ---
[facility] Pain Management SOAP Note Subjective:: Patient is a pleasant 75-year-old white male who presents today for follow-up after mild procedure. He is being treated for degenerative disc disease lumbar spine with lumbar radiculopathy symptoms as well as lumbar spinal stenosis and neurogenic claudication symptoms. Patient's pain is a 3 out of 10 at this time. He says he has no pain in his lower extremities. He was previously having pain radicular into his right lower extremity with sharp stabbing and shooting pains. He says that has resolved since the procedure. He is 2 weeks postoperative. He is complaining, however, of continued low back pain with radiation into his right hip. He says the pain is worse when he is lying in bed. He says that the pain has not changed to his low back area. His mild procedure was performed at L2-L3 and L3-L4 area. Review of Systems General: No recent weight changes, no fever, no sleep disturbances Respiratory: No cough, no shortness of air, no recurring pulmonary infections Cardiovascular/peripheral vascular: No chest pain, no palpitations, no edema, no shortness of breath Gastrointestinal: No new onset incontinence, normal bowel movements reported Genitourinary: No new onset incontinence Musculoskeletal: Low back pain, right hip pain Psychiatric: [Normal mood/affect] Neurological: [Denies weakness in extremities], [denies balance issues] Objective:: Physical exam General: Alert and oriented x3, no acute distress, pleasant and cooperative, [on room air] Lungs: Respirations even and unlabored, symmetrical chest expansion Eyes: PERRL Musculoskeletal: Flexion and extension of [] lumbar [spine] somewhat guarded secondary to pain, strength in upper and lower extremities [5/5], [antalgic gait noted] Neurological: Speech clear, [supreme court justice equal], no gross sensory deficit Assessment:: Degenerative disc disease lumbar spine with lumbar radiculopathy symptoms, spinal stenosis Plan:: Patient's neurogenic claudication symptoms have improved significantly since the mild procedure. He is continued to have low back pain. He has 2 weeks postoperative. We will plan to see him back in 2 weeks to see if his low back pain has improved. He and I did discuss realistic expectations of the procedure. We will see him back in 2 weeks for reevaluation of symptoms. Patient has been instructed to contact the clinic with any concerns before the next appointment. Dr. Blood has reviewed this note and agrees with this plan of care. This note was dictated using voice recognition software and make contain errors or omissions. [facility] History I have reviewed the patient's past medical history: Yes Medical History: Reports:: Atherosclerotic Heart Disease, Cancer, Coronary Artery Disease, Gastroesophageal Reflux Disease(GERD), Heart Murmur, Hyperlipidemia, Hypertension, Myocardial Infarction Denies:: Diabetes Mellitus Type 1, Diabetes Mellitus Type 2, Internal Pacemaker, Lung Disease, MRSA, Seizures *Have you ever received a pneumonia vaccine?: Yes *Have you received a flu vaccine this season?: Yes Other Medical History: Reports: Arthritis, Hypothyroidism, Thyroid Disease, Other. Denies: Blood Transfusion Reaction Laterality Cases: Right: Carpal Tunnel Release, Other, Bilateral: Arthroscopy Knee Other Surgeries: Yes: No Previous Surgery, Appendectomy, Cancer Surgery, Cardiac Catheterization, Cholecystectomy, Colonoscopy, Coronary Stent, EGD, Skin Cancer Excision (melanoma excision x 2), Other. No: Pacemaker Amputation: No Fractures: No - *Social History Smoking Status: Never smoker Alcohol Intake: never Alcohol Intake Frequency:: other Substance Use Type: denies use *Occupational Status:: unemployed Housing: house Household Members: spouse *Travel in the last 8 weeks: None Family Hx:: Unable to obtain
== END ==
PROVIDERS: PCP Family Medicine; Visit Provider Clinical Nurse Specialist Family Health
DX: M51.16 Intervertebral disc disorders with radiculopathy, lumbar region (principal); M48.061 Spinal stenosis, lumbar region without neurogenic claudication
CPT/HCPCS: 99212; G0463

== ENCOUNTER → 2021-03-14 10:23 | Outpatient (POV) | payer MEDICARE, BC, SELFPAY ==
[2021-03-14 10:32] VITALS: BP 113/85; PULSE 71; RESP 18; O2SAT 96; BMI 71.6
--- NOTE | 2021-03-14 12:40 | HMH.PAINSOAP ---
[facility] Pain Management SOAP Note Subjective:: Patient is a 75-year-old white male who presents today for follow-up after a mild procedure. Patient is being treated for degenerative disc disease lumbar spine with lumbar radiculopathy symptoms as well as spinal stenosis with neurogenic claudication symptoms. Patient's pain is a 2 out of 10 today. He says that he got excellent relief with his bilateral lower extremity pain. He continues to have intermittent pain to his low back but feels that it is progressively improving. He says that he does have some pain in his right hip, however, he does feel that it is also improving. He does have a history of gastric ulcers and does take ibuprofen intermittently. He has been advised today to use caution with this medication due to his history of GI bleeding. Overall he feels he is improving with his symptoms since his procedure. He denies any heaviness or weakness at this time. Review of Systems General: No recent weight changes, no fever, no sleep disturbances Respiratory: No cough, no shortness of air, no recurring pulmonary infections Cardiovascular/peripheral vascular: No chest pain, no palpitations, no edema, no shortness of breath Gastrointestinal: No new onset incontinence, normal bowel movements reported Genitourinary: No new onset incontinence Musculoskeletal: Intermittent low back pain Psychiatric: [Normal mood/affect] Neurological: [Denies weakness in extremities], [denies balance issues] Objective:: Physical exam General: Alert and oriented x3, no acute distress, pleasant and cooperative, [on room air] Lungs: Respirations even and unlabored, symmetrical chest expansion Eyes: PERRL Musculoskeletal: Flexion and extension of lumbar [spine] somewhat guarded secondary to pain, strength in upper and lower extremities [5/5], normal gait noted Neurological: Speech clear, [it portfolio manager equal], no gross sensory deficit Assessment:: Degenerative disc disease lumbar spine with lumbar radiculopathy symptoms, spinal stenosis with neurogenic claudication symptoms Plan:: Overall, the patient is improving post mild procedure. He did have mild performed at L2-L3 and L3-L4 areas. Patient will follow up with us in 3 months for reevaluation of symptoms. He is doing well at this time. He has been instructed he can contact the clinic if he has any return of symptoms before his next visit. Patient has been instructed to contact the clinic with any concerns before the next appointment. Dr. Bux has reviewed this note and agrees with this plan of care. This note was dictated using voice recognition software and make contain errors or omissions. [facility] History I have reviewed the patient's past medical history: Yes Medical History: Reports:: Atherosclerotic Heart Disease, Cancer, Coronary Artery Disease, Gastroesophageal Reflux Disease(GERD), Heart Murmur, Hyperlipidemia, Hypertension, Myocardial Infarction Denies:: Diabetes Mellitus Type 1, Diabetes Mellitus Type 2, Internal Pacemaker, Lung Disease, MRSA, Seizures *Have you ever received a pneumonia vaccine?: Yes *Have you received a flu vaccine this season?: Yes Other Medical History: Reports: Arthritis, Hypothyroidism, Thyroid Disease, Other. Denies: Blood Transfusion Reaction Laterality Cases: Right: Carpal Tunnel Release, Other, Bilateral: Arthroscopy Knee Other Surgeries: Yes: No Previous Surgery, Appendectomy, Cancer Surgery, Cardiac Catheterization, Cholecystectomy, Colonoscopy, Coronary Stent, EGD, Skin Cancer Excision (melanoma excision x 2), Other. No: Pacemaker Amputation: No Fractures: No - *Social History Smoking Status: Never smoker Alcohol Intake: never Alcohol Intake Frequency:: other Substance Use Type: denies use *Occupational Status:: employed Housing: house Household Members: spouse *Travel in the last 8 weeks: None Family Hx:: Unable to obtain
== END ==
PROVIDERS: Visit Provider Clinical Nurse Specialist Family Health
DX: M51.16 Intervertebral disc disorders with radiculopathy, lumbar region (principal); M48.062 Spinal stenosis, lumbar region with neurogenic claudication
CPT/HCPCS: 99212; G0463

== ENCOUNTER → 2021-03-31 09:09 | Outpatient (CLI) | payer MEDICARE, BC, SELFPAY ==
[2021-04-01 12:19] LABS: PSA, Free 2.96 ng/mL; Prostate Specific Ag 10.2 ng/mL (0.0-4.0)
== END ==
PROVIDERS: Visit Provider Urology
DX: R97.20 Elevated prostate specific antigen [PSA] (principal)
CPT/HCPCS: 36415; 84153; 84154

== ENCOUNTER → 2021-04-02 11:16 | Outpatient (CLI) | payer MEDICARE, BC, SELFPAY | PROVIDERS: PCP Family Medicine; Visit Provider Family Medicine | DX: Z20.822 Contact with and (suspected) exposure to COVID-19 (principal) | CPT/HCPCS: C9803; U0003; U0005 ==

== ENCOUNTER → 2021-06-13 09:54 | Outpatient (POV) | payer MEDICARE, BC, SELFPAY ==
[2021-06-13 10:11] VITALS: BP 187/91; PULSE 80; RESP 18; O2SAT 96; BMI 32.5
--- NOTE | 2021-06-13 10:26 | HMH.PAINSOAP ---
[facility] Pain Management SOAP Note Subjective:: Patient is a 75-year-old white male who presents today for follow-up. The patient did have the mild procedure in February 2021. He does rate his pain a 3 out of 10 today. He is having significant relief of pain in the bilateral lower extremities, but is now reporting to be having cold sensation/tingling into his bilateral lower extremities. He is also having pain in his low back area. He does report that the pain in the low back initially subsided following surgery but has now returned. He does report to have fallen on June 02. He says he was raising out of bed and lost consciousness for only a few seconds. He says he awakened to being in the floor with legs stretched out and with his back against the bedroom door. He is having vision changes along with floaters. He says that his is diabetic and does have a blood glucose monitor at home. She did check his blood sugar a few weeks ago noting the patient to have a blood glucose level of 38. Patient says he had just eaten peanut butter and crackers. He does report a history of hypoglycemia. He did not follow-up with his primary care provider Dr. Cazares following the incident. He denies striking his head. He has not had any nausea, vomiting, or confusion. Initially upon assessment into the clinic today the patient was noted to have a blood pressure of 180s over 90s. Reevaluation of blood pressure was 140s over 80s with heart rate in the 60s. He is scheduled to see Dr. Madsen in June. He does have one cardiac stent. He is also scheduled to see Dr. Cazares on July 07. He has been advised to contact Dr. Cazares's office regarding the loss of consciousness episode that he recently experienced. 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 He says he has 15 days left with his current job. Review of Systems General: No recent weight changes, no fever, no sleep disturbances Respiratory: No cough, no shortness of air, no recurring pulmonary infections Cardiovascular/peripheral vascular: No chest pain, no palpitations, no edema, no shortness of breath Gastrointestinal: No new onset incontinence, normal bowel movements reported Genitourinary: No new onset incontinence Musculoskeletal: Low back pain, cold sensation to legs/tingling Psychiatric: [Normal mood/affect] Neurological: [Denies weakness in extremities], recent fall with loss of consciousness Objective:: Physical exam General: Alert and oriented x3, no acute distress, pleasant and cooperative Lungs: Respirations even and unlabored, symmetrical chest expansion Eyes: PERRL Musculoskeletal: Flexion and extension of lumbar [spine] somewhat guarded secondary to pain, [antalgic gait noted] Neurological: Speech clear, no gross sensory deficit Assessment:: Degenerative disc disease lumbar spine with lumbar radiculopathy symptoms, spinal stenosis Plan:: We will order an x-ray of the patient's lumbar spine. Pain has returned to his low back area since the mild procedure and since his fall. The patient I did discuss gabapentin 300 mg 1 tablet p.o. daily for leg symptoms that he is currently having. Given his new onset symptoms of loss of consciousness, he has been advised to follow-up with his primary care provider Dr. Cazares and continue with the appointment with Dr. Madsen before starting the medication. 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 We did discuss I will order the medication, but he will defer on taking the medication until his last day of work, pen[employer]. He would also need to do a thorough work-up with his primary care provider before starting the medication. Once we reviewed the x-ray of lumbar spine we will contact the patient. We will plan to follow-up with the patient on July 07 after he follows up with Dr. Cazares. He can contact the clinic before then if he
--- NOTE | 2021-06-13 14:20 | XR_ITS ---
PROCEDURE: XR LUMBAR SPINE MIN 4V CLINICAL INDICATION: BACK PAIN COMPARISON: CR LS5 LUMBAR SPINE 5 VIEWS from 10/02/2016 FINDINGS: Mild lower lumbar scoliosis convex left and minimal upper lumbar curvature convex right. Facet arthritic changes with bony hypertrophy L4-5 and L5-S1. No acute fracture or dislocation. There is degenerative disc disease at L2-L3 L3-L4 L4-5 and L5-S1. The degenerative disc disease has slightly progressed at L2-L3 and L3-L4 but is most severe at L4-5. no fracture or dislocation. No lytic or blastic change. The SI joints have an unremarkable appearance IMPRESSION: Degenerative changes of the lumbar spine as described above slightly progressed from 10/02/2016 Dictated by: Santhosh Morgan MD 06/13/2021 17:51 Santhosh Morgan MD in [place] 06/13/2021 17:51
== END ==
PROVIDERS: Visit Provider Clinical Nurse Specialist Family Health
DX: M51.16 Intervertebral disc disorders with radiculopathy, lumbar region (principal); M48.00 Spinal stenosis, site unspecified
CPT/HCPCS: 72110; 99212; G0463

== ENCOUNTER → 2021-07-25 08:24 | Outpatient (POV) | payer MEDICARE, BC, SELFPAY ==
[2021-07-25 08:36] VITALS: BP 152/85; PULSE 55; RESP 18; O2SAT 95; BMI 34.0
--- NOTE | 2021-07-25 08:43 | HMH.PAINSOAP ---
[facility] Pain Management SOAP Note Subjective:: Patient is a 75-year-old white male who presents today for follow-up. At last visit on 06/13/2021, the patient was continuing to have low back pain and bilateral lower extremity pain. He did undergo mild procedure in February 2021. He says that he feels his symptoms have improved somewhat since last visit. He is continuing to have low back pain with radiation into lower extremities, however. At last visit, the patient did report to have fallen and passed out . He did follow up with Dr. Cazares concerning his episode. He says after further evaluation, it is believed that he just got out of bed too quickly . Today, the patient rates his pain a 3 out of 10. We did discuss at last visit starting gabapentin 300 mg 1 tablet p.o. daily. The patient did wish to start the medication. He did want to wait until he did retire. 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 He has now retired and would like to start the medication to see if this does help with his bilateral lower extremity pain and numbness and tingling. Review of Systems General: No recent weight changes, no fever, no sleep disturbances Respiratory: No cough, no shortness of air, no recurring pulmonary infections Cardiovascular/peripheral vascular: No chest pain, no palpitations, no edema, no shortness of breath Gastrointestinal: No new onset incontinence, normal bowel movements reported Genitourinary: No new onset incontinence Musculoskeletal: Low back pain with bilateral lower extremity pain with numbness and tingling bilateral lower extremities Psychiatric: [Normal mood/affect] Neurological: [Denies weakness in extremities], [denies balance issues] Objective:: Physical exam General: Alert and oriented x3, no acute distress, pleasant and cooperative Lungs: Respirations even and unlabored, symmetrical chest expansion Eyes: PERRL Musculoskeletal: Flexion and extension of lumbar [spine] somewhat guarded secondary to pain, [antalgic gait noted] Neurological: Speech clear, no gross sensory deficit Assessment:: Degenerative disc disease lumbar spine with lumbar radiculopathy symptoms, spinal stenosis Plan:: We will start the patient on gabapentin 300 mg 1 tablet p.o. daily. We will see if the patient does get relief with the medication. We will follow-up with him in 2 weeks via telehealth for further evaluation. He has been advised that gabapentin is a controlled substance and has also been advised of the side effects and risks of the medication. Patient's ORT score is low risk. A pain management contract was signed by the patient and provider today. Risks and benefits of the medication have been explained in detail to the patient. If side effects do present with the medication, patient has been advised to stop the medication immediately and call the clinic. The patient has been advised to consult with his/her primary care provider and pharmacist regarding drug-drug interaction of medications currently prescribed. Patient has been instructed to contact the clinic with any concerns before the next appointment. Dr. Blood has reviewed this note and agrees with this plan of care. This note was dictated using voice recognition software and make contain errors or omissions. [facility] History I have reviewed the patient's past medical history: Yes Medical History: Reports:: Atherosclerotic Heart Disease, Cancer, Coronary Artery Disease, Gastroesophageal Reflux Disease(GERD), Heart Murmur, Hyperlipidemia, Hypertension, Myocardial Infarction Denies:: Diabetes Mellitus Type 1, Diabetes Mellitus Type 2, Internal Pacemaker, Lung Disease, MRSA, Seizures *Have you ever received a pneumonia vaccine?: Yes *Have you received a flu vaccine this season?: Yes Other Medical History: Reports: Arthritis, Hypothyroidism, Thyroid Disease, Other. Denies: Blood Transfusion Reaction Laterality Cases: Right: Carpal Tunnel Release, Other, Bilateral: Art
== END ==
PROVIDERS: Visit Provider Clinical Nurse Specialist Family Health
DX: M51.16 Intervertebral disc disorders with radiculopathy, lumbar region (principal); M48.00 Spinal stenosis, site unspecified
CPT/HCPCS: 99212; G0463

== ENCOUNTER → 2021-07-26 10:32 | Outpatient (CLI) | payer MEDICARE, BC, SELFPAY ==
[2021-07-26 12:04] LABS: Blood Urea Nitrogen 13 mg/dl (9-20); Estimated Glomerular Filt Rate 54 ml/min (>60); GFR (African American) 65 ML/MIN (>60)
== END ==
PROVIDERS: Visit Provider Student in an Organized Health Care Education/Training Program
DX: Z01.812 Encounter for preprocedural laboratory examination (principal)
CPT/HCPCS: 36415; 82565; 84520

== ENCOUNTER → 2021-07-27 10:18 | Outpatient (CLI) | payer MEDICARE, BC, SELFPAY ==
--- NOTE | 2021-07-27 10:18 | MR_ITS ---
FINAL REPORT CLINICAL HISTORY: to r/o acoustic neuroma, pt c/o new onset left sided hearing loss. FINDINGS: Multiplanar MR imaging of the brain was performed without and with contrast. The midline structures are intact. There is no Chiari malformation. There are mild to moderate scattered foci of abnormal signal in the deep white matter bilaterally. There are no foci of cortical signal abnormality. There is no restricted diffusion. Postcontrast images demonstrate no abnormal contrast enhancement. The seventh and eighth nerve root complexes are intact. The mastoid air cells are well aerated. IMPRESSION: No acute intracranial abnormality identified. Mild to moderate changes of chronic microvascular ischemia Reviewed, Interpreted and Dictated by Brock Pretty MD Transcribed by Kimmie Candelario Authenticated by Brock Pretty MD on 07/27/2021 03:14:30 PM [facility]
== END ==
PROVIDERS: PCP Family Medicine; Visit Provider Student in an Organized Health Care Education/Training Program
DX: H91.8X9 Other specified hearing loss, unspecified ear (principal); H93.19 Tinnitus, unspecified ear
CPT/HCPCS: 70553; A9576

== ENCOUNTER → 2021-08-09 14:46 | Outpatient (POV) | payer MEDICARE, BC, SELFPAY ==
--- NOTE | 2021-08-09 18:35 | HMH.VVPMSO ---
[facility] Virtual Visit SOAP Consent for virtual visit:: With the recent concerns about the COVID-19, we are trying to minimize exposure to you by shifting to telehealth appointments whenever possible. It restricts me from seeing you in person, but the trade off is protecting you during this pandemic. Can you see and hear me okay, and do you consent to this option? If not, I would be happy to see if we can reschedule your appointment in the future, when feasible. Has patient consented to this virtual visit?: Yes Subjective:: Patient is a 75-year-old white male who is following up via telehealth visit. At last visit, the patient was started on gabapentin 300 mg 1 tablet p.o. daily. He does report some relief of his lower foot pain since starting gabapentin. He does continue to have significant low back pain, however. He says the pain is worse when he is awakening in the a.m. He does have an MRI lumbar spine from 2020 that does have significant pathology. He has not seen a neurosurgeon. The pain is progressively worsening in the low back with radiation into lower extremities. We did discuss ordering updated imaging. He may be a neurosurgical candidate, given his previous pathology. He has tried physical therapy for more than 6 weeks in the past along with oral anti-inflammatories. He got minimal relief. Review of Systems General: No recent weight changes, no fever, no sleep disturbances Respiratory: No cough, no shortness of air, no recurring pulmonary infections Cardiovascular/peripheral vascular: No chest pain, no palpitations, no edema, no shortness of breath Gastrointestinal: No new onset incontinence, normal bowel movements reported Genitourinary: No new onset incontinence Musculoskeletal: Low back pain with radiation into bilateral lower extremities Psychiatric: [Normal mood/affect] Neurological: [Denies weakness in extremities], [denies balance issues] Objective:: Physical exam General: Alert and oriented x3, no acute distress, pleasant and cooperative Assessment:: Degenerative disc disease lumbar spine with lumbar radiculopathy symptoms, spinal stenosis Plan:: Patient does have multiple levels of foraminal encroachment per his previous MRI in 2020. Patient would like to obtain a new MRI lumbar spine to determine if he is an neurosurgical candidate. We will order an MRI and see him back to discuss the MRI. We will also continue the patient on gabapentin increased to 300 g 1 tablet p.o. twice daily, as he is starting to get relief of his bilateral lower extremity symptoms. We will discuss his MRI results after completion. Risks and benefits of the medication have been explained in detail to the patient. If side effects do present with the medication, patient has been advised to stop the medication immediately and call the clinic. The patient has been advised to consult with his/her primary care provider and pharmacist regarding drug-drug interaction of medications currently prescribed. Time In:: 12:45 Time Out:: 13:00 [facility] History I have reviewed the patient's past medical history: Yes Medical History: Reports:: Atherosclerotic Heart Disease, Cancer, Coronary Artery Disease, Gastroesophageal Reflux Disease(GERD), Heart Murmur, Hyperlipidemia, Hypertension, Myocardial Infarction Denies:: Diabetes Mellitus Type 1, Diabetes Mellitus Type 2, Internal Pacemaker, Lung Disease, MRSA, Seizures *Have you ever received a pneumonia vaccine?: Yes *Have you received a flu vaccine this season?: Yes Other Medical History: Reports: Arthritis, Hypothyroidism, Thyroid Disease, Other. Denies: Blood Transfusion Reaction Laterality Cases: Right: Carpal Tunnel Release, Other, Bilateral: Arthroscopy Knee Other Surgeries: Yes: No Previous Surgery, Appendectomy, Cancer Surgery, Cardiac Catheterization, Cholecystectomy, Colonoscopy, Coronary Stent, EGD, Skin Cancer Excision (melanoma excision x 2), Other. No: Pacemaker Amputation: No
== END ==
PROVIDERS: Visit Provider Clinical Nurse Specialist Family Health
DX: M51.16 Intervertebral disc disorders with radiculopathy, lumbar region (principal); M48.00 Spinal stenosis, site unspecified
CPT/HCPCS: 99212; G0463

== ENCOUNTER → 2021-08-16 10:50 | Outpatient (CLI) | payer MEDICARE, BC, SELFPAY ==
--- NOTE | 2021-08-16 10:52 | MR_ITS ---
FINAL REPORT CLINICAL HISTORY: BACK PAIN COMPARISON: 07/21/2020 FINDINGS: Multiplanar MR imaging of the lumbar spine was performed without contrast. On the sagittal T2-weighted images, there is abnormal decreased signal throughout the lumbar discs. There is disc space narrowing, most evident at L2-3 and L4-5. The vertebral alignment is normal. L1-2: There is no significant canal stenosis or neural foraminal narrowing. L2-3: Moderate left paracentral disc protrusion is present. There is moderate to high-grade compromise of the left lateral recess, more evident than previous. Finding is well-seen on image 7 of series 6. L3-4: Moderate diffuse disc bulge and endplate hypertrophy are present. There is facet hypertrophy. There is mild spinal and mild to moderate bilateral neural foraminal narrowing. L4-5: Mild diffuse disc bulge is present. There is endplate hypertrophy, eccentric to the right. There is facet hypertrophy on the right with moderate to high-grade right neural foraminal narrowing, similar to previous. L5-S1: Mild diffuse disc bulge is present with mild bilateral neural foraminal narrowing. IMPRESSION: Left paracentral disc protrusion at L2-3 with moderate to high-grade compromise of the left lateral recess. Moderate to high-grade right neural foraminal narrowing at L4-5. Reviewed, Interpreted and Dictated by Brock Pretty MD Transcribed by Teresa Ruvalcaba Authenticated by Brock Pretty MD on 08/16/2021 01:14:51 PM [facility]
== END ==
PROVIDERS: PCP Family Medicine; Visit Provider Clinical Nurse Specialist Family Health
DX: M54.50 Low back pain, unspecified (principal)
CPT/HCPCS: 72148; 76376

== ENCOUNTER → 2021-09-01 13:20 | Outpatient (POV) | payer MEDICARE, BC, SELFPAY ==
--- NOTE | 2021-09-01 13:51 | HMH.PAINSOAP ---
[facility] Pain Management SOAP Note Subjective:: Patient is a 75-year-old white male who presents today for follow-up. He is continuing to have significant low back pain that radiates into his left hip and left leg. He is now having difficulty with ambulation due to pain. He has seen a chiropractor in the past but has not had recent physical therapy. We did discuss physical therapy. He does have an MRI he would like to review today. He is not having any saddle anesthesia or changes in bowel or bladder habit. Pain is primarily bilateral low back going into the left lower extremity. Review of Systems General: No recent weight changes, no fever, no sleep disturbances Respiratory: No cough, no shortness of air, no recurring pulmonary infections Cardiovascular/peripheral vascular: No chest pain, no palpitations, no edema, no shortness of breath Gastrointestinal: No new onset incontinence, normal bowel movements reported Genitourinary: No new onset incontinence Musculoskeletal: Low back pain with radiation into lower extremity Psychiatric: [Normal mood/affect] Neurological: [Denies weakness in extremities], [denies balance issues] Objective:: Physical exam General: Alert and oriented x3, no acute distress, pleasant and cooperative Lungs: Respirations even and unlabored, symmetrical chest expansion Eyes: PERRL Musculoskeletal: Flexion and extension of lumbar [spine] somewhat guarded secondary to pain, [antalgic gait noted] Neurological: Speech clear, no gross sensory deficit Assessment:: Degenerative disc disease lumbar spine with lumbar radiculopathy symptoms Plan:: Patient does have moderate bulging disc at the L2-L3 area. This is where he is complaining of pain. He is having pain into his left lower extremity as well. We will schedule him for physical therapy and a lumbar epidural steroid injection at L2-L3. The patient is not on any anticoagulation therapy. We will also give him tramadol 50 mg 1 tablet p.o. 3 times daily until he is able to complete the injection and to help with pain during physical therapy. If he does not get in the relief with the injections, we will refer him to neurosurgery. We also discussed spinal cord stimulation and he was given educational information today. Possible side effects of corticosteroids have been discussed with the patient. Risks and benefits of the procedure have been explained to the patient. Patient would like to proceed with the procedure. Patient has been instructed to contact the clinic with any concerns before the next appointment. Dr. Blood has reviewed this note and agrees with this plan of care. This note was dictated using voice recognition software and make contain errors or omissions. Risks and benefits of the medication have been explained in detail to the patient. The patient does understand the risk of dependence on the medication when given over a prolonged period. Patient has been advised of risks of oversedation with the prescribed medication. Narcan has been offered to the paitent in the event of oversedation. Patient has been advised that a family member should also be educated regarding administration of Narcan. The patient has been advised to consult with his/her primary care provider and pharmacist regarding drug-drug interaction of medications currently prescribed. Patient has been prescribed a controlled substance after being counseled on the medication, medication safety, and possible side effects. BRYAN report has been obtained and reviewed prior to prescription and found to be appropriate. Opioid contract was reviewed and signed by the patient, and that they have agreed to all of the terms set forth by our compliance program. Patient has been instructed to contact the clinic with any concerns before the next appointment. Dr. Blood has reviewed this note and agrees with this plan of care. This note was dictated using voice recognition softwa
[2021-09-01 15:32] VITALS: BP 144/88; PULSE 70; RESP 18; O2SAT 97; BMI 24.4
== END ==
PROVIDERS: Visit Provider Clinical Nurse Specialist Family Health
DX: M51.16 Intervertebral disc disorders with radiculopathy, lumbar region (principal)
CPT/HCPCS: 99212; G0463

== ENCOUNTER 2021-09-19 08:00 | Outpatient (RCR) | payer MEDICARE, BC, SELFPAY ==
--- NOTE | 2021-09-06 09:47 | HMH.PTOPEV ---
PT Outpatient Evaluation Rehab PT Outpatient Evaluation Start: 09/06/21 09:17 Freq: Status: Active Protocol: Document 09/06/21 09:17 ANALILIA (Rec: 09/06/21 09:47 ANALILIA [id number]) Electronically Signed By Ronnie Eng, PT 09/06/21 09:17 Outpatient Therapy Subjective History Subjective History Pt reports h/o chronic LBP for multiple years, exacerbation of s/s over the last ~6months. Pt reports he was having constant midline LBP with intermittent BLE radicular s/s , however, pain management procedure in improved LE s/s. Pt reports currently midline LBP and intermittently L hip radicular pain. Recent MRI has revealed L2-3, L4-5 left disc protrusion. Chief Complaint Pain,Stiff,Paresthesia Symptom Type Ache,Sharp,Dull,Stabbing Symptoms Relieved By Rest/Positioning Symptoms Aggravated By Standing,Bending/Stooping, Physical Activity,Lifting Prior Functional Limitations Lifting,Housework,Standing, Bending/Stooping Current Functional Limitations Lifting,Housework,Bending/ Stooping Symptom Description Constant but Variable Level of pain today (0-10) 3 Pain scale - at its best (0-10) 2 Pain scale - at its worst (0-10) 9 Lumbopelvic Eval Posture Thoracic Spine Posture Standing Position Flattened Lumbar Spine Posture Standing Position Flattened Assistive device Assistive Devices None / NA Gait Observation General Gait Pattern Observation No Deviations/Normal Palapation tenderness bilateral lumbar spinal tenderness Yes: 3/4 paraspinal tenderness Yes: 3/4 buttock tenderness Yes: 0-1/4 Lumbar/Sacral Palpation Findings Tenderness,Trigger Point, Muscle Guarding Accessory Movement L-spine Vertebrae Accessory Movements [place] [employer] [place] that Elicit Symptoms L2 bilateral L3 bilateral L4 bilateral L5 bilateral Range of Motion Lumbar Spine Active Flexion Range of 0-46 Motion (degrees) Lumbar Spine Active Extension Range of 0-18 Motion (degrees) Left Lumbar Spine Lateral Flexion Active 0-24 Range of Motion (degrees) Right Lumbar Spine Lateral Flexion 0-26 Active Range of Motion (degrees) Lumbar Spine ROM Limitations Pain Manual Muscle Test
== END 2021-09-19 08:05 | disposition home or self-care (01) ==
LOC: PT 08:00
PROVIDERS: PCP Family Medicine; Visit Provider Clinical Nurse Specialist Family Health
DX: M54.50 Low back pain, unspecified (principal)
CPT/HCPCS: 97010; 97012; 97014; 97035; 97110; 97163; G0283

== ENCOUNTER 2021-09-23 09:55 | Day surgery (SDC) | payer MEDICARE, BC, SELFPAY ==
[2021-09-23 10:02] VITALS: BP 159/82; BP 164/71; PULSE 56; PULSE 61; RESP 18; RESP 20; TEMP 36.7; O2SAT 94; O2SAT 95; BMI 34.0
[2021-09-23 10:16] VITALS: BP 148/80; PULSE 63; RESP 18; O2SAT 96
--- NOTE | 2021-09-23 10:22 | P.PCN_ITS ---
- Procedure Date: 09/23/21 Time: 10:22 Anesthesiologist:: Clive Blood MD Complications:: None Pre-procedure Diagnosis:: Degenerative disc disease of lumbar spine with lumbar radiculopathy symptoms Post-procedure Diagnosis:: Same Indications for Procedure:: This patient is a pleasant 75-year-old white male who we are treating for low back pain with lumbar radiculopathy symptoms. He has increasing pain over the low back radiating into his hips and both legs left greater than right. We will do a lumbar pleural steroid injection today to see if this helps with his pain symptoms. Procedure Details:: Informed consent was obtained and the risk and benefits of the procedure was explained to the patient. The patient was taken to the procedure room. The pat ient was placed prone on the procedure table. The patient was prepped and draped in sterile fashion. C-arm fluoroscopy was used to view the lumbar spine. Skin and subcutaneous tissues were anesthetized using lidocaine. I placed an 18-gauge epidural needle and advanced into the L4-L5 interspace using fluoroscopic guidance and [id number] to air. After confirmation of needle placement in the epidural space with dye I injected 2 mL of lidocaine 1.5% with Depo-Medrol 80 mg. Patient tolerated the procedure well with no complications. Plan and Disposition:: We will follow-up with him in 2 weeks. Will reevaluate symptoms at that time.
[2021-09-23 10:32] VITALS: BP 165/98; PULSE 56; RESP 20; O2SAT 98
== END 2021-09-23 10:33 | disposition home or self-care (01) ==
LOC: SC.PAINP 09:57
PROVIDERS: PCP Family Medicine; Visit Provider Anesthesiology
DX: M51.16 Intervertebral disc disorders with radiculopathy, lumbar region (principal); I10 Essential (primary) hypertension; E78.5 Hyperlipidemia, unspecified; K21.9 Gastro-esophageal reflux disease without esophagitis
CPT/HCPCS: 62323; Q9966

== ENCOUNTER → 2021-09-26 09:14 | Outpatient (CLI) | payer MEDICARE, BC, SELFPAY ==
[2021-09-26 09:36] LABS: Basophils # 0.1 K/mm3 (0-0.2); Basophils % 0.6 % (0.1-2.0); Eosinophils # 0.1 K/mm3 (0.0-0.4); Eosinophils % 1.1 % (0.1-12.0); Hematocrit 47.2 % (42.0-52.0); Hemoglobin 15.5 g/dL (14.1-18.0); Lymphocytes # 2.2 K/mm3 (0.7-4.5); Lymphocytes % 28.1 % (10-50); Mean Corpuscular HGB Conc 32.9 g/dL (31.8-35.4); Mean Corpuscular Volume 94.4 fl (80-94); Mean Platelet Volume 9.1 fl (7.4-10.4); Monocytes # 0.6 K/mm3 (0.1-1.0); Neutrophils # 4.8 K/mm3 (1.8-7.8); Neutrophils % 62.2 % (37.0-80.0); Platelet Count 168 K/mm3 (142-424); Red Cell Distribution Width 14.6 % (11.5-17.5); White Blood Count 7.8 K/mm3 (4.8-10.8)
[2021-09-26 11:29] LABS: Chloride 104 mmol/L (98-107); Potassium 4.2 mmoL/L (3.5-5.1); Sodium 137 mmol/L (136-145)
[2021-09-26 11:32] LABS: Anion Gap 14.2 mEq/L (5-15); Blood Urea Nitrogen 18 mg/dl (9-20); Carbon Dioxide 23 mmol/L (22.0-30.0); Estimated Glomerular Filt Rate 66 ml/min (>60); GFR (African American) 79 ML/MIN (>60); Glucose 92 mg/dl (74-100)
== END ==
PROVIDERS: Visit Provider Nurse Practitioner Family
DX: E78.2 Mixed hyperlipidemia (principal); I11.9 Hypertensive heart disease without heart failure; I25.10 Atherosclerotic heart disease of native coronary artery without angina pectoris; R06.09 Other forms of dyspnea; R42 Dizziness and giddiness; R55 Syncope and collapse; R60.0 Localized edema; R94.31 Abnormal electrocardiogram [ECG] [EKG]; I63.9 Cerebral infarction, unspecified; Z01.812 Encounter for preprocedural laboratory examination; Z11.52 Encounter for screening for COVID-19
CPT/HCPCS: 36415; 80048; 85025; C9803; U0003; U0005

== ENCOUNTER 2021-09-27 08:26 | Day surgery (SDC) | payer MEDICARE, BC, SELFPAY ==
[2021-09-27] VITALS (10 sets, daily range): BP systolic 127–160; BP diastolic 69–104; PULSE 55–87; RESP 16–20; TEMP 36.6; O2SAT 93–98; BMI 34.2
--- NOTE | 2021-09-27 07:01 | IR_ITS ---
APPROVED REPORT Patient Location: Outpatient PROCEDURES Left heart catheterization Left ventriculogram Selective coronary angiogram INDICATION Worsening angina pectoris, Syncope Informed consent was obtained prior to the procedure. COMPLICATIONS None Estimated Blood Loss: Less than 10 mls TECHNIQUE One percent lidocaine used to anesthetize the right anterior aspect of the wrist. The right radial artery was accessed via the Seldinger technique. A 6 [place] sheath was placed in the right radial artery. 2.5 mg of verapamil, 800 mcg of nitroglycerin, 1mg Lidocaine and 5000 U Heparin were given through the arterial sheath. The papa catheter was also used to perform left heart catheterization, left ventriculogram and selective coronary angiogram. At the end of the procedure the sheath was removed good hemostasis was achieved using Traclet band, patient was transferred to the postop holding area in stable condition. ANGIOGRAPHIC RESULTS The left main artery Normal The left anterior descending artery Proximally normal with mild mid vessel 20% stenoses The circumflex artery Large dominant normal The right coronary artery Nondominant with proximal concentric 20 to 30% long stenosis The DIAS ventriculogram reveals Normal 65% The left ventricular end-diastolic pressure 10 mmHg Ascending aorta appears dilated IMPRESSION Mild nonflow limiting coronary disease Normal ejection fraction Normal left ventricular end-diastolic pressure Dilated ascending aorta Moderate endothelial dysfunction down all 3 of the coronary arteries The moderate endothelial dysfunction does explain the worsening angina pectoris however this does not explain the syncope. PLAN 1. Medical management for coronary artery disease with aggressive risk factor modification 2. Recommend loop recorder due to syncope 3. Recommend CTA of the chest to evaluate size of the ascending aorta. This appears to be nonaneurysmal however is significantly dilated therefore more detailed imaging is required 4. Treatment of moderate endothelial dysfunction with nitrates and possibly the addition of Ranexa Electronically signed by : Jose De Jesus Madsen MD 09/27/2021 10:50:12
--- NOTE | 2021-09-27 10:50 | CT_ITS ---
FINAL REPORT CLINICAL HISTORY: dilated aorta COMPARISON: 01/13/2020 FINDINGS: Thin section axial CT images of the chest were obtained with contrast. 3D reformatted images were also obtained. This study was performed with techniques to keep radiation doses as low as reasonably achievable (ALARA). Individualized dose reduction techniques using automated exposure control or adjustment of mA and/or kV according to the patient's size were employed. There is no evidence of pulmonary embolism. There is no evidence of thoracic aortic aneurysm or dissection. There is no evidence of mediastinal or hilar mass or adenopathy. There is no evidence of pulmonary mass or nodule. There is mild dependent atelectasis. There is ectasia of the abdominal aorta measuring 3.9 cm. There are several low-attenuation masses in the liver, largest in liver dome measuring 19 mm, previously measured 46 mm. There is a small hiatal hernia. The patient is status post cholecystectomy. IMPRESSION: No evidence of pulmonary embolism. Several liver masses, largest in the liver dome has decreased in size. No mass or localized inflammatory process. Reviewed, Interpreted and Dictated by Santi Wyatt III, MD Transcribed by Teresa Ruvalcaba Authenticated by Santi Wyatt III, MD on 09/27/2021 12:59:18 PM [facility]
--- NOTE | 2021-09-27 11:39 | SUR.PHASEII ---
See cardiac Cath charting for post and discharge information
--- NOTE | 2021-09-27 11:43 | SUR.PHASEII ---
patient going over to CT scan at this time.
--- NOTE | 2021-09-27 11:58 | SUR.PHASEII ---
pt returned from CT at this time.
--- NOTE | 2021-09-29 08:43 | HMH.LOOP ---
[facility] Loop Recorder Date: 09/27/21 Time: 11:30 Procedure Performed:: Internal loop recorder implantation Indication:: syncope Technique:: Patient was brought to the cardiac Stenographic [employer] Reporter. After informed consent obtained, 1% lidocaine with epinephrine was used to anesthetize the site along the left anterior aspect of the chest near the sternal border. Using a scalpel, an incision was made and using the supplied preloaded apparatus, the loop recorder was placed subcutaneously without difficulty. Following the deployment of the loop recorder interrogation of the device was performed to ensure appropriate voltage was being detected. Once this was verified, Steri-Strips were placed over the incision and the patient was prepped to discharge home. Patient tolerated the procedure well with minimal discomfort. Impression:: Successful implantation of internal loop recorder. Serial Number:: [id number] Plan:: Routine postop care
== END 2021-09-27 13:32 | disposition home or self-care (01) ==
PROVIDERS: PCP Family Medicine; Visit Provider Internal Medicine
DX: E78.2 Mixed hyperlipidemia (principal); I11.9 Hypertensive heart disease without heart failure; I25.118 Atherosclerotic heart disease of native coronary artery with other forms of angina pectoris; R06.09 Other forms of dyspnea; R42 Dizziness and giddiness; R55 Syncope and collapse; R60.0 Localized edema; R94.31 Abnormal electrocardiogram [ECG] [EKG]; Z79.899 Other long term (current) drug therapy
CPT/HCPCS: 33285; 71275; 93458; 99152; C1725; C1769; J1644; J2405; Q9967

== ENCOUNTER → 2021-09-30 10:05 | Outpatient (CLI) | payer MEDICARE, BC, SELFPAY | PROVIDERS: PCP Family Medicine; Visit Provider Nurse Practitioner Family | DX: E78.2 Mixed hyperlipidemia (principal); I11.9 Hypertensive heart disease without heart failure; I25.10 Atherosclerotic heart disease of native coronary artery without angina pectoris; R06.09 Other forms of dyspnea; R42 Dizziness and giddiness; R55 Syncope and collapse; R60.0 Localized edema; R94.31 Abnormal electrocardiogram [ECG] [EKG] | CPT/HCPCS: 93306 ==

== ENCOUNTER → 2021-10-11 09:49 | Outpatient (CLI) | payer MEDICARE, BC, SELFPAY ==
[2021-10-12 08:36] LABS: PSA, Free 3.66 ng/mL; Prostate Specific Ag 13.1 ng/mL (0.0-4.0)
== END ==
PROVIDERS: Visit Provider Urology
DX: R97.20 Elevated prostate specific antigen [PSA] (principal)
CPT/HCPCS: 36415; 84153; 84154

== ENCOUNTER → 2021-10-20 10:02 | Outpatient (POV) | payer MEDICARE, BC, SELFPAY ==
[2021-10-20 10:11] VITALS: BP 141/93; PULSE 58; RESP 18; TEMP 36.5; O2SAT 94; BMI 34.0
--- NOTE | 2021-10-20 11:45 | HMH.PAINSOAP ---
[facility] Pain Management SOAP Note Subjective:: Patient is a pleasant 75-year-old male who presents today for follow-up after his lumbar epidural steroid injection on September 23, 2021. Patient reports significant relief in his low back pain of about 80 to 90%. He rates his pain a 3 out of 10. Today, patient has been complaining of bilateral upper buttock pain, bilateral hip pain. This pain does radiate to his bilateral lower extremities but does not cross his knees. Patient says that he has been trouble with activities such as sitting, standing, and walking. He reports tenderness around his bilateral lateral thighs. He denies any recent falls or traumas. He is not taking any oral medications right now. Review of Systems: General: No recent weight changes, no fever, no sleep disturbances Respiratory: No cough, no shortness of air, no recurring pulmonary infections Cardiovascular/peripheral vascular: No chest pain, no palpitations, no edema, no shortness of breath Gastrointestinal: No new onset incontinence, normal bowel movements reported Genitourinary: No new onset incontinence Musculoskeletal: Improving low back pain, bilateral hip pain Psychiatric: [Normal mood/affect] Neurological: [Denies weakness in extremities], [denies balance issues] Objective:: Physical Exam: General: Alert and oriented x3, no acute distress, pleasant and cooperative, [on room air] Lungs: Respirations even and unlabored, symmetrical chest expansion Eyes: PERRL Musculoskeletal: Flexion and extension of lumbar [spine] somewhat guarded secondary to pain; bilateral SI are positive for TAVO, Iker's, Houston's, Gaenslen's, compression, and distraction. Patient is tender to palpation around his bilateral greater trochanteric bursitis. Neurological: Speech clear, no gross sensory deficit Assessment:: Bilateral sacroiliitis Bilateral greater trochanteric bursitis Degenerative disc disease of the lumbar spine with lumbar radiculopathy symptoms Lumbar spinal stenosis with neurogenic claudication Status post minimally invasive lumbar decompression Plan:: Patient has been doing well after his lumbar epidural steroid injection. Patient reports no issues after the injection. Today, patient has been complaining of bilateral upper buttock pain that radiates to his bilateral lower extremities and does not cross his knees. Patient cannot tolerate any prolonged activity such as sitting, standing, and walking. Bilateral hips/SI are positive for TAVO, Iker's, Houston's, Gaenslen's, compression, and distraction. She is tender to palpation around his bilateral greater trochanteric bursa. We will schedule the patient for a bilateral SI injection and bilateral greater trochanteric bursa injections. Risks and benefits of the procedure have been explained to the patient. Patient would like to proceed with the procedure. Follow-up after injection Patient has been instructed to contact the clinic with any concerns before the next appointment. Dr. Blood has reviewed this note and agrees with this plan of care. This note was dictated using voice recognition software and make contain errors or omissions. [facility] History Medical History: Reports:: Atherosclerotic Heart Disease, BPH, Coronary Artery Disease, Gastroesophageal Reflux Disease(GERD), Heart Murmur, Hyperlipidemia, Hypertension, Myocardial Infarction Denies:: Cancer, Diabetes Mellitus Type 1, Diabetes Mellitus Type 2, Internal Pacemaker, Lung Disease, MRSA, Seizures *Have you ever received a pneumonia vaccine?: Yes *Have you received a flu vaccine this season?: Yes Other Medical History: Reports: Arthritis, Hypothyroidism, Thyroid Disease, Other. Denies: Blood Transfusion Reaction Laterality Cases: Right: Carpal Tunnel Release, Other, Bilateral: Arthroscopy Knee Other Surgeries: Yes: No Previous Surgery, Appendectomy, Cancer Surgery, Cardiac Catheterization, Cholecystectomy, Colonoscopy, Coronary Stent, EGD, Hernia Repair,
== END ==
LOC: SC.PAIN 10:03
PROVIDERS: Visit Provider Student in an Organized Health Care Education/Training Program
DX: M46.1 Sacroiliitis, not elsewhere classified (principal); M51.16 Intervertebral disc disorders with radiculopathy, lumbar region; M48.062 Spinal stenosis, lumbar region with neurogenic claudication; M70.60 Trochanteric bursitis, unspecified hip
CPT/HCPCS: 99212; G0463

== ENCOUNTER 2021-10-28 07:56 | Day surgery (SDC) | payer MEDICARE, BC, SELFPAY ==
[2021-10-28 08:14] VITALS: BP 141/74; PULSE 78; RESP 18; TEMP 36.6; O2SAT 93; BMI 34.0
[2021-10-28 08:20] VITALS: BP 147/84; PULSE 67; RESP 20; O2SAT 94
[2021-10-28 08:21] VITALS: BP 147/84; PULSE 63; RESP 20; O2SAT 94
--- NOTE | 2021-10-28 08:30 | HMH.PMPROC ---
- Procedure Date: 10/28/21 Time: 08:10 Anesthesiologist:: Deandre Khalil CRNA Complications:: None Pre-procedure Diagnosis:: Bilateral sacroiliitis Post-procedure Diagnosis:: Same Indications for Procedure:: Very pleasant 75-year-old white male who presents with bilateral posterior hip pain radiating to the buttocks and anterior thigh at times. Patient describes pain as constant, dull, aching. He states pain increases significantly when standing or sitting for any length of time. Patient has extreme point tenderness over the bilateral SI joints. We will proceed with bilateral SI joint injections. Procedure Details:: Details of the procedure were explained to the patient. The patient was taken to the fluoroscopy suite and placed in the prone position on the fluoroscopy table. The area over the bilateral SI joints was cleaned using chlorhexidine as a cleansing solution. Using live fluoroscopy and a 22-gauge 3 inch spinal needle the left SI joint was accessed in the lower one third segment. After negative aspiration 3 cc of 1% lidocaine +40 mg of Depo-Medrol was injected after negative aspiration. Same procedure was carried out in the right SI joint. Patient tolerated the procedure without difficulty. There were no complications. Plan and Disposition:: Patient reports 75 to 85% improvement terms of bilateral hip pain after receiving the injections. He will return to see us in the pain clinic for follow-up.
[2021-10-28 08:37] VITALS: BP 124/90; PULSE 81; RESP 18; TEMP 36.5; O2SAT 93
== END 2021-10-28 08:38 | disposition home or self-care (01) ==
LOC: SC.PAINP 07:57
PROVIDERS: PCP Family Medicine; Visit Provider Nurse Anesthetist, Certified Registered
DX: M46.1 Sacroiliitis, not elsewhere classified (principal); I25.10 Atherosclerotic heart disease of native coronary artery without angina pectoris; N40.0 Benign prostatic hyperplasia without lower urinary tract symptoms; K21.9 Gastro-esophageal reflux disease without esophagitis; E78.5 Hyperlipidemia, unspecified; I10 Essential (primary) hypertension; I25.2 Old myocardial infarction; R01.1 Cardiac murmur, unspecified; Z88.0 Allergy status to penicillin; Z88.6 Allergy status to analgesic agent
CPT/HCPCS: 27096; G0260; J1040

== ENCOUNTER → 2021-11-15 11:30 | Outpatient (CLI) | payer MEDICARE, BC, SELFPAY ==
--- NOTE | 2021-11-15 11:37 | XR_ITS ---
FINAL REPORT CLINICAL HISTORY: ACUTE PAIN OF RIGHT SHOULDER FINDINGS: 3 views of the right shoulder were obtained. There is no acute fracture or dislocation. There are moderate hypertrophic changes of the AC joint. There are no soft tissue abnormalities. IMPRESSION: Moderate hypertrophic changes of the AC joint. Reviewed, Interpreted and Dictated by Brock Pretty MD Transcribed by Michael Adame Authenticated by Brock Pretty MD on 11/15/2021 12:50:24 PM [facility]
== END ==
LOC: RAD 11:31
PROVIDERS: PCP Family Medicine; Visit Provider Family Medicine
DX: M25.511 Pain in right shoulder (principal)
CPT/HCPCS: 73030

== ENCOUNTER → 2021-11-17 13:51 | Outpatient (POV) | payer MEDICARE, BC, SELFPAY ==
[2021-11-17 14:13] VITALS: BP 128/77; PULSE 88; RESP 18; TEMP 36.2; O2SAT 95; BMI 34.5
--- NOTE | 2021-11-17 16:39 | HMH.PAINSOAP ---
[facility] Pain Management SOAP Note Subjective:: Patient is a pleasant 75-year-old male who presents today for follow-up after a bilateral SI injections on October 28, 2021. Patient is currently being treated for degenerative disc disease of lumbar spine with lumbar radiculopathy symptoms, sacroiliitis. After the procedure, patient had significant relief of about 90 to 100% that is still continue to help him today. He has been able to increase his activity since injection. We also recently did a lumbar epidural steroid injection that also provided the patient 80 to 90% relief. He rates his pain today as 1 out of 10. Today, patient is complaining of right shoulder pain. Patient has limited range of motion of his right shoulder. This is worse when he tries to go to sleep at night. The pain has woken him up at night. When he talked to his PCP regarding this, his PCP ordered a right shoulder x-ray. He has not seen his PCP but he was told that he might need steroid injections in his right shoulder. [facility] #[id number] with an active morphine equivalent of 0. Review of Systems: General: No recent weight changes, no fever, no sleep disturbances Respiratory: No cough, no shortness of air, no recurring pulmonary infections Cardiovascular/peripheral vascular: No chest pain, no palpitations, no edema, no shortness of breath Gastrointestinal: No new onset incontinence, normal bowel movements reported Genitourinary: No new onset incontinence Musculoskeletal: Right shoulder pain, improving low back pain and bilateral hip pain Psychiatric: [Normal mood/affect] Neurological: [Denies weakness in extremities], [denies balance issues] Objective:: Physical Exam: General: Alert and oriented x3, no acute distress, pleasant and cooperative, [on room air] Lungs: Respirations even and unlabored, symmetrical chest expansion Eyes: PERRL Musculoskeletal: Flexion and extension of lumbar [spine] somewhat guarded secondary to pain, limited range of motion the right shoulder secondary to pain Neurological: Speech clear, no gross sensory deficit Assessment:: Degenerative disc disease of lumbar spine with lumbar radiculopathy symptoms Sacroiliitis Osteoarthritis of the right shoulder Plan:: Patient continues to have significant relief after a bilateral SI injection and after a lumbar epidural steroid injection. Patient has been able to increase his activity since these injections. He is more worried about his right shoulder pain today. He says that this has woken him up at night. His right shoulder x-ray shows moderate hypertrophic changes of the AC joint. We will schedule the patient for a right intra-articular shoulder injection. Risks and benefits of the procedure have been explained to the patient. Patient would like to proceed with the procedure. Patient has been instructed to contact the clinic with any concerns before the next appointment. Dr. Blood has reviewed this note and agrees with this plan of care. This note was dictated using voice recognition software and make contain errors or omissions. [facility] History Medical History: Reports:: Atherosclerotic Heart Disease, BPH, Coronary Artery Disease, Gastroesophageal Reflux Disease(GERD), Heart Murmur, Hyperlipidemia, Hypertension, Myocardial Infarction Denies:: Cancer, Diabetes Mellitus Type 1, Diabetes Mellitus Type 2, Internal Pacemaker, Lung Disease, MRSA, Seizures *Have you ever received a pneumonia vaccine?: Yes *Have you received a flu vaccine this season?: Yes Other Medical History: Reports: Arthritis, Hypothyroidism, Thyroid Disease, Other. Denies: Blood Transfusion Reaction Laterality Cases: Right: Carpal Tunnel Release, Other, Bilateral: Arthroscopy Knee Other Surgeries: Yes: No Previous Surgery, Appendectomy, Cancer Surgery, Cardiac Catheterization, Cholecystectomy, Colonoscopy, Coronary Stent, EGD, Hernia Repair, Skin Cancer Excision (melanoma excision x 2), Other. No: Pacemaker Amputation: No Frac
== END ==
PROVIDERS: Visit Provider Student in an Organized Health Care Education/Training Program
DX: M51.16 Intervertebral disc disorders with radiculopathy, lumbar region (principal); M46.1 Sacroiliitis, not elsewhere classified; M19.011 Primary osteoarthritis, right shoulder
CPT/HCPCS: 99212; G0463

== ENCOUNTER 2021-12-02 11:37 | Day surgery (SDC) | payer MEDICARE, BC, SELFPAY ==
[2021-12-02 11:43] VITALS: BP 112/84; BP 152/105; PULSE 78; PULSE 81; RESP 18; TEMP 36.7; O2SAT 92; O2SAT 94; BMI 34.0
--- NOTE | 2021-12-02 11:50 | HMH.PMPROC ---
- Procedure Date: 12/02/21 Time: 11:50 Anesthesiologist:: Deandre Khalil CRNA Complications:: None Pre-procedure Diagnosis:: Osteoarthritis right shoulder Post-procedure Diagnosis:: Same Indications for Procedure:: Very pleasant 75-year-old male who comes to our injection clinic today for right shoulder intra-articular injection. Patient has limited range of motion in the shoulder. He has had right intra-articular shoulder injection in the past. However, this was years ago. Procedure Details:: Details of the procedure were explained to the patient. The patient taken the procedure room placed in the sitting position. The area over the shoulder was cleaned using chlorhexidine as a cleansing solution. The shoulder was then accessed using a 22-gauge inch and half needle from the posterior position without difficulty. After negative aspiration 3 cc of 0.25% Marcaine +3 cc of 1% lidocaine and 80 mg of Depo-Medrol was injected. Patient tolerated procedure without difficulty. There were no complications. Plan and Disposition:: Patient was discharged without incident.
[2021-12-02 12:03] VITALS: BP 133/91; PULSE 75; RESP 20; O2SAT 94
== END 2021-12-02 12:04 | disposition home or self-care (01) ==
LOC: SC.PAINP 11:39
PROVIDERS: PCP Family Medicine; Visit Provider Nurse Anesthetist, Certified Registered
DX: M19.011 Primary osteoarthritis, right shoulder (principal); I25.10 Atherosclerotic heart disease of native coronary artery without angina pectoris; N40.0 Benign prostatic hyperplasia without lower urinary tract symptoms; K21.9 Gastro-esophageal reflux disease without esophagitis; E78.5 Hyperlipidemia, unspecified; I10 Essential (primary) hypertension; I25.2 Old myocardial infarction; E03.9 Hypothyroidism, unspecified; Z90.49 Acquired absence of other specified parts of digestive tract; Z88.0 Allergy status to penicillin; Z88.6 Allergy status to analgesic agent; Z88.8 Allergy status to other drugs, medicaments and biological substances
CPT/HCPCS: 20610; J1040

== ENCOUNTER → 2021-12-27 09:27 | Outpatient (POV) | payer MEDICARE, BC, SELFPAY ==
[2021-12-27 09:38] VITALS: BP 140/92; PULSE 64; RESP 18; TEMP 36.1; O2SAT 95; BMI 34.0
--- NOTE | 2021-12-27 09:56 | HMH.PAINSOAP ---
[facility] Pain Management SOAP Note Subjective:: Patient is a pleasant 76-year-old male who presents today for follow-up after a right intra-articular shoulder injection on December 02, 2021. Patient is currently being treated for sacroiliitis, degenerative disc disease of the lumbar spine with lumbar radiculopathy symptoms, right shoulder pain. We have been managing this patient with injective therapy. He has had success with SI and lumbar epidural steroid injections. After his right intra-articular injection, patient had significant relief for a few days of about 70-80%. He is still having issues with raising his shoulder but he did say that the injection dropped his pain a notch. Patient states that he had a right rotator cuff repair around 10+ years ago from a work related injury. He has had no issues with his shoulder until about 1-2 months ago; he was playing kickball and started feeling pain on his right shoulder and has not been able to have a full ROM. Right shoulder X-ray shows moderate arthritis. Patient is also complaining of low back pain that radiates down to bilateral hips and legs that started about 2 to 3 days ago. Denies any loss of bowel and bladder functions. Denies any recent falls or traumas. He feels like he needs repeat epidural injection. Rates pain today as 3 out of 10. For pain, he takes Tylenol PM and uses Voltaren cream for his right shoulder. He states that these are somewhat helping some of his pain. He cannot take any NSAID due to a GI Bleed hx. He's not on any blood thinners. Eduard [id number], MEQ 0. Injection History: 09/29/21 - LESI L4-L5, 90% relief 10/28/21 - Valente SI Injection, 90-100% relief Review of Systems: General: No recent weight changes, no fever, no sleep disturbances Respiratory: No cough, no shortness of air, no recurring pulmonary infections Cardiovascular/peripheral vascular: No chest pain, no palpitations, no edema, no shortness of breath Gastrointestinal: No new onset incontinence, normal bowel movements reported Genitourinary: No new onset incontinence Musculoskeletal: Right shoulder pain, low back pain Psychiatric: [Normal mood/affect] Neurological: [Denies weakness in extremities], [denies balance issues] Objective:: Physical Exam: General: Alert and oriented x3, no acute distress, pleasant and cooperative Lungs: Respirations even and unlabored, symmetrical chest expansion Eyes: PERRL Musculoskeletal: Flexion and extension of lumbar [spine] somewhat guarded secondary to pain, [antalgic gait noted]; limited range of motion of the right shoulder secondary to pain. Positive Naseem and positive Neer test. Neurological: Speech clear, no gross sensory deficit Assessment:: Degenerative disc disease of lumbar spine with lumbar radiculopathy symptoms, sacroiliitis, right shoulder pain, osteoarthritis of the right shoulder Plan:: Patient continues to have significant pain on his right shoulder and he has been having issues with sleeping because of this. The intra-articular injection provided 1 to 2 weeks of relief. He is worried that he torn his rotator cuff again. We will order a right shoulder MRI to further evaluate pathology. I discussed with the patient if there is any tear that we will refer him to . For his low back pain, his last lumbar epidural steroid injection was in September. We will schedule the patient for a repeat lumbar epidural steroid injection at L4-L5. Risk and benefits of this procedure has been discussed with the patient. Patient would like to proceed with this procedure. Patient is not on any blood thinners. I will start the patient on tramadol 50 mg twice a day #20 tabs for breakthrough pain. Patient has been instructed to contact the clinic with any concerns before the next appointment. Dr. Blood has reviewed this note and agrees with this plan of care. This note was dictated using voice recognition software and make contain errors or omissions. [facility] History Medical
== END ==
PROVIDERS: Visit Provider Student in an Organized Health Care Education/Training Program
DX: M51.16 Intervertebral disc disorders with radiculopathy, lumbar region (principal); M46.1 Sacroiliitis, not elsewhere classified; M25.511 Pain in right shoulder
CPT/HCPCS: 99212; G0463

== ENCOUNTER → 2021-12-29 14:16 | Outpatient (CLI) | payer MEDICARE, BC, SELFPAY ==
--- NOTE | 2021-12-29 14:19 | MR_ITS ---
FINAL REPORT CLINICAL HISTORY: RT SHOULDER PAIN. HX SHOULDER SURGERY [id number] AGO. LIMITED ROM. FINDINGS: Multiplanar MR imaging of the right shoulder was performed without contrast. There are postoperative changes from rotator cuff repair. There is marked thinning of the posterior supraspinatus tendon and infraspinatus tendon favoring a high-grade partial thickness articular surface tear involving greater than 50% of tendon thickness. There is moderate AC joint arthrosis. No abnormal fluid is seen in the subacromial/subdeltoid bursa. The glenoid labrum is intact. The long head of the biceps tendon is intact. No significant glenohumeral joint effusion is seen. There is no evidence of fracture or dislocation. The musculature is intact. There is no evidence of soft tissue mass. IMPRESSION: Postoperative changes. High-grade partial tear of the posterior supraspinatus and infraspinatus tendon, greater than 50%. Moderate AC joint arthrosis. Reviewed, Interpreted and Dictated by Santi Wyatt III, MD Transcribed by Michael Adame Authenticated and [facility]
== END ==
PROVIDERS: PCP Family Medicine; Visit Provider Student in an Organized Health Care Education/Training Program
DX: M25.511 Pain in right shoulder (principal)
CPT/HCPCS: 73221

== ENCOUNTER 2021-12-30 09:18 | Day surgery (SDC) | payer MEDICARE, BC, SELFPAY ==
[2021-12-30 09:23] VITALS: BP 142/87; PULSE 80; RESP 18; TEMP 36.4; O2SAT 95; BMI 34.0
--- NOTE | 2021-12-30 09:35 | HMH.PMPROC ---
- Procedure Date: 12/30/21 Time: 09:35 Anesthesiologist:: Deandre Khalil CRNA Complications:: None Pre-procedure Diagnosis:: Degenerative disc disease lumbar spine multilevels. Lumbar radiculopathy. Post-procedure Diagnosis:: Same Indications for Procedure:: Very pleasant 76-year-old male who was had lumbar epidural steroid injections in the past. He has had significant improvement terms of his low back pain as well as bilateral hip and leg radicular symptoms. He presents today for L4-5 epidural steroid injection. Patient rates his pain 6/10. Patient describes his low back pain as constant, dull, aching. He also mentions bilateral leg radicular symptoms. Procedure Details:: Procedure: Lumbar epidural steroid injection under fluoroscopy Informed consent was obtained and the risks and benefits of the procedure were explained to the patient. The patient was taken to the procedure room and noninvasive monitors placed, including noninvasive blood pressure cuff and pulse oximeter. The back was viewed using C-arm Fluoroscopy and prepped using Betadine as a cleansing solution and the L4-L5 interspace was palpated. Skin and subcutaneous tissues were anesthetized using lidocaine 1.5% and a 25-gauge needle. After this, an 18-gauge Touhy epidural needle was placed into the L4-L5 interspace and advanced using fluoroscopic guidance and loss of resistance to air until the epidural space was encountered. After confirmation of needle placement in the epidural space, with dye, a solution containing lidocaine 1.5%, 4 mL and Depo-Medrol 80 mg were incrementally injected into the lumbar epidural space. The patient tolerated the procedure well with no complications. The patient was observed in the Pain Clinic and then discharged home neurologically intact. Plan and Disposition:: Patient was discharged without incident.
[2021-12-30 09:36] VITALS: BP 134/82; PULSE 67; RESP 18; O2SAT 96
[2021-12-30 09:37] VITALS: BP 125/87; PULSE 71; RESP 18; O2SAT 96
[2021-12-30 09:56] VITALS: BP 130/76; PULSE 75; RESP 20; O2SAT 95
== END 2021-12-30 09:56 | disposition home or self-care (01) ==
LOC: SC.PAINP 09:19
PROVIDERS: PCP Family Medicine; Visit Provider Nurse Anesthetist, Certified Registered
DX: M51.16 Intervertebral disc disorders with radiculopathy, lumbar region (principal); M46.1 Sacroiliitis, not elsewhere classified; M19.011 Primary osteoarthritis, right shoulder; I25.10 Atherosclerotic heart disease of native coronary artery without angina pectoris; I25.2 Old myocardial infarction; I10 Essential (primary) hypertension; M51.36 Other intervertebral disc degeneration, lumbar region
CPT/HCPCS: 62323; J1040

== ENCOUNTER → 2022-01-10 15:51 | Outpatient (CLI) | payer MEDICARE, BC, SELFPAY ==
[2022-01-12 09:10] LABS: PSA, Free 3.15 ng/mL; Prostate Specific Ag 13.8 ng/mL (0.0-4.0)
== END ==
PROVIDERS: PCP Family Medicine; Visit Provider Urology
DX: R97.20 Elevated prostate specific antigen [PSA] (principal)
CPT/HCPCS: 36415; 84153; 84154

== ENCOUNTER → 2022-01-12 10:07 | Outpatient (POV) | payer MEDICARE, BC, SELFPAY ==
[2022-01-12 10:58] VITALS: BP 149/99; PULSE 72; RESP 20; O2SAT 94; BMI 33.2
--- NOTE | 2022-01-12 11:20 | HMH.PAINSOAP ---
[facility] Pain Management SOAP Note Subjective:: Patient is a pleasant 76-year-old white male who is here for a follow-up for MRI results of his right shoulder. Patient is currently being treated for sacroiliitis, degenerative disc disease of the lumbar spine with lumbar radiculopathy symptoms, and right shoulder pain. We have been managing this patient with intra-articular right shoulder injections. today he rates his pain a 6 out of 10 in his right shoulder. He does state this affects his activities of daily living. He describes the pain as an ache/throbbing. Patient's right shoulder MRI results were reviewed with patient at today's visit. We are also managing his low back pain. We have done multiple injective therapies. He has had several lumbar epidural steroid injections and bilateral SI injections with significant relief. He also has had a mild procedure L2-L3 02/09/21, he stated that this worked well for the short time that it did work, stating he got 2 to 3 months of relief. Patient is a good candidate for a spinal cord stimulator trial and educational handouts were given to patient at today's visit. Review of Systems: General: No recent weight changes, no fever, no sleep disturbances Respiratory: No cough, no shortness of air, no recurring pulmonary infections Cardiovascular/peripheral vascular: No chest pain, no palpitations, no edema, no shortness of breath Gastrointestinal: No new onset incontinence, normal bowel movements reported Genitourinary: No new onset incontinence Musculoskeletal: Low back pain, right shoulder pain Psychiatric: [Normal mood/affect] Neurological: [Denies weakness in extremities], [denies balance issues] Objective:: Physical Exam: General: Alert and oriented x3, no acute distress, pleasant and cooperative Lungs: Respirations even and unlabored, symmetrical chest expansion Eyes: PERRL Musculoskeletal: Flexion and extension of lumbar and right shoulder [spine] somewhat guarded secondary to pain, [antalgic gait noted] Neurological: Speech clear, no gross sensory deficit FINAL REPORT CLINICAL HISTORY: RT SHOULDER PAIN. HX SHOULDER SURGERY [id number] AGO. LIMITED ROM. FINDINGS: Multiplanar MR imaging of the right shoulder was performed without contrast. There are postoperative changes from rotator cuff repair. There is marked thinning of the posterior supraspinatus tendon and infraspinatus tendon favoring a high-grade partial thickness articular surface tear involving greater than 50% of tendon thickness. There is moderate AC joint arthrosis. No abnormal fluid is seen in the subacromial/subdeltoid bursa. The glenoid labrum is intact. The long head of the biceps tendon is intact. No significant glenohumeral joint effusion is seen. There is no evidence of fracture or dislocation. The musculature is intact. There is no evidence of soft tissue mass. IMPRESSION: Postoperative changes. High-grade partial tear of the posterior supraspinatus and infraspinatus tendon, greater than 50%. Moderate AC joint arthrosis. Reviewed, Interpreted and Dictated by Santi Wyatt III, MD Transcribed by Michael Adame Authenticated and [facility] Assessment:: Sacroiliitis, degenerative disc disease of lumbar spine with lumbar radiculopathy symptoms, and right shoulder pain Plan:: Patient continues to have significant pain on his right shoulder. He is scheduled for a office visit with in January to review shoulder options. I have discussed with patient about additional shoulder injections and spinal cord stimulator trial. per patient's request we will see him after his visit with the orthopedic surgeon. I discussed with patient at length regarding the next step being a spinal cord stimulator trial. Risks and benefits of the procedure have been explained to the patient. Patient was given a pamphlet on [employer] spinal
== END ==
PROVIDERS: Visit Provider Student in an Organized Health Care Education/Training Program
DX: M51.16 Intervertebral disc disorders with radiculopathy, lumbar region (principal); M46.1 Sacroiliitis, not elsewhere classified; M25.511 Pain in right shoulder
CPT/HCPCS: 99212; G0463

== ENCOUNTER → 2022-02-03 10:20 | Outpatient (CLI) | payer MEDICARE, BC, SELFPAY | PROVIDERS: PCP Family Medicine; Visit Provider Urology | DX: R97.20 Elevated prostate specific antigen [PSA] (principal); U07.1 COVID-19 | CPT/HCPCS: C9803; U0003; U0005 ==

== ENCOUNTER → 2022-02-13 09:00 | Outpatient (POV) | payer MEDICARE, BC, SELFPAY ==
[2022-02-13 09:30] VITALS: BP 158/80; PULSE 52; RESP 20; TEMP 36.5; O2SAT 98; BMI 33.2
--- NOTE | 2022-02-13 09:33 | HMH.PAINSOAP ---
[facility] Pain Management SOAP Note Subjective:: Patient is a pleasant 76-year-old male who presents today for follow-up. Patient is currently being treated for degenerative disc disease of the lumbar spine with lumbar radiculopathy symptoms, sacroiliitis, right shoulder pain. We have been managing this patient with injective therapy. He has had multiple lumbar epidural steroid injections and bilateral SI injections. More recently, he also had a right intra-articular shoulder injection. His main complaint today is his right shoulder pain. When we last saw this patient, he presented with an updated right shoulder MRI which shows a high-grade partial tear of the posterior supraspinatus and infraspinatus tendon greater than 50%. We had referred this patient to for further evaluation. He states that he has not been able to see because he tested positive for COVID. He does feel better now and is out of quarantine. He rates his pain as 3 out of 10. He states that he is still having significant right shoulder pain and wants to get a repeat shoulder injection. Eduard [id number] with an active morphine equivalent of 0. Patient previously had a mild procedure of L2-L3 on February 09, 2021 that worked well for about 2 to 3 months. We had provided this patient with information on SCS therapy. Review of Systems: General: No recent weight changes, no fever, no sleep disturbances Respiratory: No cough, no shortness of air, no recurring pulmonary infections Cardiovascular/peripheral vascular: No chest pain, no palpitations, no edema, no shortness of breath Gastrointestinal: No new onset incontinence, normal bowel movements reported Genitourinary: No new onset incontinence Musculoskeletal: Right shoulder pain, right SI pain, low back pain Psychiatric: [Normal mood/affect] Neurological: [Denies weakness in extremities], [denies balance issues] Objective:: Physical Exam: General: Alert and oriented x3, no acute distress, pleasant and cooperative Lungs: Respirations even and unlabored, symmetrical chest expansion Eyes: PERRL Musculoskeletal: Flexion and extension of lumbar [spine] somewhat guarded secondary to pain, [antalgic gait noted]; limited range of motion of the right shoulder secondary to pain Neurological: Speech clear, no gross sensory deficit Assessment:: Partial tear of the right rotator cuff muscles, sacroiliitis, degenerative disc disease of the lumbar spine Plan:: Patient presents today with constant right shoulder pain from a partial tear of the right rotator cuff. We will schedule this patient for a repeat right intra-articular shoulder injection. Patient will go to 's office today to schedule an appointment. Patient has been instructed to contact the clinic with any concerns before the next appointment. Dr. Blood has reviewed this note and agrees with this plan of care. This note was dictated using voice recognition software and make contain errors or omissions. [facility] History Medical History: Reports:: Arrhythmia, Atherosclerotic Heart Disease, BPH, Cancer (skin cancer), Coronary Artery Disease, Gastroesophageal Reflux Disease(GERD), Heart Murmur, Hyperlipidemia, Hypertension, Myocardial Infarction Denies:: Diabetes Mellitus Type 1, Diabetes Mellitus Type 2, Internal Pacemaker, Lung Disease, MRSA, Seizures *Have you ever received a pneumonia vaccine?: Yes *Have you received a flu vaccine this season?: Yes Other Medical History: Reports: Arthritis, Hypothyroidism, Thyroid Disease, Other. Denies: Blood Transfusion Reaction Laterality Cases: Right: Carpal Tunnel Release, Other, Bilateral: Arthroscopy Knee Other Surgeries: Yes: No Previous Surgery, Appendectomy, Cancer Surgery, Cardiac Catheterization, Cholecystectomy, Colonoscopy, Coronary Stent, EGD, Hernia Repair, Skin Cancer Excision (melanoma excision x 2), Other. No: Pacemaker Amputation: No Fractures: No - *Social History Smoking Status: Never smoker Alcohol Intake:
== END ==
PROVIDERS: Visit Provider Student in an Organized Health Care Education/Training Program
DX: M51.36 Other intervertebral disc degeneration, lumbar region (principal); M46.1 Sacroiliitis, not elsewhere classified; S46.011D Strain of muscle(s) and tendon(s) of the rotator cuff of right shoulder, subsequent encounter
CPT/HCPCS: 99212; G0463

== ENCOUNTER → 2022-02-21 08:46 | Outpatient (POV) | payer MEDICARE, BC, SELFPAY | PROVIDERS: Visit Provider Dermatology | DX: Z00.00 Encounter for general adult medical examination without abnormal findings (principal) ==

== ENCOUNTER 2022-02-27 08:37 | Day surgery (SDC) | payer MEDICARE, BC, SELFPAY ==
[2022-02-03 12:52] VITALS: BMI 33.2
[2022-02-27 09:01] VITALS: BP 123/88; PULSE 56; RESP 18; TEMP 36.6; O2SAT 96
--- NOTE | 2022-02-27 10:30 | P.PN_ITS ---
[facility] Anesthesia Checklist - Patient Identification Patient Identification: Arm Band - Structural Data Admitted From: Home Planned Operative Procedure/s: Prostate bx Consent for Planned Operative Procedure(s) Verified: Yes - NPO Status Verified Time NPO: 00:00 - Additional verifications Anesthesia Reactions: Yes (vomiting) Hx Blood Transfusions: Yes Blood Transfusion Reaction: No - Airway Assessment C-Spine Mobility Assessed: Yes TMJ Mobility Assessed: Yes Dentition: Dentures-good fit - Neurological Assessment Level of Consciousness: Awake Hx Seizures: No Numbness or tingling in extremities: No - Anesthesia Plan Anesthesia Risk discussed: Yes Anesthesia Plan: Verified ASA Class: III Anesthesia Type: MAC [facility] History I have reviewed the patient's past medical history: Yes Medical History: Reports:: Arrhythmia, Atherosclerotic Heart Disease, BPH, Cancer (skin cancer), Coronary Artery Disease, Gastroesophageal Reflux Disease(GERD), Heart Murmur, Hyperlipidemia, Hypertension, Myocardial Infarction Denies:: Diabetes Mellitus Type 1, Diabetes Mellitus Type 2, Internal Pacemaker, Lung Disease, MRSA, Seizures *Have you ever received a pneumonia vaccine?: Yes *Have you received a flu vaccine this season?: Yes Other Medical History: Reports: Arthritis, Hypothyroidism, Thyroid Disease, Other. Denies: Blood Transfusion Reaction Anesthesia experience/problems:: PONV Laterality Cases: Right: Carpal Tunnel Release, Other, Bilateral: Arthroscopy Knee Other Surgeries: Yes: No Previous Surgery, Appendectomy, Cancer Surgery, Cardiac Catheterization, Cholecystectomy, Colonoscopy, Coronary Stent, EGD, Hernia Repair, Skin Cancer Excision (melanoma excision x 2), Other. No: Pacemaker Amputation: No Fractures: No - *Social History Smoking Status: Never smoker Alcohol Intake: never Alcohol Intake Frequency:: other Substance Use Type: denies use *Occupational Status:: other Housing: house Household Members: spouse *Travel in the last 8 weeks: None Family Hx:: No significant family history
[2022-02-27 11:17] VITALS: BP 123/70; PULSE 62; RESP 18; TEMP 36.1; O2SAT 92
[2022-02-27 11:27] VITALS: BP 123/77; PULSE 63; RESP 18; O2SAT 94
--- NOTE | 2022-02-27 11:32 | HMH.OPNOTE ---
Date of procedure: 02/27/22 Pre-op Diagnosis:: Elevated PSA Post-op Diagnosis:: Elevated PSA Procedure performed:: Prostate biopsy with transrectal ultrasound guidance Surgeon:: Pierre Jordan MD Anesthesia: MAC Estimated blood loss (mL): 0 Clinical Note:: 76-year-old white male with history of elevated PSA but his PSA is now up to 13 and he opts to proceed with prostate biopsy. Operative findings:: Prostate volume measured 51 cm?. There were some small hypoechoic areas on the patient's right side. Operative note:: Patient taken to be operating room after informed consent was obtained. Monitored anesthesia care was administered and patient placed in the left lateral decubitus position. He had performed preoperative oral antibiotics and enema. Transrectal ultrasound probe was placed into the rectum and the prostate was easily visualized. It was measured at 51 cm?. There was some small hypoechoic areas in the right peripheral zone. Local anesthetic was placed into each neurovascular bundle and 12 biopsies then performed in a systematic fashion including through the hypoechoic areas. No bleeding was noted. Probe removed patient tolerated procedure well no complications. Condition: stable Disposition: same day Specimens:: Prostate biopsies x12 Complications:: None
[2022-02-27 11:37] VITALS: BP 141/96; PULSE 61; RESP 18; O2SAT 96
[2022-02-27 11:45] VITALS: BP 151/94; PULSE 53; RESP 18; O2SAT 98
== END 2022-02-27 11:53 | disposition home or self-care (01) ==
LOC: OR 08:39
PROVIDERS: PCP Family Medicine; Visit Provider Urology
DX: R97.20 Elevated prostate specific antigen [PSA] (principal); N40.0 Benign prostatic hyperplasia without lower urinary tract symptoms; I25.10 Atherosclerotic heart disease of native coronary artery without angina pectoris; I10 Essential (primary) hypertension; E78.5 Hyperlipidemia, unspecified; I25.2 Old myocardial infarction; Z79.899 Other long term (current) drug therapy
CPT/HCPCS: 55700; 76872; 88305

== ENCOUNTER 2022-02-28 07:52 | Day surgery (SDC) | payer MEDICARE, BC, SELFPAY ==
[2022-02-28 08:00] VITALS: BP 141/91; PULSE 62; RESP 20; TEMP 36.4; O2SAT 96; BMI 33.2
--- NOTE | 2022-02-28 08:58 | HMH.PMPROC ---
- Procedure Date: 02/28/22 Time: 08:58 Anesthesiologist:: Deandre Khalil CRNA Complications:: None Pre-procedure Diagnosis:: Osteoarthritis right shoulder Post-procedure Diagnosis:: Same Indications for Procedure:: Patient is a pleasant 76-year-old male who comes our injection clinic today for right intra-articular shoulder injection. Patient has had his right shoulder injected in the past with significant improvement. We will reinject his right shoulder today. Procedure Details:: Details of the procedure were explained to the patient. The patient was placed in the sitting position. The area over the posterior shoulder was cleaned using chlorhexidine as a cleansing solution. Using an inch and a half 25-gauge needle the right shoulder was accessed with ease from the posterior position. After negative aspiration a solution of 8 cc containing 3 cc of 0.25% Marcaine 4 cc of 1% lidocaine and 40 mg of Depo-Medrol was injected. Patient tolerated the procedure without difficulty. There are no complications. Plan and Disposition:: Patient was discharged without incident.
[2022-02-28 09:00] VITALS: BP 133/89; PULSE 54; RESP 20; O2SAT 97
== END 2022-02-28 09:00 | disposition home or self-care (01) ==
LOC: SC.PAINP 07:53
PROVIDERS: PCP Family Medicine; Visit Provider Nurse Anesthetist, Certified Registered
DX: M19.011 Primary osteoarthritis, right shoulder (principal)
CPT/HCPCS: 20610; J1040

== ENCOUNTER → 2022-03-07 09:27 | Outpatient (CLI) | payer MEDICARE, BC, SELFPAY ==
[2022-03-10 15:10] LABS: QuantiFERON-TB Gold Plus Negative (Negative)
== END ==
PROVIDERS: PCP Family Medicine; Visit Provider Dermatology
DX: R21 Rash and other nonspecific skin eruption (principal)
CPT/HCPCS: 36415; 86480

== ENCOUNTER → 2022-03-13 07:56 | Outpatient (CLI) | payer MEDICARE, BC, SELFPAY ==
--- NOTE | 2022-03-13 07:59 | CT_ITS ---
FINAL REPORT TECHNIQUE: Axial images through the abdomen and pelvis were performed without IV contrast. Oral contrast was administered. This study was performed with techniques to keep radiation doses as low as reasonably achievable, (ALARA). Individualized dose reduction techniques using automated exposure control or adjustment of mA and/or kV according to the patient's size were employed. CLINICAL HISTORY: prostate cancer COMPARISON: November 23, 2019 FINDINGS: Abdomen: There is a little bit of edema in the right lung base. There is a cyst in the right liver lobe measuring 1.9 cm. The gallbladder is surgically absent. The spleen, pancreas, adrenals and kidneys are unremarkable. Pelvis: The urinary bladder is unremarkable. The appendix is not visualized. There is extensive pancolonic diverticulosis, particularly in the sigmoid colon. There is no local inflammatory reaction. There are no osseous lesions. IMPRESSION: Low attenuation focus in the right lobe of the liver favored to represent a benign cyst. It is considerably smaller than that seen previously. Interval cholecystectomy. Pancolonic diverticulosis with no diverticulitis. Reviewed, Interpreted and Dictated by Brock Pretty MD Transcribed by Damari Vasquez Authenticated and [facility]
== END ==
PROVIDERS: PCP Family Medicine; Visit Provider Urology
DX: C61 Malignant neoplasm of prostate (principal)
CPT/HCPCS: 74176

== ENCOUNTER → 2022-03-13 08:19 | Outpatient (POV) | payer MEDICARE, BC, SELFPAY ==
[2022-03-13 08:59] VITALS: BP 151/85; PULSE 55; RESP 20; TEMP 36.7; O2SAT 96; BMI 33.2
--- NOTE | 2022-03-13 09:36 | HMH.PAINSOAP ---
[facility] Pain Management SOAP Note Subjective:: Patient is a pleasant 76-year-old male that presents today for follow-up from a right shoulder intra-articular injection on 02/28/2022. We are currently treating the patient for osteoarthritis of his right shoulder, degenerative disc disease of lumbar spine with lumbar radiculopathy symptoms, sacroiliitis. Patient states he did get significant improvement from this injection. He states he got about 60% relief of his symptoms and was able to increase his activity. Today he rates his pain a 3 out of 10. He states his pain is all in his right shoulder and back and describes it as a aching, throbbing sensation that is worse with activity and increased range of motion. Patient states he has been to see for his right shoulder pain and stated that is wanting to wait 3 months before doing surgery on his shoulder due to his last steroid injection. Patient states that he is recommending a total shoulder. Patient would like a second opinion at today's visit. Patient is currently taking tramadol 50 mg twice a day. He states he does not take this every day but an as-needed basis. He states this is helping manage his pain. He is requesting a refill at this visit. Patient states he has gotten his compounding cream however has not used it but a couple times at this point. He states he did feel like it did provide some relief. His Eduard is [id number]. It has been reviewed and appropriate. Patient did have a CT of his abdomen this morning and states that this is for possibly cancer. He is scheduled to have full body imaging on the . Review of Systems: General: No recent weight changes, no fever, no sleep disturbances Respiratory: No cough, no shortness of air, no recurring pulmonary infections Cardiovascular/peripheral vascular: No chest pain, no palpitations, no edema, no shortness of breath Gastrointestinal: No new onset incontinence, normal bowel movements reported Genitourinary: No new onset incontinence Musculoskeletal: Right shoulder pain, back pain Psychiatric: [Normal mood/affect] Neurological: [Denies weakness in extremities], [denies balance issues] Objective:: Physical Exam: General: Alert and oriented x3, no acute distress, pleasant and cooperative Lungs: Respirations even and unlabored, symmetrical chest expansion Eyes: PERRL Musculoskeletal: Flexion and extension of shoulder, lumbar [spine] somewhat guarded secondary to pain, [antalgic gait noted] Neurological: Speech clear, no gross sensory deficit Assessment:: Degenerative disc disease of lumbar spine with lumbar radiculopathy symptoms, sacroiliitis, osteoarthritis right shoulder Plan:: Patient has had significant improvement since his right intra-articular shoulder injection. He is still currently having pain and decreased range of motion with increased activity. I did speak to the patient regarding starting physical therapy however patient does have other things going on for possible cancer and he would like to wait until he knows more on the subject. I will refer the patient to Pepito valentin for a right shoulder referral. We will see the patient back in 1 month. Patient will return to clinic in 1 month for follow-up and reevaluation of symptoms. At that time we will determine if he would like to proceed forward with physical therapy. Patient has been instructed to contact the clinic with any concerns before the next appointment. Dr. Blood has reviewed this note and agrees with this plan of care. This note was dictated using voice recognition software and make contain errors or omissions. [facility] History I have reviewed the patient's past medical history: Yes Medical History: Reports:: Arrhythmia, Atherosclerotic Heart Disease, BPH, Cancer, Coronary Artery Disease, Gastroesophageal Reflux Disease(GERD), Heart Murmur, Hyperlipidemia, Hypertension, Myocardial Infarction Denies:: Diabetes Mellitus Type 1, Diabetes Mellitus Type
== END ==
PROVIDERS: PCP Family Medicine; Visit Provider Nurse Practitioner Family
DX: M51.16 Intervertebral disc disorders with radiculopathy, lumbar region (principal); M46.1 Sacroiliitis, not elsewhere classified; M19.011 Primary osteoarthritis, right shoulder
CPT/HCPCS: 74176; 99212; G0463

== ENCOUNTER → 2022-03-22 08:44 | Outpatient (CLI) | payer MEDICARE, BC, SELFPAY ==
--- NOTE | 2022-03-22 08:49 | NM_ITS ---
FINAL REPORT CLINICAL HISTORY: prostate cancer FINDINGS: Multiple projection images of the axial and appendicular skeleton were obtained after the intravenous injection of 26.5 mCi technetium 99m MDP. Correlation was made to CT abdomen and pelvis March 13, 2022. There is increased tracer activity in the shoulders, knees, and ankles consistent with degenerative change. There is mild increased tracer activity in the thoracic and lumbar spine which corresponds to significant degenerative changes as seen on CT. No other area of abnormal tracer activity identified to suggest bony metastatic disease. IMPRESSION: No evidence of bony metastatic disease. Scattered areas of increased tracer activity felt to represent degenerative change. Reviewed, Interpreted and Dictated by Santi Wyatt III, MD Transcribed by Teresa Ruvalcaba Authenticated and . [facility]
== END ==
PROVIDERS: PCP Family Medicine; Visit Provider Urology
DX: C61 Malignant neoplasm of prostate (principal); Z03.89 Encounter for observation for other suspected diseases and conditions ruled out
CPT/HCPCS: 78306; A9503

== ENCOUNTER → 2022-04-13 13:01 | Outpatient (POV) | payer MEDICARE, BC, SELFPAY ==
--- NOTE | 2022-04-13 13:16 | EXP.PAIN.SOA ---
[facility] Pain Management SOAP Note Subjective:: Patient is a pleasant 76-year-old male who presents today for follow-up and medication refill. We are currently treating the patient for osteoarthritis of his right shoulder, degenerative disc disease of lumbar spine with lumbar radiculopathy symptoms, sacroiliitis. Today the patient rates his pain a 2 out of 10. He states the pain is primarily in his low back and legs as well as his right shoulder. Patient denies any new trauma or injury. Patient denies any change to the location or type of pain he experiences. Previously we had sent him to Dr. Pepito Coelho for his right shoulder. Patient states he did see his PA and states they do want to do right shoulder surgery such as a rotator cuff repair and extensive debridement. Patient states they did find cancer on his prostate and he is scheduled to meet with a specialist, Dr. Trejo in [place] next week. Patient states they believe that they did catch this early and are hopeful that it can be all removed during surgery. Patient is currently managed with tramadol 50 mg twice a day as needed. Patient denies any side effects from this medication. He states this does adequately manage his pain. He is also prescribed a compounding cream that provides Some relief however he states he feels like its not much better than the [id number] creams. His Eduard is [id number]. It has been reviewed and appropriate. Review of Systems: General: No recent weight changes, no fever, no sleep disturbances Respiratory: No cough, no shortness of air, no recurring pulmonary infections Cardiovascular/peripheral vascular: No chest pain, no palpitations, no edema, no shortness of breath Gastrointestinal: No new onset incontinence, normal bowel movements reported Genitourinary: No new onset incontinence Musculoskeletal: Low back pain, leg pain, right shoulder pain Psychiatric: [Normal mood/affect] Neurological: [Denies weakness in extremities], [denies balance issues] Objective:: Physical Exam: General: Alert and oriented x3, no acute distress, pleasant and cooperative Lungs: Respirations even and unlabored, symmetrical chest expansion Eyes: PERRL Musculoskeletal: Flexion and extension of lumbar [spine] somewhat guarded secondary to pain, [antalgic gait noted] Neurological: Speech clear, no gross sensory deficit Assessment:: Degenerative disc disease of lumbar spine with lumbar radiculopathy symptoms, sacroiliitis, osteoarthritis right shoulder Plan:: Patient continues to have pain in his low back that radiates into his legs and right shoulder pain. I will refill the patient's tramadol 50 mg twice daily and provide 7 days worth of this medication. Patient will have an upcoming surgery for his newly found prostate cancer as well as right shoulder surgery in the future. We will follow-up with the patient in 1 month. Patient will return to clinic in 1 month via telehealth visit for reevaluation of symptoms, medication refill and follow-up. Patient has been advised of risks of oversedation with the prescribed medication. Narcan has been offered to the patient in the event of oversedation. Patient has been advised that a family member should also be educated regarding administration of Narcan. Patient has been instructed to contact the clinic with any concerns before the next appointment. Dr. Blood has reviewed this note and agrees with this plan of care. This note was dictated using voice recognition software and make contain errors or omissions. PFSH PFSH Medical History Chest pain Edema HHD (hypertensive heart disease) Prostate cancer genetic susceptibility Syncope Social History Smoking Status: Never smoker second hand exposure: Yes alcohol intake: never substance use type: denies use current occupational status: other Travel in the last 8 weeks: None house
[2022-04-13 13:24] VITALS: BP 144/90; PULSE 52; RESP 18; TEMP 36.6; O2SAT 95; BMI 32.5
== END | disposition home or self-care (01) ==
PROVIDERS: PCP Family Medicine; Visit Provider Nurse Practitioner Family
DX: M51.16 Intervertebral disc disorders with radiculopathy, lumbar region (principal); M46.1 Sacroiliitis, not elsewhere classified; M19.011 Primary osteoarthritis, right shoulder; Z79.899 Other long term (current) drug therapy
CPT/HCPCS: 99212; G0463

== ENCOUNTER → 2022-05-08 13:31 | Outpatient (POV) | payer MEDICARE, BC, SELFPAY ==
--- NOTE | 2022-05-08 13:55 | EXP.PAIN.SOA ---
[facility] Pain Management SOAP Note Subjective:: Patient is a pleasant 76-year-old male who presents today for medication refill and follow-up. We are currently treating the patient for osteoarthritis of the right shoulder, degenerative disc disease of lumbar spine with lumbar radiculopathy symptoms, sacroiliitis. Today he rates his pain a 3 out of 10. He states the pain is primarily in his right shoulder and low back and legs. Patient denies any new trauma or injury. He denies any change in location or type of pain he experiences. He is seeing Dr. Coelho for for his right shoulder and is planning to do surgery for a right rotator cuff tear however he recently found out he has prostate cancer and has to have surgery for it first. He is scheduled for prostate surgery with Dr. Trejo in [place] next Sunday. Patient states they do believe they caught this early. Patient is currently managed with tramadol 50 mg twice a day. Patient denies any side effects from this medication. He states this medication does help manage his pain symptoms. He is also prescribed a compounding cream that he states provides significant improvement on his right shoulder. His Eduard is [id number]. It has been reviewed and appropriate. Review of Systems: General: No recent weight changes, no fever, no sleep disturbances Respiratory: No cough, no shortness of air, no recurring pulmonary infections Cardiovascular/peripheral vascular: No chest pain, no palpitations, no edema, no shortness of breath Gastrointestinal: No new onset incontinence, normal bowel movements reported Genitourinary: No new onset incontinence Musculoskeletal: Low back pain, bilateral leg pain, right shoulder pain Psychiatric: [Normal mood/affect] Neurological: [Denies weakness in extremities], [denies balance issues] Objective:: Physical Exam: General: Alert and oriented x3, no acute distress, pleasant and cooperative Lungs: Respirations even and unlabored, symmetrical chest expansion Eyes: PERRL Musculoskeletal: Flexion and extension of lumbar [spine] somewhat guarded secondary to pain, [antalgic gait noted] Neurological: Speech clear, no gross sensory deficit Assessment:: Degenerative disc disease of lumbar spine with lumbar radiculopathy symptoms, sacroiliitis, osteoarthritis right shoulder Plan:: Patient continues to have pain in his low back with radiating symptoms into his bilateral lower extremities and right shoulder pain. I will refill the patient's tramadol 50 mg twice a day and provide a 1 week supply of this medication. We will follow-up with the patient in 1 month. I have counseled the patient that if he needs to do a telehealth visit for the next appointment due to his prostate surgery that we can. Patient will update us as needed following his procedure. Patient will return to clinic in 1 month for reevaluation of symptoms, medication refill and follow-up. Patient has been advised of risks of oversedation with the prescribed medication. Narcan has been offered to the patient in the event of oversedation. Patient has been advised that a family member should also be educated regarding administration of Narcan. Patient has been instructed to contact the clinic with any concerns before the next appointment. Dr. Blood has reviewed this note and agrees with this plan of care. This note was dictated using voice recognition software and make contain errors or omissions. 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
[2022-05-08 14:04] VITALS: BP 119/81; PULSE 83; RESP 18; TEMP 36.6; O2SAT 93; BMI 32.5
== END | disposition home or self-care (01) ==
PROVIDERS: PCP Family Medicine; Visit Provider Nurse Practitioner Family
DX: M51.16 Intervertebral disc disorders with radiculopathy, lumbar region (principal); M19.011 Primary osteoarthritis, right shoulder; M46.1 Sacroiliitis, not elsewhere classified
CPT/HCPCS: 99212; G0463

== ENCOUNTER → 2022-06-08 15:03 | Outpatient (POV) | payer MEDICARE, BC, SELFPAY ==
--- NOTE | 2022-06-08 15:09 | EXP.PAIN.SOA ---
[facility] Pain Management SOAP Note Subjective:: Patient is a pleasant 76-year-old male who presents via audio telehealth visit for medication refill and follow-up. This telehealth visit is occurring at the patient's home and he does consent for this audio visit. We are currently treating the patient for osteoarthritis of the right shoulder, degenerative disc disease of lumbar spine with lumbar radiculopathy symptoms, sacroiliitis. Today the patient rates his pain a 4 out of 10. Patient does states he continues to have pain in his right shoulder and low back and legs. Patient recently had surgery to remove prostate cancer and states they were able to remove it all. This was done by a Dr. Trejo out of [place]. Patient has been to see Dr. Arlette Harris for his right shoulder and is planning on doing surgery for a rotator cuff tear in the future however he had to have his prostate surgery first. Patient is currently prescribed tramadol 50 mg twice a day. He denies any side effects from this medication. He states this medication does help his pain symptoms. He is also prescribed compounding cream that provides additional improvement. His Eduard is [id number]. It has been reviewed and appropriate. Review of Systems: General: No recent weight changes, no fever, no sleep disturbances Respiratory: No cough, no shortness of air, no recurring pulmonary infections Cardiovascular/peripheral vascular: No chest pain, no palpitations, no edema, no shortness of breath Gastrointestinal: No new onset incontinence, normal bowel movements reported Genitourinary: No new onset incontinence Musculoskeletal: Right shoulder pain, low back pain Psychiatric: [Normal mood/affect] Neurological: [Denies weakness in extremities], [denies balance issues] Objective:: General: Alert and oriented x3, pleasant and cooperative Lungs: Patient is able to say complete sentences without dyspnea Neurological: Speech clear Assessment:: Right shoulder osteoarthritis, degenerative disc disease of lumbar spine with lumbar radiculopathy symptoms, sacroiliitis Plan:: Patient continues to experience significant pain in his right shoulder and low back however he is doing well with his current medication regimen. I will refill his tramadol 50 mg twice daily and provide a 1 week supply of this medication. We will follow-up with the patient in 1 month. This telehealth visit did occur approximately 10-15 20. Patient will return to clinic in 1 month for reevaluation of symptoms, medication refill and follow-up. Patient has been advised of risks of oversedation with the prescribed medication. Narcan has been offered to the patient in the event of oversedation. Patient has been advised that a family member should also be educated regarding administration of Narcan. Patient has been instructed to contact the clinic with any concerns before the next appointment. Dr. Blood has reviewed this note and agrees with this plan of care. This note was dictated using voice recognition software and make contain errors or omissions. 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
== END | disposition home or self-care (01) ==
PROVIDERS: Visit Provider Nurse Practitioner Family
DX: M51.16 Intervertebral disc disorders with radiculopathy, lumbar region (principal); M46.1 Sacroiliitis, not elsewhere classified; M19.011 Primary osteoarthritis, right shoulder
CPT/HCPCS: 99212; G0463

== ENCOUNTER → 2022-06-20 09:53 | Outpatient (CLI) | payer MEDICARE, BC, SELFPAY ==
[2022-06-20 10:35] LABS: Basophils % 0.6 % (0.1-2.0); Eosinophils # 0.2 K/mm3 (0.0-0.4); Eosinophils % 3.3 % (0.1-12.0); Hematocrit 45.6 % (42.0-52.0); Hemoglobin 14.3 g/dL (14.1-18.0); Lymphocytes # 1.6 K/mm3 (0.7-4.5); Lymphocytes % 30.7 % (10-50); Mean Corpuscular HGB Conc 31.5 g/dL (31.8-35.4); Mean Corpuscular Hemoglobin 30.1 pg (27.0-31.2); Mean Corpuscular Volume 95.7 fl (80-94); Mean Platelet Volume 8.8 fl (7.4-10.4); Monocytes # 0.4 K/mm3 (0.1-1.0); Monocytes % 8.1 % (1.7-9.3); Neutrophils % 57.3 % (37.0-80.0); Platelet Count 172 K/mm3 (142-424); Red Blood Count 4.76 M/mm3 (4.60-6.20); White Blood Count 5.2 K/mm3 (4.8-10.8)
[2022-06-20 11:00] LABS: Alanine Aminotransferase 24 U/L (12-78); Albumin Level 4.5 g/dl (3.5-5.0); Alkaline Phosphatase 108 U/L (38-126); Anion Gap 23.5 mEq/L (5-15); Aspartate Amino Transferase 28 U/L (17-59); Bilirubin,Direct 0.1 mg/dl (0.0-0.4); Bilirubin,Indirect 0.5 mg/dL (0.0-0.9); Bilirubin,Total 0.6 mg/dl (0.2-1.3); Bilirubin,Unconjugated 0.5 mg/dL (0.0-1.1); Blood Urea Nitrogen 17 mg/dl (9-20); Calcium 9.9 mg/dl (8.4-10.2); Carbon Dioxide 25 mmol/L (22.0-30.0); Chloride 100 mmol/L (98-107); Chol/HDL Ratio 3.1 (1-3.5); Cholesterol 104 mg/dl (140-200); Estimated Glomerular Filt Rate 50 ml/min (>60); GFR (African American) 60 ML/MIN (>60); Glucose 95 mg/dl (74-100); HDL Cholesterol 34 mg/dl (40-60); Potassium 4.5 mmoL/L (3.5-5.1); Sodium 144 mmol/L (136-145); Total Protein,Serum 7.4 g/dl (6.3-8.2); Triglycerides 182 mg/dl (30-150); VLDL Cholesterol 36 mg/dL (0-40)
[2022-06-20 11:10] LABS: Direct LDL Cholesterol 40.59 mg/dL (100-129)
== END ==
PROVIDERS: PCP Family Medicine; Visit Provider Nurse Practitioner
DX: E78.2 Mixed hyperlipidemia (principal); I11.9 Hypertensive heart disease without heart failure; I25.118 Atherosclerotic heart disease of native coronary artery with other forms of angina pectoris; K21.9 Gastro-esophageal reflux disease without esophagitis; R94.31 Abnormal electrocardiogram [ECG] [EKG]
CPT/HCPCS: 36415; 80048; 80061; 80076; 85025

== ENCOUNTER 2022-07-29 19:28 | Observation (INO) | payer MEDICARE, BC, SELFPAY ==
[2022-07-29] VITALS (10 sets, daily range): BP systolic 104–137; BP diastolic 62–87; PULSE 59–79; RESP 15–20; TEMP 36.6; O2SAT 92–95; BMI 31.3; BMI 30.7
--- NOTE | 2022-07-29 19:34 | ECG_ITS ---
APPROVED REPORT Exam: Resting ECG HR:66 bpm ECG Measurements Heart Rate 66 AXES MT 188 P 57 QRSd 105 QRS -56 QT 401 T -25 QTc 415 Conclusion SINUS RHYTHM WITH SINUS ARRHYTHMIA PATTERN CONSISTENT WITH PULMONARY DISEASE LEFT ANTERIOR FASCICULAR BLOCK [QRS AXIS <= -45, QR IN I, RS IN II] ABNORMAL ECG UNCONFIRMED REPORT Electronically signed by : Jamari May MD 07/30/2022 16:56:28
--- NOTE | 2022-07-29 19:34 | XR_ITS ---
PROCEDURE INFORMATION: Exam: XR Chest Exam date and time: 07/29/2022 7:37 PM Age: 76 years old Clinical indication: Chest wall pain; Additional info: Cp TECHNIQUE: Imaging protocol: Radiologic exam of the chest. Views: 2 views. COMPARISON: CT ANGIO CHEST 09/27/2021 11:46 AM FINDINGS: Lungs: No consolidation. Pleural spaces: No pneumothorax. Heart/Mediastinum: No cardiomegaly. Diaphragm: Stable elevation of the right hemidiaphragm. Bones/joints: Degenerative changes of the shoulders. IMPRESSION: No acute findings.
[2022-07-29 19:46] LABS: Chloride 105 mmol/L (98-107); Sodium 141 mmol/L (136-145)
[2022-07-29 19:47] LABS: Potassium 3.6 mmoL/L (3.5-5.1)
[2022-07-29 19:49] LABS: Blood Urea Nitrogen 16 mg/dl (9-20); Creatinine Clearance Estimated 73 mL/min (50-200); Estimated Glomerular Filt Rate 59 ml/min (>60); GFR (African American) 72 ML/MIN (>60)
[2022-07-29 19:50] LABS: Anion Gap 12.6 mEq/L (5-15); Calcium 8.6 mg/dl (8.4-10.2); Carbon Dioxide 27 mmol/L (22.0-30.0); Glucose 101 mg/dl (74-100)
[2022-07-29 19:52] LABS: Basophils % 0.7 % (0.1-2.0); Eosinophils # 0.2 K/mm3 (0.0-0.4); Eosinophils % 2.7 % (0.1-12.0); Hematocrit 42.7 % (42.0-52.0); Hemoglobin 14.5 g/dL (14.1-18.0); Lymphocytes # 2.1 K/mm3 (0.7-4.5); Lymphocytes % 35.3 % (10-50); Mean Corpuscular HGB Conc 33.9 g/dL (31.8-35.4); Mean Corpuscular Hemoglobin 30.2 pg (27.0-31.2); Mean Platelet Volume 8.1 fl (7.4-10.4); Monocytes # 0.5 K/mm3 (0.1-1.0); Monocytes % 7.8 % (1.7-9.3); Neutrophils # 3.2 K/mm3 (1.8-7.8); Neutrophils % 53.6 % (37.0-80.0); Platelet Count 195 K/mm3 (142-424); Red Cell Distribution Width 14.1 % (11.5-17.5); White Blood Count 5.9 K/mm3 (4.8-10.8)
[2022-07-29 20:05] LABS: Troponin I < 0.01 ng/ml (0.00-0.034)
--- NOTE | 2022-07-29 20:29 | HMH.EDCP ---
Discharge Plan Disposition Patient Disposition: Admitted as Observation Chief Complaint: Chest Pain Prescriptions Prescriptions: No Action esomeprazole magnesium 40 mg capsule,delayed release(DR/EC) 40 mg PO DAILY levothyroxine 25 mcg tablet 25 mcg PO DAILY aspirin [Adult Low Dose Aspirin] 81 mg tablet,delayed release (DR/EC) 81 mg PO DAILY nitroglycerin 0.4 mg tablet, sublingual 0.4 mg SL Q5M PRN (Reason: chest pain) Qty: 20 0RF Rx Instructions: do not exceed 3 doses per episode bisoprolol fumarate 5 mg tablet 5 mg PO DAILY Qty: 90 1RF atorvastatin 10 MG tablet 10 mg PO DAILY Rx Instructions: TAKE ONE TABLET BY MOUTH EVERY DAY FOR CHOLESTEROL Referrals Follow up/Referrals: Matthew Cazares MD [Primary Care Provider] - See instructions Clinical Impressions Clinical Impression: Chest pain, CAD (coronary artery disease) Discharge ED Provider: Arvind Flores Chest Pain HPI General Chief Complaint: Chest Pain Stated Complaint: chest pain Time Seen by Provider: 07/29/22 20:29 Mode of Arrival: Ambulatory Source of Information: Patient, Spouse and Medical Record Limitations: No Limitations Description of Symptoms (Recalled from ER Triage Doc. by RN): pt reports chest pain and heavy feeling in chest staerted 30 mins prior to arrival. pt took 1 nitro prior to arrival and pain went from a 10/10 to a 4/10 History of Present Illness HPI narrative: acute chest pain tonight while using toilet - pain to upper ext and back - hx of cad - partial relief at home with ntg complaint: chest pain indicative of cardiac Onset (ago): hour(s) Duration: now resolved Activity at onset: other (having bowel movement ) Pain location: substernal Severity: moderate Quality: heaviness Pain radiation: RUE, LUE and back Relieving factors: nitroglycerin Risk Factors for CAD: Hypertension and Family Hx of CAD Treatments prior to or on arrival for Cardiac Chest Pain: nitroglycerin YAIMA Score for Non-Stemi Age of Patient: 70-79 years old Heart Rate: 50-69 bpm Systolic Blood Pressure: 120-139 mmhg Serum Creatinine: 1.20-1.59 mg/dl CHF Killip Class: I-No CHF Other Risk Factors: None Non-Stemi Risk Score: 122 Risk Stratification: 109-140 = Intermediate Ri Related Data Prior Cardiac Testing/Procedures: Cardiac Angiogram Home Medications Medication Instructions Recorded Confirmed aspirin 81 mg tablet,delayed 81 mg PO DAILY . 11/15/17 07/29/22 release (Adult Low Dose Aspirin) esomeprazole magnesium 40 mg 40 mg PO DAILY GERD 11/15/17 07/29/22 capsule,delayed release levothyroxine 25 mcg tablet 25 mcg PO DAILY thyroid 11/15/17 07/29/22 atorvastatin 10 mg tablet 10 mg PO DAILY blood pressure 07/25/21 07/29/22 Previous Rx's Medication Instructions Recorded nitroglycerin 0.4 mg sublingual 0.4 mg sublingual Q5M PRN chest 06/30/20 tablet pain #20 tabs bisoprolol fumarate 5 mg tablet 5 mg PO DAILY Hypertension #90 tabs 01/11/22 Allergies Allergy/AdvReac Type Severity Reaction Status Date / Time Penicillins Allergy Unknown I-HIVES Verified 06/20/22 09:15 codeine Allergy Verified 06/20/22 09:15 ranolazine [From Ranexa] AdvReac Severe Verified 06/20/22 09:15 [facility] Disclaimer: The information contained in this section may have been updated after the patient was seen, as this information can be updated by other users. 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
--- NOTE | 2022-07-29 20:37 | PC.NURSE ---
pt reports pain in the head and ears and blood clots coming out of the ear on the right side. pt appears to have a silver object near the tympanic membrane in the left ear. and has what appears to be fluid in the righ . notified
[2022-07-29 21:14] LABS: Coronavirus 19, PCR Not Detected (NotDetected); Influenza A, PCR Not Detected (NotDetected); Influenza B, PCR Not Detected (NotDetected)
--- NOTE | 2022-07-29 21:51 | PC.NURSE ---
isa on phone with dr osuna
--- NOTE | 2022-07-29 21:56 | PC.NURSE ---
ER speaking with pt at this time
--- NOTE | 2022-07-29 22:32 | PC.NURSE ---
pt arrived to floor via wheelchair @ 2230.
--- NOTE | 2022-07-29 23:37 | PC.NURSE ---
He is A&Ox4. He denies pain. His speech is clear. He states he plans to ambulate to the bathroom. Lungs CTA. Normal bowel sounds.
[2022-07-30] VITALS (7 sets, daily range): BP systolic 96–153; BP diastolic 59–89; PULSE 50–82; RESP 16–18; TEMP 36.3–36.9; O2SAT 92–98; BMI 31.1
--- NOTE | 2022-07-30 07:09 | EXP.HP ---
History of Present Illness *Admission Date: 07/29/22 *Reason for visit:: Chest pain *History of present illness: Mr. Bowers is a 76 year old male patient of [facility] with a history of coronary artery disease who presented to [facility] ER last night with chest pain. Patient states he was having a bowel movement at home and experienced severe, 10/10 intensity, mid anterior chest pain that radiated around his chest. He took a nitroglycerin tablet which gave relieved the pain down to 4/10 intensity. He then came to the ER. He denies shortness of breath or cough [facility] Disclaimer: The information contained in this section may have been updated after the patient was seen, as this information can be updated by other users. Medical History (Updated 07/30/22 @ 07:17 by Matthew Cazares MD) CAD (coronary artery disease) Degenerative joint disease (DJD) of lumbar spine Diastolic dysfunction GERD (gastroesophageal reflux disease) HHD (hypertensive heart disease) HLD (hyperlipidemia) Hypothyroidism Prostate cancer Status post placement of implantable loop recorder Syncope Surgical History (Updated 07/30/22 @ 07:15 by Matthew Cazares MD) History of prostatectomy Social History (Updated 07/29/22 @ 23:04 by Mayuri Drummond RN) Smoking Status: Never smoker second hand exposure: Yes alcohol intake: never substance use type: denies use current occupational status: retired Travel in the last 8 weeks: None household members: spouse housing: house 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 current occupational exposures/hazards: No caffeine: No Review of Systems Constitutional Constitutional: Denies chills and Denies fever(s) Eyes Eyes: Denies blurry vision ENT Ears, Nose, Mouth, and Throat: Denies dizziness and Denies dysphagia *Cardiovascular Cardiovascular: Reports as per HPI *Respiratory Respiratory: Denies chest congestion *Gastrointestinal Gastrointestinal: Denies diarrhea and Denies dysphagia *Genitourinary Genitourinary: Denies dysuria *Musculoskeletal Musculoskeletal: Denies arthralgias Integumentary/Breasts Skin/Breast: Denies rash *Neurologic Neurologic: Denies dizziness Meds Home Medications and Allergies Home Medications Medication Instructions Recorded Confirmed Type aspirin 81 mg tablet,delayed 81 mg PO DAILY . 11/15/17 07/29/22 History release (Adult Low Dose Aspirin) esomeprazole magnesium 40 mg 40 mg PO DAILY GERD 11/15/17 07/29/22 History capsule,delayed release levothyroxine 25 mcg tablet 25 mcg PO DAILY thyroid 11/15/17 07/29/22 History nitroglycerin 0.4 mg sublingual 0.4 mg sublingual Q5M PRN chest 06/30/20 07/29/22 Rx tablet pain #20 tabs atorvastatin 10 mg tablet 10 mg PO DAILY chloesterol 07/25/21 07/29/22 History bisoprolol fumarate 5 mg tablet 5 mg PO DAILY Hypertension #90 tabs 01/11/22 07/29/22 Rx New Prescriptions to Start Prescriptions: Allergies Allergy/AdvReac Type Severity Reaction Status Date / Time morphine Allergy Mild Nausea Verified 07/29/22 23:10 Penicillins Allergy Unknown I-HIVES Verified 07/29/22 23:04 codeine Allergy Verified 07/29/22 23:04 ranolazine [From Ranexa] AdvReac Severe Verified 07/29/22 23:04 Exam Data for Last 24 hours Vital signs and Labs for Last 24 Hours: Temp Pulse Resp BP Pulse Ox 98.1 F 60 18 96/59 L 93 L 07/30/22 04:00 07/30/22 04:00 07/30/22 04:00 07/30/22 04:00 07/30/22 04:00 Laboratory Results - last 24 hr 07/29/22 19:30: WBC 5.9, RBC 4.80, Hgb 14.5, Hct 42.7, MCV 89.0, MCH 30.2, MCHC 33.9, RDW 14.1, Plt Count 195, MPV 8.1, Neut % (Auto) 53.6, Lymph % (Auto) 35.3, [place] % (Auto) 7.8, Eos % (Auto) 2.7, Baso % (Auto) 0.7, Neut # (Auto) 3.2, Lymph # (Auto) 2.1, [place] # (Auto) 0.5, Eos # (Auto) 0.2, Baso # (Auto) 0.0 07/29/22 19:30: Sodium 141, Potassium 3.6, Chloride 105, Carbon Dioxide 27, Anion Gap 12.6, BUN 16, Creatinine 1.20, Estimated Creat Clear 73, Estimated GFR 59, Est GFR (A
[2022-07-30 07:24] LABS: Troponin I < 0.01 ng/ml (0.00-0.034)
--- NOTE | 2022-07-30 07:58 | HMH.PHAINT1 ---
Pharmacy Intervention Comments: MEDICATION RECONCILIATION COMPLETED ON PATIENT USING EXTERNAL FILL HISTORY FROM PHARMACY AND LIST FROM CARDIOLOGY OFFICE. -BRYCE LEONE, BARID
[2022-07-30 08:12] LABS: Troponin I < 0.01 ng/ml (0.00-0.034)
--- NOTE | 2022-07-30 10:11 | PC.NURSE ---
PT TOLERATING ROOM AAIR WITH NO COMPLAINTS. AMBULATED TO RESTROOM WITH STANDBY ASSIST AND TOLERATED WELL
--- NOTE | 2022-07-30 18:17 | PC.NURSE ---
pt had 4 unmeasured voids this shift
--- NOTE | 2022-07-30 18:36 | PC.NURSE ---
pt is aox4, has sat up to chair for most of shift. ambulating in room. no complaints this shift. has not required o2 support.
--- NOTE | 2022-07-30 23:03 | PC.NURSE ---
pt accidentally removed 18 G IV in RAC. 20 G IV started in R hand
[2022-07-31] VITALS: BP 148/89; PULSE 60; PULSE 68; RESP 20; TEMP 36.7; O2SAT 98
[2022-07-31 04:00] VITALS: BP 138/93; PULSE 71; RESP 18; TEMP 36.9; O2SAT 96
--- NOTE | 2022-07-31 05:36 | PC.NURSE ---
NO ACUTE CHANGES SINCE PREVIOUS ASSESSMENT. PT HAS SLEPT WELL. NO C/O CHEST PAIN THIS SHIFT. PT IS EAGER TO GET DISCHARGED. VSS. AMBULATING INDEPENDENTLY.
[2022-07-31 07:32] VITALS: BP 151/85; PULSE 60; RESP 17; TEMP 36.5; O2SAT 100
[2022-07-31 08:00] VITALS: PULSE 69
--- NOTE | 2022-07-31 08:25 | EXP.ACUTE.PN ---
Subjective *Date: 07/31/22 *Time: 08:25 Interval history: Patient feels good this morning, no more chest pain, anxious to go home. Medical Exam Vital signs and Labs for Last 24 Hours: Vital Signs Temp Pulse Pulse Resp BP Pulse Ox 07/31/22 07:32 97.7 F 60 17 151/85 H 100 07/31/22 04:00 98.5 F 71 18 138/93 H 96 07/30/22 20:00 50 L 07/31/22 00:00 60 07/31/22 00:00 98.1 F 68 20 148/89 H 98 07/30/22 20:00 98.4 F 55 L 18 153/88 H 98 07/30/22 16:00 53 L 07/30/22 16:00 98.1 F 53 L 18 145/89 H 97 07/30/22 12:00 55 L 07/30/22 12:00 97.4 F L 58 L 18 114/73 96 Intake and Output 07/30/22 07/31/22 07/31/22 23:59 07:59 15:59 Intake Total 480 / 1242 300 / 300 Output Total 0 / 250 0 / 0 Balance 480 / 992 300 / 300 Intake: Intake, Oral Amount 480 / 960 300 / 300 Output: Output, Urine Amount 0 / 250 0 / 0 Other: Number of Unmeasured Voids 2 1 I & O for Labs for Last 24 Hours: Intake & Output 07/28/22 07/29/22 07/30/22 07/31/22 23:59 23:59 23:59 23:59 Intake Total 1242 / 1242 300 / 300 Output Total 250 / 250 0 / 0 Balance 992 / 992 300 / 300 Weight 208 lb 5 oz 211 lb 2 oz Constitutional: Present no acute distress Respiratory: Present normal respiratory effort Cardiac: Present Reg Rate and Rhythm GI: Present normal bowel sounds; Absent tenderness Extremities: Present normal inspection and full ROM Skin: Present intact; Absent erythema Neuro: Present Grossly Intact and moves all extremities Assessment and Plan *Assessment and plan (1) Chest pain: Status: Acute Category: Medical Code(s): R07.9 - Chest pain, unspecified (2) HTN (hypertension): Status: Chronic Qualifiers: Hypertension type: essential hypertension Qualified Code(s): I10 - Essential (primary) hypertension Category: Medical Code(s): I10 - Essential (primary) hypertension (3) HLD (hyperlipidemia): Status: Chronic Qualifiers: Hyperlipidemia type: mixed hyperlipidemia Qualified Code(s): E78.2 - Mixed hyperlipidemia Category: Medical Code(s): E78.5 - Hyperlipidemia, unspecified (4) CAD (coronary artery disease): Status: Chronic Category: Medical Code(s): I25.10 - Atherosclerotic heart disease of sitka coronary artery without angina pectoris (5) GERD (gastroesophageal reflux disease): Status: Chronic Category: Medical Code(s): K21.9 - Gastro-esophageal reflux disease without esophagitis (6) Diastolic dysfunction: Status: Chronic Category: Medical Code(s): I51.89 - Other ill-defined heart diseases Plan Troponin neg x 3. OK for discharge home today with office f/u next week.
--- NOTE | 2022-08-01 15:03 | CARE MANAGER ---
Contacted patient related to hospital discharge. He had no new medications and is aware of his follow up appointment. Denies questions or concerns. JOSE Higgins
--- NOTE | 2022-08-03 00:08 | EXP.DC.SUM ---
General Admission date:: 07/29/22 Discharge date: 07/31/22 HPI HPI HPI: Mr. Bowers is a 76 year old male patient of [facility] with a history of coronary artery disease who presented to [facility] ER last night with chest pain. Patient states he was having a bowel movement at home and experienced severe, 10/10 intensity, mid anterior chest pain that radiated around his chest. He took a nitroglycerin tablet which gave relieved the pain down to 4/10 intensity. He then came to the ER. He denies shortness of breath or cough Hospital Course Hospital Course Hospital Course: The patient's initial troponin was normal but was not repeated. Dr. Cazares therefore ordered repeat troponins. By 07/31/2022, he felt well and had no more chest pain. His troponins were negative x3 and it was felt he was stable to discharge home and will follow-up in the office in 1 week. Exam Data for Last 24 hours Vital signs and Labs for Last 24 Hours: Temp Pulse Resp BP Pulse Ox 97.7 F 69 17 151/85 H 100 07/31/22 07:32 07/31/22 08:00 07/31/22 07:32 07/31/22 07:32 07/31/22 07:32 I & O for Last 24 hours: Intake & Output 07/31/22 08/01/22 08/02/22 08/03/22 11:59 11:59 11:59 11:59 Intake Total 1020 / 1020 Output Total 0 / 0 Balance 1020 / 1020 Narrative: Constitutional Constitutional: no acute distress *Routine HEENT Exam Head: Present normocephalic Eye: Present EOMI and PERRL ENT: Present mucous membranes moist *Routine Neck Exam Neck: Present supple; Absent lymphadenopathy *Routine Respiratory Exam Respiratory: Present CTA bilaterally *Routine Cardiovascular Exam Cardiovascular: Present RRR *Routine Abdominal Exam Abdominal: Present soft and normoactive bowel sounds; Absent tenderness *Routine Rectal Exam Rectal:: deferred *Routine Genitalia Exam Genitalia:: deferred *Routine Extremities Exam Extremities: Absent cyanosis, clubbing or edema *Routine Skin Exam Skin: Present warm; Absent rash *Routine Neurological Exam Neurological: Present alert and oriented X3 DS: Diagnosis Discharge Diagnosis (1) Chest pain: Status: Acute (2) HTN (hypertension): Status: Chronic (3) HLD (hyperlipidemia): Status: Chronic (4) CAD (coronary artery disease): Status: Chronic (5) GERD (gastroesophageal reflux disease): Status: Chronic (6) Diastolic dysfunction: Status: Chronic Meds Home Medications and Allergies Home Medications Medication Instructions Recorded Confirmed Type aspirin 81 mg tablet,delayed 81 mg PO DAILY HEART HEALTH 11/15/17 07/29/22 History release (Adult Low Dose Aspirin) esomeprazole magnesium 40 mg 40 mg PO DAILY GERD 11/15/17 07/29/22 History capsule,delayed release levothyroxine 25 mcg tablet 25 mcg PO DAILY thyroid 11/15/17 07/29/22 History atorvastatin 10 mg tablet 10 mg PO DAILY chloesterol 07/25/21 07/29/22 History bisoprolol fumarate 5 mg tablet 5 mg PO DAILY Hypertension #90 tabs 01/11/22 07/29/22 Rx New Prescriptions to Start Prescriptions: Allergies Allergy/AdvReac Type Severity Reaction Status Date / Time morphine Allergy Mild Nausea Verified 07/29/22 23:10 Penicillins Allergy Unknown I-HIVES Verified 07/29/22 23:04 codeine Allergy Verified 07/29/22 23:04 ranolazine [From Ranexa] AdvReac Severe Verified 07/29/22 23:04 Discharge Plan Disposition Patient Disposition: Home, Self-Care Condition: Good Follow up Plan Follow up with: Matthew Cazares MD [Primary Care Provider] - 08/08/22 10:30 am Prescriptions/Medication Reconciliation: Continued esomeprazole magnesium 40 mg capsule,delayed release(DR/EC) 40 mg PO DAILY levothyroxine 25 mcg tablet 25 mcg PO DAILY aspirin [Adult Low Dose Aspirin] 81 mg tablet,delayed release (DR/EC) 81 mg PO DAILY bisoprolol fumarate 5 mg tablet 5 mg PO DAILY Qty: 90 1RF atorvastatin 10 MG tablet 10 mg PO DAILY Problem Reconciliation Pro
== END 2022-07-31 10:15 | disposition home or self-care (01) ==
LOC: ER 22:06 → 2ND 22:21
PROVIDERS: Admitting Provider Internal Medicine Adolescent Medicine; Emergency Provider Emergency Medicine; PCP Family Medicine; Visit Provider Family Medicine
DX: R07.9 Chest pain, unspecified (principal); I10 Essential (primary) hypertension; K21.9 Gastro-esophageal reflux disease without esophagitis; I25.118 Atherosclerotic heart disease of native coronary artery with other forms of angina pectoris; E78.2 Mixed hyperlipidemia; Z79.899 Other long term (current) drug therapy; Z82.49 Family history of ischemic heart disease and other diseases of the circulatory system
CPT/HCPCS: G0378; 36415; 71046; 80048; 84484; 85025; 93005; 99285; C9803; J2405; U0003; U0005

== ENCOUNTER → 2022-10-18 09:26 | Outpatient (CLI) | payer MEDICARE, BC, SELFPAY ==
[2022-10-18 09:31] LABS: MANUAL DIFFERENTIAL MANUAL DIFFERENTIAL (MANUAL DIFF)
[2022-10-18 10:06] LABS: Basophils # 0.1 K/mm3 (0-0.2); Basophils % 0.8 % (0.1-2.0); Eosinophils # 0.1 K/mm3 (0.0-0.4); Eosinophils % 2.1 % (0.1-12.0); Hematocrit 45.4 % (42.0-52.0); Hemoglobin 14.5 g/dL (14.1-18.0); Lymphocytes # 1.8 K/mm3 (0.7-4.5); Mean Corpuscular HGB Conc 31.9 g/dL (31.8-35.4); Mean Corpuscular Hemoglobin 28.7 pg (27.0-31.2); Mean Platelet Volume 7.8 fl (7.4-10.4); Monocytes # 0.5 K/mm3 (0.1-1.0); Monocytes % 8.9 % (1.7-9.3); Neutrophils # 3.5 K/mm3 (1.8-7.8); Neutrophils % 58.2 % (37.0-80.0); Platelet Count 168 K/mm3 (142-424); Red Blood Count 5.04 M/mm3 (4.60-6.20); Red Cell Distribution Width 15.5 % (11.5-17.5)
[2022-10-18 10:48] LABS: Lymphocytes % 29 % (10-50); Monocytes % 9 % (2-9); Neutrophils % 62 % (42-76); Platelet Estimate Normal; RBC Morphology Normal; Total Cells Counted 100
[2022-10-18 11:06] LABS: Alanine Aminotransferase 24 U/L (12-78); Albumin Level 4.5 g/dl (3.5-5.0); Alkaline Phosphatase 83 U/L (38-126); Anion Gap 12.6 mEq/L (5-15); Aspartate Amino Transferase 30 U/L (17-59); Bilirubin,Indirect 0.9 mg/dL (0.0-0.9); Bilirubin,Total 0.9 mg/dl (0.2-1.3); Blood Urea Nitrogen 12 mg/dl (9-20); Calcium 8.9 mg/dl (8.4-10.2); Carbon Dioxide 25 mmol/L (22.0-30.0); Chloride 107 mmol/L (98-107); Chol/HDL Ratio 3.7 (1-3.5); Cholesterol 100 mg/dl (140-200); Estimated Glomerular Filt Rate 54 ml/min (>60); GFR (African American) 65 ML/MIN (>60); Glucose 110 mg/dl (74-100); HDL Cholesterol 27 mg/dl (40-60); Potassium 4.6 mmoL/L (3.5-5.1); Sodium 140 mmol/L (136-145); Total Protein,Serum 7.3 g/dl (6.3-8.2); Triglycerides 238 mg/dl (30-150); VLDL Cholesterol 48 mg/dL (0-40)
[2022-10-18 11:23] LABS: Free T4 (Free Thyroxine) 0.86 ng/dl (0.78-2.19)
[2022-10-18 11:37] LABS: Thyroid Stimulating Hormone 4.21 uIU/mL (0.465-4.68)
== END ==
PROVIDERS: PCP Family Medicine; Visit Provider Physician Assistant
DX: E78.2 Mixed hyperlipidemia (principal); I11.9 Hypertensive heart disease without heart failure; I25.10 Atherosclerotic heart disease of native coronary artery without angina pectoris; K21.9 Gastro-esophageal reflux disease without esophagitis; R07.89 Other chest pain
CPT/HCPCS: 36415; 80048; 80061; 80076; 84439; 84443; 85007; 85014; 85018; 85048; 85049

== ENCOUNTER → 2022-10-23 09:36 | Outpatient (POV) | payer MEDICARE, BC, SELFPAY ==
[2022-10-23 09:56] VITALS: BP 120/86; PULSE 56; RESP 18; O2SAT 98; BMI 31.7
--- NOTE | 2022-10-23 09:57 | EXP.PAIN.SOA ---
[facility] Pain Management SOAP Note Subjective:: Patient is a pleasant 76-year-old male who presents today for follow-up. We are currently treating the patient for osteoarthritis of the right shoulder, degenerative disc disease of lumbar spine with lumbar radiculopathy symptoms, sacroiliitis. Today he rates his pain a 6 out of 10. Patient states that his right shoulder is bothering him worse over the last couple of weeks. Patient does describe this as an aching, throbbing sensation that is worse at night with occasional sharp pains with certain movements. He states that he did not get any sleep last night due to his worsening pain symptoms. He does frequently work in the [employer] and his pain is aggravated by this. Patient did go to Dr. Krishnamurthy office for this joint and is planning on doing surgery in the future around fall. He has previously had intra-articular injections that did provide significant relief. Patient does also have a history of prostate cancer that was removed and is doing well at this time. Patient has been managed with tramadol 50 mg twice a day in the past. Patient denies any side effects from this medication. He states that he only took it on an as-needed basis. He is requesting refill during today's visit. Patient is also prescribed compounding cream for additional relief. His Eduard is [phone]. Its been reviewed and appropriate. Review of Systems: General: No recent weight changes, no fever, no sleep disturbances Respiratory: No cough, no shortness of air, no recurring pulmonary infections Cardiovascular/peripheral vascular: No chest pain, no palpitations, no edema, no shortness of breath Gastrointestinal: No new onset incontinence, normal bowel movements reported Genitourinary: No new onset incontinence Musculoskeletal: Right shoulder pain Psychiatric: [Normal mood/affect] Neurological: [Denies weakness in extremities], [denies balance issues] Objective:: Physical Exam: General: Alert and oriented x3, no acute distress, pleasant and cooperative Lungs: Respirations even and unlabored, symmetrical chest expansion Eyes: PERRL Musculoskeletal: Flexion and extension of right shoulder somewhat guarded secondary to pain, [antalgic gait noted] Neurological: Speech clear, no gross sensory deficit Assessment:: Right shoulder osteoarthritis, degenerative disc disease of lumbar spine with lumbar radiculopathy symptoms, sacroiliitis Plan:: Patient is experiencing worsening pain in his right shoulder with limited range of motion. I will refill his tramadol 50 mg twice daily and provide a 7-day supply of this medication. I will also order the patient tizanidine 4 mg at bedtime and provide a 2-week supply of this medication. I have discussed with the patient that he may benefit from a intra-articular shoulder injection. Risk and benefits were discussed with the patient and he would like to proceed forward with this plan of care. We will schedule him for a right intra-articular shoulder injection. Patient has been instructed to contact the clinic with any concerns before the next appointment. Dr. Blood has reviewed this note and agrees with this plan of care. This note was dictated using voice recognition software and make contain errors or omissions. [facility] Disclaimer: The information contained in this section may have been updated after the patient was seen, as this information can be updated by other users. Medical History Abnormal EKG Bradycardia on ECG CAD (coronary artery disease) Degenerative joint disease (DJD) of lumbar spine Diastolic dysfunction Diverticulitis Exposure to COVID-19 virus GERD (gastroesophageal reflux disease) HHD (hypertensive heart disease) HLD (hyperlipidemia) Hypothyroidism Prostate cancer Status post placement of implantable loop recorder Syncope Surgical History History of prostatectomy
== END | disposition home or self-care (01) ==
PROVIDERS: PCP Family Medicine; Visit Provider Nurse Practitioner Family
DX: M51.16 Intervertebral disc disorders with radiculopathy, lumbar region (principal); M46.1 Sacroiliitis, not elsewhere classified; M19.011 Primary osteoarthritis, right shoulder
CPT/HCPCS: 99212; G0463

== ENCOUNTER 2022-10-24 08:04 | Day surgery (SDC) | payer MEDICARE, BC, SELFPAY ==
[2022-10-24 08:26] VITALS: BP 124/79; PULSE 54; RESP 18; TEMP 36.6; O2SAT 98; BMI 31.7
[2022-10-24 08:38] VITALS: BP 133/92; PULSE 55; RESP 18; O2SAT 97
[2022-10-24 08:43] VITALS: BP 133/92; PULSE 55; RESP 18; O2SAT 97
[2022-10-24 08:45] VITALS: BP 127/78; PULSE 55; RESP 18; TEMP 36.3; O2SAT 98
--- NOTE | 2022-10-24 08:46 | P.PCN_ITS ---
Procedure Date: 10/24/22 Time: 08:30 Anesthesiologist:: Deandre Khalil CRNA Complications:: None Pre-procedure Diagnosis:: Osteoarthritis right shoulder. Chronic right shoulder pain. Post-procedure Diagnosis:: Same. Indications for Procedure:: Patient is a very pleasant 76-year-old male that comes our clinic today for right intra-articular shoulder injection. Patient has consulted with 2 separate orthopedic surgeons. Both recommend continue with intra-articular injections if in fact they continue to help him for at least 3 months. If injections do not last 3 months he will return for shoulder scope. Patient reports today 3 months of relief with his last injection. Procedure Details:: Procedure Details: Right shoulder intra-articular injection Informed consent was obtained risk and benefits of the procedure were explained to the patient. Patient was taken to the procedure room. The right shoulder was prepped using ChloraPrep. A 25-gauge needle was used first anteriorly, laterally, and then posteriorly to inject 10 mL bupivacaine 0.25% and Depo- Medrol 40 mg. Patient tolerated procedure well with no complications. Plan and Disposition:: Patient was discharged without incident
== END 2022-10-24 08:45 | disposition home or self-care (01) ==
PROVIDERS: PCP Family Medicine; Visit Provider Nurse Anesthetist, Certified Registered
DX: M19.011 Primary osteoarthritis, right shoulder (principal); M25.511 Pain in right shoulder; G89.29 Other chronic pain
CPT/HCPCS: 20610; J1040

== ENCOUNTER → 2022-11-10 08:08 | Outpatient (POV) | payer MEDICARE, BC, SELFPAY ==
[2022-11-10 08:13] VITALS: BP 101/70; PULSE 52; RESP 18; O2SAT 98; BMI 32.0
--- NOTE | 2022-11-10 08:33 | A.OFFVIS_ITS ---
[facility] Pain Management SOAP Note Subjective:: This patient is a very pleasant 76-year-old male that returns our clinic today for follow-up visit after receiving right intra-articular shoulder injection. Patient reports 2 to 3 days of significant improvement following injection. After which time his pain returned in its entirety. Patient has good strength in bilateral arms. However, limited range of motion on the right due to pain on the superior margin of the shoulder joint. He rates his pain 7/10. He has difficulty carrying his great grandkids due to the shoulder pain. Patient has seen Dr. Trimble in the past regarding his right shoulder. He is requesting a return visit to see Dr. Trimble for evaluation. Objective:: ient is awake alert [place] x3. In no acute distress. Flexion-extension lumbar spine normal. Deep tendon reflexes upper and lower extremities normal. Motor strength upper and lower extremities normal. There is no gross sensory deficit. Gait is normal. Assessment:: Osteoarthritis right shoulder. Chronic right shoulder pain. Plan:: We will refer the patient back to for reevaluation. [facility] Disclaimer: The information contained in this section may have been updated after the patient was seen, as this information can be updated by other users. Medical History Abnormal EKG Bradycardia on ECG CAD (coronary artery disease) Degenerative joint disease (DJD) of lumbar spine Diastolic dysfunction Diverticulitis Exposure to COVID-19 virus GERD (gastroesophageal reflux disease) HHD (hypertensive heart disease) HLD (hyperlipidemia) Hypothyroidism Prostate cancer Status post placement of implantable loop recorder Syncope Surgical History History of prostatectomy Family History Other No significant family history Social History Smoking Status: Never smoker second hand exposure: Yes alcohol intake: never substance use type: denies use current occupational status: retired Travel in the last 8 weeks: None household members: spouse housing: house 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
== END ==
PROVIDERS: Visit Provider Nurse Anesthetist, Certified Registered
DX: M19.011 Primary osteoarthritis, right shoulder (principal); M25.511 Pain in right shoulder
CPT/HCPCS: 99212; G0463

== ENCOUNTER → 2022-11-21 08:07 | Outpatient (POV) | payer MEDICARE, BC, SELFPAY | PROVIDERS: Visit Provider Dermatology | DX: Z00.00 Encounter for general adult medical examination without abnormal findings (principal) ==

== ENCOUNTER 2023-02-10 08:23 | Emergency (ER) | payer MEDICARE, BC, SELFPAY ==
[2023-02-10] VITALS (9 sets, daily range): BP systolic 108–135; BP diastolic 67–82; PULSE 56–67; RESP 16–20; TEMP 36.8; O2SAT 95–99; BMI 31.0
--- NOTE | 2023-02-10 08:34 | CT_ITS ---
PROCEDURE INFORMATION: Exam: CTA Neck With Contrast Exam date and time: 02/10/2023 9:13 AM Age: 77 years old Clinical indication: Pain; Headache; Additional info: Iraheta/r side neck pain TECHNIQUE: Imaging protocol: Computed tomographic angiography of the neck with contrast. 3D rendering (Not supervised by radiologist): MIP and/or 3D reconstructed images were created by the technologist. Radiation optimization: All CT scans at this facility use at least one of these dose optimization techniques: automated exposure control; mA and/or kV adjustment per patient size (includes targeted exams where dose is matched to clinical indication); or iterative reconstruction. Contrast material: ISOVUE; Contrast volume: 100 ml; Contrast route: INTRAVENOUS (IV); REPORTING DATA: Count of CT and Cardiac NM exams in prior 12 months: This patient has received [address] and 0 known cardiac nuclear medicine studies in the 12 months prior to the current study. COMPARISON: CT CERVICAL SPINE WO CON 02/10/2023 9:10 AM FINDINGS: Right common carotid artery: No stenosis. No dissection or occlusion. Right internal carotid artery: No stenosis of the extracranial segment. No dissection or occlusion. Right external carotid artery: No occlusion or stenosis of the origin. Left common carotid artery: No stenosis. No dissection or occlusion. Left internal carotid artery: No stenosis of the extracranial segment. No dissection or occlusion. Left external carotid artery: No occlusion or stenosis of the origin. Right vertebral artery: No stenosis. No dissection or occlusion. Courses superiorly near the common carotid artery and finally enters the C4 transverse foramen. Left vertebral artery: No stenosis. No dissection or occlusion. Soft tissues: No significant soft tissue swelling. Bones/joints: No acute fracture bone lesions. 3 mm anterolisthesis at C4-C5. IMPRESSION: No stenosis or occlusion. REFERENCES: NASCET CRITERIA. The degree of stenosis in the cervical segment of the internal carotid artery is based on NASCET criteria. Normal is no stenosis. Mild is less than 50% stenosis. Moderate is 50-69% stenosis. Severe is 70% to 99% stenosis. Total occlusion is no detectable patent lumen.
--- NOTE | 2023-02-10 08:34 | CT_ITS ---
PROCEDURE INFORMATION: Exam: CT Cervical Spine Without Contrast Exam date and time: 02/10/2023 9:10 AM Age: 77 years old Clinical indication: Neck pain; Additional info: Neck pain w/ limited rom TECHNIQUE: Imaging protocol: Computed tomography of the cervical spine without contrast. Radiation optimization: All CT scans at this facility use at least one of these dose optimization techniques: automated exposure control; mA and/or kV adjustment per patient size (includes targeted exams where dose is matched to clinical indication); or iterative reconstruction. REPORTING DATA: Count of CT and Cardiac NM exams in prior 12 months: This patient has received [address] and 0 known cardiac nuclear medicine studies in the 12 months prior to the current study. COMPARISON: NM BONE SCAN WHOLE BODY 03/22/2022 12:53 PM FINDINGS: Bones/joints: No acute fracture. 3 mm anterolisthesis at C4-C5. Sclerotic bone hypertrophy and transverse ligament calcification at C1-C2. No significant disc bulge or herniation. No severe spinal canal stenosis. No significant neural foraminal narrowing. Disc space narrowing and facet hypertrophy at multiple levels. Lungs: Lung apices have mild fibrosis. Soft tissues: No paraspinal or prevertebral soft tissue masses. IMPRESSION: 1. No acute findings in the cervical spine. 2. 3 mm anterolisthesis at C4-C5 is very likely chronic and causes no abnormal mass effects. Flexion and extension C-spine radiographs may be useful if clinically warranted. 3. Multilevel degenerative disc disease and facet hypertrophy.
--- NOTE | 2023-02-10 08:34 | CT_ITS ---
PROCEDURE INFORMATION: Exam: CT Head Without Contrast Exam date and time: 02/10/2023 9:07 AM Age: 77 years old Clinical indication: Fever and weakness, facial; Additional info: Iraheta/neck pain, R face sensation changes TECHNIQUE: Imaging protocol: Computed tomography of the head without contrast. Radiation optimization: All CT scans at this facility use at least one of these dose optimization techniques: automated exposure control; mA and/or kV adjustment per patient size (includes targeted exams where dose is matched to clinical indication); or iterative reconstruction. REPORTING DATA: Count of CT and Cardiac NM exams in prior 12 months: This patient has received [address] and 0 known cardiac nuclear medicine studies in the 12 months prior to the current study. COMPARISON: MR HEAD/BRAIN WO/W CON 07/27/2021 10:31 AM FINDINGS: Brain: No hemorrhage. Mild low density in the white matter of both cerebral hemispheres without mass effect. No other intra-axial or extra-axial lesions or masses. No midline shift. Cerebral ventricles: Ventricular systems are age-appropriate. Paranasal sinuses: Visualized sinuses are well aerated. No fluid levels. Mastoid air cells: Visualized mastoid air cells are well aerated. Bones/joints: No acute fracture or bone lesions. Soft tissues: No abnormalities. IMPRESSION: 1. No acute intracranial abnormality. No interval change compared to MRI dated 07/27/2021. 2. Mild white matter microvascular disease.
--- NOTE | 2023-02-10 08:34 | CT_ITS ---
PROCEDURE INFORMATION: Exam: CTA Head With Contrast, Arteriography Exam date and time: 02/10/2023 9:13 AM Age: 77 years old Clinical indication: Pain; Headache; Additional info: Iraheta/r side neck pain TECHNIQUE: Imaging protocol: Computed tomographic angiography of the head with contrast. Exam focused on the arteries. 3D rendering (Not supervised by radiologist): MIP and/or 3D reconstructed images were created by the technologist. Radiation optimization: All CT scans at this facility use at least one of these dose optimization techniques: automated exposure control; mA and/or kV adjustment per patient size (includes targeted exams where dose is matched to clinical indication); or iterative reconstruction. Contrast material: ISOVUE; Contrast volume: 100 ml; Contrast route: INTRAVENOUS (IV); REPORTING DATA: Count of CT and Cardiac NM exams in prior 12 months: This patient has received [address] and 0 known cardiac nuclear medicine studies in the 12 months prior to the current study. COMPARISON: CT HEAD/BRAIN WO CON 02/10/2023 9:07 AM FINDINGS: ANTERIOR CIRCULATION: Right internal carotid artery: Intracranial segment is patent with no significant stenosis. No aneurysm. Right middle cerebral artery: No occlusion or significant stenosis. No aneurysm. Right anterior cerebral artery: No occlusion or significant stenosis. No aneurysm. Left internal carotid artery: Intracranial segment is patent with no significant stenosis. No aneurysm. Left middle cerebral artery: No occlusion or significant stenosis. No aneurysm. Left anterior cerebral artery: No occlusion or significant stenosis. No aneurysm. POSTERIOR CIRCULATION: Right vertebral artery: No occlusion or significant stenosis. No aneurysm. Left vertebral artery: No occlusion or significant stenosis. No aneurysm. Basilar artery: No occlusion or significant stenosis. No aneurysm. Right posterior cerebral artery: No occlusion or significant stenosis. No aneurysm. Left posterior cerebral artery: No occlusion or significant stenosis. No aneurysm. Brain: No definite mass, mass effect, or midline shift. Cerebral ventricles: No ventriculomegaly. Bones/joints: Unremarkable. No acute fracture. Soft tissues: Unremarkable. IMPRESSION: No large vessel stenosis or occlusion.
--- NOTE | 2023-02-10 08:39 | HMH.EDGENADL ---
Discharge Plan Disposition Patient Disposition: Home, Self-Care Condition: Good Prescriptions Prescriptions: New methocarbamol 500 mg tablet 500 mg PO .q6h prn Qty: 28 0RF No Action esomeprazole magnesium 40 mg capsule,delayed release(DR/EC) 40 mg PO DAILY levothyroxine 25 mcg tablet 25 mcg PO DAILY aspirin [Adult Low Dose Aspirin] 81 mg tablet,delayed release (DR/EC) 81 mg PO DAILY bisoprolol fumarate 5 mg tablet 5 mg PO DAILY Qty: 90 1RF nitroglycerin 0.4 mg tablet, sublingual 0.4 mg sublingual Q5-15M PRN (Reason: chest pain) Qty: 30 5RF Rx Instructions: do not exceed 3 doses per episode amlodipine 10 mg tablet 10 mg PO DAILY tramadol 50 mg tablet 50 mg PO BID PRN (Reason: pain) Qty: 14 0RF atorvastatin 10 MG tablet 10 mg PO DAILY tizanidine [Zanaflex] 4 mg tablet 4 mg PO HS Referrals Follow up/Referrals: Matthew Cazares MD [Primary Care Provider] - See instructions Activity Restrictions/Add. Instructions Additional Instructions/Restrictions: Take the newly prescribed methocarbamol as directed if needed for muscle spasm. take Tylenol, ibuprofen as needed for pain. Do not exceed recommended doses on the bottle. You can continue using topical medication such as Voltaren, Biofreeze, and lidocaine. Avoid using Voltaren and ibuprofen together. You can apply ice/heat to the area for additional relief. Please go to your appointment on Sunday with your primary care physician for follow-up. Return to the emergency department with any new or worsening symptoms. Clinical Impressions Clinical Impression: Neck pain on right side, Muscle spasm Discharge ED Provider: Jimbo Villasenor Adult HPI General Chief complaint: PAIN Stated complaint: Neck pain no known accident Time Seen by Provider: 02/10/23 08:25 Mode of Arrival: Ambulatory Source of Information: Patient Limitations: No Limitations Description of Symptoms (Recalled from ER Triage Doc. by RN): 77 yo M presents to ED with c/o neck pain. pt reports that he woke up last sunday with left sided neck pain. pt reports pain has moved to right side of neck. he has tried OTC medication and patches but has not helped with pain. History of Present Illness HPI narrative: This 77-year-old male with a history of hypertension, hypothyroidism who has an indwelling loop recorder presents to the emergency department with concerns of 1 week of neck pain with limited range of motion. Patient states last week Sunday he started with mild left-sided shoulder/neck pain that has now migrated to the right side exclusively. The right-sided neck pain has progressively worsened. Patient has tried lidocaine patches, Biofreeze, Voltaren gel. He states he has persistent headache associated with the neck pain. Patient has no range of motion of the neck secondary to pain. Patient states he has not had any recent injuries. He is retired and does not do any significant physical labor. He demonstrates area of pain over the right lateral neck base. He describes it as muscle spasm type pain. He does endorse recent fevers and chills. He denies sore throat, difficulty swallowing, cough, or other symptoms of illness. He denies numbness, tingling, or weakness. He has not had any difficulty ambulating. Patient states he has been taking all medications as prescribed. Related Data Home Medications Medication Instructions Recorded Confirmed aspirin 81 mg tablet,delayed 81 mg PO DAILY HEART HEALTH 11/15/17 11/10/22 release (Adult Low Dose Aspirin) esomeprazole magnesium 40 mg 40 mg PO DAILY GERD 11/15/17 11/10/22 capsule,delayed release levothyroxine 25 mcg tablet 25 mcg PO DAILY thyroid 11/15/17 11/10/22 atorvastatin 10 mg tablet 10 mg PO DAILY chloesterol 07/25/21 11/10/22 amlodipine 10 mg tablet 10 mg PO DAILY BLOOD PRESSURE 10/23/22 11/10/22 tizanidine 4 mg tablet (Zanaflex) 4 mg PO HS Pain 10/24/22 11/10/22 Previous R
--- NOTE | 2023-02-10 08:42 | CT_ITS ---
PROCEDURE INFORMATION: Exam: CT Neck With Contrast Exam date and time: 02/10/2023 9:17 AM Age: 77 years old Clinical indication: Neck pain; Additional info: R side neck pain, has had fever TECHNIQUE: Imaging protocol: Computed tomography of the neck with contrast. Radiation optimization: All CT scans at this facility use at least one of these dose optimization techniques: automated exposure control; mA and/or kV adjustment per patient size (includes targeted exams where dose is matched to clinical indication); or iterative reconstruction. Contrast material: ISOVUE; Contrast volume: 60 ml; Contrast route: IV; REPORTING DATA: Count of CT and Cardiac NM exams in prior 12 months: This patient has received [address] and 0 known cardiac nuclear medicine studies in the 12 months prior to the current study. COMPARISON: CT ANGIO NECK 02/10/2023 9:13 AM FINDINGS: Pharynx: Unremarkable. No significant tonsillar enlargement. Larynx: Unremarkable. Epiglottis is normal. Prevertebral and retropharyngeal spaces: Unremarkable. Salivary glands: Normal. Glands are normal in size. Thyroid: Normal. No enlarged or calcified nodules. Lymph nodes: Unremarkable. No lymphadenopathy. Trachea: Visualized trachea is unremarkable. Lungs: Unremarkable as visualized. Bones/joints: No acute fracture or bone lesions. Multilevel disc space narrowing, osteophytes, and facet hypertrophy. 3 mm anterolisthesis at C4-C5. Soft tissues: Unremarkable. No significant soft tissue swelling. IMPRESSION: No acute findings in the neck soft tissues.
[2023-02-10 08:50] LABS: Basophils % 0.1 % (0.1-2.0); Eosinophils # 0.1 K/mm3 (0.0-0.4); Eosinophils % 1.5 % (0.1-12.0); Hematocrit 41.2 % (42.0-52.0); Hemoglobin 13.3 g/dL (14.1-18.0); Lymphocytes # 1.8 K/mm3 (0.7-4.5); Lymphocytes % 26.4 % (10-50); Mean Corpuscular HGB Conc 32.4 g/dL (31.8-35.4); Mean Corpuscular Hemoglobin 29.6 pg (27.0-31.2); Mean Corpuscular Volume 91.5 fl (80-94); Monocytes # 0.6 K/mm3 (0.1-1.0); Monocytes % 9.2 % (1.7-9.3); Neutrophils # 4.3 K/mm3 (1.8-7.8); Neutrophils % 62.7 % (37.0-80.0); Platelet Count 218 K/mm3 (142-424); Red Cell Distribution Width 13.2 % (11.5-17.5); White Blood Count 6.9 K/mm3 (4.8-10.8)
[2023-02-10 08:58] LABS: Alanine Aminotransferase 27 U/L (12-78); Albumin Level 4.3 g/dl (3.5-5.0); Albumin/Globulin Ratio 1.2 (1.1-1.8); Alkaline Phosphatase 91 U/L (38-126); Anion Gap 17.5 mEq/L (5-15); Aspartate Amino Transferase 28 U/L (17-59); Bilirubin,Total 0.8 mg/dl (0.2-1.3); Blood Urea Nitrogen 17 mg/dl (9-20); Calcium 9.4 mg/dl (8.4-10.2); Carbon Dioxide 23 mmol/L (22.0-30.0); Chloride 107 mmol/L (98-107); Creatinine Clearance Estimated 72 mL/min (50-200); Estimated Glomerular Filt Rate 59 ml/min (>60); GFR (African American) 71 ML/MIN (>60); Globulin 3.6 g/dL (1.3-3.2); Glucose 122 mg/dl (74-100); Potassium 3.5 mmoL/L (3.5-5.1); Sodium 144 mmol/L (136-145); Total Protein,Serum 7.9 g/dl (6.3-8.2)
[2023-02-10 09:28] LABS: Erythrocyte Sedimentation Rate 63 mm/hr (0-20); Thyroid Stimulating Hormone 7.64 uIU/mL (0.465-4.68)
[2023-02-10 09:41] LABS: Free T4 (Free Thyroxine) 1.24 ng/dl (0.78-2.19)
--- NOTE | 2023-02-10 10:15 | PC.NURSE ---
rounded on pt, adjusted bed at this time, no other needs, family at bs
== END 2023-02-10 11:07 | disposition home or self-care (01) ==
PROVIDERS: Emergency Provider Emergency Medicine; PCP Family Medicine
DX: M54.2 Cervicalgia (principal); I25.10 Atherosclerotic heart disease of native coronary artery without angina pectoris; I11.9 Hypertensive heart disease without heart failure; E78.5 Hyperlipidemia, unspecified; E03.9 Hypothyroidism, unspecified; K21.9 Gastro-esophageal reflux disease without esophagitis
CPT/HCPCS: 70450; 70491; 70496; 70498; 72125; 80053; 84439; 84443; 85025; 85651; 86140; 96374; 99285; Q9967

== ENCOUNTER 2023-02-12 08:00 | Outpatient (RCR) | payer MEDICARE, BC, SELFPAY | END 2023-02-12 08:05 | disposition home or self-care (01) | LOC: OT 08:00 | PROVIDERS: PCP Family Medicine; Visit Provider Orthopaedic Surgery Adult Reconstructive Orthopaedic Surgery | DX: M75.101 Unspecified rotator cuff tear or rupture of right shoulder, not specified as traumatic (principal); Z47.89 Encounter for other orthopedic aftercare | CPT/HCPCS: 97010; 97016; 97110; 97140; 97164; 97165; 97530 ==

== ENCOUNTER 2023-08-01 12:18 | Outpatient (CLI) | payer MEDICARE, BC, SELFPAY ==
--- NOTE | 2023-08-01 12:26 | XR_ITS ---
FINAL REPORT CLINICAL HISTORY: RT FOOT PAIN COMPARISON: None FINDINGS: RIGHT FOOT: Three views of the right foot were obtained. There is no acute fracture or dislocation. Mild degenerative changes present. There is a small plantar calcaneal spur. There is no soft tissue abnormality. IMPRESSION: No acute bony abnormality. Mild degenerative change as described. Reviewed, Interpreted and Dictated by Santi Wyatt III, MD Transcribed by Beth Garcia Authenticated and [facility]
--- NOTE | 2023-08-01 12:26 | XR_ITS ---
FINAL REPORT CLINICAL HISTORY: RT KNEE PAIN COMPARISON: None FINDINGS: Three views of the right knee reveal no evidence of fracture or dislocation. The patient has undergone prior right knee arthroplasty. The bony alignment is normal. The joint spaces are preserved. There is no evidence of joint effusion. There are multiple posterior calcifications noted, likely loose bodies. No localized soft tissue abnormality is identified. IMPRESSION: No acute abnormality identified. Prior right knee arthroplasty, with multiple posterior calcifications noted, likely loose bodies. Reviewed, Interpreted and Dictated by Santi Wyatt III, MD Transcribed by Beth Garcia Authenticated and [facility]
== END 2023-08-01 23:59 ==
LOC: RAD 12:19
PROVIDERS: PCP Family Medicine; Visit Provider Family Medicine
DX: M79.671 Pain in right foot (principal); M25.561 Pain in right knee
CPT/HCPCS: 73562; 73630

== ENCOUNTER 2023-08-07 14:42 | Outpatient (POV) | payer MEDICARE, BC, SELFPAY | END 2023-08-07 23:59 | disposition home or self-care (01) | LOC: SC 14:43 | PROVIDERS: PCP Family Medicine; Visit Provider Dermatology | DX: Z00.00 Encounter for general adult medical examination without abnormal findings (principal) ==

== ENCOUNTER 2023-09-04 09:23 | Day surgery (SDC) | payer MEDICARE, BC, SELFPAY ==
[2023-09-03 15:01] VITALS: BMI 31.0
[2023-09-04] VITALS (7 sets, daily range): BP systolic 79–128; BP diastolic 40–80; PULSE 55–89; RESP 12–18; TEMP 36.7–36.8; O2SAT 92–98
[2023-09-04] MEDS: LACTATED RINGERS 1000ML 1,000 ML 25 ML IV (10:07)
--- NOTE | 2023-09-04 10:27 | HMH.SCOPE ---
Procedure: Date: 09/04/23 Patient Date of :: 1945 Procedure Performed:: Colonoscopy with polypectomy Indications:: History of colon polyps Most recent colonoscopy in July 2020 was complicated by poor bowel preparation. Sigmoid diverticulosis and hemorrhoids confirmed. In January 2019 left-sided polyps excised. Performing Provider:: Tomas Hill MD Referring Provider:: . Sedation:: Monitored anesthesia care Procedure:: After informed consent was obtained the patient was taken to the endoscopy suite. Sedation ensued after the patient was transferred to the left lateral decubitus position. Pulse, blood pressure, and oxygen saturation were monitored throughout the procedure. Digital rectal exam revealed no significant abnormality. The colonoscope was placed in position. The entire colon was evaluated. The colonoscope was carefully removed and the patient was transferred to recovery in stable condition. Please see findings and specimens below for detail. Findings:: Bowel preparation moderate to poor (secondary to diverticular stool) Moderate to large hemorrhoidal cushions Hemorrhoidal tags Significant burks-diverticulosis Multiple diverticuli with impacted stool noted Polyp at 50 cm (at margin of diverticulum) Specimens:: Polyp at 50 cm (at margin of diverticulum) - cold snare Recommendations:: Timing of repeat colonoscopy is pending pathology will likely be around 3-5 years. Complications:: No immediate Estimated blood obtained (mL): 1 Colonoscopy Component Colonoscopy Component Was a colonoscopy performed during today's procedure?: Yes Recommended follow up colonoscopy of at least 10 years?: No If no, follow up colonoscopy recommended in ___ years?: (See above) Reason for not recommending >/= 10 yr follow-up interval?: (See above)
--- NOTE | 2023-09-04 10:29 | EXP.ANES.CKL ---
[facility] Disclaimer: The information contained in this section may have been updated after the patient was seen, as this information can be updated by other users. Medical History Abnormal EKG Bradycardia on ECG CAD (coronary artery disease) Degenerative joint disease (DJD) of lumbar spine Diastolic dysfunction Diverticulitis Exposure to COVID-19 virus GERD (gastroesophageal reflux disease) HHD (hypertensive heart disease) HLD (hyperlipidemia) Hypothyroidism Prostate cancer Status post placement of implantable loop recorder Syncope Surgical History History of cancer surgery History of left knee surgery History of prostatectomy History of right knee joint replacement History of rotator cuff surgery Family History Other No significant family history Social History Smoking Status: Never smoker second hand exposure: Yes alcohol intake: never substance use type: denies use current occupational status: retired Travel in the last 8 weeks: None household members: spouse housing: house 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 current occupational exposures/hazards: No caffeine: No H Anesthesia Checklist Patient Identification Patient Identification: Arm Band and Verbal (Name & ) Structural Data Admitted From: Home Planned Operative Procedure/s: Colonoscopy Consent for Planned Operative Procedure(s) Verified: Yes NPO Status Verified Time NPO: 00:00 Additional verifications Anesthesia Reactions: Yes (vomiting) Hx Blood Transfusions: Yes Blood Transfusion Reaction: No Airway Assessment Mallampati Score:: Class IV C-Spine Mobility Assessed: Yes TMJ Mobility Assessed: Yes Dentition: Dentures-good fit Neurological Assessment Level of Consciousness: Awake Hx Seizures: No Numbness or tingling in extremities: No Anesthesia Plan Anesthesia Risk discussed: Yes Anesthesia Plan: Verified ASA Class: III Anesthesia Type: MAC
--- NOTE | 2023-09-04 12:10 | SUR.PHASEII ---
1125: Attempted to contact Suzy [employer] per nurse industrial cafeteria managerHellen Tovar RN. Two call attempts with no response. Pt's bp 79/40 and pt is non responsive to pain at this time.
--- NOTE | 2023-09-04 15:48 | SUR.PHASEII ---
1113: Pt arrived to postop area with oral airway and simple mask in place. O2 sat 86% before starting O2 at 5L.
--- NOTE | 2023-09-04 15:50 | SUR.PHASEII ---
1143: Pt responds to painful stimuli. Oral airway removed and pt is now on room air.
== END 2023-09-04 11:55 | disposition home or self-care (01) ==
PROVIDERS: PCP Internal Medicine; Visit Provider Surgery
PROC: 0DJD8ZZ Inspection of Lower Intestinal Tract, Via Natural or Artificial Opening Endoscopic (ICD-10-PCS; CPT 45385; principal; 2023-09-04 10:30)
DX: Z12.11 Encounter for screening for malignant neoplasm of colon (principal); Z86.010 Personal history of colon polyps; K64.8 Other hemorrhoids; K64.4 Residual hemorrhoidal skin tags; K57.30 Diverticulosis of large intestine without perforation or abscess without bleeding; K51.40 Inflammatory polyps of colon without complications
CPT/HCPCS: 45385; 88305; J2704

== ENCOUNTER 2023-10-30 15:05 | Outpatient (CLI) | payer MEDICARE, BC, SELFPAY ==
[2023-10-30 15:21] LABS: Basophils % 0.6 % (0.1-2.0); Eosinophils # 0.1 K/mm3 (0.0-0.4); Eosinophils % 2.3 % (0.1-12.0); Hematocrit 43.6 % (42.0-52.0); Hemoglobin 14.7 g/dL (14.1-18.0); Lymphocytes % 32.2 % (10-50); Mean Corpuscular HGB Conc 33.7 g/dL (31.8-35.4); Mean Corpuscular Volume 94.9 fl (80-94); Mean Platelet Volume 8.9 fl (7.4-10.4); Monocytes # 0.6 K/mm3 (0.1-1.0); Monocytes % 9.7 % (1.7-9.3); Neutrophils # 3.4 K/mm3 (1.8-7.8); Neutrophils % 55.2 % (37.0-80.0); Platelet Count 161 K/mm3 (142-424); Red Blood Count 4.59 M/mm3 (4.60-6.20); Red Cell Distribution Width 14.3 % (11.5-17.5); White Blood Count 6.2 K/mm3 (4.8-10.8)
[2023-10-30 16:45] LABS: Alanine Aminotransferase 31 U/L (12-78); Albumin Level 4.2 g/dl (3.5-5.0); Alkaline Phosphatase 76 U/L (38-126); Anion Gap 12.9 mEq/L (5-15); Aspartate Amino Transferase 32 U/L (17-59); Bilirubin,Direct 0.4 mg/dl (0.0-0.4); Bilirubin,Indirect 0.7 mg/dL (0.0-0.9); Bilirubin,Total 1.1 mg/dl (0.2-1.3); Bilirubin,Unconjugated 0.7 mg/dL (0.0-1.1); Blood Urea Nitrogen 15 mg/dl (9-20); Calcium 9.2 mg/dl (8.4-10.2); Carbon Dioxide 23 mmol/L (22.0-30.0); Chloride 110 mmol/L (98-107); Chol/HDL Ratio 4.5 (1-3.5); Cholesterol 108 mg/dl (140-200); Estimated Glomerular Filt Rate 54 ml/min (>60); GFR (African American) 65 ML/MIN (>60); Glucose 96 mg/dl (74-100); HDL Cholesterol 24 mg/dl (40-60); Potassium 3.9 mmoL/L (3.5-5.1); Sodium 142 mmol/L (136-145); Total Protein,Serum 7.2 g/dl (6.3-8.2); Triglycerides 392 mg/dl (30-150); VLDL Cholesterol 78 mg/dL (0-40)
[2023-10-30 16:58] LABS: Direct LDL Cholesterol 44.48 mg/dL (100-129)
[2023-10-30 17:01] LABS: Free T4 (Free Thyroxine) 0.86 ng/dl (0.78-2.19)
[2023-10-30 17:16] LABS: Thyroid Stimulating Hormone 3.02 uIU/mL (0.465-4.68)
== END 2023-10-30 23:59 ==
LOC: LAB 15:06
PROVIDERS: PCP Family Medicine; Visit Provider Nurse Practitioner Family
DX: I48.0 Paroxysmal atrial fibrillation (principal); I11.9 Hypertensive heart disease without heart failure; I25.10 Atherosclerotic heart disease of native coronary artery without angina pectoris; E78.2 Mixed hyperlipidemia; K21.9 Gastro-esophageal reflux disease without esophagitis
CPT/HCPCS: 36415; 80048; 80061; 80076; 83735; 84439; 84443; 85025

== ENCOUNTER 2024-01-22 16:02 | Observation (INO) | payer MEDICARE, BC, SELFPAY ==
[2024-01-22] VITALS (9 sets, daily range): BP systolic 129–151; BP diastolic 79–91; PULSE 67–90; RESP 16–21; TEMP 36.6–36.9; O2SAT 96–99; BMI 26.6; BMI 32.2
--- NOTE | 2024-01-22 16:02 | ECG_ITS ---
APPROVED REPORT Exam: Resting ECG HR:58 bpm ECG Measurements Heart Rate 58 AXES NH 199 P 29 QRSd 106 QRS -52 QT 429 T -18 QTc 426 Conclusion SINUS BRADYCARDIA WITH SINUS ARRHYTHMIA LEFT AXIS DEVIATION [QRS AXIS < -30] PATTERN CONSISTENT WITH PULMONARY DISEASE MODERATE ST DEPRESSION [0.05+ mV ST DEPRESSION] ABNORMAL ECG UNCONFIRMED REPORT Electronically signed by : Best Jimenez, 01/22/2024 23:16:00
--- NOTE | 2024-01-22 16:10 | PC.NURSE ---
Dr. Jimenez at BS for pt eval
--- NOTE | 2024-01-22 16:16 | XR_ITS ---
PROCEDURE INFORMATION: Exam: XR Chest Exam date and time: 01/22/2024 4:21 PM Age: 78 years old Clinical indication: Dyspnea TECHNIQUE: Imaging protocol: Radiologic exam of the chest. Views: 1 view. COMPARISON: CR XR CHEST 2V 07/29/2022 7:37 PM FINDINGS: Tubes, catheters and devices: There is a wireless loop recorder projected in the left chest wall. Lungs: No evidence of pneumonia or interstitial edema. There is poor ventilation of the lungs, with perihilar vascular crowding and a diffuse increase in pulmonary parenchymal density. Pleural spaces: Unremarkable. No pleural effusion. No pneumothorax. Heart/Mediastinum: Heart size is of the upper limits of normality Bones/joints: Unremarkable. IMPRESSION: No evidence of pneumonia or interstitial edema.
--- NOTE | 2024-01-22 16:16 | CT_ITS ---
PROCEDURE INFORMATION: Exam: CT Head Without Contrast Exam date and time: 01/22/2024 4:40 PM Age: 78 years old Clinical indication: Syncope and collapse; Additional info: HERRMANN, syncope TECHNIQUE: Imaging protocol: Computed tomography of the head without contrast. Radiation optimization: All CT scans at this facility use at least one of these dose optimization techniques: automated exposure control; mA and/or kV adjustment per patient size (includes targeted exams where dose is matched to clinical indication); or iterative reconstruction. COMPARISON: NM BONE SCAN WHOLE BODY 03/22/2022 12:53 PM FINDINGS: Brain: There is no evidence of acute intracranial hemorrhage, extra-axial collection or locoregional mass effect. There are scattered hypodensities in the periventricular and subcortical white matter. The appearance is nonspecific, but most likely represents chronic small vessel disease in a person of this age Cerebral ventricles: The ventricles, sulci and cisterns are normal in size and configuration for patient's age. No hydrocephalus or midline structure shift Pituitary gland and sella: Sellar/parasellar structures, craniocervical junction and orbits are unremarkable Paranasal sinuses: Visualized sinuses are unremarkable. No fluid levels. Mastoid air cells: Visualized mastoid air cells are well aerated. Bones: No calvarial fracture. There is a well corticated, 1.5 cm fat containing lesion in the clivus/sphenoid bone. Findings favored to represent an arrested pneumatization of the sphenoid. Soft tissues: Unremarkable. IMPRESSION: 1. No acute intracranial abnormality. No calvarial fracture. 2. There is a well corticated, 1.5 cm fat containing lesion in the clivus/sphenoid bone. Findings favored to represent an arrested pneumatization of the sphenoid.
--- NOTE | 2024-01-22 16:21 | ED_ITS ---
Discharge Plan Disposition Patient Disposition: Admitted Chief Complaint: Syncope Prescriptions Prescriptions: No Action esomeprazole magnesium 40 mg capsule,delayed release(DR/EC) 40 mg PO DAILY levothyroxine 25 mcg tablet 25 mcg PO DAILY aspirin [Adult Low Dose Aspirin] 81 mg tablet,delayed release (DR/EC) 81 mg PO DAILY amlodipine [Norvasc] 5 mg tablet 5 mg PO DAILY Qty: 30 3RF Eliquis 5 mg tablet 5 mg PO BID Qty: 180 3RF bisoprolol fumarate 5 mg tablet 5 mg PO DAILY Qty: 90 1RF nitroglycerin 0.4 mg tablet, sublingual 0.4 mg sublingual Q5-15M PRN (Reason: chest pain) Qty: 30 5RF Rx Instructions: do not exceed 3 doses per episode atorvastatin 10 MG tablet 10 mg PO DAILY Referrals Follow up/Referrals: Matthew Cazares MD [Primary Care Provider] - See instructions Clinical Impressions Clinical Impression: Syncope, Headache Instructions Patient Instructions: DI for Syncope in Adults (Fainting), DI for Syncope in Children (Fainting) Discharge ED Provider: Jazmín Jimenez General Adult HPI General Chief complaint: Syncope Stated complaint: Heat Exhaustion Time Seen by Provider: 01/22/24 16:06 Mode of Arrival: EMS Source of Information: Patient and EMS Limitations: No Limitations Description of Symptoms (Recalled from ER Triage Doc. 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 States that he works outside regularly was outside raking [employer] from 11 till 3 today feeling good until he got stung by bee then started feeling lightheaded. No urticarial rash no difficulty breathing or swelling in his mouth or any other anaphylaxis symptoms. States that he just felt lightheaded and subsequently he woke up. His son was with him and witnessed this and eased him to the ground there was no significant injuries but he did wake up with a mild headache. No neurologic deficits from historical standpoint. No chest pain preceding this episode or right now. He does have a loop recorder in from recent cardiology notes he had an atrial fibrillation burden of 3% he is not on any antiarrhythmic medications. Does have coronary disease states he is compliant with his dual antiplatelet therapy as he has had a stent placed in the past. Currently states he feels back to baseline other than very mild headache. No sudden or thunderclap component to his headache. Has not had any exertional symptoms leading up to today. Also was not excessively overheated prior to this event. Related Data Home Medications Medication Instructions Recorded Confirmed aspirin 81 mg tablet,delayed 81 mg PO DAILY HEART HEALTH 11/15/17 10/30/23 release (Adult Low Dose Aspirin) esomeprazole magnesium 40 mg 40 mg PO DAILY GERD 11/15/17 10/30/23 capsule,delayed release levothyroxine 25 mcg tablet 25 mcg PO DAILY thyroid 11/15/17 10/30/23 atorvastatin 10 mg tablet 10 mg PO DAILY chloesterol 07/25/21 10/30/23 Previous Rx's Medication Instructions Recorded bisoprolol fumarate 5 mg tablet 5 mg PO DAILY Hypertension #90 tabs 09/18/22 nitroglycerin 0.4 mg sublingual 0.4 mg sublingual Q5-15M PRN chest 10/16/22 tablet pain #30 tabs amlodipine 5 mg tablet (Norvasc) 5 mg PO DAILY #30 tabs 10/02/23 apixaban 5 mg tablet (Eliquis) 5 mg PO BID #180 tabs 10/30/23 Allergies Allergy/AdvReac Type Severity Reaction Status Date / Time morphine Allergy Mild Nausea Verified 10/30/23 14:27 Penicillins Allergy Unknown I-HIVES Verified 10/30/23 14:27 codeine Allergy Verified 10/30/23 14:27 ranolazine [From Ranexa] AdvReac Severe Verified 10/30/23 14:27 [facility] Disclaimer: The information contained in this section may have been updated after the patient was seen, as this information can be updated by other users. Medical History Paroxysmal A-fib Hypothyroidism Prostate cancer Status post placement of implantable loop recorder Syncope Degenerative joint disease (DJD) of lumbar spine Exposure to COVID-19 virus Diastolic dysfunction Abnormal EKG Bradycardia on ECG GERD (gastroesophageal reflux disease) Diverticulitis HHD (hypertensive heart disease) CAD (coronary artery disease) HLD (hyperlipidemia) Surgical History History of cancer surgery History of rotator cuff surgery History of left knee surgery History of right knee joint replacement History of prostatectomy Family History Other No significant family history Social History Smoking Status: Never smoker second hand exposure: Yes alcohol intake: never substance use type: denies use current occupational status: retired Travel in the last 8 weeks: None household members: spouse housing: house 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 current occupational exposures/hazards: No caffeine: No ROS Obtained: Yes All systems reviewed & no additional complaints except as documented Physical Exam General General appearance: alert and in no apparent distress Respiratory Respiratory exam: Present normal lung sounds bilaterally; Absent respiratory distress Cardiovascular Cardiovascular exam: Present regular rate and normal rhythm Abdominal Exam Abdominal exam: Present soft, distention and tenderness Neurological Exam Neurological exam: Present alert, oriented X3, CN II-XII intact and normal gait; Absent motor sensory deficit Medical Decision Making Eduard Inquiry Pt receiving controlled substance: No Vital Signs: 01/22/24 16:02 01/22/24 16:30 01/22/24 17:00 Temperature 98.5 F Temperature Source Oral Pulse Rate 75 74 Pulse Rate [Right Radial] 67 Respiratory Rate 20 Blood Pressure 129/83 145/82 H Blood Pressure [Right Arm] 131/82 Blood Pressure Mean 103 103 Blood Pressure Mean [Right Arm] 98 02 Sat by Pulse Oximetry 98 98 98 Oxygen Delivery Method Room Air Room Air Room Air Oxygen Flow Rate (LPM) 01/22/24 17:30 Temperature Temperature Source Pulse Rate 77 Pulse Rate [Right Radial] Respiratory Rate 16 Blood Pressure 151/91 H Blood Pressure [Right Arm] Blood Pressure Mean 103 Blood Pressure Mean [Right Arm] 02 Sat by Pulse Oximetry 99 Oxygen Delivery Method Nasal Cannula Oxygen Flow Rate (LPM) 2 Lab Data Lab results reviewed: Yes I reviewed the patient's lab results. Lab Results 01/22/24 16:20: WBC 6.0, RBC 4.52 L, Hgb 14.2, Hct 41.3 L, MCV 91.5, MCH 31.4 H, MCHC 34.4, RDW 14.2, Plt Count 154, MPV 8.6, Neut % (Auto) 65.3, Lymph % (Auto) 24.5, [place] % (Auto) 7.6, Eos % (Auto) 2.1, Baso % (Auto) 0.4, Neut # (Auto) 3.9, Lymph # (Auto) 1.5, [place] # (Auto) 0.5, Eos # (Auto) 0.1, Baso # (Auto) 0.0, Sodium 140, Potassium 3.7, Chloride 114 H, Carbon Dioxide 17 L, Anion Gap 12.7, BUN 20, Creatinine 1.70 H, Estimated Creat Clear 38, Estimated GFR 39 L, Est GFR ( Amer) 48 L, Glucose 103 H, Calcium 9.3, Magnesium 1.8, Total Bilirubin 1.0, AST 33, ALT 28, Alkaline Phosphatase 92, Troponin I < 0.01, NT-Pro-B Natriuret Pep 77.4, Total Protein 7.2, Albumin 4.2, Globulin 3.0, Albumin/Globulin Ratio 1.4 01/22/24 16:20 01/22/24 16:20 Orders (Tests/Meds): ED MEDICATIONS Generic Name Dose Route Start Last Admin Trade Name Freq PRN Reason Stop Dose Admin Dextrose/Lactated Ringer's 1,000 mls @ 150 mls/hr 01/22/24 18:15 01/22/24 17:55 Dextrose 5% In Lactated Ringer's 1000ml IV 02/21/24 18:14 150 mls/hr .[id number] RENU Administration Discontinued Medications Generic Name Dose Route Start Last Admin Trade Name Freq PRN Reason Stop Dose Admin Acetaminophen 1,000 mg 01/22/24 16:17 01/22/24 16:58 Acetaminophen 1,000mg/100ml Vial IV 01/22/24 16:18 1,000 mg ONCE ONE Administration Lactated Ringer's 1,000 mls @ 999 mls/hr 01/22/24 16:30 01/22/24 16:58 Lactated Ringer's 1000 Ml Bag IV 01/22/24 17:30 999 mls/hr .Q1H1M RENU Administration ORDERS Category Date Time Status CT head/brain wo con Stat Cat Scan 01/22/24 16:16 Completed CXR --portable [XR chest portable] Stat Exams 01/22/24 16:16 Completed BNP [NT Pro Brain Natriuretic Pep.] Stat Lab 01/22/24 16:20 Results CBC w/Auto Diff [Complete Blood Count Auto Diff] Stat Lab 01/22/24 16:20 Completed CMP [Comprehensive Metabolic Panel] Stat Lab 01/22/24 16:20 Results Magnesium Stat Lab 01/22/24 16:20 Results TSH [Thyroid Stimulating Hormone] Stat Lab 01/22/24 16:20 Results Trop I [Troponin I] Stat Lab 01/22/24 16:20 Results Troponin I Q3H Lab 01/22/24 19:30 Ordered Troponin I Q3H Lab 01/22/24 22:30 Ordered ECG Data Tracing #1: I reviewed this ECG and interpreted as documented below: Ventricular rate 58 sinus bradycardia no acute ischemic changes noted there is left axis deviation no other significant conduction abnormalities Medical Decision Narrative: 78-year-old male presenting today with a syncopal episode and mild headache. Differential includes subarachnoid hemorrhage which is unlikely so normal neurologic exam no thunderclap headache but will get a CT scan of his head. He did not have any significant head trauma from historical standpoint as well. Also possible that this is an environmental related injury given that he is over 90 degrees outside at the moment. However he is a levy very well acclimated to the heat this is unlikely as well. ACS is a possibility but also less likely as he had no ischemic symptoms preceding this and distal does not have any or any ischemia on EKG. He has a loop recorder and an arrhythmia is also possible we will get his device interrogated. Most likely however would be a vasovagal reaction to bee sting. He has no evidence of anaphylaxis but states that he was in his normal state of health until he got stung by bee and started feeling lightheaded. Assuming his workup is negative will have him follow-up outpatient with cardiology. Reassessment 6:22 PM labs returned which shows mild worsening of his renal insufficiency with a depressed bicarb. Likely has some dehydration IV fluids administered. Loop recorder was interrogated which showed no acute events. CT scan of patient's head performed which I first interpreted shows no acute intracranial abnormalities radiology read consistent with this as well. Chest x-ray performed to person interpreted shows no acute cardiopulmonary abnormalities radiology read consistent with this as well. First troponin undetectably low. While in the emergency department patient had another episode of feeling very lightheaded and shaking had limited chest discomfort which returned. Rechecked his Accu-Chek which was 90 at that point did not repeat EKG showed no arrhythmia still consistent with old EKGs no evolving ischemic changes. I suspect that the majority of his symptoms may be secondary to not eating as he felt like he needed to eat around noon when this episode began. He started eating and was given D5 LR with some improvement in symptoms but still feels very lightheaded. I gave him the option of staying for a second troponin as most emergency has not been ruled out at this point versus being admitted for telemetry observation and he and his family opted to be admitted. I spoke with Dr. Prado who is on-call for Dr. Cazares who agreed to accept the patient for further evaluation and management. Critical Care Critical Care Time Critical Care Time: No
[2024-01-22 16:34] LABS: Basophils % 0.4 % (0.1-2.0); Eosinophils # 0.1 K/mm3 (0.0-0.4); Eosinophils % 2.1 % (0.1-12.0); Hematocrit 41.3 % (42.0-52.0); Hemoglobin 14.2 g/dL (14.1-18.0); Lymphocytes # 1.5 K/mm3 (0.7-4.5); Lymphocytes % 24.5 % (10-50); Mean Corpuscular HGB Conc 34.4 g/dL (31.8-35.4); Mean Corpuscular Hemoglobin 31.4 pg (27.0-31.2); Mean Corpuscular Volume 91.5 fl (80-94); Mean Platelet Volume 8.6 fl (7.4-10.4); Monocytes # 0.5 K/mm3 (0.1-1.0); Monocytes % 7.6 % (1.7-9.3); Neutrophils # 3.9 K/mm3 (1.8-7.8); Neutrophils % 65.3 % (37.0-80.0); Platelet Count 154 K/mm3 (142-424); Red Blood Count 4.52 M/mm3 (4.60-6.20); Red Cell Distribution Width 14.2 % (11.5-17.5)
[2024-01-22 16:38] LABS: Chloride 114 mmol/L (98-107); Potassium 3.7 mmoL/L (3.5-5.1); Sodium 140 mmol/L (136-145)
[2024-01-22 16:40] LABS: Blood Urea Nitrogen 20 mg/dl (9-20); Creatinine Clearance Estimated 38 mL/min (50-200); Estimated Glomerular Filt Rate 39 ml/min (>60); GFR (African American) 48 ML/MIN (>60)
[2024-01-22 16:41] LABS: Alanine Aminotransferase 28 U/L (12-78); Albumin Level 4.2 g/dl (3.5-5.0); Albumin/Globulin Ratio 1.4 (1.1-1.8); Alkaline Phosphatase 92 U/L (38-126); Anion Gap 12.7 mEq/L (5-15); Aspartate Amino Transferase 33 U/L (17-59); Calcium 9.3 mg/dl (8.4-10.2); Carbon Dioxide 17 mmol/L (22.0-30.0); Glucose 103 mg/dl (74-100); Magnesium 1.8 mg/dl (1.6-2.3); Total Protein,Serum 7.2 g/dl (6.3-8.2)
[2024-01-22 16:51] LABS: NT Pro Brain Natriuretic Pep. 77.4 pg/mL (0-450)
[2024-01-22] MEDS: LACTATED RINGERS 1000ML 1,000 ML 999 ML IV (16:58)
[2024-01-22] MEDS: ACETAMINOPHEN 1,000MG/100ML VIAL 1000 MG IV (16:58)
[2024-01-22 17:01] LABS: Troponin I < 0.01 ng/ml (0.00-0.034)
--- NOTE | 2024-01-22 17:29 | PC.NURSE ---
2nd EKG performed by request
--- NOTE | 2024-01-22 17:29 | ECG_ITS ---
APPROVED REPORT Exam: Resting ECG HR:76 bpm ECG Measurements Heart Rate 76 AXES LA 142 P 0 QRSd 96 QRS -50 QT 397 T -5 QTc 427 Conclusion SINUS RHYTHM LEFT AXIS DEVIATION [QRS AXIS < -30] POSSIBLE ANTERIOR MYOCARDIAL INFARCTION , PROBABLY OLD [30 ms Q WAVE IN V3/V4, OR R < 0.2 mV IN V4] ABNORMAL ECG UNCONFIRMED REPORT Electronically signed by : Best Jimenez, 01/22/2024 23:15:45
--- NOTE | 2024-01-22 17:29 | PC.NURSE ---
2nd FSB, MD notified.
--- NOTE | 2024-01-22 17:39 | ECG_ITS ---
APPROVED REPORT Exam: Resting ECG HR:84 bpm ECG Measurements Heart Rate 84 AXES RI 170 P 31 QRSd 96 QRS -55 QT 400 T 2 QTc 441 Conclusion SINUS RHYTHM LEFT ANTERIOR FASCICULAR BLOCK [QRS AXIS <= -45, QR IN I, RS IN II] POSSIBLE ANTERIOR MYOCARDIAL INFARCTION , PROBABLY OLD [30 ms Q WAVE IN V3/V4, OR R < 0.2 mV IN V4] ABNORMAL ECG UNCONFIRMED REPORT Electronically signed by : Best Jimenez, 01/22/2024 23:15:37
[2024-01-22] MEDS: ONDANSETRON 4MG/2ML VIAL 4 MG IV (17:41)
[2024-01-22] MEDS: ASPIRIN 81MG CHEWABLE TABLET 324 MG PO (17:41)
--- NOTE | 2024-01-22 17:41 | PC.NURSE ---
Dr. Jimenez at BS with Nurse, October. EKG performed per MD request
[2024-01-22] MEDS: DEXTROSE 5%-LACTATED RINGERS 1,000 ML 150 ML IV (17:55)
--- NOTE | 2024-01-22 18:24 | PC.NURSE ---
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
--- NOTE | 2024-01-22 18:25 | PC.NURSE ---
urine culture discussed with , pt dc with [facility], ntd
--- NOTE | 2024-01-22 18:46 | PC.NURSE ---
called report to jamir phillips on second floor and answered all questions
--- NOTE | 2024-01-22 19:06 | PC.NURSE ---
patient arrived to floor via wheelchair @19:03
[2024-01-22 20:01] LABS: Troponin I < 0.01 ng/ml (0.00-0.034)
[2024-01-22] MEDS: APIXABAN 5MG TABLET 5 MG PO (20:04)
[2024-01-22] MEDS: 0.9 % SODIUM CHLORIDE 1000ML 1,000 ML 150 ML IV (20:04)
[2024-01-22] MEDS: AMLODIPINE 5MG TABLET 5 MG PO (20:54)
[2024-01-22] MEDS: BISOPROLOL 5MG TABLET 5 MG PO (20:54)
[2024-01-22 23:01] LABS: Troponin I < 0.01 ng/ml (0.00-0.034)
[2024-01-23] VITALS: BP 110/76; PULSE 52; PULSE 59; RESP 18; TEMP 36.6; O2SAT 95
[2024-01-23 04:00] VITALS: BP 115/75; PULSE 63; PULSE 74; RESP 18; TEMP 36.6; O2SAT 94; BMI 32.3
[2024-01-23] MEDS: 0.9 % SODIUM CHLORIDE 1000ML 1,000 ML 150 ML IV (04:08)
[2024-01-23 06:18] LABS: Basophils % 0.6 % (0.1-2.0); Eosinophils # 0.2 K/mm3 (0.0-0.4); Eosinophils % 4.1 % (0.1-12.0); Hematocrit 40.6 % (42.0-52.0); Hemoglobin 13.8 g/dL (14.1-18.0); Lymphocytes # 1.4 K/mm3 (0.7-4.5); Lymphocytes % 33.3 % (10-50); Mean Corpuscular HGB Conc 33.9 g/dL (31.8-35.4); Mean Corpuscular Hemoglobin 31.7 pg (27.0-31.2); Mean Corpuscular Volume 93.4 fl (80-94); Mean Platelet Volume 8.3 fl (7.4-10.4); Monocytes # 0.4 K/mm3 (0.1-1.0); Neutrophils # 2.1 K/mm3 (1.8-7.8); Platelet Count 131 K/mm3 (142-424); Red Blood Count 4.35 M/mm3 (4.60-6.20); White Blood Count 4.1 K/mm3 (4.8-10.8)
--- NOTE | 2024-01-23 06:18 | ECG_ITS ---
APPROVED REPORT Exam: Resting ECG HR:57 bpm ECG Measurements Heart Rate 57 AXES AL 220 P 47 QRSd 105 QRS -47 QT 429 T -11 QTc 424 Conclusion SINUS BRADYCARDIA WITH SINUS ARRHYTHMIA WITH FIRST DEGREE AV BLOCK LEFT AXIS DEVIATION [QRS AXIS < -30] LOW QRS VOLTAGE IN PRECORDIAL LEADS [QRS DEFLECTION < 1.0 mV IN CHEST LEADS] POSSIBLE ANTERIOR MYOCARDIAL INFARCTION , PROBABLY OLD [30 ms Q WAVE IN V3/V4, OR R < 0.2 mV IN V4] ABNORMAL ECG UNCONFIRMED REPORT Electronically signed by : CHAPINCITO OBRIEN, 01/26/2024 01:20:54
[2024-01-23 06:23] LABS: Chloride 116 mmol/L (98-107); Potassium 3.6 mmoL/L (3.5-5.1); Sodium 141 mmol/L (136-145)
[2024-01-23 06:26] LABS: Anion Gap 7.6 mEq/L (5-15); Blood Urea Nitrogen 14 mg/dl (9-20); Calcium 8.4 mg/dl (8.4-10.2); Carbon Dioxide 21 mmol/L (22.0-30.0); Creatinine Clearance Estimated 68 mL/min (50-200); Estimated Glomerular Filt Rate 54 ml/min (>60); GFR (African American) 65 ML/MIN (>60); Glucose 95 mg/dl (74-100)
--- NOTE | 2024-01-23 06:30 | PC.NURSE ---
Pt A/O x4. Pt has been bradycardic during shift dropping down to lower 40s at times while asleep. Pt has remained asymptomatic with this and easily awakens. Pt ambulating to BR with standby assist. Pt has not voiced any complaints of lightheadedness, dizziness, or nausea during shift. Bee sting to right shoulder has mild redness and is almost undetectable this AM. Family at bedside. Call light within reach.
[2024-01-23 08:00] VITALS: BP 109/68; PULSE 60; PULSE 70; RESP 17; TEMP 36.6; O2SAT 100
[2024-01-23] MEDS: APIXABAN 5MG TABLET 5 MG PO (08:11)
--- NOTE | 2024-01-23 08:15 | HMH.PHAINT1 ---
Pharmacy Intervention Comments: HOME MEDICATION LIST VERIFIED USING LIST FROM OUTPATIENT PHARMACY
--- NOTE | 2024-01-23 08:45 | EXP.HPDC ---
General Admission date:: 01/22/24 Discharge date: 01/23/24 *Admission Date: 01/23/24 *Chief complaint: syncope *History of present illness: Patient is a 78-year-old male presenting today with syncope. States that he works outside regularly was outside raking hay from 11 till 3 today feeling good until he got stung by bee then started feeling lightheaded. No urticarial rash no difficulty breathing or swelling in his mouth or any other anaphylaxis symptoms. States that he just felt lightheaded and subsequently he woke up. His son was with him and witnessed this and eased him to the ground there was no significant injuries but he did wake up with a mild headache. No neurologic deficits from historical standpoint. No chest pain preceding this episode or right now. He does have a loop recorder in from recent cardiology notes he had an atrial fibrillation burden of 3% he is not on any antiarrhythmic medications. Does have coronary disease states he is compliant with his dual antiplatelet therapy as he has had a stent placed in the past. Currently states he feels back to baseline other than very mild headache. No sudden or thunderclap component to his headache. Has not had any exertional symptoms leading up to today. Also was not excessively overheated prior to this event. (above as per ER physician) Patient is feeling better today. He has not had any further syncopal episodes. He has been eating and drinking well. [facility] Disclaimer: The information contained in this section may have been updated after the patient was seen, as this information can be updated by other users. Medical History HOMERO (acute kidney injury) Paroxysmal A-fib Hypothyroidism Prostate cancer Status post placement of implantable loop recorder Syncope Degenerative joint disease (DJD) of lumbar spine Exposure to COVID-19 virus Diastolic dysfunction Abnormal EKG Bradycardia on ECG GERD (gastroesophageal reflux disease) Diverticulitis HHD (hypertensive heart disease) CAD (coronary artery disease) HLD (hyperlipidemia) Surgical History Hx of cholecystectomy H/O heart artery stent History of cancer surgery History of rotator cuff surgery History of left knee surgery History of right knee joint replacement History of prostatectomy Family History (Updated 01/23/24 @ 09:15 by AYLEEN Lee) Heart attack Hypertension Social History (Updated 01/22/24 @ 19:32 by Cynthia Gomez RN) Smoking Status: Never smoker second hand exposure: Yes alcohol intake: never substance use type: denies use current occupational status: retired Travel in the last 8 weeks: None household members: spouse housing: house 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 current occupational exposures/hazards: No caffeine: No Review of Systems Constitutional Constitutional: Denies body ache(s), Denies chills, Denies fever(s), Reports headache(s) and Reports weakness Eyes Eyes: Denies blurry vision and Denies diplopia ENT Ears, Nose, Mouth, and Throat: Reports headache(s), Denies nasal congestion, Denies sore throat and Reports vertigo *Cardiovascular Cardiovascular: Denies chest pain, Reports dyspnea, Denies palpitations and Reports syncope *Respiratory Respiratory: Denies cough, Reports dyspnea and Denies wheezing *Gastrointestinal Gastrointestinal: Denies loose stools, Denies nausea and Denies vomiting *Genitourinary Genitourinary: Denies difficulty urinating and Denies dysuria *Musculoskeletal Musculoskeletal: Denies arthralgias and Denies myalgias *Neurologic Neurologic: Reports headache(s), Reports syncope, Reports vertigo and Reports weakness Endocrine Endocrine: Denies palpitations Allergic/Immunologic Allergic/Immunologic: Denies wheezing Exam Data for Last 24 hours Vital signs and Labs for Last 24 Hours: Temp Pulse Resp BP Pulse Ox O2 Del Method O2 Flow Rate 97.9 F 60 17 109/68 L 100 Room Air 2 01/23/24 08:00 01/23/24 08:00 01/23/24 08:00 01/23/24 08:00 01/23/24 08:00 01/23/24 08:00 01/22/24 19:07 Laboratory Results - last 24 hr 01/22/24 16:20: WBC 6.0, RBC 4.52 L, Hgb 14.2, Hct 41.3 L, MCV 91.5, MCH 31.4 H, MCHC 34.4, RDW 14.2, Plt Count 154, MPV 8.6, Neut % (Auto) 65.3, Lymph % (Auto) 24.5, [place] % (Auto) 7.6, Eos % (Auto) 2.1, Baso % (Auto) 0.4, Neut # (Auto) 3.9, Lymph # (Auto) 1.5, [place] # (Auto) 0.5, Eos # (Auto) 0.1, Baso # (Auto) 0.0, Sodium 140, Potassium 3.7, Chloride 114 H, Carbon Dioxide 17 L, Anion Gap 12.7, BUN 20, Creatinine 1.70 H, Estimated Creat Clear 38, Estimated GFR 39 L, Est GFR ( Amer) 48 L, Glucose 103 H, Calcium 9.3, Magnesium 1.8, Total Bilirubin 1.0, AST 33, ALT 28, Alkaline Phosphatase 92, Troponin I < 0.01, NT-Pro-B Natriuret Pep 77.4, Total Protein 7.2, Albumin 4.2, Globulin 3.0, Albumin/Globulin Ratio 1.4 01/22/24 19:16: Troponin I < 0.01 01/22/24 22:25: Troponin I < 0.01 01/23/24 05:34: WBC 4.1 L D, RBC 4.35 L, Hgb 13.8 L, Hct 40.6 L, MCV 93.4, MCH 31.7 H, MCHC 33.9, RDW 14.0, Plt Count 131 L, MPV 8.3, Neut % (Auto) 52.0, Lymph % (Auto) 33.3, [place] % (Auto) 10.0 H, Eos % (Auto) 4.1, Baso % (Auto) 0.6, Neut # (Auto) 2.1, Lymph # (Auto) 1.4, [place] # (Auto) 0.4, Eos # (Auto) 0.2, Baso # (Auto) 0.0, Sodium 141, Potassium 3.6, Chloride 116 H, Carbon Dioxide 21 L, Anion Gap 7.6, BUN 14 D, Creatinine 1.30 H D, Estimated Creat Clear 68, Estimated GFR 54 L, Est GFR ( Amer) 65 D, Glucose 95, Calcium 8.4 I & O for Last 24 hours: Intake & Output 01/20/24 01/21/24 01/22/24 01/23/24 11:59 11:59 11:59 11:59 Intake Total 1449 / 1449 Output Total 0 / 0 Balance 1449 / 1449 Weight 218 lb 0.595 oz Constitutional Constitutional: no acute distress *Routine HEENT Exam Head: Present normocephalic Eye: Present EOMI and PERRL ENT: Present mucous membranes moist *Routine Neck Exam Neck: Present supple and full ROM *Routine Respiratory Exam Respiratory: Present CTA bilaterally; Absent wheezes or crackles *Routine Cardiovascular Exam Cardiovascular: Present RRR *Routine Abdominal Exam Abdominal: Present soft and normoactive bowel sounds; Absent tenderness *Routine Rectal Exam Rectal:: deferred *Routine Genitalia Exam Genitalia:: deferred *Routine Extremities Exam Extremities: Absent edema *Routine Skin Exam Skin: Present intact *Routine Neurological Exam Neurological: Present alert, oriented X3 and CN II-XII intact; Absent sensory deficit or motor deficit Meds Home Medications and Allergies Home Medications Medication Instructions Recorded Confirmed Type aspirin 81 mg tablet,delayed 81 mg PO DAILY 11/15/17 01/22/24 History release (Adult Low Dose Aspirin) esomeprazole magnesium 40 mg 40 mg PO DAILY 11/15/17 01/22/24 History capsule,delayed release levothyroxine 25 mcg tablet 25 mcg PO DAILY 11/15/17 01/22/24 History atorvastatin 10 mg tablet 10 mg PO HS 07/25/21 01/23/24 History nitroglycerin 0.4 mg sublingual 0.4 mg sublingual Q5-15M PRN chest 10/16/22 01/22/24 Rx tablet pain #30 tabs apixaban 5 mg tablet (Eliquis) 5 mg PO BID #180 tabs 10/30/23 01/22/24 Rx amlodipine 5 mg tablet 5 mg PO HS 01/22/24 01/22/24 History bisoprolol fumarate 5 mg tablet 5 mg PO HS 01/22/24 01/22/24 History cholecalciferol (vitamin D3) 125 5,000 unit PO WEEKLY 01/22/24 01/22/24 History mcg (5,000 unit) tablet (Vitamin D3) metoclopramide HCl 5 mg tablet 5 mg PO BID 01/23/24 01/23/24 History New Prescriptions to Start Prescriptions: Allergies Allergy/AdvReac Type Severity Reaction Status Date / Time morphine Allergy Mild Nausea Verified 10/30/23 14:27 Penicillins Allergy Unknown I-HIVES Verified 10/30/23 14:27 codeine Allergy Verified 10/30/23 14:27 ranolazine [From Ranexa] AdvReac Severe Verified 10/30/23 14:27 Hospital Course Hospital Course Hospital Course: Renal function has improved with fluids. He has had no further syncopal episodes. He feels much better this am. Loop recorder showed no abnormalities and troponins were negative. He is stable to be discharged home today. Results Data Completed and Pending Labs on day of discharge: Labs from last 24 hours 01/23/24 01/22/24 01/22/24 05:34 22:25 19:16 WBC 4.1 L D RBC 4.35 L Hgb 13.8 L Hct 40.6 L MCV 93.4 MCH 31.7 H MCHC 33.9 RDW 14.0 Plt Count 131 L MPV 8.3 Neut % (Auto) 52.0 Lymph % (Auto) 33.3 [place] % (Auto) 10.0 H Eos % (Auto) 4.1 Baso % (Auto) 0.6 Neut # (Auto) 2.1 Lymph # (Auto) 1.4 [place] # (Auto) 0.4 Eos # (Auto) 0.2 Baso # (Auto) 0.0 Sodium 141 Potassium 3.6 Chloride 116 H Carbon Dioxide 21 L Anion Gap 7.6 BUN 14 D Creatinine 1.30 H D Estimated Creat Clear 68 Estimated GFR 54 L Est GFR ( Amer) 65 D Glucose 95 Calcium 8.4 Magnesium Total Bilirubin AST ALT Alkaline Phosphatase Troponin I < 0.01 < 0.01 NT-Pro-B Natriuret Pep Total Protein Albumin Globulin Albumin/Globulin Ratio 01/22/24 16:20 WBC 6.0 RBC 4.52 L Hgb 14.2 Hct 41.3 L MCV 91.5 MCH 31.4 H MCHC 34.4 RDW 14.2 Plt Count 154 MPV 8.6 Neut % (Auto) 65.3 Lymph % (Auto) 24.5 [place] % (Auto) 7.6 Eos % (Auto) 2.1 Baso % (Auto) 0.4 Neut # (Auto) 3.9 Lymph # (Auto) 1.5 [place] # (Auto) 0.5 Eos # (Auto) 0.1 Baso # (Auto) 0.0 Sodium 140 Potassium 3.7 Chloride 114 H Carbon Dioxide 17 L Anion Gap 12.7 BUN 20 Creatinine 1.70 H Estimated Creat Clear 38 Estimated GFR 39 L Est GFR ( Amer) 48 L Glucose 103 H Calcium 9.3 Magnesium 1.8 Total Bilirubin 1.0 AST 33 ALT 28 Alkaline Phosphatase 92 Troponin I < 0.01 NT-Pro-B Natriuret Pep 77.4 Total Protein 7.2 Albumin 4.2 Globulin 3.0 Albumin/Globulin Ratio 1.4 Impressions Impressions: CXR - nothing acute Head CT 1. No acute intracranial abnormality. No calvarial fracture. 2. There is a well corticated, 1.5 cm fat containing lesion in the clivus/sphenoid bone. Findings favored to represent an arrested pneumatization of the sphenoid. DS: Diagnosis Discharge Diagnosis (1) Syncope: Status: Acute Code(s): R55 - Syncope and collapse (2) Headache: Status: Acute Code(s): R51.9 - Headache, unspecified (3) Dehydration: Status: Acute Code(s): E86.0 - Dehydration (4) Bee sting: Status: Acute Code(s): T63.441A - Toxic effect of venom of bees, accidental (unintentional), initial encounter (5) HTN (hypertension): Status: Chronic Code(s): I10 - Essential (primary) hypertension Qualifiers: Hypertension type: essential hypertension Qualified Code(s): I10 - Essential (primary) hypertension (6) Paroxysmal A-fib: Status: Acute Code(s): I48.0 - Paroxysmal atrial fibrillation (7) Hypothyroidism: Status: Acute Code(s): E03.9 - Hypothyroidism, unspecified (8) HLD (hyperlipidemia): Status: Chronic Code(s): E78.5 - Hyperlipidemia, unspecified Qualifiers: Hyperlipidemia type: mixed hyperlipidemia Qualified Code(s): E78.2 - Mixed hyperlipidemia (9) CAD (coronary artery disease): Status: Chronic Code(s): I25.10 - Atherosclerotic heart disease of [place] coronary artery without angina pectoris Qualifiers: Coronary Disease-Associated Artery/Lesion type: [place] artery [place] vs. transplanted heart: [place] heart Associated angina: without angina Qualified Code(s): I25.10 - Atherosclerotic heart disease of [place] coronary artery without angina pectoris (10) GERD (gastroesophageal reflux disease): Status: Chronic Code(s): K21.9 - Gastro-esophageal reflux disease without esophagitis Qualifiers: Esophagitis presence: esophagitis presence not specified Qualified Code(s): K21.9 - Gastro-esophageal reflux disease without esophagitis (11) Diastolic dysfunction: Status: Chronic Code(s): I51.89 - Other ill-defined heart diseases (12) HHD (hypertensive heart disease): Status: Chronic Code(s): I11.9 - Hypertensive heart disease without heart failure Qualifiers: Heart failure presence: without heart failure Qualified Code(s): I11.9 - Hypertensive heart disease without heart failure Discharge Plan Disposition Patient Disposition: Home, Self-Care Condition: Good Follow up Plan Follow up with: Matthew Cazares MD [Primary Care Provider] - 02/01/24 10:15 am Prescriptions/Medication Reconciliation: Continued esomeprazole magnesium 40 mg capsule,delayed release(DR/EC) 40 mg PO DAILY levothyroxine 25 mcg tablet 25 mcg PO DAILY aspirin [Adult Low Dose Aspirin] 81 mg tablet,delayed release (DR/EC) 81 mg PO DAILY Eliquis 5 mg tablet 5 mg PO BID Qty: 180 3RF nitroglycerin 0.4 mg tablet, sublingual 0.4 mg sublingual Q5-15M PRN (Reason: chest pain) Qty: 30 5RF Rx Instructions: do not exceed 3 doses per episode atorvastatin 10 MG tablet 10 mg PO HS amlodipine 5 mg tablet 5 mg PO HS bisoprolol fumarate 5 mg tablet 5 mg PO HS cholecalciferol (vitamin D3) [Vitamin D3] 125 mcg (5,000 unit) Tablet 5,000 unit PO WEEKLY metoclopramide HCl 5 mg tablet 5 mg PO BID Problem Reconciliation Problems Reviewed?: Yes Patient Discharge Instructions ACTIVITY: Continue current activity DIET: continue same diet Patient Instructions: DI for Syncope in Adults (Fainting) Providers Primary Care Provider: Matthew Cazares Admit Provider: Jamari May Attending Provider: Matthew Cazares
[2024-01-23 12:49] LABS: Thyroid Stimulating Hormone 3.89 uIU/mL (0.465-4.68)
--- NOTE | 2024-01-24 10:50 | SW/DCPLANNER ---
Follow up phone call: patient stated that he is doing fine at home and feeling better. Patient is aware of his follow up appointment w/ PCP on 01/31. Patient did not have any further needs/questions at this time.
== END 2024-01-23 09:34 | disposition home or self-care (01) ==
LOC: ER 18:25 → 2ND 19:05
PROVIDERS: Admitting Provider Internal Medicine Adolescent Medicine; Emergency Provider Student in an Organized Health Care Education/Training Program; PCP Family Medicine; Visit Provider Family Medicine
DX: R07.9 Chest pain, unspecified (principal); R55 Syncope and collapse; R51.9 Headache, unspecified; E86.0 Dehydration; T63.441A Toxic effect of venom of bees, accidental (unintentional), initial encounter; I48.0 Paroxysmal atrial fibrillation; E03.9 Hypothyroidism, unspecified; E78.2 Mixed hyperlipidemia; I25.10 Atherosclerotic heart disease of native coronary artery without angina pectoris; K21.9 Gastro-esophageal reflux disease without esophagitis; I11.9 Hypertensive heart disease without heart failure; Z79.899 Other long term (current) drug therapy; Z79.02 Long term (current) use of antithrombotics/antiplatelets
CPT/HCPCS: 36415; 70450; 71045; 80048; 80053; 83735; 83880; 84443; 84484; 85025; 93005; 99285; G0378; J0131; J2405; J7120

== ENCOUNTER 2024-04-05 16:42 | Emergency (ER) | payer MEDICARE, BC, SELFPAY ==
[2024-04-05 17:31] VITALS: BP 132/75; PULSE 80; RESP 16; TEMP 37.2; O2SAT 95; BMI 32.0
--- NOTE | 2024-04-05 17:36 | ECG_ITS ---
APPROVED REPORT Exam: Resting ECG HR:76 bpm ECG Measurements Heart Rate 76 AXES AR 164 P 50 QRSd 105 QRS -52 QT 396 T -6 QTc 426 Conclusion SINUS RHYTHM LEFT ANTERIOR FASCICULAR BLOCK [QRS AXIS <= -45, QR IN I, RS IN II] POSSIBLE ANTERIOR MYOCARDIAL INFARCTION , OF INDETERMINATE AGE [30 ms Q WAVE IN V3/V4, OR R < 0.2 mV IN V4] ABNORMAL ECG UNCONFIRMED REPORT Electronically signed by : Best Jimenez, 04/05/2024 23:09:37
--- NOTE | 2024-04-05 17:36 | XR_ITS ---
PROCEDURE INFORMATION: Exam: XR Chest Exam date and time: 04/05/2024 5:38 PM Age: 78 years old Clinical indication: Dyspnea TECHNIQUE: Imaging protocol: Radiologic exam of the chest. Views: 1 view. COMPARISON: CR XR CHEST PORTABLE 01/22/2024 4:21 PM FINDINGS: Tubes, catheters and devices: There is a loop recorder implanted over the left chest. Lungs: No evidence of acute pulmonary disease or infiltrates Pleural spaces: No large effusion or pneumothorax. Heart/Mediastinum: Stable cardiac and mediastinal contours. Diaphragm: There is elevation of the right hemidiaphragm. Bones/joints: No evidence of acute osseous abnormalities within the visualized portions of the thoracic spine and ribs. Osseous structures appear appropriate for patient age. IMPRESSION: No dense parenchymal consolidation, pleural effusion, or pneumothorax.
--- NOTE | 2024-04-05 17:39 | HMH.EDGENADL ---
Discharge Plan Disposition Patient Disposition: Home, Self-Care Prescriptions Prescriptions: New benzonatate 100 mg capsule 100 mg PO TID PRN (Reason: cough) 5 Days Qty: 20 0RF promethazine-DM 6.25-15 mg/5 mL syrup 5 ml PO Q6H PRN (Reason: cough) 7 Days Qty: 118 0RF albuterol sulfate 90 mcg/actuation HFA aerosol inhaler 2 inh inhalation Q4H PRN (Reason: cough) Qty: 8.5 0RF Rx Instructions: 4 puffs every 4 hours for 48 hours then as needed for shortness of breath or wheezing following No Action esomeprazole magnesium 40 mg capsule,delayed release(DR/EC) 40 mg PO DAILY levothyroxine 25 mcg tablet 25 mcg PO DAILY aspirin [Adult Low Dose Aspirin] 81 mg tablet,delayed release (DR/EC) 81 mg PO DAILY nitroglycerin 0.4 mg tablet, sublingual 0.4 mg sublingual Q5-15M PRN (Reason: chest pain) Qty: 30 5RF Rx Instructions: do not exceed 3 doses per episode Eliquis 5 mg tablet 5 mg PO BID Qty: 180 3RF amlodipine 5 mg tablet See Rx Instructions .ROUTE .COMPLEX Qty: 30 2RF Dose Instruction: TAKE 1 TABLET BY MOUTH ONCE DAILY Rx Instructions: TAKE 1 TABLET BY MOUTH ONCE DAILY atorvastatin 10 MG tablet 10 mg PO HS bisoprolol fumarate 5 mg tablet 5 mg PO HS cholecalciferol (vitamin D3) [Vitamin D3] 125 mcg (5,000 unit) Tablet 5,000 unit PO WEEKLY metoclopramide HCl 5 mg tablet 5 mg PO BID Referrals Follow up/Referrals: Matthew Cazares MD [Primary Care Provider] - See instructions Activity Restrictions/Add. Instructions Additional Instructions/Restrictions: No evidence of an emergent medical condition today. Your symptoms are all consistent with a viral syndrome associated with COVID-19. Please keep yourself well-hydrated take the symptomatic medications for the cough as prescribed. Return with any significant worsening shortness of breath loss of consciousness or other concerns. Please be careful with falling risk particular with the cough medicine and changes in position. Clinical Impressions Clinical Impression: Near syncope, COVID-19, Orthostatic lightheadedness Print Language Print Language: Indonesian Discharge ED Provider: Jazmín Jimenez General Adult HPI General Chief complaint: Upper Respiratory Infection Stated complaint: cough,runny nose,SOA,eye drainage,covid + Time Seen by Provider: 04/05/24 17:25 History of Present Illness HPI narrative: Patient is a 78-year-old male presenting today with numerous complaints after recent diagnosis of COVID. He started getting sick 1 week ago on Sunday was tested for COVID on Sunday and started on Paxlovid same day. He is on Eliquis and a statin but has been taking this medication. States has had a worsening cough with little bit of hemoptysis as well as some dark stools but states his most recent bowel movement was normal without any blood or dark component. Main reason for coming in is he has had near syncopal episodes states he has felt very lightheaded and feeling like he is in a pass out. Particularly with any type of positional change and standing. No chest pain no significant shortness of breath. Also has bilateral eye discharge that he is complaining of. Related Data Home Medications ?Medication ?Instructions ?Recorded ?Confirmed aspirin 81 mg tablet,delayed 81 mg PO DAILY 11/15/17 02/05/24 release (Adult Low Dose Aspirin) esomeprazole magnesium 40 mg 40 mg PO DAILY 11/15/17 02/05/24 capsule,delayed release levothyroxine 25 mcg tablet 25 mcg PO DAILY 11/15/17 02/05/24 atorvastatin 10 mg tablet 10 mg PO HS 07/25/21 02/05/24 bisoprolol fumarate 5 mg tablet 5 mg PO HS 01/22/24 02/05/24 cholecalciferol (vitamin D3) 125 5,000 unit PO WEEKLY 01/22/24 02/05/24 mcg (5,000 unit) tablet (Vitamin D3) metoclopramide HCl 5 mg tablet 5 mg PO BID 01/23/24 02/05/24 Previous Rx's ?Medication ?Instructions ?Recorded nitroglycerin 0.4 mg sublingual 0.4 mg sublingual Q5-15M PRN chest 02/05/24 tablet pain #30 tabs apixaban 5 mg tablet (Eliquis) 5 mg PO BID #180 tabs 02/19/24 amlodipine 5 mg tablet See Rx Instructions .Route 02/25/24 .COMPLEX #30 tabs albuterol sulfate 90 mcg/actuation 2 inh inhalation Q4H PRN cough 04/05/24 aerosol inhaler #8.5 grams benzonatate 100 mg capsule 100 mg PO TID PRN cough 5 days #20 04/05/24 caps promethazine-DM 6.25 mg-15 mg/5 mL 5 ml PO Q6H PRN cough 7 days #118 04/05/24 oral syrup mL Allergies Allergy/AdvReac Type Severity Reaction Status Date / Time morphine Allergy Mild Nausea Verified 02/05/24 08:28 Penicillins Allergy Unknown I-HIVES Verified 02/05/24 08:28 codeine Allergy Verified 02/05/24 08:28 ranolazine [From Ranexa] AdvReac Severe Verified 02/05/24 08:28 [facility] Disclaimer: The information contained in this section may have been updated after the patient was seen, as this information can be updated by other users. Medical History HOMERO (acute kidney injury) Paroxysmal A-fib Hypothyroidism Prostate cancer Status post placement of implantable loop recorder Syncope Degenerative joint disease (DJD) of lumbar spine Exposure to COVID-19 virus Diastolic dysfunction Abnormal EKG Bradycardia on ECG GERD (gastroesophageal reflux disease) Diverticulitis HHD (hypertensive heart disease) CAD (coronary artery disease) HLD (hyperlipidemia) Surgical History Hx of cholecystectomy H/O heart artery stent History of cancer surgery History of rotator cuff surgery History of left knee surgery History of right knee joint replacement History of prostatectomy Family History Other Heart attack Hypertension Social History Smoking Status: Never smoker second hand exposure: Yes alcohol intake: never substance use type: denies use current occupational status: retired Travel in the last 8 weeks: None household members: spouse housing: house 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 current occupational exposures/hazards: No caffeine: No ROS Obtained: Yes All systems reviewed & no additional complaints except as documented Physical Exam General General appearance: alert and in no apparent distress Respiratory Respiratory exam: Present normal lung sounds bilaterally; Absent respiratory distress Cardiovascular Cardiovascular exam: Present regular rate and other (Blood pressure and heart rate normal upon standing however patient did get symptomatic upon standing); Absent normal rhythm Abdominal Exam Abdominal exam: Present soft; Absent distention or tenderness Neurological Exam Neurological exam: Present alert and oriented X3 Medical Decision Making Eduard Inquiry Pt receiving controlled substance: No Vital Signs: 04/05/24 17:31 04/05/24 17:50 04/05/24 18:00 Temperature 99 F 98.4 F Temperature Source Oral Oral Pulse Rate 76 Pulse Rate [Left] 80 Pulse Rate [Right] 74 Respiratory Rate 16 20 Blood Pressure 122/77 Blood Pressure [Right Arm] 132/75 129/77 Blood Pressure Mean [Right Arm] 94 94 Blood Pressure Source [Right Arm] Automatic Cuff Blood Pressure Position [Right Arm] Sitting 02 Sat by Pulse Oximetry 95 95 95 Oxygen Delivery Method Room Air Room Air 04/05/24 18:30 Temperature Temperature Source Pulse Rate 72 Pulse Rate [Left] Pulse Rate [Right] Respiratory Rate Blood Pressure 130/77 Blood Pressure [Right Arm] Blood Pressure Mean [Right Arm] Blood Pressure Source [Right Arm] Blood Pressure Position [Right Arm] 02 Sat by Pulse Oximetry 98 Oxygen Delivery Method Room Air Lab Data Lab results reviewed: Yes I reviewed the patient's lab results. Lab Results 04/05/24 17:45: WBC 5.8, RBC 4.47 L, Hgb 13.7 L, Hct 42.1, MCV 94.1 H, MCH 30.6, MCHC 32.5, RDW 14.4, Plt Count 262, MPV 7.7, Neut % (Auto) 59.3, Lymph % (Auto) 26.5, [place] % (Auto) 10.7 H, Eos % (Auto) 3.0, Baso % (Auto) 0.5, Neut # (Auto) 3.5, Lymph # (Auto) 1.6, [place] # (Auto) 0.6, Eos # (Auto) 0.2, Baso # (Auto) 0.0, Sodium 136, Potassium 3.2 L, Chloride 107, Carbon Dioxide 20 L, Anion Gap 12.2, BUN 14, Creatinine 1.00, Estimated Creat Clear 87, Estimated GFR 73, Est GFR ( Amer) 88, Glucose 127 H, Calcium 8.1 L, Total Bilirubin 0.7, AST 27, ALT 22, Alkaline Phosphatase 91, Total Creatine Kinase 138, Troponin I < 0.01, Total Protein 7.3, Albumin 3.8, Globulin 3.5 H, Albumin/Globulin Ratio 1.1 09/14/24 17:45 04/05/24 17:45 Orders (Tests/Meds): ED MEDICATIONS Generic Name Dose Route Start Last Admin Trade Name Betsy PRN Reason Stop Dose Admin Benzonatate 100 mg 04/05/24 18:15 04/05/24 18:16 Benzonatate 100mg Capsule PO 05/05/24 18:14 100 mg ONCE RENU Administration Discontinued Medications Generic Name Dose Route Start Last Admin Trade Name Betsy PRN Reason Stop Dose Admin Acetaminophen 1,000 mg 04/05/24 17:36 04/05/24 18:07 Acetaminophen 1,000mg/100ml Vial IV 04/05/24 17:37 1,000 mg ONCE ONE Administration Albuterol/Ipratropium 3 ml 04/05/24 18:13 04/05/24 18:16 Ipratropium/Albuterol 3 Ml Neb IH 04/05/24 18:14 3 ml ONCE ONE Administration Lactated Ringer's 1,000 mls @ 999 mls/hr 04/05/24 17:45 04/05/24 18:07 Lactated Ringer's 1000 Ml Bag IV 04/05/24 18:45 999 mls/hr .Q1H1M RENU Administration ORDERS Category Date Time Status CXR --portable [XR chest portable] Stat Exams 04/05/24 17:36 Completed CBC w/Auto Diff [Complete Blood Count Auto Diff] Stat Lab 04/05/24 17:45 Completed CK [Creatine Kinase] Stat Lab 04/05/24 17:45 Completed CMP [Comprehensive Metabolic Panel] Stat Lab 04/05/24 17:45 Completed Trop I [Troponin I] Stat Lab 04/05/24 17:45 Completed Troponin I Q3H Lab 04/05/24 20:45 Ordered Troponin I Q3H Lab 04/05/24 23:45 Ordered Medical Decision Narrative: 78-year-old above history and physical EKG performed to person interpreted shows a ventricular to 78 there is a left anterior fascicular block no acute ischemic changes noted other than some T wave versions in the inferior leads no significant ST elevations or depressions there is left axis deviation no significant conduction abnormalities aside from the fascicular block. Differential currently includes just symptoms associated with COVID which is most likely the case. Myocarditis is on the differential we will obtain a troponin. Dehydration. Of note patient has been on Paxil bid which is known to cause significant drug-drug interactions with Eliquis as well as statins will get a CK to make sure he does not have any significant rhabdomyolysis or myositis patient did have a low bit of hemoptysis as well as some melena from historical standpoint we will check an H&H. He states his most recent bowel movement has been normal we will hold off on a rectal exam until I see his H&H. He is also been advised to stop his Paxlovid. He was symptomatic upon standing likely has some orthostatic hypotension leading to his lightheadedness. IV fluids will be administered in addition to IV Tylenol will reassess. X-ray performed to person interpreted shows no acute cardiopulmonary emergency. Labs unremarkable. Patient did not have any objective evidence of orthostatic hypotension nor was he hypotensive ever during his Emergency Department stay his vital signs are otherwise stable. No need for supplemental oxygen. Patient still feels very poor overall from a viral syndrome standpoint but has no evidence of sepsis or serious bacterial infection or need for supplemental oxygen IV remdesivir steroids etc. I advised that he stop taking his Paxil bid as he is on a statin as well as Eliquis. No evidence of any significant hemorrhage or myositis. Patient prescribed multiple cough medicines for symptomatic support advised to get a home pulse oximeter if he is short of breath or to return to the emergency with any significant worsening of his symptoms he was discharged in stable condition. Critical Care Critical Care Time Critical Care Time: No
[2024-04-05 17:50] VITALS: BP 129/77; PULSE 74; RESP 20; TEMP 36.9; O2SAT 95; BMI 31.7
[2024-04-05 18:00] VITALS: BP 122/77; PULSE 76; O2SAT 95
[2024-04-05 18:00] LABS: Basophils % 0.5 % (0.1-2.0); Eosinophils # 0.2 K/mm3 (0.0-0.4); Hematocrit 42.1 % (42.0-52.0); Hemoglobin 13.7 g/dL (14.1-18.0); Lymphocytes # 1.6 K/mm3 (0.7-4.5); Lymphocytes % 26.5 % (10-50); Mean Corpuscular HGB Conc 32.5 g/dL (31.8-35.4); Mean Corpuscular Hemoglobin 30.6 pg (27.0-31.2); Mean Corpuscular Volume 94.1 fl (80-94); Mean Platelet Volume 7.7 fl (7.4-10.4); Monocytes # 0.6 K/mm3 (0.1-1.0); Monocytes % 10.7 % (1.7-9.3); Neutrophils # 3.5 K/mm3 (1.8-7.8); Neutrophils % 59.3 % (37.0-80.0); Platelet Count 262 K/mm3 (142-424); Red Blood Count 4.47 M/mm3 (4.60-6.20); Red Cell Distribution Width 14.4 % (11.5-17.5); White Blood Count 5.8 K/mm3 (4.8-10.8)
[2024-04-05 18:02] LABS: Albumin Level 3.8 g/dl (3.5-5.0); Chloride 107 mmol/L (98-107); Potassium 3.2 mmoL/L (3.5-5.1); Sodium 136 mmol/L (136-145)
[2024-04-05 18:04] LABS: Blood Urea Nitrogen 14 mg/dl (9-20); Creatinine Clearance Estimated 87 mL/min (50-200); Estimated Glomerular Filt Rate 73 ml/min (>60); GFR (African American) 88 ML/MIN (>60)
[2024-04-05 18:05] LABS: Alanine Aminotransferase 22 U/L (12-78); Albumin/Globulin Ratio 1.1 (1.1-1.8); Alkaline Phosphatase 91 U/L (38-126); Anion Gap 12.2 mEq/L (5-15); Aspartate Amino Transferase 27 U/L (17-59); Bilirubin,Total 0.7 mg/dl (0.2-1.3); Calcium 8.1 mg/dl (8.4-10.2); Carbon Dioxide 20 mmol/L (22.0-30.0); Creatine Kinase 138 U/L (55-170); Globulin 3.5 g/dL (1.3-3.2); Glucose 127 mg/dl (74-100); Total Protein,Serum 7.3 g/dl (6.3-8.2)
[2024-04-05] MEDS: ACETAMINOPHEN 1,000MG/100ML VIAL 1000 MG IV (18:07)
[2024-04-05] MEDS: LACTATED RINGERS 1000ML 1,000 ML 999 ML IV (18:07)
[2024-04-05] MEDS: BENZONATATE 100MG CAPSULE 100 MG PO (18:16)
[2024-04-05] MEDS: IPRATROPIUM/ALBUTEROL 3 ML NEB IH (18:16)
[2024-04-05 18:17] LABS: Troponin I < 0.01 ng/ml (0.00-0.034)
[2024-04-05 18:30] VITALS: BP 130/77; PULSE 72; O2SAT 98
[2024-04-05 19:47] VITALS: BP 135/78; PULSE 83; RESP 18; TEMP 36.9; O2SAT 95
--- NOTE | 2024-04-05 21:03 | PC.NURSE ---
re-transmitted meds to [facility] pharmacy at patient family request
== END 2024-04-05 19:48 | disposition home or self-care (01) ==
PROVIDERS: Emergency Provider Student in an Organized Health Care Education/Training Program; PCP Family Medicine
DX: U07.1 COVID-19 (principal); R55 Syncope and collapse; E87.6 Hypokalemia; I48.0 Paroxysmal atrial fibrillation; Z79.01 Long term (current) use of anticoagulants
CPT/HCPCS: 71045; 80053; 82550; 84484; 85025; 93005; 96361; 96374; 99284; J0131; J7120; J7620

== ENCOUNTER 2024-09-11 07:44 | Outpatient (CLI) | payer MEDICARE, BC, SELFPAY ==
--- NOTE | 2024-09-11 | CA_ITS ---
APPROVED REPORT Exam: Pharmacologic Technologist: Mary Corcoran Ht: 5 ft 9 in Wt: 228 lbs BSA: 2.18 m2 Stress Test Details Test: Lexiscan Reason for pharmacologic stress test: physical limitation. HR Resting HR: 63 bpm Max Heart Rate (APMHR): 144 bpm Max HR Achieved: 77 bpm Target HR (85% APMHR): 122 bpm % of APMHR: 53 Recovery HR: 65 bpm BP Resting BP: 124.0/77.0 mmHg Max BP: 130.0/79.0 mmHg Recovery BP: 130.0/79.0 mmHg ECG Resting ECG: SR 62. IVCD Stress ECG Conclusion Symptoms: mild nausea. SOA. HERRMANN. Arrhythmias/Ectopy: None. ST-T Changes: None Lexiscan. Electronically signed by : Gisela Hernandez MD 09/11/2024 12:52:32
--- NOTE | 2024-09-11 07:45 | NM_ITS ---
APPROVED REPORT Exam: Nuclear Stress Test Indication: chest pain..soa..palpitations..fatigue Patient Location: Outpatient Stress Tech: Mary Willams CT Tech:Tisha Miller ARRIzaiah RT(R)(N) Ht: 5 ft 9 in Wt: 220 lbs HR: 62 bpm BP: 124/77 mmHg BSA: 2.15 m2 TID: 0.93 BMI: 32.4 History: chest pain..soa..palpitations..fatigu Procedure: Patient received 0.4 mg of intravenous Lexiscan, resting heart rate 62 bpm, resting blood pressure 124/77 mmHg, with Lexiscan maximum heart rate achieved was 77 bpm which is 85 % of the maximum predicted heart rate and blood pressure was 127/76 mmHg. With Lexiscan, patient denied any complaint of chest pain. Cardiac Stress and Resting SPECT Images: Cardiac Stress and Resting SPECT images were obtained using technetium 99m Myoview 32.8 mCi stress and 10.79 mCi at rest. Resting and stress imaging in supine and prone positions demonstrate no evidence of fixed or reversible perfusion defects. Gated imaging demonstrates normal global and regional LV systolic function. LVEF is calculated at 63%. Conclusion: No evidence of fixed or reversible perfusion defects. Gated imaging demonstrates normal global and regional LV systolic function. LVEF is calculated at 63%. Electronically signed by : Gisela Hernandez MD 09/11/2024 12:48:49
[2024-09-11] MEDS: SODIUM CHLORIDE 0.9% 10ML SYR (RAD ONLY) 10 ML IV ×2 (09:13)
[2024-09-11] MEDS: REGADENOSON 0.4MG/5ML SYRINGE 0.4 MG IV (09:13)
[2024-09-11] MEDS: ISOTOPE MYOVIEW (PER STUDY) 1 DOSE IV (09:13)
== END 2024-09-11 23:59 | disposition home or self-care (01) ==
LOC: RAD 07:45
PROVIDERS: PCP Family Medicine; Visit Provider Physician Assistant
DX: R06.09 Other forms of dyspnea (principal); I20.9 Angina pectoris, unspecified
CPT/HCPCS: 78452; 93017; 93018; 93306; A9502; J2785

== ENCOUNTER 2024-12-25 07:25 | Day surgery (SDC) | payer MEDICARE, BC, SELFPAY ==
[2024-12-25 07:39] VITALS: BP 132/77; PULSE 51; PULSE 53; RESP 20; O2SAT 95
[2024-12-25 07:40] VITALS: BMI 33.7
[2024-12-25] MEDS: LIDOCAINE 1% W/EPI 1:100,000 20ML VIAL 20 ML IJ (07:47)
[2024-12-25] MEDS: CLINDAMYCIN PHOSPHATE/D5W 900 MG/50 ML PIGGYBACK 100 MG IV (07:48)
[2024-12-25 08:21] VITALS: BP 119/78; PULSE 65; RESP 20; O2SAT 95
--- NOTE | 2024-12-25 08:34 | EXP.LOOP ---
[facility] Loop Recorder Date: 12/25/24 Time: 08:34 Procedure Performed:: Removal of loop recorder Indication:: End-of-life Technique:: Patient was brought to the cardiac [facility] as an outpatient. After informed consent was obtained, 1% lidocaine was used anesthetize the area over the loop recorder and a scalpel was used to dissect down to the device. Forceps were used to aid in removal of the device without complications. Surgical glue and Steri-Strips used to approximate the edges with a pressure dressing and Tegaderm placed on top. Patient tolerated the procedure without complications. Impression:: Successful removal of loop recorder due to end-of-life Serial Number:: Not documented Plan:: Routine postop care.
== END 2024-12-25 08:33 | disposition home or self-care (01) ==
PROVIDERS: PCP Family Medicine; Visit Provider Internal Medicine
PROC: 0JPT02Z Removal of Monitoring Device from Trunk Subcutaneous Tissue and Fascia, Open Approach (ICD-10-PCS; CPT 33286; principal; 2024-12-25 08:30)
DX: Z45.09 Encounter for adjustment and management of other cardiac device (principal); I48.0 Paroxysmal atrial fibrillation; R94.31 Abnormal electrocardiogram [ECG] [EKG]; E03.9 Hypothyroidism, unspecified; K21.9 Gastro-esophageal reflux disease without esophagitis; I11.9 Hypertensive heart disease without heart failure; I25.10 Atherosclerotic heart disease of native coronary artery without angina pectoris; E78.2 Mixed hyperlipidemia; K76.9 Liver disease, unspecified; Z88.5 Allergy status to narcotic agent; Z88.0 Allergy status to penicillin; Z88.8 Allergy status to other drugs, medicaments and biological substances; Z79.01 Long term (current) use of anticoagulants; Z79.82 Long term (current) use of aspirin; Z79.899 Other long term (current) drug therapy; Z79.890 Hormone replacement therapy; Z85.46 Personal history of malignant neoplasm of prostate; Z95.5 Presence of coronary angioplasty implant and graft; Z82.49 Family history of ischemic heart disease and other diseases of the circulatory system
CPT/HCPCS: 33286; J0736; J2004

== ENCOUNTER 2025-04-27 10:11 | Outpatient (CLI) | payer MEDICARE, BC, SELFPAY ==
--- OUTSIDE RECORDS SUMMARY | 2022-07-05 08:30 | XMS_ITS | Encounter Summary ---
Author Organization [facility] ([place], [place], [place], [place]) Address [address] [place] [address] Care Team Providers Care Turkish Line Attendant Name Role Phone Unavailable Primary Care Provider Unavailabl e Reason for Visit * Auth/Cert Specialty Diagnoses / Procedures Referred By Onesimo key Referred To Contact Diagnoses Prostate cancer (HCC) [address] [place] [address] Phone: tel: fax: [facility] [address] [place] [address] Phone: tel: fax: Referral ID Status Reason Start Date Expiration Date Visits Re quested Visits Authorized [id number] 1 1 Encounter Details Date Type Department Care Team (Late st Contact Info) Description 07/05/2022 7:30 AM EST Hospital Encounter [facility] Operating [address] [place] [address] Santi Trejo MD [address] [place] [address] Social History Tobacco Use Types Packs/Day Years [...] Date Ron rded Speak language other than Albanian at home Not on file 08/10/2023 Want [...] elective radical prostatectomy and lymph node dissection. PACKAGING MACHINE OPERATOR: Connie Sheldon CSA. FINDINGS: Mobile prostate, capacious [...] 2-0 chromic running stitch, leaving an approximately 26-Swiss caliber bladder neck. An anastomosis was then created between urethral stump and bladder neck using a szztge-yd-mrhdn 2-0 Vicryl stitch at the posterior position followed by running paired 2-0 Monocryl stitches which were secured together at the 12 o'clock position. The anastomosis was secured over an 18-Swiss catheter, and irrigation was carried out on [...] no complications. ESTIMATED BLOOD LOSS: 150 mL. /[id number] Santi Trejo MD CGR/AQ / CGR / AQS /[id number] documented in this encounter Plan of Treatment Not on file documented as of this encounter Procedures Procedure Name Priority Date/Time Associated Diagnosis Comments MD UNLISTED PROCEDURE MALE GENITAL SYSTEM 05/15/2022 7:57 AM EDT Malignant neoplasm of prostate (HCC) Case Notes Tisseel 10 mL kit Floseal 10 mL kit documented in this encounter Visit Diagnoses Not on filedocumented in this encounter
--- OUTSIDE RECORDS SUMMARY | 2024-04-12 06:00 | XMS_ITS ---
[facility] Address [address] [place] [id number] Care Team Providers Care Vocal Music Teacher Name Role Phone Debora Matthew Primary Care Provider [phone] DAVID BARTON Unavailable Unavailable Allergies Allergen (clinical [...] 90 days Active Vitamin D3 1.25 MG (28100 UT) 1 cap(s) orally once a week [...] 04/12/2024 Encounters Encounter Location Date Provider Diagnosis [facility] [address] [facility] [address] [facility] [address] [place] [phone] 04/12/2024 Matthew Cazares Fluid level behind tympanic [...] to repo rt progress, Reason: Provider Name:Matthew tirado, 04/27/2025 09:45:00 AM, [address] [facility] [address] [facility], [address], [place], [phone], Provider Name:Matthew tirado, 06/22/2025 09:00:00 AM, [address] [facility] [address] [facility], [address], [place], [phone], Progress Notes * Andrea BOWERS CDOB: [birth year] (79 yo M)Acc No.[id number]:04/12/2024 Progress Notes Patient: Andrea ACOSTA Provider: Laurence Cazares M.D. :1945 A ge:78 Y S ex:Male Date:04/12/2024 Address:[address] [place], [place] [address], [id number] Subjective: * Chief Complaints: * 1 . [...] left heart cath with 1 stent in December 2017, Hypertension, Esophageal Reflux, Hypothyroidism, Insomnia, [...] Madsen 12/23/2017, Skin Cancer Removal 09/2019, Cholecystectomy- [facility] 11/24/2019, prostatectomy 10/22, rotator cuff tear repair 12/15/2022. 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 * Family [...] day , Taking Vitamin D3 1.25 MG (39719 UT) Capsule 1 cap(s) orally once a [...] * Images: Billing Information: * Visit Code: 75104 Office Visit, Est Pt., Level 3. * Procedure Codes: G2211 Complex e/m visit add on. * Electronic signature of Irina Cazares MD on 04/27/2025 at 10:14 AM EDT Sign off status: Pending * Provider: Laurence Cazares M.D. Date: 0 04/12/2024 Generated for Cele ortiz/Jake/Florransmitting on: 1 10:14 AM EDT History and Physical Notes * HPI (History [...]
--- OUTSIDE RECORDS SUMMARY | 2024-07-18 05:15 | XMS_ITS ---
Author Organization [facility] Address [address] [place] [id number] Care Team Providers Care Hand Sizer Name Role Phone Matthew Cazares Primary Care Provider DAVID BARTON Unavailable Unavailable [...] Normal Performing Lab: Notes/Report: Test performed by [facility] [address] [place] [address] , [address], [place] [address] Jewel Lindsay MD, Auto Damage Trainee CLIA: [id number] WBC 5.0 3.8-11.5 K/uL Red Blood Cell Count (RBC) 4.85 4.20-5.70 M/mm 3 Hemoglobin (Hgb) 14.7 13.1-17.5 gm/dL Hematocrit (HCT) 44.5 39.0-51.0 % MCV 91.8 79.0-99.0 fL MCH 30.3 26.9-35.0 pg MCHC 33.0 30.4-34.8 g/dL RDW 45.8 38.2-53.0 fL Platelet Count 179 137-397 K/cumm P-Comprehensive Metabolic Pa alysha (CMP) Reviewed date:07/21/2024 10:13:53 AM Interpretation: Normal Performing Lab: Notes/Report: Test performed by [facility] [address] [place] [address] , [address], [place] [address] Jewel Lindsay MD, Auto Damage Trainee CLIA: [id number] Sodium 141 135-145 mmol/L Potassium 3.9 3.5-5.3 [...] Normal Performing Lab: Notes/Report: Test performed by [facility] [address] [place] [address] , [place] [address] Jewel Lindsay MD, Auto Damage Trainee CLIA: [id number] Thyroxine Free (free T4) 1.05 0.86-1.76 ng/dL P-Lipid Panel Reviewed date:07/21/2024 10:13:53 AM Interpretation:trigs 222, hdl 28 Performing Lab: Notes/Report: Test performed by [facility] [address] [place] [address] , [address], [place] [address] Jewel Lindsay MD, Auto Damage Trainee CLIA: [id number] Cholesterol 101 <200 mg/dL Triglycerides 222 <150 [...] Normal Performing Lab: Notes/Report: Test performed by [facility] [address] , [address], [place] [address] Jewel Lindsay MD, Auto Damage Trainee CLIA: [id number] Phosphorus 2.5 2.5-4.5 mg/dL P-TSH Reviewed date:07/21/2024 10:13:53 AM Interpretation: Normal Performing Lab: Notes/Report: [facility] , [address], [place] [address] Jewel Lindsay MD, Auto Damage Trainee CLIA: [id number] TSH 4.53 0.43-5.25 mU/L P-Microalbumin/Creatinine, R andom Urine Sample Reviewed date:07/21/2024 10:13:53 AM Interpretation: Normal Performing Lab: Notes/Report: [facility] performed by [facility] [address] , [address], [place] [address] Jewel Lindsay MD, Auto Damage Trainee CLIA: [id number] Albumin/Creatinine Ratio, Urine 3 0-30 ug/m g Microalbumin, Urine, Random 0.6 Creatinine, Urine 228.7 P-Vitamin D 25-Hydroxy Reviewed date:07/21/2024 10:13:53 AM Interpretation: Normal Performing Lab: Notes/Report: Test performed by [facility] [address] , [address], [place] [address] Jewel Lindsay MD, Auto Damage Trainee CLIA: [id number] Vitamin D 25-Hydroxy 76.7 30.0-100.0 ng/mL Interpretation [...] 90 days Active Vitamin D3 1.25 MG (12572 UT) 1 cap(s) orally once a week [...] 07/18/2024 Encounters [facility]counter [facility] Date [facility] [address] [id number] 07/18/2024 Matthew Cazares HTN (hypertension) I 10 ; Coronary artery disease involving [place] coronary artery of [place] heart without angina pectoris I25.10 ; Stage [...] I10) 07/18/2024 Coronary artery dise ase involving [place] coronary artery of [place] heart without angina pectoris (ICD-10 - I25.10) [...] Follow Up: 6 Months, Reason: Provider Name:Matthew tirado, 04/27/2025 09:45:00 AM, [facility], [address], [place], [place], [id number], Provider Name:Matthew tirado, 06/22/2025 09:00:00 AM, [facility], [address], [place], [place], [id number], Progress Notes * Andrea BOWERS CDOB: [birth year] (79 yo M)Acc No.[id number]:07/18/2024 Progress Notes Patient: Andrea ACOSTA Provider: Laurence Cazares M.D. :1945 A ge:78 Y S ex:Male Date:07/18/2024 Address:[address] [place], [place] [id number] Subjective: * Chief Complaints: * 1 [...] Madsen 12/23/2017, Skin Cancer Removal 09/2019, Cholecystectomy- [facility] 11/24/2019, prostatectomy 05/13, rotator cuff tear repair 12/15/2022. 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 * Family History: F [...] day , Taking Vitamin D3 1.25 MG (55494 UT) Capsule 1 cap(s) orally once a [...] * Vitals: W t:227.6, Temp:98.7, BP:120/70, HR:60, Nurse:[facility], Ht: 70, BMI:32.65. * Examination: C ardiology: General Appearance: p leasant, NAD. H eart sounds: R RR, normal S1, S2. L ungs: c lear, no rales or wheezes. E xtremities: n o leg edema. P eripheral pulses: 2 plus bilateral. Assessment: * Assessment: 1. H TN (hypertension) - I10 (Primary) 2 . C oronary artery disease involving [place] coronary artery of [place] heart without angina pectoris - I25.10 3 [...] by Creatinine 67 >59 - mL/min/1.73m2 * Jimbo Torresia 07/21/2024 10:1 3:49 AM >See phone encounter ?LAB: P-Phosphorus (Collection Date & Time - 07/18/2024 08:47 AM)?Normal* Value Reference Range P hosphorus 2.5 2.5-4.5 - mg/dL * BrianAna 07/21/2024 10:1 3:49 AM >See phone encounter [...] by Creatinine 67 >59 - mL/min/1.73m2 * BrianAna 07/21/2024 10:1 3:49 AM >See phone encounter [...] glucose 117 74 - 106 mg/dL * Ana Hernandez 07/18/2024 10:1 5:35 AM Ana Torres 07/21/2024 [...] G 2211 Complex e/[place], [address] GLUCOSE TEST, 88332 GLYCATED HEMOGLOBIN TEST, Modifiers: QW * Follow Up: 6 Months * Images: Billing Information: * Visit Code: 30588 Office Visit, Est Pt., Level 4. * Procedure Codes: G2211 Complex e/[place]. [address] GLUCOSE TEST. 83656 GLYCATED HEMOGLOBIN TEST. Modifiers: QW * Electronic signature of Irina Cazares MD on 04/27/2025 at 10:14 AM EDT Sign off status: Pending * Provider: Laurence Cazares M.D. Date: 1 09/18/2023 Generated for Cele ort[employer]/Jake/Elysesmitting on: 1 10:14 AM EDT History and [...]
--- OUTSIDE RECORDS SUMMARY | 2024-12-17 05:15 | XMS_ITS ---
Author Organization [facility] Address [address] [place] [id number] Care Team Providers Care Reporting Developer Name Role Phone Matthew Cazares Primary Care Provider [phone] ORALIA, DAVID Unavailable Unavailable Allergies Allergen [...] 54 Performing Lab: Notes/Report: Test performed by [facility] [address] [place] [address] , [address], [place] [address] Jewel Lindsay MD, Population Geneticist CLIA: [id number] Sodium 141 135-145 mmol/L Potassium 4.4 3.5-5.3 [...] Normal Performing Lab: Notes/Report: Test performed by [facility] [address] [place] [address] , [facility] [place] [address] Jewel Lindsay MD, Population Geneticist CLIA: [id number] Thyroxine Free (free T4) 1.07 0.86-1.76 ng/dL P-Lipid Panel Reviewed date:12/18/2024 08:30:03 AM Interpretation:trigs 198, hdl 31 Performing Lab: Notes/Report: Test performed by [facility] [address] [place] [address] , [address], [place] [address] Jewel Lindsay MD, Population Geneticist CLIA: [id number] Cholesterol 107 <200 mg/dL Triglycerides 198 <150 [...] Normal Performing Lab: Notes/Report: Test performed by [facility] [address] [place], [place] [address] [place], [place] [address] Jewel Lindsay MD, Population Geneticist CLIA: [id number] Phosphorus 3.4 2.5-4.5 mg/dL P-TSH Reviewed date:12/18/2024 08:30:03 AM Interpretation: Normal Performing Lab: Notes/Report: Test performed by [facility] [address] [place], [place] [address] [place], [place] [address] Jewle Lindsay MD, Population Geneticist CLIA: [id number] TSH 3.89 0.43-5.25 mU/L REASON FOR VISIT 6 month check Medications Medication SIG (Take, Route, Frequency, Duration) Notes Start Date End Date Status Esomeprazole Magnesium 40 MG 1 cap(s) or ally once a day; Duration: 90 days Active Metoclopramide HCl 5 MG 1 tablet before meals Orally Twice a day; Duration: 90 days Active Vitamin D3 1.25 MG (93499 UT) Take 1 capsule by mouth once [...] Risk Notes Problem BMI 30+ - obesity (409425798) BMI 32.0-32.9,a dult (Z68.32) Active confirmed Vital Signs Blood pressure systolic 122 mm Hg 12/18/19 25 Blood pressure diastolic 70 mm Hg 025 Heart Rate 58 /min 12/17/2024 Height 70 in 12/17/2024 Weight 229 lbs 12/17/2024 BMI 32.85 kg/m2 12/17/2024 Encounters Encounter Location Date Provider Diagnosis [facility] [address] [place] [id number] 12/17/2024 Matthew Cazares HTN (hypertension) I 10 ; Acquired hypothyroidism [...] Provider Name:Matthew tirado, 04/27/2025 09:45:00 AM, [address] [facility] [address] [facility], [facility], [place], [place], [id number], Provider Name:Matthew tirado, 06/22/2025 09:00:00 AM, [address] [facility] [address] [facility], [facility], [place], [place], [id number], Progress Notes * Andrea BOWERS CDOB: [birth year] (79 yo M)Acc No.[id number]:12/17/2024 Progress Notes Patient: Andrea ACOSTA Provider: Laurence Cazares M.D. :1945 A ge:78 Y S ex:Male Date:12/17/2024 Address:[address] [place] [address] [place], [id number] Subjective: * Chief Complaints: * 1 . [...] Madsen 12/23/2017, Skin Cancer Removal 09/2019, Cholecystectomy- [facility] 11/24/2019, prostatectomy 05/13, rotator cuff tear repair 12/15/2022. * Hospitalization/Major Diagno stic Procedure: M assive Kidney Infection- 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 10/2018, [facility]- chest pain 07/31/2022. * Family History: [...] daily , Taking Vitamin D3 1.25 MG (47584 UT) Capsule Take 1 capsule by mouth [...] atrial fibrillation) - I48.0 9 . B IL 32.0-32.9,adult - Z68.32 Plan: * Treatment: Value [...] lycohemoglobin 5.2% 5 - 6.5 % * Ana Hernandez 12/17/2024 10:1 1:18 AM > Provider reviewed [...] Creatinine 54 L >59 - mL/min/1.73m2 * Brian, Ana 12/18/2024 08:2 9:54 AM > See phone encounter ?LAB: P-Phosphorus (Collection Date & Time - 12/17/2024 08:39 AM)?Normal* Value Reference Range P hosphorus 3.4 2.5-4.5 - mg/dL * BrianAna renee 12/18/2024 08:2 9:54 AM > See phone [...] Creatinine 54 L >59 - mL/min/1.73m2 * Brian Ana 12/18/2024 08:2 9:54 AM > See phone [...] G 2211 Complex e/[place], [address] GLUCOSE TEST, 61287 GLYCATED HEMOGLOBIN TEST, Modifiers: QW , 3044F HG A1C LEVEL LT 7.0%, G8950 PREHTN/HTN BP DOC INDCD F/U DOC, G8752 MOST RECENT SYSTOLIC BP < 140MM HG, G8754 MOST RECENT DIASTOLIC BP < 90MM HG * Follow Up: 6 Months * Images: Billing Information: * Visit Code: 63630 Office Visit, Est Pt., Level 4. * Procedure Codes: G2211 Complex e/[place]. [address] GLUCOSE TEST. 63388 GLYCATED HEMOGLOBIN TEST. Modifiers: QW 3044F HG A1C LEVEL LT 7.0%. G8950 PREHTN/HTN BP DOC INDCD F/U DOC. G8752 MOST RECENT SYSTOLIC BP < 140MM HG. G8754 MOST RECENT DIASTOLIC BP < 90MM HG. * Electronic signature of Irina Cazares MD on 04/27/2025 at 10:14 AM EDT Sign off status: Pending * Provider: Laurence Cazares M.D. Date: 0 12/17/2024 Generated for Cele ortiz/Jake/eTashleysmitting on: 1 10:14 AM EDT History and [...]
--- OUTSIDE RECORDS SUMMARY | 2025-04-23 05:15 | XMS_ITS ---
Author [facility] Address [address] [place] [id number] Care Team Providers Care Puppet Master Name Role Phone Matthew Cazares Primary Care Provider DAVID BARTON Unavailable Unavailable REASON FOR VISIT flu shot Medications Medication SIG (Take, Route, Frequency, Duration) Notes Start Date End Date Status Bisoprolol Fumarate 5 MG 1 tablet at bed time Orally Once a day; Duration: 90 days Active Vitamin D3 1.25 MG (49333 UT) 1 capsule Orally once a week; [...] Administered Encounters Encounter Location Date Provider Diagnosis [facility] [address] [place] [phone] 04/23/2025 Matthew Cazares Encounter for immunization Z23 Assessments Encounter Date Diagnosis (ICD Code) Assessment Notes Treatment Notes Treatment Clinical Notes Section Notes 04/23/2025 Encounter for immunization (ICD-10 - Z23) Plan Of Treatment Next Appt Details Provider Name:Matthew tirado, 04/27/2025 09:45:00 AM, [address], [address], [place], [phone], Provider Name:Matthew tirado, 06/22/2025 09:00:00 AM, [address], [address], [place], [phone], Progress Notes * Andrea BOWERS CDOB: [birth year] (79 yo M)Acc No.[id number]:04/23/2025 Patient: Andrea ACOSTA Provider: Laurence Cazares M.D. :1945 A ge:79 Y S ex:Male Date:04/23/2025 Address:[address] [place] [address] [id number] Subjective: * Chief Complaints: * 1 . [...] day , Taking Vitamin D3 1.25 MG (83481 UT) Capsule 1 capsule Orally once a [...] Laurence Cazares M.D. Date: Generated for Cele ortiz/Jake/Erlindaitting on: 10:14 AM EDT
--- NOTE | 2025-04-27 10:14 | XR_ITS ---
FINAL REPORT CLINICAL HISTORY: ACUTE PAIN RT KNEE FINDINGS: RIGHT KNEE 3 views of the right knee were obtained. There is no acute fracture or dislocation. Patient is status post total joint prosthesis. Multiple loose bodies are seen at the posterior aspect of the knee. Visualized joint spaces are normally aligned. Soft tissues are unremarkable. IMPRESSION: No acute bony abnormality. Reviewed, Interpreted and Dictated by Bee Walker MD Transcribed by Cata Tejada Authenticated and [facility]
--- OUTSIDE RECORDS SUMMARY | 2025-04-27 10:14 | XMS_ITS | Clinical Summary ---
Author Organization [employer] ([place], [place], [place], [place]) Address [address] [place] [address] Care Team Providers Care Director Of Partner Marketing Name Role Phone Unavailable Primary Care Provider Unavailabl e Allergies Active Allergy Reactions Criticality Noted Date Comments Codeine 05/16/2022 Penicillin 05/16/2022 Ranolazine 05/16/2022 Medications traMADoL (ULTRAM) 50 mg tablet Take 50 mg by mouth every 6 (six) hours as needed for Pain. Active levothyroxine (SYNTHROID, LEVOTHROID) 25 MCG tablet Take 25 mcg by mouth Every morning on an empty stomach. Active esomeprazole (NexIUM) 40 MG capsule Take 40 mg by mouth daily. Active lisinopriL (PRINIVIL,ZESTR IL) 10 MG tablet Take 10 mg by mouth daily. Active atorvastatin (LIPITOR) 10 MG tablet Take 10 mg by mouth nightly. Active bisoprolol (ZEBETA) 5 MG tablet Take 5 mg by mouth daily. Active aspirin 81 MG EC tablet Take 81 mg by mouth daily. Active Active Problems Problem Noted Date Diagnosed Date Prostate cancer 05/16/2022 Social History Tobacco Use Types Packs/Day Years [...] Date Ron rded Speak language other than Nepali at home Not on file 08/10/2023 Want [...] on file Sexual Orientation Not on file Last Filed Vital Signs Vital Sign Reading Time Taken Comments Blood Pressure 115/71 05/19/2022 2:12 PM EDT Pulse 101 05/19/2022 2:12 PM EDT Temperature 36.9 C (98.4 F) 05/19/2022 2:12 PM EDT Respiratory Rate 16 05/19/2022 2:12 PM EDT Oxygen Saturation 93% 05/19/2022 2:12 PM EDT Inhaled Oxygen Concentration - - Weight 99.8 kg (220 lb) 05/16/2022 9:00 AM EDT Height - - Body Mass Index - - Plan of Treatment Health Maintenance Due Date Last Done Comments Medicare Initial AWV G0438 Depression Screening (12+) 1959 Hepatitis C Screening 12/20/1965 DTAP/TDAP/TD VACCINES (1 - Tdap) 12/20/1966 Shingles Vaccine (Zoster) (1 of 2) 12/20/1997 Pneumococcal 50+ years (2 of 2 - PCV) 07/12/2022 07/12/2021 Respiratory Syncytial Virus (RSV) Adult or (1 - 1-dose 75+ series) 12/20/2022 Tobacco Cessation Counseling and Screening (12+) 05/16/2023 05/16/2022 Falls Risk Screening 07/23/2024 COVID-19 VACCINE (5 - 2024-2 6 season) 2025 01/12/2022, 06/08/2021, 09/15/2020, Additional history exists Influenza Vaccine (#1) 2025 , 05/04/2020, 05/04/2020, Additional history exists Insurance MEDICARE PART A B BLUE CROSS/BLUE SHIELD Advance Directives For more information, please contact: [phone] * Full Code (Latest Code Status on File) Date Activated Date Inactivated Comments 05/18/2022 7:29 AM 08/17/2022 2:47 PM -Attempt Re suscitation if person has no pulse and is not breathing. -If no pulse or not breathing attempt CPR/CODE. -Call Rapid Response if patient is in distress.
--- OUTSIDE RECORDS SUMMARY | 2025-04-27 10:14 | XMS_ITS | Patient Health Record ---
Author Organization [facility] Address [address] [place] [id number] Care Team Providers Care Synchro Assembler Name Role Phone Matthew Cazares Primary Care Provider ORALIA, DAVID Unavailable Unavailable Allergies Allergen (clinical [...] Normal Performing Lab: Notes/Report: Test performed by [facility] [address] [place] [address] , [address], [place] [address] Jewel Lindsay MD, Town Planner CLIA: [id number] WBC 5.0 3.8-11.5 K/uL Red Blood Cell Count (RBC) 4.85 4.20-5.70 M/mm 3 Hemoglobin (Hgb) 14.7 13.1-17.5 gm/dL Hematocrit (HCT) 44.5 39.0-51.0 % MCV 91.8 79.0-99.0 fL MCH 30.3 26.9-35.0 pg MCHC 33.0 30.4-34.8 g/dL RDW 45.8 38.2-53.0 fL Platelet Count 179 137-397 K/cumm P-Comprehensive Metabolic Pa alysha (CMP) Reviewed date:07/21/2024 10:13:53 AM Interpretation: Normal Performing Lab: Notes/Report: Test performed by [facility] [address] [place] [address] , [address], [place] [address] Jewel Lindsay MD, Town Planner CLIA: [id number] Sodium 141 135-145 mmol/L Potassium 3.9 3.5-5.3 [...] Normal Performing Lab: Notes/Report: Test performed by [facility] [address] [place] [address] , [address], [place] [address] Jewel Lindsay MD, Town Planner CLIA: [id number] Thyroxine Free (free T4) 1.05 0.86-1.76 ng/dL P-Lipid Panel Reviewed date:07/21/2024 10:13:53 AM Interpretation:trigs 222, hdl 28 Performing Lab: Notes/Report: Test performed by [facility] [address] [place] [address] , [address], [place] [address] Jewel Lindsay MD, Town Planner CLIA: [id number] Cholesterol 101 <200 mg/dL Triglycerides 222 <150 [...] Normal Performing Lab: Notes/Report: Test performed by [facility] , [address], [place] [address] Jewel Lindsay MD, Town Planner CLIA: [id number] Phosphorus 2.5 2.5-4.5 mg/dL P-TSH Reviewed date:07/21/2024 10:13:53 AM Interpretation: Normal Performing Lab: Notes/Report: Test performed by [facility] , [address], [place] [address] Jewel Lindsay MD, Town Planner CLIA: [id number] TSH 4.53 0.43-5.25 mU/L P-Microalbumin/Creatinine, R andom Urine Sample Reviewed date:07/21/2024 10:13:53 AM Interpretation: Normal Performing Lab: Notes/Report: [facility] [address] , [address], [place] [address] Jewel Lindsay MD, Town Planner CLIA: [id number] Albumin/Creatinine Ratio, Urine 3 0-30 ug/m g Microalbumin, Urine, Random 0.6 Creatinine, Urine 228.7 P-Vitamin D 25-Hydroxy Reviewed date:07/21/2024 10:13:53 AM Interpretation: Normal Performing Lab: Notes/Report: Test performed by [facility] [address] , [address], [place] [address] Jewel Lindsay MD, Town Planner CLIA: [id number] Vitamin D 25-Hydroxy 76.7 30.0-100.0 ng/mL Interpretation of Vitamin D 25 OH: < 20 ng/mL - Deficiency 20 - 29 ng/mL - Insufficiency 30 - 100 ng/mL - Sufficiency > 100 ng/mL - Super-therapeutic- toxicity may occur above this level. Clinical correlation required. Glucose (In-House) Reviewed date:12/17/2024 11:04:15 AM Interpretation:92 Performing Lab: Notes/Report: 92 blood glucose 92 74 - 106 mg/dL Glycohemoglobin A1c (in hous e) Reviewed date:12/17/2024 11:04:06 AM Interpretation:5.2% Performing Lab: Notes/Report: 5.2% glycohemoglobin 5.2% 5 - 6.5 % P-Comprehensive Metabolic Pa alysha (CMP) Reviewed date:12/18/2024 08:30:03 AM Interpretation:Cr 1.35, gfr 54 Performing Lab: Notes/Report: Test performed by [facility] [address] [place] [address] , [address], [place] [address] Jewel Lindsay MD, Town Planner CLIA: [id number] Sodium 141 135-145 mmol/L Potassium 4.4 3.5-5.3 [...] Normal Performing Lab: Notes/Report: Test performed by [facility] [address] [place] [address] [place] [address] Jewel Lindsay MD, Town Planner CLIA: [id number] Thyroxine Free (free T4) 1.07 0.86-1.76 ng/dL P-Lipid Panel Reviewed date:12/18/2024 08:30:03 AM Interpretation:trigs 198, hdl 31 Performing Lab: Notes/Report: Test performed by [facility] [address] [place] [address] [address], [place] [address] Jewel Lindsay MD, Town Planner CLIA: [id number] Cholesterol 107 <200 mg/dL Triglycerides 198 <150 [...] Normal Performing Lab: Notes/Report: Test performed by [facility] [address] [place] [address] , [facility], [place] [address] Jewel Lindsay MD, Town Planner CLIA: [id number] Phosphorus 3.4 2.5-4.5 mg/dL P-TSH Reviewed date:12/18/2024 08:30:03 AM Interpretation: Normal Performing Lab: Notes/Report: Test performed by [facility] [address] [place] [address] [address] , [place] [address] Jewel Lindsay MD, Town Planner CLIA: [id number] TSH 3.89 0.43-5.25 mU/L Medications Medication SIG (Take, Route, Frequency, Duration) Notes Start Date End Date Status amLODIPine Besylate 10 MG 1 tablet Orall y Once a day; Duration: 90 days Not-Takin g Atorvastatin Calcium 10 MG 1 tablet Oral ly Once a day; Duration: 90 days Active Levothyroxine Sodium 25 MCG 1 tab(s) orally once a day; Duration: 90 days Active Bisoprolol Fumarate 5 MG 1 tablet at bed time Orally Once a day; Duration: 90 days Active Vitamin D3 1.25 MG (81443 UT) 1 capsule Orally once a week; Duration: 90 days Active Blood Pressure Monitor [...] e a day; Duration: 90 days Active Immunizations Vaccine Route Administration Date Status Comme nts COVID 19 Moderna Unknown 08/18/2020 Administered COVID 19 Moderna Unknown 09/15/2020 Administered COVID 19 Moderna Unknown 06/08/2021 Administered COVID 19 Moderna Unknown 01/12/2022 Administered Fluzone High Dose (65yr and older) IM Intramuscular 05/07/2014 Administered Fluzone High Dose (65yr and older) IM Intramuscular 04/03/2016 Administered Fluzone High Dose (65yr and older) IM Intramuscular 06/12/2017 Administered Fluzone High Dose (65yr and older) IM Intramuscular 05/27/2018 Administered Fluzone High Dose (65yr and older) IM Intramuscular 05/21/2019 Administered Fluzone High Dose (65yr and older) IM Intramuscular 05/04/2020 Administered Fluzone High Dose (65yr and older) IM Intramuscular 05/10/2021 Administered Fluzone High Dose (65yr and older) IM Intramuscular 06/27/2022 Administered Fluzone High Dose (65yr and older) IM Intramuscular 04/20/2023 Administered Fluzone High Dose (65yr and older) IM Intramuscular 04/23/2025 Administered Fluzone Quad-Medicare (6months&older) IM Intramuscular 04/08/2015 Administered Hepatitis B (20 and more) Unknown 05/20/2007 Administer ed Hepatitis B (20 and more) Unknown 06/20/2007 Administer ed Hepatitis B (20 and more) Unknown 12/02/2007 Administer ed PNEUMOVAX 23 VACCINE IM Intramuscular 04/03/2016 Administe red PNEUMOVAX 23 VACCINE IM Intramuscular 07/12/2021 Administe red Prevnar (PCV13) IM Intramuscular 06/16/2013 Administered Prevnar (PCV20) IM Intramuscular 07/21/2022 Administered Prevnar (PCV20) Unknown 07/21/2022 Administered xFluzone (6mos and older)-trivalent IM Intramuscular 06/02/2013 Administered Problems Problem Type SNOMED Code ICD Code Onset Dates Problem Status W/U Status Risk Notes Problem Essential hypertension (55568168) Essential (primary) hypertension (I10) Active confirmed Problem Hypertension (03933493) HTN (hypertension) (I10) Active confirmed Problem Vitamin D deficiency (14705762) Vitamin D deficiency (E55.9) Active confirmed Problem Diverticulitis (72213261) Diverticulitis (K57.92) Active confirmed Problem Hypertriglyceridemia (527383488) Hypertriglyceridemia (E78.1) Active confirmed Problem Arthropathy of lumba r facet joint (149532350) Lumbar facet arthropathy (M47.816) Active confirmed Problem BMI 30+ - obesity (011219167) BMI 32.0-32.9,adult (Z68.32) Active confirmed Problem Impaired fasting glucose (168745466) Impaired fasting glucose (R73.01) Active confirmed Problem Mixed hyperlipidemia (938771228) Mixed hyperlipidemia (E78.2) Active confirmed Problem Chronic pain (11204075) Other chronic pain (G89.29) Active confirmed Problem Sciatica (20266635) Lumbago with sciatica, unspecified side (M54.40) Active confirmed Problem Malignant tumor of prostate (437002592) Prostate cancer (C61) Active confirmed Problem History of polyp of colon (situation) (166559820) History of colon polyps (Z86.010) Active confirmed Problem Acquired hypothyroidism (454772894) Acquired hypothyroidism (E03.9) Active confirmed Problem Atherosclerotic hear t disease of [place] coronary artery without angina pectoris (295529134342881) Coronary artery disease involving [place] coronary artery of [place] heart without angina pectoris (I25.10) Active confirmed Problem Gastroesophageal reflux disease (101731186) Gastroesophageal reflux disease, esophagitis presence not specified (K21.9) Active confirmed Problem Atrial fibrillation (21549372) PAF (paroxysmal atrial fibrillation) (I48.0) Active confirmed Problem Hyperlipidaemia (75401090) Hyperlipidemia, unspecified hyperlipidemia type (E78.5) Active confirmed Problem Diverticulitis of colon (626678207) Diverticulitis of colon (K57.32) Active confirmed Problem Atherosclerotic hear t disease of [place] coronary artery without angina pectoris (630919347995323) Atherosclerosis of [place] coronary artery without angina pectoris, unspecified whether [place] or transplanted heart (I25.10) Active confirmed Problem Degenerative disc disease (23104179) DDD (degenerative disc disease), lumbar (M51.36) Active confirmed Problem Elevated PSA (969733058) Elevated PSA (R97.20) Active confirmed Problem Hearing loss (11874472) Hearing loss of left ear, unspecified hearing loss type (H91.92) Active confirmed Problem History of placement of stent for coronary artery disease (situation) (841808820) S/P coronary artery stent placement (Z95.5) Active confirmed Problem Hepatic cyst (07601847) Hepatic cyst (K76.89) Active confirmed Problem Spinal stenosis of lumbar region (53889701) Spinal stenosis of lumbar region, unspecified whether neurogenic claudication present (M48.061) Active confirmed Problem Diverticular disease of colon (981520693) Colon, diverticulosis (K57.30) Active confirmed Problem Diastolic dysfunctio n (5885558) Diastolic dysfunction (I51.89) Active confirmed Problem Gastroesophageal reflux disease (239475113) Gastroesophageal reflux disease, unspecified whether esophagitis present (K21.9) Active confirmed Problem Chronic kidney disease stage 3A (443999860) Stage 3a chronic kidney disease (N18.31) Active confirmed Problem Chronic kidney disease stage 3A (disorder) (424274293) Stage 3a chronic kidney disease (CKD) (N18.31) Active confirmed Vital Signs Heart Rate 64 /min 04/27/2025 Blood pressure diastolic 80 mm Hg 04/27/2025 Height 70 in 04/27/2025 Blood pressure systolic 120 mm Hg 04/27/2025 Weight 219.2 lbs 04/27/2025 BMI 31.45 kg/m2 04/27/2025 Encounters Encounter Location Date Provider [facility] [address] [place] [id number] 07/18/2024 Matthew Belview HTN (hypertension) I 10 ; Coronary artery disease involving [place] coronary artery of [place] heart without angina pectoris I25.10 ; Stage 3a chronic kidney disease (CKD) N18.31 ; Mixed hyperlipidemia E78.2 ; Hypertriglyceridemia E78.1 ; Vitamin D deficiency E55.9 ; Impaired fasting glucose R73.01 ; Acquired hypothyroidism E03.9 and PAF (paroxysmal atrial fibrillation) I48.0 [facility] [address] [place], [place] [id number] 12/17/2024 Matthew Belview HTN (hypertension) I 10 ; Acquired hypothyroidism E03.9 ; Impaired fasting glucose R73.01 ; Vitamin D deficiency E55.9 ; Stage 3a chronic kidney disease (CKD) N18.31 ; Mixed hyperlipidemia E78.2 ; Tremor R25.1 ; PAF (paroxysmal atrial fibrillation) I48.0 and BMI 32.0-32.9,adult Z68.32 [facility] [address] [place], [place] [id number] 04/23/2025 Matthew Belview Encounter for immuni zation Z23 [facility] [address] [place], [place] [id number] 04/27/2025 Matthew Belview Acute pain of right knee M25.561 [facility] [address] [place] [id number] 05/07/2024 Matthew Belview [facility] [address] [place] [id number] 05/19/2024 Matthew Belview [facility] [address] [place] [id number] 06/16/2024 Matthew [place] HTN (hypertension) I 10 and Mixed hyperlipidemia E78.2 [facility] [address] [place] [id number] 06/20/2024 Matthew Bel[place] [facility] [address] [place] [id number] 07/21/2024 Matthew [place] [facility] [address] [place] [id number] 10/08/2024 Matthew Bel[place] [facility] [address] [place] [id number] 12/18/2024 Matthew Bel[place] [facility] [address] [place], [place] [id number] 03/24/2025 Matthew [place] HTN (hypertension) I 10 [facility] [address] [place], [place] [id number] 04/13/2025 Matthew Belview Assessments Encounter Date Diagnosis (ICD Code) Assessment Notes Treatment Notes Treatment Clinical Notes Section Notes 06/16/2024 HTN (hypertension) (ICD-10 - I10) 07/18/2024 HTN (hypertension) (ICD-10 - I10) 07/18/2024 Coronary artery dise ase involving [place] coronary artery of [place] heart without angina pectoris (ICD-10 - I25.10) 12/17/2024 HTN (hypertension) (ICD-10 - I10) 12/17/2024 Acquired hypothyroid ism (ICD-10 - E03.9) 03/24/2025 HTN (hypertension) (ICD-10 - I10) 04/23/2025 Encounter for immunization (ICD-10 - Z23) 04/27/2025 Acute pain of right knee (ICD-10 - M25.561) 07/18/2024 Stage 3a chronic kid guillermo disease (CKD) (ICD-10 - N18.31) 12/17/2024 Impaired fasting glu cose (ICD-10 - R73.01) 06/16/2024 Mixed hyperlipidemia (ICD-10 - E78.2) 12/17/2024 Vitamin D deficiency (ICD-10 - E55.9) 07/18/2024 Mixed hyperlipidemia (ICD-10 - E78.2) 12/17/2024 Stage 3a chronic kid guillermo disease (CKD) (ICD-10 - N18.31) 07/18/2024 Hypertriglyceridemia (ICD-10 - E78.1) 07/18/2024 Vitamin D deficiency (ICD-10 - E55.9) 12/17/2024 Mixed hyperlipidemia (ICD-10 - E78.2) 12/17/2024 Tremor (ICD-10 - R25.1) 07/18/2024 Impaired fasting glu cose (ICD-10 - R73.01) 07/18/2024 Acquired hypothyroid ism (ICD-10 - E03.9) 12/17/2024 PAF (paroxysmal atri al fibrillation) (ICD-10 - I48.0) 07/18/2024 PAF (paroxysmal atri al fibrillation) (ICD-10 - I48.0) 12/17/2024 BMI 32.0-32.9,adult (ICD-10 - Z68.32) Plan Of Treatment Pending Test Test Name Order Date X ray : Knee, right 04/27/2025 Next Appt Details Provider Name:Matthew tirado, 04/27/2025 09:45:00 AM, [address], [address], [place], [id number], Provider Name:Matthew tirado, 06/22/2025 09:00:00 AM, [address], [address], [place], [id number], Insurance Providers Payer Name Payer Address Payer Phone Subscriber Number Group Number Insured Name Patient Relationship to Insured Coverage Start Date Coverage End Date MEDICARE PART B [address] [address] [place] [address] [id number] Andrea Bowers Self - patient is the insured [employer] [address] [place] [address] [phone] [id number] Andrea Bowers Self - patient is the insured Medications Administered Medication Instructions Date of Administration Dosage Notes Depo- Medrol 40 mg/ml 04/01/2012 1,5 cc Dexamethasone 08/02/2022 1 mL Medical (General) History Medical History History ICD Code Coronary Artery Disease, abn l stress test, left heart cath with 1 stent in [place] December 2017 Hypertension Esophageal Reflux Hypothyroidism Insomnia Peptic Ulcer Disease Hypoglycemia Osteoarthritis Melanoma, 2002 Han-Diverticulosis by Colonoscopy, 2014 Tubular Adenoma Hematuria, s/p urology eval 2013 BPH Chronic Back Pain Lumbar Degenerative Disc Disease Lumbar Facet Arthropathy Elevated PSA, s/p Urology evaluation prostate cancer, Dx: 2021 Atrial fibrillation Surgical History Surgery Date(Month/Year) Bleeding Ulcer 1974 RT Torn ACL 1997 RT Shoulder Melanoma Removal 2002 RT Knee Torn ACL 2005 RT Total Knee Replacement- right 2007 Heart Cath 2007 RT Rotator Cuff Tear Repair 2010 LT Total Knee Replacement 2011 Knuckle Replacement 2013 Bilateral Cataract Removal 11/2014 C-Scope, Tubular Adenoma - Dr. Olivarez 2014 Heart Cath with 1 stent - Dr Madsen Skin Cancer Removal 09/2019 Cholecystectomy- [facility] 11/24/2019 prostatectomy 05/13 rotator cuff tear repair 12/15/2022 Hospitalization History Reason Date(Month/Year) [facility]- chest pain 07/31/2022 Diverticulitis- [facility] 10/2018 Small Intestine Blockage- [facility] 2010 Massive Kidney Infection- [facility] ER 2006
--- OUTSIDE RECORDS SUMMARY | 2025-04-27 10:14 | XMS_ITS | Referral Summary ---
Author Organization [facility] ([place], [place], [place], [place]) Address [address] [place] [address] Care Team Providers Care Stamp Maker Name Role Phone Unavailable Primary Care Provider [...] Date Ron rded Speak language other than German at home Not on file 08/10/2023 Want [...] Mass Index - - Plan of Treatment Not on file Insurance [place]ICARE [place] [address] [place] [address] CROSS/BLUE [facility] Advance Directives For more information, please contact: [phone] * Full Code (Latest Code Status on File) Date Activated Date Inactivated Comments 05/18/2022 7:29 AM 08/17/2022 2:47 PM -Attempt Re suscitation if person has no pulse and is not breathing. -If no pulse or not breathing attempt CPR/CODE. -Call Rapid Response if patient is in distress.
--- OUTSIDE RECORDS SUMMARY | 2025-04-27 10:14 | XMS_ITS | Clinical Summary ---
Author Organization [facility] Address [address] [place] [address] Care Team Providers Care Mechanical Design Technician Name Role Phone Matthew Cazares MD Primary Care Provider + [phone] Social History Tobacco Use Types Packs/Day Years Used Date Smoking Tobacco: Never Assessed Sex and Gender Information Value Date Recorded Sex Assigned at Not on file Legal Sex Male 7:54 PM EDT Gender Identity Not on file Sexual Orientation Not on file Plan of Treatment Health Maintenance Due Date Last Done Comments [facility]-Depression Screening 1945 [facility]-/Child/Adol SDOH Screenings 1945 [facility]- SDOH Screenings 12/20/1965 [facility]-Adult SDOH Screenings 12/20/1965 [facility]-DTaP,Tdap,and Td Vaccines (1 - Tdap) 12/20/1966 [facility]-Zoster Vaccines (1 of 2) 12/20/1997 [facility]-Pneumococcal Vaccine: 50+ Years (2 of 2 - PCV) 07/12/2022 07/12/2021 [facility]-RSV Vaccine: 60+ Years or (1 - 1-dose 75+ series) 12/20/2022 [id number]-[id number]-22 Vaccine ( - 2024- season) 2025 06/08/2021, 09/15/2020, 08/18/2020 [facility]-Influenza Vaccine (#1) 2025 05/10/2021 HPV Vaccines Aged Out No longer eligi ble based on patient's age to complete this topic [facility]-HIB Vaccines Aged Out No longer e ligible based on patient's age to complete this topic [facility]-Hepatitis A Vaccines Aged Out No longer eligible based on patient's age to complete this topic [facility]-IPV Vaccines Aged Out No longer e ligible based on patient's age to complete this topic [facility]-Rotavirus Vaccines Aged Out No lo nger eligible based on patient's age to complete this topic [place] [address] ANTH Care Teams Mechanical Design Technician Relationship Specialty Start Date End Date Matthew Cazares MD [address] [facility] [address] [place] [address] PCP - General 12/03/20
== END 2025-04-27 23:59 | disposition home or self-care (01) ==
LOC: RAD 10:12
PROVIDERS: PCP Family Medicine; Visit Provider Family Medicine
DX: M23.41 Loose body in knee, right knee (principal); Z96.651 Presence of right artificial knee joint
CPT/HCPCS: 73562

== ENCOUNTER 2025-06-16 13:06 | Outpatient (CLI) | payer MEDICARE, BC, SELFPAY ==
--- NOTE | 2025-06-16 13:45 | CT_ITS ---
FINAL REPORT TECHNIQUE: Thin section axial images are obtained through the brain after intravenous contrast injection. Multiplanar reconstructions were obtained from the axial data. Exam was performed using dose reduction techniques such as automated exposure control, adjustment of the mA and kV according to patient size, and use of iterative reconstruction technique. CLINICAL HISTORY: dizziness COMPARISON: 02/10/2023 FINDINGS: The intracerebral portions of the carotid arteries are patent. The anterior and middle cerebral arteries are patent without stenosis or occlusion. The posterior cerebral arteries are patent. The basilar artery is patent. The vertebral arteries are patent. There is no significant stenosis, aneurysm, or AVM. IMPRESSION: Unremarkable CT angiogram of the intracerebral vasculature. Reviewed, Interpreted and Dictated by Bee Walker MD Transcribed by Teresa Ruvalcaba Authenticated and [facility]
--- NOTE | 2025-06-16 13:45 | CT_ITS ---
FINAL REPORT TECHNIQUE: Thin section axial images were obtained from the aortic arch to the skull base after intravenous contrast injection per CTA protocol. Multiplanar reconstruction images were obtained. Exam was performed using dose reduction techniques and the ALARA principle. CLINICAL HISTORY: dizziness COMPARISON: 02/10/2023 FINDINGS: CTA NECK: Aortic arch: There is a normal three-vessel configuration to the aortic arch. There is no significant stenosis of the great vessels at their origins. Right carotid artery: The right common carotid artery is patent without stenosis. The cervical portions of the right internal carotid artery are patent without stenosis. 0% stenosis per NASCET criteria. Left carotid artery: The left common carotid artery is patent without stenosis. The cervical portions of the left internal carotid artery are patent without stenosis. 0% stenosis per NASCET criteria. Vertebral arteries: The vertebral arteries are patent. No significant stenosis. Other soft tissues: Soft tissues are without acute abnormality. Reviewed, Interpreted and Dictated by Bee Walker MD Transcribed by Teresa Ruvalcaba Authenticated and . [facility]
[2025-06-16 13:52] LABS: Blood Urea Nitrogen 12 mg/dl (9-20); Creatinine,Serum 1.20 mg/dl (0.66-1.25); Estimated Glomerular Filt Rate 59 ml/min (>60); GFR (African American) 71 ML/MIN (>60)
[2025-06-16] MEDS: IOPAMIDOL-370 (76%);100ML BOTTLE 100 ML IV (14:08)
[2025-06-16] MEDS: 0.9 % SODIUM CHLORIDE 50 ML VIAL IV (14:08)
[2025-06-16] MEDS: SODIUM CHLORIDE 0.9% 10ML SYR (RAD ONLY) 10 ML IV (14:08)
== END 2025-06-16 23:59 | disposition home or self-care (01) ==
PROVIDERS: PCP Family Medicine; Visit Provider Physician Assistant
DX: R42 Dizziness and giddiness (principal)
CPT/HCPCS: 36415; 70496; 70498; 82565; 84520; Q9967

== ENCOUNTER 2025-06-16 17:00 | Outpatient (RCR) | payer MEDICARE, BC, SELFPAY | END 2025-06-16 23:59 | disposition home or self-care (01) | LOC: PT 17:00 | PROVIDERS: PCP Family Medicine; Visit Provider Orthopaedic Surgery | DX: M25.561 Pain in right knee (principal) | CPT/HCPCS: 97110; 97162; 97530 ==

== ENCOUNTER 2025-06-30 10:00 | Outpatient (RCR) | payer MEDICARE, BC, SELFPAY | END 2025-06-30 23:59 | disposition home or self-care (01) | LOC: PT 10:00 | PROVIDERS: PCP Family Medicine; Visit Provider Orthopaedic Surgery | DX: M25.561 Pain in right knee (principal) | CPT/HCPCS: 97110; 97112; 97530 ==

== ENCOUNTER 2025-07-01 19:30 | Emergency (ER) | payer MEDICARE, BC, SELFPAY ==
--- OUTSIDE RECORDS SUMMARY | 2022-07-05 07:30 | XMS_ITS | Encounter Summary ---
Author Organization [facility] ([place], [place], [place], [place], [place]) Address [address] [place] [address] Care Team Providers Care Office Messenger Name Role Phone Unavailable Primary Care Provider Unavailabl e Reason for Visit * Auth/Cert Specialty Diagnoses / Procedures Referred By Onesimo t Referred To Contact Diagnoses Prostate cancer (HCC) [address] [place] [address] Phone: tel: fax: [facility] [address] [place] [address] Phone: tel: fax: Referral ID Status Reason Start Date Expiration Date Visits Re quested Visits Authorized [id number] 1 1 Encounter Details Date Type Department Care Team (Late st Contact Info) Description 07/05/2022 7:30 AM EST Hospital Encounter [facility] Operating Room 1 [place] [address] Santi Trejo MD [address] [place] [address] Social History Tobacco Use Types Packs/Day Years Used Date Smoking Tobacco: Never Smokeless Tobacco: Never Alcohol Use Standard Drinks/Week Comments Never 0 (1 standard drink = 0.6 oz pur e alcohol) Food Insecurity Answer Date Recorded Food run out past 12 months Not on file 07/23 Food did not last past 12 months Not on file 08/10/2023 Employment Answer Date Recorded Help finding and keeping a job Not on file 0 08/10/2023 Family and Community Support Answer Stanton e Recorded Help with Day to Day Activities Not on file 08/10/2023 Feeling Lonely or Isolated Not on file 08/10 Educational Attainment Answer Date Ron rded Speak language other than Czech at home Not on file 08/10/2023 Want help with school or training Not on file 08/10/2023 Substance Use Answer Date Recorded Used prescription meds for non-medical reasons N ot on file 08/10/2023 Used illegal drugs past 12 months Not on file 08/10/2023 Sex and Gender Information Value Date Recorded Sex Assigned at Not on file Legal Sex Male 4:16 PM CDT Gender Identity Not on file Sexual Orientation Not on file documented as of this encounter OR Notes * Op Note - Santi Trejo MD - 05/16/2022 1:54 PM EDT DATE OF PROCEDURE: PREOPERATIVE DIAGNOSIS: Prostate cancer. POSTOPERATIVE DIAGNOSIS: Prostate cancer. PROCEDURE: Robotic-assisted laparoscopic radical prostatectomy with bilateral pelvic lymph node. ANESTHESIA: General. COMPLICATIONS: None. OPERATIVE INDICATIONS: This patient presents with clinically localized adenocarcinoma of the prostate for elective radical prostatectomy and lymph node dissection. WOODWORKING SHOP HAND: Connie Sheldon CSA. FINDINGS: Mobile prostate, capacious bladder neck with 3 cm urethral stump and watertight anastomosis. PROCEDURE IN DETAIL: The patient was brought to the operating room, where general anesthesia was induced. Preoperatively, IV antibiotics were administered and antiembolism stockings were placed. He was placed in the exaggerated lithotomy position, and extremities and all pressure points were padded and protected appropriately. The abdomen and genitalia were prepped and draped sterilely. An appropriate time-out was conducted. A Walker catheter was placed to straight drainage. A Veress needle approach into the abdominal cavity through a stab incision in the right upper quadrant was carried out, passing a drop test with initial low opening pressures. A 5 mm optical view trocar was placed under direct vision at this same location. Significant abdominal adhesions were noted in the midline superior to the umbilicus. The right-sided abdominal trocars were then placed under direct vision to prepare for DaVinci prostatectomy. Using these trocar sites, considerable adhesiolysis was carried out, dropping the intestinal structures off the abdominal wall. This allowed placement of the remaining trocars for prostatectomy under direct vision. The DaVinci robot was docked. Dissection ensued by dropping the bladder fully and dividing the vas deferens. A segment of vas deferens was procured for usage as a bolster on later anastomotic stitches. The prostate was approached anteriorly and freed medially. The endopelvic fascia was entered bilaterally, freeing the prostate further medially. Puboprostatic ligaments were sharply divided. An Endo-VIVIANA stapling device was used to divide the dorsal venous complex with good control. The bladder neck was then dissected and entered. The patient was found to have a fairly significantly sized bladder neck. A plane of dissection was created between the ventral bladder and the prostate, with this plane extended until the vas deferens and seminal vesicle structures were reached. These structures were dissected and then divided near the level of the tips of the seminal vesicles. The prostate was further elevated, and a plane of dissection was created in the midline posteriorly at the 6 o'clock position. Bilateral prostatic pedicles were then divided with a vessel seal device. Remaining posterior attachments were divided as far apically as possible. The prostate was then dropped, and the apex was approached anteriorly. The urethra was encircled and teased from the apex of the prostate, preserving at least a 3 cm expansive urethral stump. The urethra was divided at this level. Remaining posterior apical attachments were then divided, and the specimen was freed, placed within a specimen retrieval bag and set aside. The operative bed was inspected. The rectum was observed to be intact without injury. Hemostasis was excellent. The bladder neck was then reconstructed, closing the ventral bladder neck with a 2-0 chromic running stitch, leaving an approximately 26-Divehi caliber bladder neck. An anastomosis was then created between urethral stump and bladder neck using a [id number]-sb-dpeqm 2-0 Vicryl stitch at the posterior position followed by running paired 2-0 Monocryl stitches which were secured together at the 12 o'clock position. The anastomosis was secured over an 18-Divehi catheter, and irrigation was carried out on multiple occasions, distending the bladder and showing no evidence of extravasation. An ampule of first Tisseel followed by, later, FloSeal was then applied to the lorri bladder neck area. Hemostasis again was excellent. The bilateral pelvic lymph node packets were then procured from the pelvic sidewall posterior to the iliac vein and anterior to the obturator nerve. These structures were identified and preserved. Lymph node packets were submitted to Pathology. No bleeding from these sites was noted. A Artemio-Celestin drain was placed through a trocar site on the left side and placed within the pelvis. The DaVinci robot was undocked, and the trocars were removed under direct vision. The specimen was then removed through the camera port incision, extending this incision to do so. This incision was closed at the fascial level with a running 0 Vicryl stitch. All remaining incisions were then closed with mary. The Walker catheter was draining clear urine. The patient was in stable condition. He was awakened and transported to postop recovery in stable condition. He tolerated the procedure well, and there were no complications. ESTIMATED BLOOD LOSS: 150 mL. /[id number] Santi Trejo MD CGR/AQ / CGR / AQS /[id number] documented in this encounter Plan of Treatment Not on file documented as of this encounter Procedures Procedure Name Priority Date/Time Associated Diagnosis Comments CT UNLISTED PROCEDURE MALE GENITAL SYSTEM 05/15/2022 7:57 AM EDT Malignant neoplasm of prostate (HCC) Case Notes Tisseel 10 mL kit Floseal 10 mL kit documented in this encounter Visit Diagnoses Not on filedocumented in this encounter
--- OUTSIDE RECORDS SUMMARY | 2024-01-18 04:15 | XMS_ITS ---
[facility] [address] [place] [id number] Care Team Providers Care Scow Captain Name Role Phone Debora Matthew Primary Care Provider DAVID BARTON Unavailable Unavailable Allergies Allergen (clinical drug ingredient) Drug/Non Drug Allergy documented on EMR Reaction Allergy Type Onset Date Status Penicillin rash Drug Allergy Active REASON FOR VISIT 6 month check Medications Medication SIG (Take, Route, Frequency, Duration) Notes Start Date End Date Status amLODIPine Besylate 10 MG 1 tablet Orall y Once a day Active Bisoprolol Fumarate 5 MG 1 tablet orally once a day at bedtime Active Metamucil Smooth Texture 58.6 % as directed Orally 12/28/2023 Active Levothyroxine Sodium 25 MCG 1 tab(s) ora lly once a day; Duration: 90 days Active Esomeprazole Magnesium 40 MG 1 cap(s) or ally once a day; Duration: 90 days Active Aspirin Adult Low Dose 81 MG 1 tab(s) or ally once a day Active Ondansetron 4 MG 1 tablet on the tong ue and allow to dissolve Orally every 8 hours as needed 02/12/2023 Active Atorvastatin Calcium 10 MG 1 tab(s) oral ly once a day; Duration: 90 days Active Blood Pressure Monitor - as directed 07/20/2023 Active Vitamin D3 1.25 MG (60869 UT) 1 cap(s) orally once a week Active Eliquis 5 MG 1 tablet Orally Twic e a day; Duration: 30 day(s) Active Metoclopramide HCl 5 MG 1 tablet before meals Orally Twice a day; Duration: 90 days Active Vital Signs Blood pressure systolic 110 mm Hg 01/18/20 24 Blood pressure diastolic 72 mm Hg 024 Heart Rate 64 /min 01/18/2024 Height 70 in 01/18/2024 Weight 219.2 lbs 01/18/2024 BMI 31.45 kg/m2 01/18/2024 Encounters Encounter Location Date Provider Diagnosis [facility] [address] [facility] [address] [facility] [address] [place] [id number] 01/18/2024 Matthew Cazares HTN (hypertension) I 10 Assessments Encounter Date Diagnosis (ICD Code) Assessment Notes Treatment Notes Treatment Clinical Notes Section Notes 01/18/2024 HTN (hypertension) (ICD-10 - I10) Plan Of Treatment Medication Medication Name Sig Start Date Stop Date Notes amLODIPine Besylate 10 MG 1 tablet Orally Once a day Bisoprolol Fumarate 5 MG 1 tablet orally once a day at bedtime Next Appt Details Follow Up: 6 Months, Reason: Provider Name:Matthew Gipson , 2025 09:00:00 AM, [address] [facility] [address] [facility], [address], [place], [id number], Progress Notes * Andrea BOWERS CDOB: [birth year] (79 yo M)Acc No.[id number]:01/18/2024 Progress Notes Patient: Andrea ACOSTA Provider: Laurence Cazares M.D. :1945 A ge:78 Y S ex:Male Date:01/18/2024 Address:[address] [place], [place] [id number] Subjective: * Chief Complaints: * 1 . 6 month check. * HPI: C ardiology: 78 year old male presents with c/o Blood Pressure Elevated P t here for 6 mo f/u on hypertension, states he is doing well and does not have any concerns. c/o Hyperlipidemia p t is fasting today. E ndocrinology: c/o Hypothyroidism. * ROS: D ERMATOLOGY: no R otcavio. n o H amber. G ASTROENTEROLOGY: no N ausea. n o V omiting. U ROLOGY: no D ifficulty urinating. n o B lood in urine. * Medical History: C oronary Artery Disease, abnl stress test, left heart cath with 1 stent in RamDecember 2017, Hypertension, Esophageal Reflux, Hypothyroidism, Insomnia, Peptic Ulcer Disease, Hypoglycemia, Osteoarthritis, Melanoma, 2002, Han-Diverticulosis by Colonoscopy, 2014, Tubular Adenoma, Hematuria, s/p urology eval 2013, BPH, Chronic Back Pain, Lumbar Degenerative Disc Disease, Lumbar Facet Arthropathy, Elevated PSA, s/p Urology evaluation, prostate cancer, Dx: 2021, Atrial fibrillation. * Surgical History: B leeding Ulcer 1973, RT Torn ACL 1997, RT Shoulder Melanoma Removal 2002, RT Knee Torn ACL 2004, RT Total Knee Replacement- right 2006, Heart Cath 2007 , RT Rotator Cuff Tear Repair 2010, LT Total Knee Replacement 2011, Knuckle Replacement 2013, Bilateral Cataract Removal 11/2014, C-Scope, Tubular Adenoma - Dr. Olivarez 08/2014, Heart Cath with 1 stent - Dr Madsen 12/23/2017, Skin Cancer Removal 09/2019, Cholecystectomy- [facility] 11/24/2019, prostatectomy 05/13, rotator cuff tear repair 12/15/2022. * Hospitalization/Major Diagno stic Procedure: M assive Kidney Infection- [facility] ER 2005, Small Intestine Blockage- [facility] 2009, Diverticulitis- [facility] 10/2018, [facility]- chest pain 07/31/2022. * Family History: F ather: , Heart Attack, hypertension. M other: alive, COPD. S iblings: Sister- heart disease. 1 brother(s) , 2 sister(s) . 1 son(s) , 2 daughter(s) - healthy. . * Social History: C URRENT TOBACCO USE S moking Status: Patient does NOT smoke, Former Smoker: No, Second hand smoke exposure: Yes. C affeine: no, frequency: two 24 oz bottles a day. Exercise: no. Marital Status: . Past smoking status: no. Alcohol: No. Sexually active: yes. * Medications: T aking Eliquis 5 MG Tablet 1 tablet Orally Twice a day , Taking Aspirin Adult Low Dose 81 MG Tablet Delayed Release 1 tab(s) orally once a day , Taking Ondansetron 4 MG Tablet Disintegrating 1 tablet on the tongue and allow to dissolve Orally every 8 hours as needed , Taking Atorvastatin Calcium 10 MG Tablet 1 tab(s) orally once a day , Taking amLODIPine Besylate 10 MG Tablet 1 tablet Orally Once a day , Taking Blood Pressure Monitor - Device as directed , Taking Vitamin D3 1.25 MG (62101 UT) Capsule 1 cap(s) orally once a week , Taking Bisoprolol Fumarate 5 MG Tablet 1 tablet orally once a day at bedtime , Taking Metamucil Smooth Texture 58.6 % Powder as directed Orally , Taking Levothyroxine Sodium 25 MCG Tablet 1 tab(s) orally once a day , Taking Esomeprazole Magnesium 40 MG Capsule Delayed Release 1 cap(s) orally once a day , Taking Metoclopramide HCl 5 MG Tablet 1 tablet before meals Orally Twice a day , Medication List reviewed and reconciled with the patient * Allergies: P enicillin: rash - Allergy. Objective: * Vitals: W t:219.2, Temp:98.0, BP:110/72, HR:64, Nurse:carlos, Ht: 70, BMI:31.45. * Examination: C ardiology: General Appearance: p leasant, NAD. H eart sounds: R RR, normal S1, S2. L ungs: c lear, no rales or wheezes. Assessment: * Assessment: 1. H TN (hypertension) - I10 (Primary) Plan: * Treatment: * Procedure Codes: G 2211 Complex e/m visit add on * Follow Up: 6 Months * Images: Billing Information: * Visit Code: 31504 Office Visit, Est Pt., Level 3. * Procedure Codes: G2211 Complex e/m visit add on. * Electronic signature of Irina Cazares MD on 07/01/2025 at 07:40 PM EST Sign off status: Pending * Provider: Laurence Cazares M.D. Date: 0 01/18/2024 Generated for Cele ortiz/Jake/Aleisha on: 1 09/01/2024 07:40 PM EST History and Physical Notes * HPI (History of Present Illness) Category Sub-Category Detail Notes Category Not es Endocrinology Hypothyroidism Cardiology Blood Pressure Elevated Pt here for 6 mo f/u on hypertension, states he is doing well and does not have any concerns Hyperlipidemia pt is fasting today Examination Category Sub-Category Detail Notes Category Not es Cardiology Lungs: clear, no rales or wheezes Heart sounds: RRR, normal S1, S2 General Appearance: pleasant, NAD
--- OUTSIDE RECORDS SUMMARY | 2024-02-01 05:15 | XMS_ITS ---
Author Organization [facility] Address [address] [facility] [address] [place] [id number] Care Team Providers Care Bicycle Assembler Name Role Phone Matthew Cazares Primary Care Provider [phone] BARTON, DAVID Unavailable Unavailable Allergies Allergen (clinical drug ingredient) Drug/Non Drug Allergy documented on EMR Reaction Allergy Type Onset Date Status Penicillin rash Drug Allergy Active Results Component Value Reference Range Notes P-Basic Metabolic Panel (BMP ) Reviewed date:02/04/2024 08:46:44 AM Interpretation:Cr 1.31, gfr 56 Performing Lab: Notes/Report: CLIA: [id number] Jewel Lindsay MD, Delivery Representative [address] [place] [address] , [place] [address] Test performed by [facility], [facility] Sodium 141 135-145 mmol/L Potassium 4.4 3.5-5.3 mmol/L Chloride 106 97-108 mmol/L CO2 22 22-32 mmol/L Glucose 96 65-99 mg/dL BUN 11 8-23 mg/dL Creatinine 1.31 0.70-1.30 mg/dL Calcium 9.5 8.6-10.4 mg/dL eGFR by Creatinine 56 >59 mL/min/1.73m2 REASON FOR VISIT Discharge [facility] Medications Medication SIG (Take, Route, Frequency, Duration) Notes Start Date End Date Status Esomeprazole Magnesium 40 MG 1 cap(s) or ally once a day; Duration: 90 days Active amLODIPine Besylate 10 MG 1 tablet Orall y Once a day Active Metoclopramide HCl 5 MG 1 tablet before meals Orally Twice a day; Duration: 90 days Active Bisoprolol Fumarate 5 MG 1 tablet orally once a day at bedtime Active Levothyroxine Sodium 25 MCG 1 tab(s) ora lly once a day; Duration: 90 days Active Vitamin D3 1.25 MG (83413 UT) 1 cap(s) orally once a week Active Metamucil Smooth Texture 58.6 % as directed Orally 12/28/2023 Active Atorvastatin Calcium 10 MG 1 tab(s) oral ly once a day; Duration: 90 days Active Blood Pressure Monitor - as directed 07/20/2023 Active Eliquis 5 MG 1 tablet Orally Twic e a day; Duration: 30 day(s) Active Aspirin Adult Low Dose 81 MG 1 tab(s) or ally once a day Active Vital Signs Blood pressure systolic 114 mm Hg 02/01/20 24 Blood pressure diastolic 70 mm Hg 024 Heart Rate 66 /min 02/01/2024 Height 70 in 02/01/2024 Weight 221 lbs 02/01/2024 BMI 31.71 kg/m2 02/01/2024 Encounters Encounter Location Date Provider Diagnosis [facility] [address] [facility] [address] [facility] [address] [place] [id number] 02/01/2024 Matthew Cazares HOMERO (acute kidney injury) N17.9 Assessments Encounter Date Diagnosis (ICD Code) Assessment Notes Treatment Notes Treatment Clinical Notes Section Notes 02/01/2024 HOMERO (acute kidney injury) (ICD-10 - N17.9) Plan Of Treatment Next Appt Details Follow Up: as scheduled,and prn, Reason: Provider Name:Matthew Gipson , 2025 09:00:00 AM, [address] [facility], [address], [place], [place], [phone], Progress Notes * Andrea BOWERS CDOB: [birth year] (79 yo M)Acc No.[id number]:02/01/2024 Progress Notes Patient: Andrea ACOSTA Provider: Laurence Cazares M.D. :1945 A ge:78 Y S ex:Male Date:02/01/2024 Address:[address] [place] [address] [place], [id number] Subjective: * Chief Complaints: * 1 . Discharge [facility]. * HPI: H PI: 78 year old male presents with c/o Here for follow up on: 0 01/21-09/2023 [facility] hospitalization, see pt docs. Pt went to hospital for syncope after raking hay outside. Pt states he is doing well since d/c and has not had any issues. * ROS: D ERMATOLOGY: no R octavio. n o H amber. G ASTROENTEROLOGY: no N ausea. n o V omiting. U ROLOGY: no D ifficulty urinating. n o B lood in urine. * Medical History: C oronary Artery Disease, abnl stress test, left heart cath with 1 stent in Ram[place] December 2017, Hypertension, Esophageal Reflux, Hypothyroidism, Insomnia, Peptic [...] Madsen 12/23/2017, Skin Cancer Removal 09/2019, Cholecystectomy- [facility] 11/24/2019, prostatectomy 05/13, rotator cuff tear repair 12/15/2022. 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 * Family History: F [...] tab(s) orally once a day , Taking Atorvastatin Calcium 10 MG Tablet 1 tab(s) orally once a day , Taking Blood Pressure Monitor - Device as directed , Taking Vitamin D3 1.25 MG (97719 UT) Capsule 1 cap(s) orally once a week , Taking Metamucil Smooth Texture 58.6 % Powder as directed Orally , Taking Levothyroxine Sodium 25 MCG Tablet 1 tab(s) orally once a day , Taking Esomeprazole Magnesium 40 MG Capsule Delayed Release 1 cap(s) orally once a day , Taking Metoclopramide HCl 5 MG Tablet 1 tablet before meals Orally Twice a day , Taking Bisoprolol Fumarate 5 MG Tablet 1 tablet orally once a day at bedtime , Taking amLODIPine Besylate 10 MG Tablet 1 tablet Orally Once a day , Discontinued Ondansetron 4 MG Tablet Disintegrating 1 tablet on the tongue and allow to dissolve Orally every 8 hours as needed , Medication List reviewed and reconciled with the patient * Allergies: P enicillin: rash - Allergy. Objective: * Vitals: W t:221, Temp:98.0, BP:114/70, HR:66, Nurse:carlos, Ht: 70, BMI:31.71. * Examination: G eneral Examination: General Appearance: N AD. H eart: R SR. L ungs:?clear to auscultation. E xtremities: n o leg edema. Assessment: * Assessment: 1. A KI (acute kidney injury) - N17.9 (Primary) Plan: * Treatment: Value Reference Range B UN 11 8-23 - mg/dL * C alcium 9.5 8.6-10.4 - mg/dL * C hloride 106 97-108 - mmol/L * C O2 22 22-32 - mmol/L * C reatinine 1.31 H 0.70-1.30 - mg/dL * G lucose 96 65-99 - mg/dL * P otassium 4.4 3.5-5.3 - mmol/L * S odium 141 135-145 - mmol/L * e GFR by Creatinine 56 L >59 - mL/min/1.73m2 * Ana Torres 02/04/2024 8:46: 36 AM >See phone encounter * Procedure Codes: G 2211 Complex e/m visit add on * Follow Up: a s scheduled,and prn * Images: Billing Information: * Visit Code: 64074 Office Visit, Est Pt., Level 3. * Procedure Codes: G2211 Complex e/m visit add on. * Electronic signature of Irina Cazares MD on 07/01/2025 at 07:41 PM EST Sign off status: Pending * Provider: Laurence Cazares M.D. Date: 0 02/01/2024 Generated for Cele ortiz/Jake/eTransmitting on: 1 09/01/2024 07:41 PM EST History and Physical Notes * HPI (History of Present Illness) Category Sub-Category Detail Notes Category Not es HPI Here for follow up on: 01/21-2023 [facility] hospitalization, see pt docs. Pt went to hospital for syncope after raking hay outside. Pt states he is doing well since d/c and has not had any issues Examination Category Sub-Category Detail Notes Category Not es General Examination Heart: RSR Lungs: clear to auscultatio n Extremities: no leg edema General Appearance: NAD
--- OUTSIDE RECORDS SUMMARY | 2024-04-01 06:15 | XMS_ITS ---
[facility] Address [address] [place] [id number] Care Team Providers Care Demolition Expert Name Role Phone Debora Matthew Primary Care Provider [phone] DAVID BAROTN Unavailable Unavailable Allergies Allergen (clinical drug ingredient) Drug/Non Drug Allergy documented on EMR Reaction Allergy Type Onset Date Status Penicillin rash Drug Allergy Active Results Component Value Reference Range Notes Covid test (in house) Reviewed date:04/01/2024 12:28:41 PM Interpretation: Performing Lab: Notes/Report: Result: Pos REASON FOR VISIT cough, sore throat Medications Medication SIG (Take, Route, Frequency, Duration) Notes Start Date End Date Status Levothyroxine Sodium 25 MCG 1 tab(s) ora lly once a day; Duration: 90 days Active Metoclopramide HCl 5 MG 1 tablet before meals Orally Twice a day; Duration: 90 days Active Esomeprazole Magnesium 40 MG 1 cap(s) or ally once a day; Duration: 90 days Active Atorvastatin Calcium 10 MG 1 tab(s) oral ly once a day; Duration: 90 days Active amLODIPine Besylate 10 MG 1 tablet Orall y Once a day Active Blood Pressure Monitor - as directed 07/20/2023 Active Metamucil Smooth Texture 58.6 % as directed Orally 12/28/2023 Active Aspirin Adult Low Dose 81 MG 1 tab(s) or ally once a day Active Eliquis 5 MG 1 tablet Orally Twic e a day; Duration: 30 day(s) Active Paxlovid (300/100) 20 x 150 MG & 10 x 100MG 3 tablets Orally Twice a day 04/01/2024 Active Bisoprolol Fumarate 5 MG 1 tablet orally once a day at bedtime; Duration: 90 days Active Vitamin D3 1.25 MG (10028 UT) 1 cap(s) orally once a week Active Vital Signs Blood pressure systolic 112 mm Hg 04/01/20 24 Blood pressure diastolic 70 mm Hg 024 Heart Rate 68 /min 04/01/2024 Height 70 in 04/01/2024 Weight 225 lbs 04/01/2024 BMI 32.28 kg/m2 04/01/2024 Encounters Encounter Location Date Provider Diagnosis [facility] [address] [facility] [address] [facility] [address] [place] [id number] 04/01/2024 Matthew Cazares COVID-19 U07.1 Assessments Encounter Date Diagnosis (ICD Code) Assessment Notes Treatment Notes Treatment Clinical Notes Section Notes 04/01/2024 COVID-19 (ICD-10 - U07.1) Plan Of Treatment Medication Medication Name Sig Start Date Stop Date Notes Paxlovid (300/100) 20 x 150 MG & 10 x 100MG 3 tablets Orally Twice a day 04/01/2024 Next Appt Details Follow Up: prn, Reason: Provider Name:Matthew Gipson ry, 2025 09:00:00 AM, [address] [facility] [address] [facility], [address], [place], [id number], Progress Notes * Andrea BOWERS CDOB: [birth year] (79 yo M)Acc No.[id number]:04/01/2024 Progress Notes Patient: Andrea ACOSTA Provider: Laurence Cazares M.D. :1945 A ge:78 Y S ex:Male Date:04/01/2024 Address:[address] [place], [place] [id number] Subjective: * Chief Complaints: * 1 . Cough, sore throat. * HPI: E NT/respiratory: 78 year old male presents with c/o cough P t complains of greenish yellow sputum production cough for 3 days. Associated with fever, nasal congestion and watery eyes . * ROS: D ERMATOLOGY: no R octavio. [...] [place] 12/23/2017, Skin Cancer Removal 09/2019, Cholecystectomy- [facility] 11/24/2019, prostatectomy 05/13, rotator cuff tear repair 12/15/2022. 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 * Family History: [...] Monitor - Device as directed , Taking Metamucil Smooth Texture 58.6 % Powder as directed Orally , Taking Levothyroxine Sodium 25 MCG Tablet 1 tab(s) orally once a day , Taking Esomeprazole Magnesium 40 MG Capsule Delayed Release 1 cap(s) orally once a day , Taking Metoclopramide HCl 5 MG Tablet 1 tablet before meals Orally Twice a day , Taking amLODIPine Besylate 10 MG Tablet 1 tablet Orally Once a day , Taking Atorvastatin Calcium 10 MG Tablet 1 tab(s) orally once a day , Taking Vitamin D3 1.25 MG (70541 UT) Capsule 1 cap(s) orally once a week , Taking Bisoprolol Fumarate 5 MG Tablet 1 tablet orally once a day at bedtime , Medication List reviewed and reconciled with the patient * Allergies: P enicillin: rash - Allergy. Objective: * Vitals: W t:225, Temp:98.3, BP:112/70, HR:68, O2 Sat:96% on RA, Nurse:carlos, Ht: 70, BMI:32.28. * Examination: E NT/Respiratory: General Appearance: N AD. H eart : R RR, normal S1 S2. L ungs: c lear to auscultation bilaterally. Assessment: * Assessment: 1. OVID-19 - U07.1 (Primary) Plan: * Treatment: Value Reference Range R esult: Pos * Joana Jane 04/01/2024 11:26:1 0 AM > , Provider reviewed results while patient in office. * Procedure Codes: G 2211 Complex e/[place], [address] [place], [address] COVID TEST IN HOUSE, Modifiers: QW * Follow Up: p rn * Images: Billing Information: * Visit Code: 74700 Office Visit, Est Pt., Level 3. * Procedure Codes: G2211 Complex e/[place] [address] [place]. [address] COVID TEST IN HOUSE. Modifiers: QW * Electronic signature of Irina Cazares MD on 07/01/2025 at 07:40 PM EST Sign off status: Pending * Provider: Laurence Cazares M.D. Date: 0 04/01/2024 Generated for Cele ortiz/Faxing/eTransmitting on: 1 09/01/2024 07:40 PM EST History and Physical Notes * HPI (History of Present Illness) Category Sub-Category Detail Notes Category Not es ENT/respiratory cough Pt complains of greenish yellow sputum production cough for 3 days. Associated with fever, nasal congestion and watery eyes Examination Category Sub-Category Detail Notes Category Not es ENT/Respiratory Heart : RRR, normal S1 S2 Lungs: clear to auscultatio n bilaterally General Appearance: NAD
--- OUTSIDE RECORDS SUMMARY | 2024-04-07 06:00 | XMS_ITS ---
[facility] Address [address] [place] [id number] Care Team Providers Care Nail Galvanizer Name Role Phone Debora Matthew Primary Care Provider DAVID BARTON Unavailable Unavailable Allergies Allergen (clinical drug ingredient) Drug/Non Drug Allergy documented on EMR Reaction Allergy Type Onset Date Status Penicillin rash Drug Allergy Active Results Component Value Reference Range Notes TEN-Upper Respiratory PCR Reviewed date:04/09/2024 02:11:43 PM Interpretation: Performing Lab: Notes/Report: REASON FOR VISIT sneezing, watery eyes, coughing Medications Medication SIG (Take, Route, Frequency, Duration) Notes Start Date End Date Status Blood Pressure Monitor - as directed 07/20/2023 Active Aspirin Adult Low Dose 81 MG 1 tab(s) or ally once a day Active Eliquis 5 MG 1 tablet Orally Twic e a day; Duration: 30 day(s) Active Benzonatate 100 MG 1 capsule as needed Orally Three times a day Active Metamucil Smooth Texture 58.6 % as directed Orally 12/28/2023 Active Potassium Chloride ER 10 MEQ 1 capsule w ith food Orally Once a day; Duration: 7 days 04/07/2024 Active Bisoprolol Fumarate 5 MG 1 tablet orally once a day at bedtime; Duration: 90 days Active Promethazine-DM 6.25-15 MG/5ML 5 mL as needed Orally every 6 hrs Active Albuterol Sulfate HFA 108 (90 Base) MCG/ACT 1 puff as needed Inhalation every 4 hrs Active Vitamin D3 1.25 MG (38966 UT) 1 cap(s) orally once a week Active Atorvastatin Calcium 10 MG 1 tab(s) oral ly once a day; Duration: 90 days Active amLODIPine Besylate 10 MG 1 tablet Orall y Once a day Active Metoclopramide HCl 5 MG 1 tablet before meals Orally Twice a day; Duration: 90 days Active Esomeprazole Magnesium 40 MG 1 cap(s) or ally once a day; Duration: 90 days Active Levothyroxine Sodium 25 MCG 1 tab(s) ora lly once a day; Duration: 90 days Active Vital Signs Blood pressure systolic 118 mm Hg 04/07/20 24 Blood pressure diastolic 72 mm Hg 024 Heart Rate 70 /min 04/07/2024 Height 70 in 04/07/2024 Weight 222 lbs 04/07/2024 BMI 31.85 kg/m2 04/07/2024 Encounters Encounter Location Date Provider Diagnosis [facility] [address] [facility] [address] [facility] [address] [place] [id number] 04/07/2024 Matthew Cazares Acute URI J06.9 ; Hypokalemia E87.6 ; Acute cough R05.1 and COVID-19 U07.1 Assessments Encounter Date Diagnosis (ICD Code) Assessment Notes Treatment Notes Treatment Clinical Notes Section Notes 04/07/2024 Acute URI (ICD-10 - J06.9) 04/07/2024 Hypokalemia (ICD-10 - E87.6) 04/07/2024 Acute cough (ICD-10 - R05.1) 04/07/2024 COVID-19 (ICD-10 - U07.1) Plan Of Treatment Medication Medication Name Sig Start Date Stop Date Notes Potassium Chloride ER 10 MEQ 1 capsule w ith food Orally Once a day; Duration: 7 days 04/07/2024 Next Appt Details Follow Up: via phone to repo rt progress, Reason: Provider Name:Matthew Gipson ry, 2025 09:00:00 AM, [address] [facility] [address] [facility], [address], [place], [phone], Progress Notes * Andrea BOWERS CDOB: [birth year] (79 yo M)Acc No.[id number]:04/07/2024 Progress Notes Patient: Andrea ACOSTA Provider: Laurence Cazares M.D. :1945 A ge:78 Y S ex:Male Date:04/07/2024 Address:[address] [place] [address] [place], [id number] Subjective: * Chief Complaints: * 1 . Sneezing, watery eyes, coughing. * HPI: E NT/respiratory: 78 year old male presents with c/o cough P t complains of greenish yellow sputum production cough. Pt dx with Covid 04/01 a nd took all but one dose of Paxlovid. Pt went to ER 04/05/2024 and was told to stop Paxlovid due to him being on Eliquis. Pt states they [place] blood and did chest x- ray, all results were normale. * ROS: D ERMATOLOGY: no R octavio. [...] Madsen 12/23/2017, Skin Cancer Removal 09/2019, Cholecystectomy- [facility] 11/24/2019, prostatectomy 05/13, rotator cuff tear repair 12/15/2022. * Hospitalization/Major Diagno stic Procedure: M assive Kidney Infection- 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 10/2018, [facility]- chest pain 07/31/2022. * Family History: [...] Sexually active: yes. * Medications: T aking Albuterol Sulfate HFA 108 (90 Base) MCG/ACT Aerosol Solution 1 puff as needed Inhalation every 4 hrs , Taking Promethazine-DM 6.25-15 MG/5ML Syrup 5 mL as needed Orally every 6 hrs , Taking Benzonatate 100 MG Capsule 1 capsule as needed Orally Three times a day , Taking Eliquis 5 MG Tablet 1 tablet Orally [...] day , Taking Vitamin D3 1.25 MG (60344 UT) Capsule 1 cap(s) orally once a week , Taking Bisoprolol Fumarate 5 MG Tablet 1 tablet orally once a day at bedtime , Discontinued Paxlovid (300/100) 20 x 150 MG & 10 x 100MG Tablet Therapy Pack 3 tablets Orally Twice a day , Medication List reviewed and reconciled with the patient * Allergies: P enicillin: rash - Allergy. Objective: * Vitals: W t:222, Temp:98.6, BP:118/72, HR:70, O2 Sat:94% on RA, Nurse:carlos, Ht: 70, BMI:31.85. * Examination: E NT/Respiratory: General Appearance: N AD. E yes: sclera and conjunctiva clear. H eart : R RR, normal S1 S2. L ungs: c lear to auscultation bilaterally. Assessment: * Assessment: 1. A cute URI - J06.9 (Primary) 2 . H ypokalemia - E87.6 3 . A cute cough - R05.1 4 . C OVID-19 - U07.1 Plan: * Treatment: 2.?Hypokalemia? Start Potassium Chloride ER Capsule Extended Release, 10 MEQ, 1 capsule with food, Orally, Once a day, 7 days, 7 Capsule, Refills 0.?? * Procedure Codes: G 2211 Complex e/[place], [address] [place] * Follow Up: v ia phone to report progress * Images: Billing Information: * Visit Code: 98560 Office Visit, Est Pt., Level 3. * Procedure Codes: G2211 Complex e/[place]. [address] [place]. * Electronic signature of Irina Cazares MD on 07/01/2025 at 07:42 PM EST Sign off status: Pending * Provider: Laurence Cazares M.D. Date: 0 04/07/2024 Generated for Cele ortiz/Bhavnag/eTransmitting on: 1 09/01/2024 07:42 PM EST History and Physical Notes * HPI (History of Present Illness) Category Sub-Category Detail Notes Category Not es ENT/respiratory cough Pt complains of greenish yellow sputum production cough. Pt dx with Covid 04/01 and took all but one dose of Paxlovid. Pt went to ER 04/05/2024 and was told to stop Paxlovid due to him being on Eliquis. Pt states they [place] blood and did chest x-ray, all results were normale Examination Category Sub-Category Detail Notes Category Not es ENT/Respiratory Heart : RRR, normal S1 S2 Lungs: clear to auscultatio n bilaterally General Appearance: NAD Eyes: sclera and conjuncti va clear
--- OUTSIDE RECORDS SUMMARY | 2024-04-12 05:00 | XMS_ITS ---
[facility] Address [address] [place] [id number] Care Team Providers Care Museum Service Scheduler Name Role Phone Debora Matthew Primary Care Provider DAVID BARTON Unavailable Unavailable Allergies Allergen (clinical drug ingredient) Drug/Non Drug Allergy documented on EMR Reaction Allergy Type Onset Date Status Penicillin rash Drug Allergy Active REASON FOR VISIT Issues Hearing Medications Medication SIG (Take, Route, Frequency, Duration) Notes Start Date End Date Status Metoclopramide HCl 5 MG 1 tablet before meals Orally Twice a day; Duration: 90 days Active Atorvastatin Calcium 10 MG 1 tab(s) oral ly once a day; Duration: 90 days Active amLODIPine Besylate 10 MG 1 tablet Orall y Once a day Active Bisoprolol Fumarate 5 MG 1 tablet orally once a day at bedtime; Duration: 90 days Active Vitamin D3 1.25 MG (23926 UT) 1 cap(s) orally once a week Active Blood Pressure Monitor - as directed 07/20/2023 Active Levothyroxine Sodium 25 MCG 1 tab(s) ora lly once a day; Duration: 90 days Active Metamucil Smooth Texture 58.6 % as directed Orally 12/28/2023 Active Esomeprazole Magnesium 40 MG 1 cap(s) or ally once a day; Duration: 90 days Active Aspirin Adult Low Dose 81 MG 1 tab(s) or ally once a day Active Fluticasone Propionate 50 MCG/ACT 1 spray in each nostril Nasally Once a day 04/12/2024 Active Albuterol Sulfate HFA 108 (90 Base) MCG/ACT 1 puff as needed Inhalation every 4 hrs Active Benzonatate 100 MG 1 capsule as needed Orally Three times a day Active Promethazine-DM 6.25-15 MG/5ML 5 mL as needed Orally every 6 hrs Active Eliquis 5 MG 1 tablet Orally Twic e a day; Duration: 30 day(s) Active Cefdinir 300 MG 1 cap Orally Two ryan es a day; Duration: 7 days 04/09/2024 Active dexAMETHasone 2 MG 1 tablet Orally ever y 12 hrs; Duration: 5 day(s) 04/12/2024 Active Potassium Chloride ER 10 MEQ 1 capsule w ith food Orally Once a day; Duration: 7 days 04/07/2024 Active Vital Signs Blood pressure systolic 116 mm Hg 04/12/20 24 Blood pressure diastolic 74 mm Hg 024 Heart Rate 62 /min 04/12/2024 Height 70 in 04/12/2024 Weight 222.4 lbs 04/12/2024 BMI 31.91 kg/m2 04/12/2024 Encounters Encounter Location Date Provider Diagnosis [facility] [facility] [address] [facility] [address] [place] [id number] 04/12/2024 Matthew Cazares Fluid level behind tympanic membrane of right ear H65.91 Assessments Encounter Date Diagnosis (ICD Code) Assessment Notes Treatment Notes Treatment Clinical Notes Section Notes 04/12/2024 Fluid level behind tympanic membrane of right ear (ICD-10 - H65.91) Plan Of Treatment Medication Medication Name Sig Start Date Stop Date Notes Fluticasone Propionate 50 MCG/ACT 1 spray in each nostril Nasally Once a day 04/12/2024 dexAMETHasone 2 MG 1 tablet Orally ever y 12 hrs; Duration: 5 day(s) 04/12/2024 Next Appt Details Follow Up: via phone to repo rt progress, Reason: Provider Name:Matthew Gipson ry, 2025 09:00:00 AM, [address] [facility] [address] [facility], [address], [place], [phone], Progress Notes * Andrea BOWERS CDOB: [birth year] (79 yo M)Acc No.[id number]:04/12/2024 Progress Notes Patient: Shilo BATSHEVAChungjustin Mata Provider: Laurence Cazares M.D. :1945 A ge:78 Y S ex:Male Date:04/12/2024 Address: [place], [id number] Subjective: * Chief Complaints: * 1 . Issues Hearing. * HPI: E NT/respiratory: 78 year old male presents with c/o Diminished Hearing P t presents today with c/o diminished hearing especially in the right ear. Pt sts that when he had COVID his ears popped and he has been having issues hearing since then. Pt sts that he has noticed that he has to turn the TV up loud to hear what he is watching. * ROS: D ERMATOLOGY: no R octavio. 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 * Family History: [...] day , Taking Vitamin D3 1.25 MG (54890 UT) Capsule 1 cap(s) orally once a week , Taking Bisoprolol Fumarate 5 MG Tablet 1 tablet orally once a day at bedtime , Taking Potassium Chloride ER 10 MEQ Capsule Extended Release 1 capsule with food Orally Once a day , Taking Cefdinir 300 MG Capsule 1 cap Orally Two times a day , Medication List reviewed and reconciled with the patient * Allergies: P enicillin: rash - Allergy. Objective: * Vitals: W t:222.4, Temp:98.4, BP:116/74, HR:62, O2 Sat:97% on RA, Nurse:YESY, Ht: 70, BMI:31.91. * Examination: E NT/Respiratory: General Appearance: N AD. E ars: a uditory canals normal bilaterally, left TM normal, right TM pink with an effusion. Assessment: * Assessment: 1. F luid level behind tympanic membrane of right ear - H65.91 (Primary) Plan: * Treatment: * Procedure Codes: G 2211 Complex e/m visit add on * Follow Up: v ia phone to report progress * Images: Billing Information: * Visit Code: 56018 Office Visit, Est Pt., Level 3. * Procedure Codes: G2211 Complex e/m visit add on. * Electronic signature of Irina Cazares MD on 07/01/2025 at 07:45 PM EST Sign off status: Pending * Provider: Laurence Cazares M.D. Date: 0 04/12/2024 Generated for Cele ortiz/Jake/Erlindaitting on: 1 09/01/2024 07:45 PM EST History and Physical Notes * HPI (History of Present Illness) Category Sub-Category Detail Notes Category Not es ENT/respiratory Diminished Hearing Pt presents t gail with c/o diminished hearing especially in the right ear. Pt sts that when he had COVID his ears popped and he has been having issues hearing since then. Pt sts that he has noticed that he has to turn the TV up loud to hear what he is watching Examination Category Sub-Category Detail Notes Category Not es ENT/Respiratory Ears: auditory canals normal bilaterally, left TM normal, right TM pink with an effusion General Appearance: NAD
--- OUTSIDE RECORDS SUMMARY | 2024-07-18 04:15 | XMS_ITS ---
Author Organization [facility] Address [address] [place] [id number] Care Team Providers Care Charter Bus Driver Name Role Phone Matthew Cazares Primary Care Provider [phone] DAVID BARTON Unavailable Unavailable Allergies Allergen (clinical drug ingredient) Drug/Non Drug Allergy documented on EMR Reaction Allergy Type Onset Date Status Penicillin rash Drug Allergy Active Results Component Value Reference Range Notes Glucose (In-House) Reviewed date:07/21/2024 10:13:53 AM Interpretation:117 Performing Lab: Notes/Report: 117 blood glucose 117 74 - 106 mg/dL Glycohemoglobin A1c (in hous e) Reviewed date:07/21/2024 10:13:53 AM Interpretation:5.4% Normal Performing Lab: Notes/Report: 5.4% Normal glycohemoglobin 5.4% 5 - 6.5 % P-CBC With Platelet No Diffe rential Reviewed date:07/21/2024 10:13:53 AM Interpretation: Normal Performing Lab: Notes/Report: Test performed by [facility] [address] [place] [address] , [address], [place] [address] Jewel Lindsay MD, Back End Developer CLIA: [id number] WBC 5.0 3.8-11.5 K/uL Red Blood Cell Count (RBC) 4.85 4.20-5.70 M/mm 3 Hemoglobin (Hgb) 14.7 13.1-17.5 gm/dL Hematocrit (HCT) 44.5 39.0-51.0 % MCV 91.8 79.0-99.0 fL MCH 30.3 26.9-35.0 pg MCHC 33.0 30.4-34.8 g/dL RDW 45.8 38.2-53.0 fL Platelet Count 179 137-397 K/cumm P-Comprehensive Metabolic Pa alysha (CMP) Reviewed date:07/21/2024 10:13:53 AM Interpretation: Normal Performing Lab: Notes/Report: Test performed by [facility] [address] [place] [address] , [address], [place] [address] Jewel Lindsay MD, Back End Developer CLIA: [id number] Sodium 141 135-145 mmol/L Potassium 3.9 3.5-5.3 mmol/L Chloride 105 97-108 mmol/L CO2 24 22-32 mmol/L Glucose 93 65-99 mg/dL BUN 10 8-23 mg/dL Creatinine 1.13 0.70-1.30 mg/dL Calcium 9.1 8.6-10.4 mg/dL eGFR by Creatinine 67 >59 mL/min/1.73m2 Protein 7.1 6.0-8.3 g/dL Albumin 4.4 3.5-5.3 g/dL Alkaline Phosphatase 98 40-129 IU/L ALT (SGPT) 27 <5-55 IU/L AST (SGOT) 25 <5-46 IU/L Bilirubin, Total 0.6 <0.2-1.2 mg/dL A/G Ratio 1.6 1.1-2.5 P-T4 Free (thyroxine) Reviewed date:07/21/2024 10:13:53 AM Interpretation: Normal Performing Lab: Notes/Report: Test performed by [facility] [address] [place] [address] , [place] [address] Jewel Lindsay MD, Back End Developer CLIA: [id number] Thyroxine Free (free T4) 1.05 0.86-1.76 ng/dL P-Lipid Panel Reviewed date:07/21/2024 10:13:53 AM Interpretation:trigs 222, hdl 28 Performing Lab: Notes/Report: Test performed by [facility] [address] [place] [address] , [address], [place] [address] Jewel Lindsay MD, Back End Developer CLIA: [id number] Cholesterol 101 <200 mg/dL Triglycerides 222 <150 mg/dL HDL Cholesterol 28 >39 mg/dL Cholesterol / HDL Ratio 3.61 0.00-4.99 Ratio Non-HDL Cholesterol 73 <130 mg/dL LDL Cholesterol (Calculation) 29 <130 mg/dL LDL Cholesterol Levels* Less than 100 mg/dL Optimal 100 to 129 mg/dL Near Optimal/ Above Optimal 130 to 159 mg/dL Borderline High 160 to 189 mg/dL High 190 mg/dL and above Very High * Categories as recommended by the 2004 ATPIII guidelines LDL/HDL Ratio 1.0 <3.3 Ratio LDL Cholesterol Patient History Test Date: 07/20/2023 LDL Results: 42 Units: mg/dL % Change: - Test Date: 07/18/2024 LDL Results: 29 Units: mg/dL % Change: -30% P-Phosphorus Reviewed date:07/21/2024 10:13:53 AM Interpretation: Normal Performing Lab: Notes/Report: Test performed by [facility] [address] , [address], [place] [address] Jewel Lindsay MD, Back End Developer CLIA: [id number] Phosphorus 2.5 2.5-4.5 mg/dL P-TSH Reviewed date:07/21/2024 10:13:53 AM Interpretation: Normal Performing Lab: Notes/Report: [facility] , [address], [place] [address] Jewel Lindsay MD, Back End Developer CLIA: [id number] TSH 4.53 0.43-5.25 mU/L P-Microalbumin/Creatinine, R andom Urine Sample Reviewed date:07/21/2024 10:13:53 AM Interpretation: Normal Performing Lab: Notes/Report: [facility] performed [facility] [address] , [address], [place] [address] Jewel Lindsay MD, Back End Developer CLIA: [id number] Albumin/Creatinine Ratio, Urine 3 0-30 ug/m g Microalbumin, Urine, Random 0.6 Creatinine, Urine 228.7 P-Vitamin D 25-Hydroxy Reviewed date:07/21/2024 10:13:53 AM Interpretation: Normal Performing Lab: Notes/Report: Test performed by [facility] [address] , [address], [place] [address] Jewel Lindsay MD, Back End Developer CLIA: [id number] Vitamin D 25-Hydroxy 76.7 30.0-100.0 ng/mL Interpretation of Vitamin D 25 OH: < 20 ng/mL - Deficiency 20 - 29 ng/mL - Insufficiency 30 - 100 ng/mL - Sufficiency > 100 ng/mL - Super-therapeutic- toxicity may occur above this level. Clinical correlation required. REASON FOR VISIT 6 months Medications Medication SIG (Take, Route, Frequency, Duration) Notes Start Date End Date Status Aspirin Adult Low Dose 81 MG 1 tab(s) orally once a day Active Albuterol Sulfate HFA 108 (90 Base) MCG/ACT 1 puff as needed Inhalation every 4 hrs Not-Takin g Metamucil Smooth Texture 58.6 % as directed Orally 12/28/2023 Active Blood Pressure Monitor - as directed 07/20/2023 Active Esomeprazole Magnesium 40 MG 1 cap(s) orally once a day; Duration: 90 days Active Levothyroxine Sodium 25 MCG 1 tab(s) orally once a day; Duration: 90 days Active amLODIPine Besylate 10 MG 1 tablet Orall y Once a day; Duration: 90 days Active Vitamin D3 1.25 MG (26059 UT) 1 cap(s) orally once a week Active Atorvastatin Calcium 10 MG 1 tab(s) oral ly once a day; Duration: 90 days Active Nitroglycerin 0.4 MG 1 tablet as needed for chest pain may repeat every 5 minutes for a total of 3 doses Sublingual 05/07/2024 Active Bisoprolol Fumarate 5 MG 1 tablet orally once a day at bedtime; Duration: 90 days Active Eliquis 5 MG 1 tablet Orally Twic e a day; Duration: 90 days Active Potassium Chloride ER 10 MEQ 1 capsule with food Orally Once a day; Duration: 7 days 04/07/2024 Not-Taking Metoclopramide HCl 5 MG 1 tablet before meals Orally Twice a day; Duration: 90 days Active Vital Signs Blood pressure systolic 120 mm Hg 07/18/20 24 Blood pressure diastolic 70 mm Hg 024 Heart Rate 60 /min 07/18/2024 Height 70 in 07/18/2024 Weight 227.6 lbs 07/18/2024 BMI 32.65 kg/m2 07/18/2024 Encounters Encounter Location Date [facility] [address] [id number] 07/18/2024 Matthew Cazares HTN (hypertension) I 10 ; Coronary artery disease involving [place] coronary artery of [place] heart without angina pectoris I25.10 ; Stage 3a chronic kidney disease (CKD) N18.31 ; Mixed hyperlipidemia E78.2 ; Hypertriglyceridemia E78.1 ; Vitamin D deficiency E55.9 ; Impaired fasting glucose R73.01 ; Acquired hypothyroidism E03.9 and PAF (paroxysmal atrial fibrillation) I48.0 Assessments Encounter Date Diagnosis (ICD Code) Assessment Notes Treatment Notes Treatment Clinical Notes Section Notes 07/18/2024 HTN (hypertension) (ICD-10 - I10) 07/18/2024 Coronary artery dise ase involving [place] coronary artery of [place] heart without angina pectoris (ICD-10 - I25.10) 07/18/2024 Stage 3a chronic kid guillermo disease (CKD) (ICD-10 - N18.31) 07/18/2024 Mixed hyperlipidemia (ICD-10 - E78.2) 07/18/2024 Hypertriglyceridemia (ICD-10 - E78.1) 07/18/2024 Vitamin D deficiency (ICD-10 - E55.9) 07/18/2024 Impaired fasting glu cose (ICD-10 - R73.01) 07/18/2024 Acquired hypothyroid ism (ICD-10 - E03.9) 07/18/2024 PAF (paroxysmal atri al fibrillation) (ICD-10 - I48.0) Plan Of Treatment Medication Medication Name Sig Start Date Stop Date Notes Esomeprazole Magnesium 40 MG 1 cap(s) or ally once a day; Duration: 90 days Levothyroxine Sodium 25 MCG 1 tab(s) ora lly once a day; Duration: 90 days amLODIPine Besylate 10 MG 1 tablet Orall y Once a day; Duration: 90 days Next Appt Details Follow Up: 6 Months, Reason: Provider Name:Matthew Gipson , 2025 09:00:00 AM, [address] [facility], [address], [place], [place], [id number], Progress Notes * Andrea BOWERS CDOB: [birth year] (79 yo M)Acc No.[id number]:07/18/2024 Progress Notes Patient: Andrea ACOSTA Provider: Laurence Cazares M.D. :1945 A ge:78 Y S ex:Male Date:07/18/2024 Address:[address] [place], [place] [id number] Subjective: * Chief Complaints: * 1 . 6 months. * HPI: C ardiology: 78 year old male presents with c/o Blood Pressure Elevated P t here for 6 mo f/u on hypertension, states he is doing well and does not have any concerns. c/o Hyperlipidemia P t is fasting today. Pt sts he needs refills on some of his medications. * ROS: D ERMATOLOGY: no R octavio. [...] 12/23/2017, Skin Cancer Removal 09/2019, Cholecystectomy- [facility] 11/24/2019, prostatectomy 05/13, rotator cuff tear repair 12/15/2022. 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 * Family [...] Sexually active: yes. * Medications: T aking Aspirin Adult Low Dose 81 MG Tablet [...] tablet Orally Once a day , Taking Nitroglycerin 0.4 MG Tablet Sublingual 1 tablet as needed for chest pain may repeat every 5 minutes for a total of 3 doses Sublingual , Taking Eliquis 5 MG Tablet 1 tablet Orally Twice a day , Taking Bisoprolol Fumarate 5 MG Tablet 1 tablet orally once a day at bedtime , Taking Atorvastatin Calcium 10 MG Tablet 1 tab(s) orally once a day , Taking Vitamin D3 1.25 MG (38546 UT) Capsule 1 cap(s) orally once a week , Not-Taking Albuterol Sulfate HFA 108 (90 Base) MCG/ACT Aerosol Solution 1 puff as needed Inhalation every 4 hrs , Not-Taking Potassium Chloride ER 10 MEQ Capsule Extended Release 1 capsule with food Orally Once a day , Discontinued Benzonatate 100 MG Capsule 1 capsule as needed Orally Three times a day , Discontinued Cefdinir 300 MG Capsule 1 cap Orally Two times a day , Discontinued dexAMETHasone 2 MG Tablet 1 tablet Orally every 12 hrs , Discontinued Fluticasone Propionate 50 MCG/ACT Suspension 1 spray in each nostril Nasally Once a day , Medication List reviewed and reconciled with the patient * Allergies: P enicillin: rash - Allergy. Objective: * Vitals: W t:227.6, Temp:98.7, BP:120/70, HR:60, Nurse:CASIMIRO, Ht: 70, BMI:32.65. * Examination: C ardiology: General Appearance: p leasant, NAD. H eart sounds: R RR, normal S1, S2. L ungs: c lear, no rales or wheezes. E xtremities: n o leg edema. P eripheral pulses: 2 plus bilateral. Assessment: * Assessment: 1. H [place] (hypertension) - I10 (Primary) 2 . C oronary artery disease involving [place] coronary artery of [place] heart without angina pectoris - I25.10 3 . S tage 3a chronic kidney disease (CKD) - N18.31 4 . M ixed hyperlipidemia - E78.2 5. H ypertriglyceridemia - E78.1 6 . V itamin D deficiency - E55.9 7 . I mpaired fasting glucose - R73.01 8 . A cquired hypothyroidism - E03.9 9 . P AF (paroxysmal atrial fibrillation) - I48.0 ? Plan: * Treatment: Value Reference Range A /G Ratio 1.6 1.1-2.5 - * A lbumin 4.4 3.5-5.3 - g/dL * A lkaline Phosphatase 98 40-129 - IU/L * A LT (SGPT) 27 <5-55 - IU/L * A ST (SGOT) 25 <5-46 - IU/L * B ilirubin, Total 0.6 <0.2-1.2 - mg/dL * B UN 10 8-23 - mg/dL * C alcium 9.1 8.6-10.4 - mg/dL * C hloride 105 97-108 - mmol/L * C O2 24 22-32 - mmol/L * C reatinine 1.13 0.70-1.30 - mg/dL * G lucose 93 65-99 - mg/dL * P otassium 3.9 3.5-5.3 - mmol/L * S odium 141 135-145 - mmol/L * P rotein 7.1 6.0-8.3 - g/dL * e GFR by Creatinine 67 >59 - mL/min/1.73m2 * Ana Torres 07/21/2024 10:1 3:49 AM >See phone encounter ?LAB: P-Microalbumin/Creatinine, Random Urine Sample (Collection Date & Time - 07/18/2024 08:47 AM)?Normal* Value Reference Range A lbumin/Creatinine Ratio, Urine 3 0-30 - ug /mg * C reatinine, Urine 228.7 - mg/dL * M icroalbumin, Urine, Random 0.6 - mg/dL * Ana Torres 07/21/2024 10:1 3:49 AM >See phone encounter 2.?Stage 3a chronic kidney disease (CKD)?LAB: P-CBC With Platelet No Differential (Collection Date & Time - 07/18/2024 08:47 AM)?Normal* Value Reference Range H ematocrit (HCT) 44.5 39.0-51.0 - % * H emoglobin (Hgb) 14.7 13.1-17.5 - gm/dL * M CH 30.3 26.9-35.0 - pg * M CHC 33.0 30.4-34.8 - g/dL * M CV 91.8 79.0-99.0 - fL * P latelet Count 179 137-397 - K/cumm * R ed Blood Cell Count (RBC) 4.85 4.20-5.70 - M/ mm3 * R DW 45.8 38.2-53.0 - fL * W BC 5.0 3.8-11.5 - K/uL * Ana Torres 07/21/2024 10:1 3:49 AM >See phone encounter ?LAB: P-Comprehensive Metabolic Panel (CMP) (Collection Date & Time - 07/18/2024 08:47 AM)?Normal* Value Reference Range A /G Ratio 1.6 1.1-2.5 - * A lbumin 4.4 3.5-5.3 - g/dL * A lkaline Phosphatase 98 40-129 - IU/L * A LT (SGPT) 27 <5-55 - IU/L * A ST (SGOT) 25 <5-46 - IU/L * B ilirubin, Total 0.6 <0.2-1.2 - mg/dL * B UN 10 8-23 - mg/dL * C alcium 9.1 8.6-10.4 - mg/dL * C hloride 105 97-108 - mmol/L * C O2 24 22-32 - mmol/L * C reatinine 1.13 0.70-1.30 - mg/dL * G lucose 93 65-99 - mg/dL * P otassium 3.9 3.5-5.3 - mmol/L * S odium 141 135-145 - mmol/L * P rotein 7.1 6.0-8.3 - g/dL * e GFR by Creatinine 67 >59 - mL/min/1.73m2 * Ana Torres 07/21/2024 10:1 3:49 AM >See phone encounter ?LAB: P-Phosphorus (Collection Date & Time - 07/18/2024 08:47 AM)?Normal* Value Reference Range P hosphorus 2.5 2.5-4.5 - mg/dL * Ana Torres 07/21/2024 10:1 3:49 AM >See phone encounter 3.?Mixed hyperlipidemia?LAB: P-Comprehensive Metabolic Panel (CMP) (Collection Date & Time - 07/18/2024 08:47 AM)?Normal* Value Reference Range A /G Ratio 1.6 1.1-2.5 - * A lbumin 4.4 3.5-5.3 - g/dL * A lkaline Phosphatase 98 40-129 - IU/L * A LT (SGPT) 27 <5-55 - IU/L * A ST (SGOT) 25 <5-46 - IU/L * B ilirubin, Total 0.6 <0.2-1.2 - mg/dL * B UN 10 8-23 - mg/dL * C alcium 9.1 8.6-10.4 - mg/dL * C hloride 105 97-108 - mmol/L * C O2 24 22-32 - mmol/L * C reatinine 1.13 0.70-1.30 - mg/dL * G lucose 93 65-99 - mg/dL * P otassium 3.9 3.5-5.3 - mmol/L * S odium 141 135-145 - mmol/L * P rotein 7.1 6.0-8.3 - g/dL * e GFR by Creatinine 67 >59 - mL/min/1.73m2 * Ana Torres 07/21/2024 10:1 3:49 AM >See phone encounter ?LAB: P-Lipid Panel (Collection Date & Time - 07/18/2024 08:47 AM)?trigs 222, hdl 28* Value Reference Range C holesterol / HDL Ratio 3.61 0.00-4.99 - Ratio * C holesterol 101 <200 - mg/dL * H DL Cholesterol 28 L >39 - mg/dL * L DL Cholesterol (Calculation) 29 <130 - mg/d L * L DL/HDL Ratio 1.0 <3.3 - Ratio * N on-HDL Cholesterol 73 <130 - mg/dL * T riglycerides 222 H <150 - mg/dL * Ana Torres 07/21/2024 10:1 3:49 AM >See phone encounter 4.?Vitamin D deficiency?LAB: P-Vitamin D 25-Hydroxy (Collection Date & Time - 07/18/2024 08:47 AM)? Normal* Value Reference Range V itamin D 25-Hydroxy 76.7 30.0-100.0 - ng/mL * Ana Torres 07/21/2024 10:1 3:49 AM >See phone encounter 5.?Impaired fasting glucose?LAB: Glucose (In-House) (Collection Date & Time - 07/18/2024)?117* Value Reference Range b lood glucose 117 74 - 106 mg/dL * DavidAna 07/18/2024 10:1 5:35 AM Ana Torres 07/21/2024 10:13:49 AM >See phone encounter ?LAB: Glycohemoglobin A1c (in house) (Collection Date & Time - 07/18/2024)? 5.4% Normal* Value Reference Range g lycohemoglobin 5.4% 5 - 6.5 % * Ana Hernandez 07/18/2024 10:1 6:13 AM > Ana Torres 07/21/2024 10:13:49 AM >See phone encounter 6.?Acquired hypothyroidism? Refill Levothyroxine Sodium Tablet, 25 MCG, 1 tab(s), orally, once a day, 90 days, 90, Refills 1. ?LAB: P-T4 Free (thyroxine) (Collection Date & Time - 07/18/2024 08:47 AM)? Normal* Value Reference Range T hyroxine Free (free T4) 1.05 0.86-1.76 - ng/d L * Ana Torres 07/21/2024 10:1 3:49 AM >See phone encounter ?LAB: P-TSH (Collection Date & Time - 07/18/2024 08:47 AM)?Normal* Value Reference Range T SH 4.53 0.43-5.25 - mU/L * Ana Torres 07/21/2024 10:1 3:49 AM >See phone encounter 7.?Others? Refill Esomeprazole Magnesium Capsule Delayed Release, 40 MG, 1 cap(s), orally, once a day, 90 days, 90, Refills 1.?? * Procedure Codes: G 2211 Complex e/[place], [address] GLUCOSE TEST, 89678 GLYCATED HEMOGLOBIN TEST, Modifiers: QW * Follow Up: 6 Months * Images: Billing Information: * Visit Code: 80984 Office Visit, Est Pt., Level 4. * Procedure Codes: G2211 Complex e/[place]. [address] GLUCOSE TEST. 48072 GLYCATED HEMOGLOBIN TEST. Modifiers: QW * Electronic signature of Irina Cazares MD on 07/01/2025 at 07:45 PM EST Sign off status: Pending * Provider: Laurence Cazares M.D. Date: 1 09/18/2023 Generated for [facility]/Jake/Elysesmitting on: 09/01/2024 07:45 PM EST History and Physical Notes * HPI (History of Present Illness) Category Sub-Category Detail Notes Category Not es Cardiology Blood Pressure Elevated Pt here for 6 mo f/u on hypertension, states he is doing well and does not have any concerns Pt sts he needs refills on some of his medications Hyperlipidemia Pt is fasting today Examination Category Sub-Category Detail Notes Category Not es Cardiology Lungs: clear, no rales or wheezes Heart sounds: RRR, normal S1, S2 Extremities: no leg edema Peripheral pulses: 2 plus bilateral General Appearance: pleasant, NAD
--- OUTSIDE RECORDS SUMMARY | 2024-12-17 04:15 | XMS_ITS ---
Author Organization [facility] Address [address] [place] [id number] Care Team Providers Care Frame Carver Spindle Name Role Phone Matthew Cazares Primary Care Provider [phone] ORALIA, DAVID Unavailable Unavailable Allergies Allergen (clinical drug ingredient) Drug/Non Drug Allergy documented on EMR Reaction Allergy Type Onset Date Status Penicillin rash Drug Allergy Active Results Component Value Reference Range Notes Glucose (In-House) Reviewed date:12/17/2024 11:04:15 AM Interpretation:92 Performing Lab: Notes/Report: 92 blood glucose 92 74 - 106 mg/dL Glycohemoglobin A1c (in hous e) Reviewed date:12/17/2024 11:04:06 AM Interpretation:5.2% Performing Lab: Notes/Report: 5.2% glycohemoglobin 5.2% 5 - 6.5 % P-Comprehensive Metabolic Pa alysha (CMP) Reviewed date:12/18/2024 08:30:03 AM Interpretation:Cr 1.35, gfr 54 Performing Lab: Notes/Report: Test performed by [facility] [address] [place] [address] , [address], [place] [address] Jewel Lindsay MD, Real Estate Professional CLIA: [id number] Sodium 141 135-145 mmol/L Potassium 4.4 3.5-5.3 mmol/L Chloride 106 97-108 mmol/L CO2 24 22-32 mmol/L Glucose 94 65-99 mg/dL BUN 9 8-23 mg/dL Creatinine 1.35 0.70-1.30 mg/dL Calcium 9.8 8.6-10.4 mg/dL eGFR by Creatinine 54 >59 mL/min/1.73m2 Protein 7.3 6.0-8.3 g/dL Albumin 4.5 3.5-5.3 g/dL Alkaline Phosphatase 99 40-129 IU/L ALT (SGPT) 24 <5-55 IU/L AST (SGOT) 24 <5-46 IU/L Bilirubin, Total 0.8 <0.2-1.2 mg/dL A/G Ratio 1.6 1.1-2.5 P-T4 Free (thyroxine) Reviewed date:12/18/2024 08:30:03 AM Interpretation: Normal Performing Lab: Notes/Report: Test performed by [facility] [address] [place] [address] , [facility] [place] [address] Jewel Lindsay MD, Real Estate Professional CLIA: [id number] Thyroxine Free (free T4) 1.07 0.86-1.76 ng/dL P-Lipid Panel Reviewed date:12/18/2024 08:30:03 AM Interpretation:trigs 198, hdl 31 Performing Lab: Notes/Report: Test performed by [facility] [address] [place] [address] , [address], [place] [address] Jewel Lindsay MD, Real Estate Professional CLIA: [id number] Cholesterol 107 <200 mg/dL Triglycerides 198 <150 mg/dL HDL Cholesterol 31 >39 mg/dL Cholesterol / HDL Ratio 3.45 0.00-4.99 Ratio Non-HDL Cholesterol 76 <130 mg/dL LDL Cholesterol (Calculation) 36 <130 mg/dL LDL Cholesterol Levels* Less than 100 mg/dL Optimal 100 to 129 mg/dL Near Optimal/ Above Optimal 130 to 159 mg/dL Borderline High 160 to 189 mg/dL High 190 mg/dL and above Very High * Categories as recommended by the 2004 ATPIII guidelines LDL/HDL Ratio 1.2 <3.3 Ratio LDL Cholesterol Patient History Test Date: 07/20/2023 LDL Results: 42 Units: mg/dL % Change: - Test Date: 07/18/2024 LDL Results: 29 Units: mg/dL % Change: -30% Test Date: 12/17/2024 LDL Results: 36 Units: mg/dL % Change: +24% P-Phosphorus Reviewed date:12/18/2024 08:30:03 AM Interpretation: Normal Performing Lab: Notes/Report: Test performed by [facility] [address] [place], [place] [address] [place], [place] [address] Jewel Lindsay MD, Real Estate Professional CLIA: [id number] Phosphorus 3.4 2.5-4.5 mg/dL P-TSH Reviewed date:12/18/2024 08:30:03 AM Interpretation: Normal Performing Lab: Notes/Report: Test performed by [facility] [address] [place], [place] [address] [place], [place] [address] Jewel Lindsay MD, Real Estate Professional CLIA: [id number] TSH 3.89 0.43-5.25 mU/L REASON FOR VISIT 6 month check Medications Medication SIG (Take, Route, Frequency, Duration) Notes Start Date End Date Status Esomeprazole Magnesium 40 MG 1 cap(s) or ally once a day; Duration: 90 days Active Metoclopramide HCl 5 MG 1 tablet before meals Orally Twice a day; Duration: 90 days Active Vitamin D3 1.25 MG (02461 UT) Take 1 capsule by mouth once a week; Duration: Active Nitroglycerin 0.4 MG 1 tablet as needed for chest pain may repeat every 5 minutes for a total of 3 doses Sublingual 05/07/2024 Active Eliquis 5 MG 1 tablet Orally Twic e a day; Duration: 90 days Active Levothyroxine Sodium 25 MCG 1 tab(s) ora lly once a day Active Bisoprolol Fumarate 5 MG TAKE 1 TABLET B Y MOUTH ONCE DAILY AT BEDTIME Active Atorvastatin Calcium 10 MG Take 1 tablet by mouth once daily Active Blood Pressure Monitor - as directed 07/20/2023 Active Metamucil Smooth Texture 58.6 % as directed Orally 12/28/2023 Active Aspirin Adult Low Dose 81 MG 1 tab(s) or ally once a day Active amLODIPine Besylate 10 MG 1 tablet Orall y Once a day Active Problems Problem Type SNOMED Code ICD Code Onset Dates Problem Status W/U Status Risk Notes Problem BMI 30+ - obesity (805479803) BMI 32.0-32.9,a dult (Z68.32) Active confirmed Vital Signs Blood pressure systolic 122 mm Hg 12/18/19 25 Blood pressure diastolic 70 mm Hg 025 Heart Rate 58 /min 12/17/2024 Height 70 in 12/17/2024 Weight 229 lbs 12/17/2024 BMI 32.85 kg/m2 12/17/2024 Encounters Encounter Location Date Provider Diagnosis [facility] [address] [place], [place] [id number] 12/17/2024 Matthew Caazres HTN (hypertension) I 10 ; Acquired hypothyroidism E03.9 ; Impaired fasting glucose R73.01 ; Vitamin D deficiency E55.9 ; Stage 3a chronic kidney disease (CKD) N18.31 ; Mixed hyperlipidemia E78.2 ; Tremor R25.1 ; PAF (paroxysmal atrial fibrillation) I48.0 and BMI 32.0-32.9,adult Z68.32 Assessments Encounter Date Diagnosis (ICD Code) Assessment Notes Treatment Notes Treatment Clinical Notes Section Notes 12/17/2024 HTN (hypertension) (ICD-10 - I10) 12/17/2024 Acquired hypothyroidism (ICD-10 - E03.9) 12/17/2024 Impaired fasting glucose (ICD-10 - R73.01) 12/17/2024 Vitamin D deficiency (ICD-10 - E55.9) 12/17/2024 Stage 3a chronic kidney disease (CKD) (ICD-10 - N18.31) 12/17/2024 Mixed hyperlipidemia (ICD-10 - E78.2) 12/17/2024 Tremor (ICD-10 - R25.1) 12/17/2024 PAF (paroxysmal atrial fibrillation) (ICD-10 - I48.0) 12/17/2024 BMI 32.0-32.9,adult (ICD-10 - Z68.32) Plan Of Treatment Medication Medication Name Sig Start Date Stop Date Notes Levothyroxine Sodium 25 MCG 1 tab(s) orally once a day Bisoprolol Fumarate 5 MG TAKE 1 TABLET B Y MOUTH ONCE DAILY AT BEDTIME Atorvastatin Calcium 10 MG Take 1 tablet by mouth once daily amLODIPine Besylate 10 MG 1 tablet Orally Once a day Next Appt Details Follow Up: 6 Months, Reason: Provider Name:Matthew Gipson , 2025 09:00:00 AM, [address] [facility], [address], [place], [place], [id number], Progress Notes * Andrea BOWERS CDOB: [birth year] (79 yo M)Acc No.[id number]:12/17/2024 Progress Notes Patient: Andrea ACOSTA Provider: Laurence Cazares M.D. :1945 A ge:78 Y S ex:Male Date:12/17/2024 Address:[address] [place], [place] [id number] Subjective: * Chief Complaints: * 1 . 6 month check. * HPI: C ardiology: 78 year old male presents with c/o Blood Pressure Elevated P t here for 6 mo f/u on hypertension, states he is doing well and does not have any concerns. c/o Hyperlipidemia P t is fasting today. * ROS: D ERMATOLOGY: no R octavio. [...] Total Knee Replacement- right 2006, Heart Cath 2007, RT Rotator Cuff Tear Repair 2010, LT Total Knee Replacement 2011, Knuckle Replacement 2013, Bilateral Cataract Removal 11/2014, C-Scope, Tubular Adenoma - Dr. Olivarez 08/2014, Heart Cath with 1 stent - Dr Madsen 12/23/2017, Skin Cancer Removal 09/2019, Cholecystectomy- [facility] 11/24/2019, prostatectomy 05/13, rotator cuff tear repair 12/15/2022. 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 * Family [...] % Powder as directed Orally , Taking Nitroglycerin 0.4 MG Tablet Sublingual 1 tablet as needed for chest pain may repeat every 5 minutes for a total of 3 doses Sublingual , Taking Eliquis 5 MG Tablet 1 tablet Orally Twice a day , Taking amLODIPine Besylate 10 MG Tablet 1 tablet Orally Once a day , Taking Levothyroxine Sodium 25 MCG Tablet 1 tab(s) orally once a day , Taking Esomeprazole Magnesium 40 MG Capsule Delayed Release 1 cap(s) orally once a day , Taking Metoclopramide HCl 5 MG Tablet 1 tablet before meals Orally Twice a day , Taking Bisoprolol Fumarate 5 MG Tablet TAKE 1 TABLET BY MOUTH ONCE DAILY AT BEDTIME , Taking Atorvastatin Calcium 10 MG Tablet Take 1 tablet by mouth once daily , Taking Vitamin D3 1.25 MG (14206 UT) Capsule Take 1 capsule by mouth once a week , Discontinued Albuterol Sulfate HFA 108 (90 Base) MCG/ACT Aerosol Solution 1 puff as needed Inhalation every 4 hrs , Discontinued Potassium Chloride ER 10 MEQ Capsule Extended Release 1 capsule with food Orally Once a day , Medication List reviewed and reconciled with the patient * Allergies: P enicillin: rash - Allergy. Objective: * Vitals: W t: 229, Temp: 98.0, BP: 122/70, HR: 58, Nurse: carlos, Ht: 70, BMI:32.85. * Examination: G eneral Examination: General Appearance: N AD, conversant. H EENT: r ight ear canal and TM normal. N eurologic Exam: m inimal hand tremors at rest, gait is normal.? Assessment: * Assessment: 1. H TN (hypertension) - I10 (Primary) 2 . A cquired hypothyroidism - E03.9? 3. I mpaired fasting glucose - R73.01 4 . V itamin D deficiency - E55.9 5 . S tage 3a chronic kidney disease (CKD) - N18.31 6. M ixed hyperlipidemia - E78.2 7 . T remor - R25.1 8 .?PAF (paroxysmal atrial fibrillation) - I48.0 9 . B SC 32.0-32.9,adult - Z68.32 Plan: * Treatment: Value Reference Range A /G Ratio 1.6 1.1-2.5 - * A lbumin 4.5 3.5-5.3 - g/dL * A lkaline Phosphatase 99 40-129 - IU/L * A LT (SGPT) 24 <5-55 - IU/L * A ST (SGOT) 24 <5-46 - IU/L * B ilirubin, Total 0.8 <0.2-1.2 - mg/dL * B UN 9 8-23 - mg/dL * C alcium 9.8 8.6-10.4 - mg/dL * C hloride 106 97-108 - mmol/L * C O2 24 22-32 - mmol/L * C reatinine 1.35 H 0.70-1.30 - mg/dL * G lucose 94 65-99 - mg/dL * P otassium 4.4 3.5-5.3 - mmol/L * S odium 141 135-145 - mmol/L * P rotein 7.3 6.0-8.3 - g/dL * e GFR by Creatinine 54 L >59 - mL/min/1.73m2 * Ana Torres 12/18/2024 08:2 9:54 AM > See phone encounter 2.?Acquired hypothyroidism? Continue Levothyroxine Sodium Tablet, 25 MCG, 1 tab(s), orally, once a day.?LAB: P-T4 Free (thyroxine) (Collection Date & Time - 12/17/2024 08:39 AM)? Normal* Value Reference Range T hyroxine Free (free T4) 1.07 0.86-1.76 - ng/d L * Ana Torres 12/18/2024 08:2 9:54 AM > See phone encounter ?LAB: P-TSH (Collection Date & Time - 12/17/2024 08:39 AM)?Normal* Value Reference Range T SH 3.89 0.43-5.25 - mU/L * Ana Torres 12/18/2024 08:2 9:54 AM > See phone encounter 3.?Impaired fasting glucose?LAB: Glucose (In-House) (Collection Date & Time - 12/17/2024)?92* Value Reference Range b lood glucose 92 74 - 106 mg/dL * Ana Hernandez 12/17/2024 10:1 0:08 AM > Provider reviewed results while patient in office. ?LAB: Glycohemoglobin A1c (in house) (Collection Date & Time - 12/17/2024)? 5.2%* Value Reference Range g lycohemoglobin 5.2% 5 - 6.5 % * DavidAna 12/17/2024 10:1 1:18 AM > Provider reviewed results while patient in office. 4.?Stage 3a chronic kidney disease (CKD)?LAB: P-Comprehensive Metabolic Panel (CMP) (Collection Date & Time - 12/17/2024 08:39 AM)?Cr 1.35, gfr 54* Value Reference Range A /G Ratio 1.6 1.1-2.5 - * A lbumin 4.5 3.5-5.3 - g/dL * A lkaline Phosphatase 99 40-129 - IU/L * A LT (SGPT) 24 <5-55 - IU/L * A ST (SGOT) 24 <5-46 - IU/L * B ilirubin, Total 0.8 <0.2-1.2 - mg/dL * B UN 9 8-23 - mg/dL * C alcium 9.8 8.6-10.4 - mg/dL * C hloride 106 97-108 - mmol/L * C O2 24 22-32 - mmol/L * C reatinine 1.35 H 0.70-1.30 - mg/dL * G lucose 94 65-99 - mg/dL * P otassium 4.4 3.5-5.3 - mmol/L * S odium 141 135-145 - mmol/L * P rotein 7.3 6.0-8.3 - g/dL * e GFR by Creatinine 54 L >59 - mL/min/1.73m2 * Ana Torres 12/18/2024 08:2 9:54 AM > See phone encounter ?LAB: P-Phosphorus (Collection Date & Time - 12/17/2024 08:39 AM)?Normal* Value Reference Range P hosphorus 3.4 2.5-4.5 - mg/dL * Ana Torres 12/18/2024 08:2 9:54 AM > See phone encounter 5.?Mixed hyperlipidemia? Continue Atorvastatin Calcium Tablet, 10 MG, Take 1 tablet by mouth once daily.?LAB: P-Comprehensive Metabolic Panel (CMP) (Collection Date & Time - 12/17/2024 08:39 AM)?Cr 1.35, gfr 54* Value Reference Range A /G Ratio 1.6 1.1-2.5 - * A lbumin 4.5 3.5-5.3 - g/dL * A lkaline Phosphatase 99 40-129 - IU/L * A LT (SGPT) 24 <5-55 - IU/L * A ST (SGOT) 24 <5-46 - IU/L * B ilirubin, Total 0.8 <0.2-1.2 - mg/dL * B UN 9 8-23 - mg/dL * C alcium 9.8 8.6-10.4 - mg/dL * C hloride 106 97-108 - mmol/L * C O2 24 22-32 - mmol/L * C reatinine 1.35 H 0.70-1.30 - mg/dL * G lucose 94 65-99 - mg/dL * P otassium 4.4 3.5-5.3 - mmol/L * S odium 141 135-145 - mmol/L * P rotein 7.3 6.0-8.3 - g/dL * e GFR by Creatinine 54 L >59 - mL/min/1.73m2 * Ana Torres 12/18/2024 08:2 9:54 AM > See phone encounter ?LAB: P-Lipid Panel (Collection Date & Time - 12/17/2024 08:39 AM)?trigs 198, hdl 31* Value Reference Range C holesterol / HDL Ratio 3.45 0.00-4.99 - Ratio * C holesterol 107 <200 - mg/dL * H DL Cholesterol 31 L >39 - mg/dL * L DL Cholesterol (Calculation) 36 <130 - mg/d L * L DL/HDL Ratio 1.2 <3.3 - Ratio * N on-HDL Cholesterol 76 <130 - mg/dL * T riglycerides 198 H <150 - mg/dL * Ana Torres 12/18/2024 08:2 9:54 AM > See phone encounter * Procedure Codes: G 2211 Complex e/[place], [address] GLUCOSE TEST, 47590 GLYCATED HEMOGLOBIN TEST, Modifiers: QW , 3044F HG A1C LEVEL LT 7.0%, G8950 PREHTN/HTN BP DOC INDCD F/U DOC, G8752 MOST RECENT SYSTOLIC BP < 140MM HG, G8754 MOST RECENT DIASTOLIC BP < 90MM HG * Follow Up: 6 Months * Images: Billing Information: * Visit Code: 25796 Office Visit, Est Pt., Level 4. * Procedure Codes: G2211 Complex e/[place]. [address] GLUCOSE TEST. 21122 GLYCATED HEMOGLOBIN TEST. Modifiers: QW 3044F HG A1C LEVEL LT 7.0%. G8950 PREHTN/HTN BP DOC INDCD F/U DOC. G8752 MOST RECENT SYSTOLIC BP < 140MM HG. G8754 MOST RECENT DIASTOLIC BP < 90MM HG. * Electronic signature of Irina Cazares MD on 07/01/2025 at 07:43 PM EST Sign off status: Pending * Provider: Laurence Cazares M.D. Date: 0 12/17/2024 Generated for Cele [employer]iz/Jake/eTransmitting on: 1 09/01/2024 07:43 PM EST History and Physical Notes * HPI (History of Present Illness) Category Sub-Category Detail Notes Category Not es Cardiology Blood Pressure Elevated Pt here for 6 mo f/u on hypertension, states he is doing well and does not have any concerns Hyperlipidemia Pt is fasting today Examination Category Sub-Category Detail Notes Category Not es General Examination HEENT: right ear canal and T M normal General Appearance: NAD, conversant Neurologic Exam: minimal hand tremors at rest, gait is normal
--- OUTSIDE RECORDS SUMMARY | 2025-04-23 04:15 | XMS_ITS ---
Author Organization [facility] Address [address] [place] [id number] Care Team Providers Care Lvn Name Role Phone Matthew Cazares Primary Care Provider [phone] DAVID BARTON Unavailable Unavailable REASON FOR VISIT flu shot Medications Medication SIG (Take, Route, Frequency, Duration) Notes Start Date End Date Status Bisoprolol Fumarate 5 MG 1 tablet at bed time Orally Once a day; Duration: 90 days Active Vitamin D3 1.25 MG (94621 UT) 1 capsule Orally once a week; Duration: 90 days Active Atorvastatin Calcium 10 MG 1 tablet Oral ly Once a day; Duration: 90 days Active Levothyroxine Sodium 25 MCG 1 tab(s) ora lly once a day; Duration: 90 days Active amLODIPine Besylate 10 MG 1 tablet Orall y Once a day; Duration: 90 days Active Nitroglycerin 0.4 MG 1 tablet as needed for chest pain may repeat every 5 minutes for a total of 3 doses Sublingual 05/07/2024 Active Metamucil Smooth Texture 58.6 % as directed Orally 12/28/2023 Active Blood Pressure Monitor - as directed 07/20/2023 Active Metoclopramide HCl 5 MG 1 tablet before meals Orally Twice a day; Duration: 90 days Active Eliquis 5 MG 1 tablet Orally Twic e a day; Duration: 90 days Active Aspirin Adult Low Dose 81 MG 1 tab(s) or ally once a day Active Esomeprazole Magnesium 40 MG 1 capsule 1 /2 to 1 hour before morning meal Orally Once a day; Duration: 90 days Active Immunizations Vaccine Route Administration Date Status Comme nts Fluzone High Dose (65yr and older) IM Intramuscular 04/23/2025 Administered Encounters Encounter Location Date Provider Diagnosis [facility] [address] [place] [id number] 04/23/2025 Matthew Cazares Encounter for immunization Z23 Assessments Encounter Date Diagnosis (ICD Code) Assessment Notes Treatment Notes Treatment Clinical Notes Section Notes 04/23/2025 Encounter for immunization (ICD-10 - Z23) Plan Of Treatment Next Appt Details Provider Name:Matthew Gipson ry, 2025 09:00:00 AM, [address], [address], [place], [phone], Progress Notes * JESUSAndrea CDOB: [birth year] (79 yo M)Acc No.[id number]:04/23/2025 Patient: Andrea ACOSTA Provider: Laurence Cazares M.D. :1945 A ge:79 Y S ex:Male Date:04/23/2025 Address:[address] [place], [place] [id number] Subjective: * Chief Complaints: * 1 . Flu shot. * Medical History: * Medications: T aking Aspirin Adult Low [...] tablet Orally Twice a day , Taking Metoclopramide HCl 5 MG Tablet 1 tablet before meals Orally Twice a day , Taking amLODIPine Besylate 10 MG Tablet 1 tablet Orally Once a day , Taking Levothyroxine Sodium 25 MCG Tablet 1 tab(s) orally once a day , Taking Atorvastatin Calcium 10 MG Tablet 1 tablet Orally Once a day , Taking Vitamin D3 1.25 MG (29124 UT) Capsule 1 capsule Orally once a week , Taking Bisoprolol Fumarate 5 MG Tablet 1 tablet at bedtime Orally Once a day , Taking Esomeprazole Magnesium 40 MG Capsule Delayed Release 1 capsule 1/2 to 1 hour before morning meal Orally Once a day , Medication List reviewed and reconciled with the patient Objective: * Vitals: Assessment: * Assessment: 1. E ncounter for immunization - Z23 (Primary) Plan: * Treatment: * Immunizations: Fluzone High Dose (65yr and older) : 0.5 mL (Route: Intramuscular) given by Joana Jane on Left Deltoid (Encounter for immunization) * Images: Billing Information: * Visit Code: * Procedure Codes: * Electronic signature of Irina Cazares MD on 07/01/2025 at 07:46 PM EST Sign off status: Pending * Provider: Laurence Cazares M.D. Date: Generated for Cele ortiz/Jake/Aleisha on: 09/01/2024 07:46 PM EST
--- OUTSIDE RECORDS SUMMARY | 2025-04-27 04:45 | XMS_ITS ---
Author Organization [facility] Address [address] [place] [phone] Care Team Providers Care Munitions Worker Name Role Phone Debora Matthew Primary Care Provider [phone] DAVID BARTON Unavailable Unavailable Allergies Allergen (clinical drug ingredient) Drug/Non Drug Allergy documented on EMR Reaction Allergy Type Onset Date Status Penicillin rash Drug Allergy Active Results Component Value Reference Range Notes X ray : Knee, right Reviewed date:04/28/2025 01:36:57 PM Interpretation:Negative Performing Lab: Notes/Report: Negative REASON FOR VISIT right knee pain Medications Medication SIG (Take, Route, Frequency, Duration) Notes Start Date End Date Status amLODIPine Besylate 10 MG 1 tablet Orall y Once a day; Duration: 90 days Not-Takin g Nitroglycerin 0.4 MG 1 tablet as needed for chest pain may repeat every 5 minutes for a total of 3 doses Sublingual 05/07/2024 Active Metamucil Smooth Texture 58.6 % as directed Orally 12/28/2023 Active Metoclopramide HCl 5 MG 1 tablet before meals Orally Twice a day; Duration: 90 days Active Eliquis 5 MG 1 tablet Orally Twic e a day; Duration: 90 days Active Bisoprolol Fumarate 5 MG 1 tablet at bed time Orally Once a day; Duration: 90 days Active Blood Pressure Monitor - as directed 07/20/2023 Active Aspirin Adult Low Dose 81 MG 1 tab(s) orally once a day Active Esomeprazole Magnesium 40 MG 1 capsule 1/2 to 1 hour before morning meal Orally Once a day; Duration: 90 days Active Voltaren 1 % as directed External ly 3 times a day 04/27/2025 Active Atorvastatin Calcium 10 MG 1 tablet Oral ly Once a day; Duration: 90 days Active Levothyroxine Sodium 25 MCG 1 tab(s) orally once a day; Duration: 90 days Active Vitamin D3 1.25 MG (98517 UT) 1 capsule Orally once a week; Duration: 90 days Active Vital Signs Blood pressure systolic 120 mm Hg 04/27/20 Blood pressure diastolic 80 mm Hg 025 Heart Rate 64 /min 04/27/2025 Height 70 in 04/27/2025 Weight 219.2 lbs 04/27/2025 BMI 31.45 kg/m2 04/27/2025 Encounters Encounter Location Date Provider Diagnosis [facility] [address] [facility] [address] [facility] [address] [place] [id number] 04/27/2025 Matthew Cazares Acute pain of right knee M25.561 Assessments Encounter Date Diagnosis (ICD Code) Assessment Notes Treatment Notes Treatment Clinical Notes Section Notes 04/27/2025 Acute pain of right knee (ICD-10 - M25.561) Plan Of Treatment Medication Medication Name Sig Start Date Stop Date Notes Voltaren 1 % as directed Externally 3 times a day 04/27/20 25 Next Appt Details Follow Up: via phone to repo rt test results, Reason: Provider Name:Matthew Gipson ry, 2025 09:00:00 AM, [address] [facility] [address] [facility], [address], [place], [id number], Progress Notes * Andrea BOWERS CDOB: [birth year] (79 yo M)Acc No.[id number]:04/27/2025 Progress Notes Patient: Andrea ACOSTA Provider: Laurence Cazares M.D. :1945 A ge:79 Y S ex:Male Date:04/27/2025 Address:[address] [place] [address] [id number] Subjective: * Chief Complaints: * 1 . Right knee pain. * HPI: K nee/Jefferson: 79 year old male presents with c/o knee pain P t presents today with c/o rt knee pain. Pt sts when he is walking he g ets a sharp pain and sts his knee will give out and sts he has to catch himself from falling. Pt sts he has had 10 surgeries total on the rt knee over the years. Pt sts this started about a month ago and sts it is getting worse. Pt sts this happened to him 4 times on Sunday, and sts he sat most of the day yesterday. * ROS: D ERMATOLOGY: no R octavio. [...] Madsen 12/23/2017, Skin Cancer Removal 09/2019, Cholecystectomy- [facility] 11/24/2019, prostatectomy 05/13, rotator cuff tear repair 12/15/2022. 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 * Family [...] meals Orally Twice a day , Taking Levothyroxine Sodium 25 MCG Tablet 1 tab(s) orally once a day , Taking Atorvastatin Calcium 10 MG Tablet 1 tablet Orally Once a day , Taking Vitamin D3 1.25 MG (27316 UT) Capsule 1 capsule Orally once a week , Taking Bisoprolol Fumarate 5 MG Tablet 1 tablet at bedtime Orally Once a day , Taking Esomeprazole Magnesium 40 MG Capsule Delayed Release 1 capsule 1/2 to 1 hour before morning meal Orally Once a day , Not-Taking amLODIPine Besylate 10 MG Tablet 1 tablet Orally Once a day , Medication List reviewed and reconciled with the patient * Allergies: P enicillin: rash - Allergy. Objective: * Vitals: W t: 219.2, Temp: 98.2, BP: 120/80, HR: 64, Nurse: , Ht: 70, BMI:31.45. * Examination: G eneral Examination: General Appearance: N AD. K nee / Jefferson: Knee: r ight. I nspection: n o swelling or redness, well healed surgical scar present. P alpation: m inimal tenderness over the medial joint line. C ollateral ligaments: i ntact medially and laterally. R leana of motion: n ormal flexion and extension. Assessment: * Assessment: 1. A cute pain of right knee - M25.561 (Primary) Plan: * Treatment: * Procedure Codes: G 2211 Complex e/m visit add on * Follow Up: v ia phone to report test results * Images: Billing Information: * Visit Code: 75327 Office Visit, Est Pt., Level 3. * Procedure Codes: G2211 Complex e/m visit add on. * Electronic signature of Irina Cazares MD on 07/01/2025 at 07:43 PM EST Sign off status: Pending * Provider: Laurence Cazares M.D. Date: 1 Generated for Cele ortiz/Jake/Florransmitting on: 09/01/2024 07:43 PM EST History and Physical Notes * HPI (History of Present Illness) Category Sub-Category Detail Notes Category Not es Knee/Jefferson knee pain Pt presents toda y with c/o rt knee pain. Pt sts when he is walking he gets a sharp pain and sts his knee will give out and sts he has to catch himself from falling. Pt sts he has had 10 surgeries total on the rt knee over the years. Pt sts this started about a month ago and sts it is getting worse. Pt sts this happened to him 4 times on Sunday, and sts he sat most of the day yesterday Examination Category Sub-Category Detail Notes Category Not es General Examination General Appearance: NAD Knee / Jefferson Palpation: minimal tenderne ss over the medial joint line Knee: right Inspection: no swelling or redne ss, well healed surgical scar present Range of motion: normal flexion and e xtension Collateral ligaments: intact medially an d laterally
--- OUTSIDE RECORDS SUMMARY | 2025-05-19 07:05 | XMS_ITS | Encounter Summary ---
Author Organization [facility] Address [address] [place] [address] Care Team Providers Care Research Recruiter Name Role Phone Matthew Cazares MD Primary Care Provider [phone] Encounter Details Date Type Department Care Team (Latest Contact Info) Description 05/19/2025 8:05 AM EDT - 05/19/2025 11:59 PM EDT Hospital Encounter Medical Office Building Radiology [facility] [place] [address] Acute pain of right knee Discharge Disposition: Home or Self Care Social History Tobacco Use Types Packs/Day Years Used Date Smoking Tobacco: Never Passive Smoke Exposure: Never Smokeless Tobacco: Never Alcohol Use Standard Drinks/Week Comments Never 0 (1 standard drink = 0.6 oz pur e alcohol) Sex and Gender Information Value Date Recorded Sex Assigned at Not on file Legal Sex Male 7:54 PM EDT Gender Identity Not on file Sexual Orientation Not on file documented as of this encounter Medications at Time of Discharge amLODIPine (Norvasc) 10 MG tablet Take 1 tablet by mouth daily. aspirin 81 MG EC tablet Take 1 tablet by mouth daily. atorvastatin (Lipitor) 10 MG tablet Take 1 tablet by mouth daily. bisoprolol (Zebeta) 5 MG tablet 1 (one) time each day at the same time. cholecalciferol (Vitamin D-3) 1.25 MG (22864 UT) capsule 1 capsule. Eliquis 5 MG tablet every 12 hours. nitroglycerin (NitrolinguaL) 0.4 MG/SPRAY spray Place 1 spray under the tongue every 5 minutes as needed for chest pain. promethazine-dext romethorphan (Phenergan-DM) 6.25-15 MG/5ML syrup every 6 hours. documented as of this encounter Plan of Treatment Not on file documented as of this encounter Procedures Procedure Name Priority Date/Time Associated Diagnosis Comments XR KNEE RIGHT 1 OR 2 VIEWS Routine 05/19/2025 8:13 AM EDT Acute pain of right knee documented in this encounter Results * XR Knee Right 1 or 2 Views (05/19/2025 8:13 AM EDT) Anatomical Region Laterality Modality Lower Extremities, Knee Right Digital Radiography Impressions 05/19/2025 8:26 AM EDT Redemonstration of total knee arthroplasty with no definite evidence for loosening or failure. Given lack of prior for comparison if clinical concern for loosening follow-up be considered to assess stability. CRITICAL RESULT: No. COMMUNICATION: Per this written report. By electronically signing this report, I, the attending physician, attest that I have personally reviewed the images/data for the above examination(s) and agree with the final edited report. Drafted by Juliana Agustin MD on 05/19/2025 8:19 AM Final report signed by Pako Nielsen on 05/19/2025 8:26 AM Narrative 05/19/2025 8:26 AM EDT CLINICAL INDICATION: prosthetic instability TECHNIQUE: XR KNEE RIGHT 1 OR 2 VIEWS COMPARISON: April 27, 2025 FINDINGS: No acute fracture or dislocation. Redemonstration of right total knee arthroplasty without definite evidence of hardware loosening or failure in the lateral view. No significant joint effusion. Probable fabella. Procedure Note Pako Nielsen MD - 05/19/2025 CLINICAL INDICATION: prosthetic instability TECHNIQUE: XR KNEE RIGHT 1 OR 2 VIEWS COMPARISON: April 27, 2025 FINDINGS: No acute fracture or dislocation. Redemonstration of right total kneearthroplasty without definite evidence of hardware loosening or failure inthe lateral view. No significant joint effusion. Probable fabella. IMPRESSION: Redemonstration of total knee arthroplasty with no definite evidence forloosening or failure. Given lack of prior for comparison if clinicalconcern for loosening follow-up be considered to assess stability. CRITICAL RESULT: No. COMMUNICATION: Per this written report. By electronically signing this report, I, the attending physician, attestthat I have personally reviewed the images/data for the aboveexamination(s) and agree with the final edited report. Drafted by Juliana Agustin MD on 05/19/2025 8:19 AM Final report signed by Pako Nielsen on 05/19/2025 8:26 AM us Deandre Oneal MD IMG XR PROCEDURES Final R esult documented in this encounter Visit Diagnoses Diagnosis Acute pain of right knee documented in this encounter Additional Health Concerns Assessment Noted Time A fall risk assessment has been complete d for the patient 05/19/2025 7:48 AM EDT A Body Mass Index follow-up plan has been documented for the patient 05/19/2025 10:00 AM EDT documented as of this encounter Care Teams Research Recruiter Relationship Specialty Start Date End Date Matthew Cazares MD [address] [place] [address] PCP - General 12/03/20 documented as of this encounter
--- OUTSIDE RECORDS SUMMARY | 2025-05-19 07:10 | XMS_ITS | Encounter Summary ---
Author Organization [facility] Address [address] [place] [address] Care Team Providers Care Pit Crane Operator Name Role Phone Matthew Cazares MD Primary Care Provider [phone] Reason for Referral * Consultation (Routine) - Authorized Specialty Diagnoses / Procedures Referred By Onesimo key Referred To Contact Physical Therapy Diagnoses Acute pain of right knee Deandre Oneal MD [address] [place] [address] Phone: tel: fax: Referral ID Status Reason Start Date Expiration Date Visits Requested Visits Authorized [id number] Authorized Consult and Treat 05/19/2025 11/18/2026 1 1 Scheduling Instructions Two thousand seven, right total knee arthroplasty, 2 months of right pes anserinus bursitis Reason for Visit * Reason Comments Pain * Consultation (Routine) - Closed Specialty Diagnoses / Procedures Referred By Onesimo key Referred To Contact Orthopaedic Surgery Diagnoses Pain due to internal orthopedic prosthetic devices, implants and grafts, initial encounter ([facility]) Presence of right artificial knee joint Arvind Muhammad PA [address] [place] [address] Phone: tel: fax: [facility] [address] [place] [address] Phone: tel: fax: Referral ID Status Reason Start Date Expiration Date V isits Requested Visits Authorized [id number] Closed Specialty Services Required 05/12/2025 11/11/2026 1 1 Encounter Details Date Type Department Care Team (Late st Contact Info) Description 05/19/2025 8:10 AM EDT Office Visit Medical Office Building [facility] [address] [place] [address] Deandre Oneal MD [address] [place] [address] Acute pain of right knee (Primary Dx) Social History Tobacco Use Types Packs/Day Years Used Date Smoking Tobacco: Never Passive Smoke Exposure: Never Smokeless Tobacco: Never Tobacco Cessation:Counseling Given: No Alcohol Use Standard Drinks/Week Comments Never 0 (1 standard drink = 0.6 oz pur e alcohol) Sex and Gender Information Value Date Recorded Sex Assigned at Not on file Legal Sex Male 7:54 PM EDT Gender Identity Not on file Sexual Orientation Not on file documented as of this encounter Last Filed Vital Signs Vital Sign Reading Time Taken Comments Blood Pressure 156/95 05/19/2025 7:48 AM EDT Pulse 56 05/19/2025 7:48 AM EDT Temperature - - Respiratory Rate 18 05/19/2025 7:48 AM EDT Oxygen Saturation 94% 05/19/2025 7:48 AM EDT Inhaled Oxygen Concentration - - Weight 97.5 kg (215 lb) 05/19/2025 7:48 AM EDT Height 175.3 cm (5' 9 ) 05/19/2025 7:48 AM EDT Body Mass Index 31.75 05/19/2025 7:48 AM EDT documented in this encounter Miscellaneous Notes * Progress Notes - Deandre Rincon MD - 05/19/2025 8:10 AM EDT This is a 79 y.o. male who presents to the clinic today for evaluation of right medial-sided knee pain that has been present for 2 months without any inciting trauma. Patient reports subjective pain worsened with activity and perceptive instability worsened when carrying his grandchildren, patient denies any effusion, denies. Patient had his right knee arthroplasty performed [address] Giancarlo Bustillo at [facility]. He has been ambulating well since the procedure, he has not had any further physical therapy since recent episode of new instability and medial-sided knee pain. Medical History: Past Medical History[1] Patient's medical history is significant for atrial fibrillation on Eliquis, asthma, stomach ulcers, high cholesterol, hyperlipidemia, hypertension Surgical History: Surgical History[2] Right total knee arthroplasty Social History: Social History[3] Smoke, does not drink Review of Systems: NO FCNS Physical Examination: Vitals: 05/19/25 0748 BP: (!) 156/95 Pulse: 56 Resp: 18 SpO2: 94% Patient has range of motion of the right knee from 5?? short of full extension to 100?? of flexion,stable to varus valgus stress with some opening at 30?? and 90??, well-healed surgical incision Patient is tender to palpation of the pes anserinus. Imaging: AP of the right knee obtained at the outside hospital was independently reviewed and interpreted byme in addition to the lateral of the right knee which was obtained in clinic today was independently reviewed and interpreted by me which demonstrates No radiographic obvious signs of loosening of the AP, there appears to be a gap between the prosthesis in the anterior cortex of the femur, well corticated, unlikely to represent new loosening Assessment: This is a 79 y.o. male with right medial-sided knee pain in the setting of right total knee arthroplasty with tenderness palpation of the pes anserinus. Patient will continue with OTC alleve and physical therapy prescription has been provided to the patient Plan: PT PRN OTC NSAID [1] No past medical history on file. [2] No past surgical history on file. [3] Social History Socioeconomic History Marital status: Tobacco Use Smoking status: Never Passive exposure: Never Smokeless tobacco: Never Vaping Use Vaping status: Never Used Substance and Sexual Activity Alcohol use: Never Drug use: Never Social Drivers of Health Food Insecurity: No Food Insecurity (08/10/2023) Received from [employer] ([place], [place], [place], [place]) Food Insecurity Food run out past 12 months: Not on file Food did not last past 12 months: Not on file Social Connections: Low Risk (08/10/2023) Received from [employer] ([place], [place], [place], [place]) Family and Community Support Help with Day to Day Activities: Not on file Feeling Lonely or Isolated: Not on file Cosigned by Deandre Oneal MD at 05/19/2025 8:43 AM EDT Associated attestation - Deandre Oneal MD - 05/19/2025 8:43 AM EDT I saw and evaluated the patient with the resident/fellow. I discussed the case with the resident/fellow and agree with the findings and plan as documented. documented in this encounter Plan of Treatment Scheduled Referrals Name Type Priority Associated Diagnoses Order Schedule Physical Therapy (outgoing) Outpatient Referral Routine Acute pain of right knee 1 Occurrences starting 05/19/2025 until 11/20/2026 documented as of this encounter Results * XR Knee Right [...] signing this report, I, the attending physician, stephen I have personally reviewed the images/data for the aboveexamination(s) and agree with the final edited report. Drafted by Juliana Agustin MD on 05/19/2025 8:19 AM Final report signed by Pako Nielsen on 05/19/2025 8:26 AM us Deandre Oneal MD IMG XR PROCEDURES Final R esult documented in this encounter Visit Diagnoses Diagnosis Acute pain of right knee- Primary Acute pain of right knee documented in this encounter Additional Health Concerns Assessment Noted Time A fall risk assessment has been complete d for the patient 05/19/2025 7:48 AM EDT A Body Mass Index follow-up plan has been documented for the patient 05/19/2025 10:00 AM EDT documented as of this encounter Care Teams Pit Crane Operator Relationship Specialty Start Date End Date Matthew Cazares MD [address] [place] [address] PCP - General 12/03/20 documented as of this encounter
--- OUTSIDE RECORDS SUMMARY | 2025-06-22 04:00 | XMS_ITS ---
Author Organization [facility] Address [address] [place] [id number] Care Team Providers Care Blade Boner Name Role Phone Matthew Cazares Primary Care Provider ORALIA, DAVID Unavailable Unavailable Allergies Allergen (clinical drug ingredient) Drug/Non Drug Allergy documented on EMR Reaction Allergy Type Onset Date Status Penicillin rash Drug Allergy Active Results Component Value Reference Range Notes CBC Venipuncture (in house) Reviewed date:06/23/2025 09:40:30 AM Interpretation:Normal Performing Lab: Notes/Report: Normal wbc 5.7 3.5 - 10 lymph 30.6% 15 - 50 mid 6.6% 2 - 15 gran 62.8% 35 - 80 rbc 5.25 3.5 - 5.5 hgb 16.0 11.5 - 16.5 hct 47.6 35 - 55 mcv 90.6 75 - 100 mch 30.5 25 - 35 mchc 33.7 31 - 38 platlet 177 100 - 400 P-Comprehensive Metabolic Pa alysha (CMP) Reviewed date:06/23/2025 09:40:30 AM Interpretation:eGFR 56 Performing Lab: Notes/Report: Test performed by [facility] [employer] [address] [place] [address] , [address], [place] [address] Pipo Hernandez MD, PhD, [facility], [employer] CLIA: [id number] Sodium 140 135-145 mmol/L Potassium 4.3 3.5-5.3 mmol/L Chloride 106 97-108 mmol/L CO2 23 20-32 mmol/L Glucose 96 65-99 mg/dL BUN 14 8-23 mg/dL Creatinine 1.30 0.70-1.30 mg/dL Calcium 9.6 8.6-10.4 mg/dL eGFR by Creatinine 56 >59 mL/min/1.73m2 Protein 7.2 6.0-8.3 g/dL Albumin 4.2 3.5-5.3 g/dL Alkaline Phosphatase 86 44-138 IU/L ALT (SGPT) 22 <5-55 IU/L AST (SGOT) 20 <5-46 IU/L Bilirubin, Total 0.7 <0.2-1.2 mg/dL A/G Ratio 1.4 1.1-2.5 P-T4 Free (thyroxine) Reviewed date:06/23/2025 09:40:30 AM Interpretation:Normal Performing Lab: Notes/Report: Test performed by [facility] [address] [place] [address] [place] [address] Pipo Hernandez MD, PhD, [facility], [employer] CLIA: [id number] Thyroxine Free (free T4) 0.98 0.86-1.76 ng/dL P-Lipid Panel Reviewed date:06/23/2025 09:40:30 AM Interpretation:Trigs 235, HDL 32 Performing Lab: Notes/Report: Test performed by [facility] [address] [place] [address] [place] [address] Pipo Hernandez MD, PhD, [facility], [employer] CLIA: [id number] Lipid Panel Footnote See Below *Based on optimal reference values. Please refer to the DOS for additional information regarding diagnostic lipid reference ranges, patient management based on the recently updated lipid guidelines ([place] [employer]/[place] [employer] Association Task Force on Clinical Practice Guidelines (2018), and pediatric diagnostic lipid reference values (<18 years old). Total Cholesterol 120 <200 mg/dL Triglycerides 235 <150 mg/dL HDL Cholesterol 32 >40 mg/dL Total Cholesterol / HDL Ratio* 3.75 <4.99 Ratio Non-HDL Cholesterol 88 <130 mg/dL LDL Cholesterol (Calculation) 41 <100 mg/dL LDL / HDL Ratio* 1.28 <2.49 Ratio LDL Cholesterol Patient History Test Date: 07/18/2024 LDL Results: 29 Units: mg/dL % Change: -30% Test Date: 12/17/2024 LDL Results: 36 Units: mg/dL % Change: +24% Test Date: 06/22/2025 LDL Results: 41 Units: mg/dL % Change: +13% P-Phosphorus Reviewed date:06/23/2025 09:40:30 AM Interpretation:Normal Performing Lab: Notes/Report: Test performed by [facility] [address], [place] [address] Nefazar Hernandez MD, PhD, [employer], [employer] CLIA: [id number] Phosphorus 3.0 2.5-4.5 mg/dL P-PSA Reviewed date:06/23/2025 09:40:30 AM Interpretation:Normal Performing Lab: Notes/Report: Test performed by [facility] [address] [place] [address] , [address], [place] [address] Pipo Hernandez MD, PhD, [facility], [employer] CLIA: [id number] PSA <0.014 <4.00 ng/mL Please note this is an ultrasensitive PSA assay with a lower limit of detection of 0.014 ng/mL. This test is performed by the [employer] ECLIA methodology. Values obtained with different assay methods or kits cannot be directly compared. P-TSH Reviewed date:06/23/2025 09:40:30 AM Interpretation:7.10 Performing Lab: Notes/Report: Test performed by [facility] [address] [place] [address] , [place] [address] Pipo Hernandez MD, PhD, [facility], [employer] CLIA: [id number] TSH 7.10 0.43-5.25 mU/L P-Microalbumin/Creatinine, R andom Urine Sample Reviewed date:06/23/2025 09:40:30 AM Interpretation:Normal Performing Lab: Notes/Report: Test performed by [facility] [address] [place] [address] [address], [place] [address] Pipo Hernandez MD, PhD, [facility], [employer] CLIA: [id number] Albumin/Creatinine Ratio, Urine 4 0-30 ug/mg Microalbumin, Urine, Random 1.1 Creatinine, Urine 270.3 P-Vitamin D 25-Hydroxy Reviewed date:06/23/2025 09:40:30 AM Interpretation:Normal Performing Lab: Notes/Report: Test performed by [facility] [address] [place] [address] [address], [place] [address] Pipo Hernandez MD, PhD, [facility], [employer] CLIA: [id number] Vitamin D 25-Hydroxy 75.7 30.0-100.0 ng/mL Interpretation of Vitamin D 25 OH: < 20 ng/mL - Deficiency 20 - 29 ng/mL - Insufficiency 30 - 100 ng/mL - Sufficiency > 100 ng/mL - Super-therapeutic- toxicity may occur above this level. Clinical correlation required. REASON FOR VISIT 6 months Medications Medication SIG (Take, Route, Frequency, Duration) Notes Start Date End Date Status Bisoprolol Fumarate 5 MG TAKE 1 TABLET B Y MOUTH ONCE DAILY AT BEDTIME; Duration: 90 Active Atorvastatin Calcium 10 MG Take 1 tablet by mouth once daily; Duration: 90 Active Vitamin D3 1.25 MG (67364 UT) Take 1 capsule by mouth once a week; Duration: 90 Active Voltaren 1 % as directed External ly 3 times a day 04/27/2025 Active Levothyroxine Sodium 25 MCG 1 tab(s) ora lly once a day; Duration: 90 days Active Esomeprazole Magnesium 40 MG 1 capsule 1 /2 to 1 hour before morning meal Orally Once a day; Duration: 90 days Active Eliquis 5 MG 1 tablet Orally Twic e a day; Duration: 90 days Active Metoclopramide HCl 5 MG 1 tablet before meals Orally Twice a day; Duration: 90 days Active Nitroglycerin 0.4 MG 1 tablet as needed for chest pain may repeat every 5 minutes for a total of 3 doses Sublingual 05/07/2024 Active Metamucil Smooth Texture 58.6 % as directed Orally 12/28/2023 Active Aspirin Adult Low Dose 81 MG 1 tab(s) or ally once a day Active Blood Pressure Monitor - as directed 07/20/2023 Active Problems Problem Type SNOMED Code ICD Code Onset Dates Problem Status W/U Status Risk Notes Problem Hypersomnia (81931758) Hypersomnia (G47.10) Active confirmed Vital Signs Blood pressure systolic 118 mm Hg 06/22/20 25 Blood pressure diastolic 76 mm Hg 025 Heart Rate 58 /min 06/22/2025 Height 70 in 06/22/2025 Weight 215.8 lbs 06/22/2025 BMI 30.96 kg/m2 06/22/2025 Encounters Encounter Location Date Provider Diagnosis [facility] [address] [place], [place] [id number] 06/22/2025 Matthew Cazares HTN (hypertension) I 10 ; Acquired hypothyroidism E03.9 ; Stage 3a chronic kidney disease N18.31 ; Hyperlipidemia, unspecified hyperlipidemia type E78.5 ; Gastroesophageal reflux disease, esophagitis presence not specified K21.9 ; Hypersomnia G47.10 ; Snoring R06.83 ; Prostate cancer screening Z12.5 ; Vitamin D deficiency E55.9 and Tremor R25.1 Assessments Encounter Date Diagnosis (ICD Code) Assessment Notes Treatment Notes Treatment Clinical Notes Section Notes 06/22/2025 HTN (hypertension) (ICD-10 - I10) 06/22/2025 Acquired hypothyroidism (ICD-10 - E03.9) 06/22/2025 Stage 3a chronic kidney disease (ICD-10 - N18.31) 06/22/2025 Hyperlipidemia, unspecified hyperlipidemia type (ICD-10 - E78.5) 06/22/2025 Gastroesophageal reflux disease, esophagitis presence not specified (ICD-10 - K21.9) 06/22/2025 Hypersomnia (ICD-10 - G47.10) 06/22/2025 Snoring (ICD-10 - R06.83) 06/22/2025 Prostate cancer screening (ICD-10 - Z12.5) 06/22/2025 Vitamin D deficiency (ICD-10 - E55.9) 06/22/2025 Tremor (ICD-10 - R25.1) Plan Of Treatment Pending Test Test Name Order Date sleep study 06/22/2025 Next Appt Details Follow Up: via phone to repo rt test results,6 Months, Reason: Provider Name:Matthew Gipson ry, 2025 09:00:00 AM, [address] [facility] [address] [facility], [address], [place], [place], [id number], Progress Notes * Andrea BOWERS CDOB: [birth year] (79 yo M)Acc No.[id number]:06/22/2025 Progress Notes Patient: Andrea ACOSTA Provider: Laurence Cazares M.D. :1945 A ge:79 Y S ex:Male Date:06/22/2025 Address:[address] [place], [place] [address] [id number] Subjective: * Chief Complaints: * 1 . 6 months. * HPI: C ardiology: 79 year old male presents with c/o Blood Pressure Elevated P t here for 6 mo checkup on hypertension. Pt states he is doing well and does not have any concerns at this time. c/o Hyperlipidemia P t is fasting today. * ROS: N EUROLOGY: Tremor b oth hands, worse with movement. * Medical History: C oronary Artery Disease, [...] [place] 12/23/2017, Skin Cancer Removal 09/2019, Cholecystectomy- [facility] 11/24/2019, prostatectomy 05/13, rotator cuff tear repair 12/15/2022. 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 * Family History: F ather: , Heart Attack, hypertension. M other: alive, COPD. S iblings: Sister- heart disease. 1 brother(s) , 2 sister(s) . 1 son(s) , 2 daughter(s) - healthy. . * Social History: C URRENT TOBACCO USE: No S moking Status: Patient does NOT smoke, [...] morning meal Orally Once a day , Taking Voltaren 1 % Gel as directed Externally 3 times a day , Taking Atorvastatin Calcium 10 MG Tablet Take 1 tablet by mouth once daily , Taking Vitamin D3 1.25 MG (51137 UT) Capsule Take 1 capsule by mouth once a week , Taking Bisoprolol Fumarate 5 MG Tablet TAKE 1 TABLET BY MOUTH ONCE DAILY AT BEDTIME , Discontinued amLODIPine Besylate 10 MG Tablet 1 tablet Orally Once a day , Medication List reviewed and reconciled with the patient * Allergies: P enicillin: rash - Allergy. Objective: * Vitals: W t: 215.8, Temp: 98.0, BP: 118/76, HR: 58, Nurse: carlos, Ht: 70, BMI:30.96. * Examination: G eneral Examination: General Appearance: N AD, conversant. H eart: R SR.?Lungs: c lear to auscultation. N eurologic Exam: m inimal hand tremors at rest, gait is normal. P eripheral pulses: n ormal (2+) bilaterally. E xtremities: n o leg edema. Assessment: * Assessment: 1. H TN (hypertension) - I10 (Primary) 2 . A cquired hypothyroidism - E03.9? 3. S tage 3a chronic kidney disease - N18.31 4 . H yperlipidemia, unspecified hyperlipidemia type - E78.5 5 . G astroesophageal reflux disease, esophagitis presence not specified - K21.9 6 . H ypersomnia - G47.10 ? 7 . S noring - R06.83 8 . P rostate cancer screening - Z12.5 9 . V itamin D deficiency - E55.9 1 0. T remor - R25.1 ? Plan: * Treatment: Value Reference Range A lbumin/Creatinine Ratio, Urine 4 0-30 - ug /mg * C reatinine, Urine 270.3 - mg/dL * M icroalbumin, Urine, Random 1.1 - mg/dL * Becki Reyes 06/23/2025 09: 40:21 AM EST > See phone encounter 2.?Acquired hypothyroidism?LAB: P-T4 Free (thyroxine) (Collection Date & Time - 06/22/2025 08:30 AM)? Normal* Value Reference Range T hyroxine Free (free T4) 0.98 0.86-1.76 - ng/d L * Becki Reyes 06/23/2025 09: 40:21 AM EST > See phone encounter ?LAB: P-TSH (Collection Date & Time - 06/22/2025 08:30 AM)?7.10* Value Reference Range T SH 7.10 H 0.43-5.25 - mU/L * Becki Reyes 06/23/2025 09: 40:21 AM EST > See phone encounter 3.?Stage 3a chronic kidney disease?LAB: P-Comprehensive Metabolic Panel (CMP) (Collection Date & Time - 06/22/2025 08:30 AM)?eGFR 56* Value Reference Range A /G Ratio 1.4 1.1-2.5 - * A lbumin 4.2 3.5-5.3 - g/dL * A lkaline Phosphatase 86 44-138 - IU/L * A LT (SGPT) 22 <5-55 - IU/L * A ST (SGOT) 20 <5-46 - IU/L * B ilirubin, Total 0.7 <0.2-1.2 - mg/dL * B UN 14 8-23 - mg/dL * C alcium 9.6 8.6-10.4 - mg/dL * C hloride 106 97-108 - mmol/L * C O2 23 20-32 - mmol/L * C reatinine 1.30 0.70-1.30 - mg/dL * G lucose 96 65-99 - mg/dL * P otassium 4.3 3.5-5.3 - mmol/L * S odium 140 135-145 - mmol/L * P rotein 7.2 6.0-8.3 - g/dL * e GFR by Creatinine 56 L >59 - mL/min/1.73m2 * Becki Reyes 06/23/2025 09: 40:21 AM EST > See phone encounter ?LAB: P-Phosphorus (Collection Date & Time - 06/22/2025 08:30 AM)?Normal* Value Reference Range P hosphorus 3.0 2.5-4.5 - mg/dL * Becki Reyes 06/23/2025 09: 40:21 AM EST > See phone encounter ?LAB: CBC Venipuncture (in house) (Collection Date & Time - 06/22/2025)? Normal* Value Reference Range w bc 5.7 3.5 - 10 * l ymph 30.6% 15 - 50 * m id 6.6% 2 - 15 * g ran 62.8% 35 - 80 * r bc 5.25 3.5 - 5.5 * h gb 16.0 11.5 - 16.5 * h ct 47.6 35 - 55 * m cv 90.6 75 - 100 * m ch 30.5 25 - 35 * m chc 33.7 31 - 38 * p latlet 177 100 - 400 * Joana Jane 06/22/2025 09:53: 54 AM EST > Becki Reyes 06/23/2025 09:40:21 AM EST > See phone encounter 4.?Hyperlipidemia, unspecified hyperlipidemia type?LAB: P-Comprehensive Metabolic Panel (CMP) (Collection Date & Time - 06/22/2025 08:30 AM)?eGFR 56* Value Reference Range A /G Ratio 1.4 1.1-2.5 - * A lbumin 4.2 3.5-5.3 - g/dL * A lkaline Phosphatase 86 44-138 - IU/L * A LT (SGPT) 22 <5-55 - IU/L * A ST (SGOT) 20 <5-46 - IU/L * B ilirubin, Total 0.7 <0.2-1.2 - mg/dL * B UN 14 8-23 - mg/dL * C alcium 9.6 8.6-10.4 - mg/dL * C hloride 106 97-108 - mmol/L * C O2 23 20-32 - mmol/L * C reatinine 1.30 0.70-1.30 - mg/dL * G lucose 96 65-99 - mg/dL * P otassium 4.3 3.5-5.3 - mmol/L * S odium 140 135-145 - mmol/L * P rotein 7.2 6.0-8.3 - g/dL * e GFR by Creatinine 56 L >59 - mL/min/1.73m2 * Becki Reyes 06/23/2025 09: 40:21 AM EST > See phone encounter ?LAB: P-Lipid Panel (Collection Date & Time - 06/22/2025 08:30 AM)?Trigs 235, HDL 32* Value Reference Range C holesterol / HDL Ratio 3.75 <4.99 - Ratio * C holesterol 120 <200 - mg/dL * H DL Cholesterol 32 L >40 - mg/dL * L DL Cholesterol (Calculation) 41 <100 - mg/d L * L DL/HDL Ratio 1.28 <2.49 - Ratio * N on-HDL Cholesterol 88 <130 - mg/dL * T riglycerides 235 H <150 - mg/dL * L ipid Panel Footnote See Below - * Becki Reyes 06/23/2025 09: 40:21 AM EST > See phone encounter 5.?Hypersomnia?Imaging: sleep study* [facility] Elvia Weiss 06/22 09:47:57 AM EST > faxed to IlianaDenisse Miranda 6.?Snoring?Imaging: sleep study* [facility] Elvia Weiss 06/22 09:47:57 AM EST > faxed to Nadia Miranda 7.?Prostate cancer screening?LAB: P-PSA (Collection Date & Time - 06/22/2025 08:30 AM)?Normal* Value Reference Range P SA <0.014 <4.00 - ng/mL * Becki Reyes 06/23/2025 09: 40:21 AM EST > See phone encounter 8.?Vitamin D deficiency?LAB: P-Vitamin D 25-Hydroxy (Collection Date & Time - 06/22/2025 08:30 AM)? Normal* Value Reference Range V itamin D 25-Hydroxy 75.7 30.0-100.0 - ng/mL * Becki Reyes 06/23/2025 09: 40:21 AM EST > See phone encounter * Procedure Codes: G 2211 Complex e/[place], [address] CBC WITH AUTO DIFF, G8950 PREHTN/HTN BP DOC INDCD F/U DOC, G8752 MOST RECENT SYSTOLIC BP < 140MM HG, G8754 MOST RECENT DIASTOLIC BP < 90MM HG, 3074F SYST BP LT 130 MM HG, 3078F DIAST BP < 80 MM HG * Follow Up: v ia phone to report test results,6 Months * Images: Billing Information: * Visit Code: 10998 Office Visit, Est Pt., Level 4. * Procedure Codes: G2211 Complex e/[place]. [address] CBC WITH AUTO DIFF. G8950 PREHTN/HTN BP DOC INDCD F/U DOC. G8752 MOST RECENT SYSTOLIC BP < 140MM HG. G8754 MOST RECENT DIASTOLIC BP < 90MM HG. 3074F SYST BP LT 130 MM HG. 3078F DIAST BP < 80 MM HG. * Electronic signature of Irina Cazares MD on 07/01/2025 at 07:40 PM EST Sign off status: Pending * Provider: Laurence Cazares M.D. Date: 08/23/2024 Generated for Cele ortiz/Jake/Erlindaitting on: 09/01/2024 07:40 PM EST History and Physical Notes * HPI (History of Present Illness) Category Sub-Category Detail Notes Category Not es Cardiology Blood Pressure Elevated Pt here for 6 mo checkup on hypertension. Pt states he is doing well and does not have any concerns at this time Hyperlipidemia Pt is fasting today Examination Category Sub-Category Detail Notes Category Not es General Examination Heart: RSR Lungs: clear to auscultatio n Extremities: no leg edema General Appearance: NAD, conversant Neurologic Exam: minimal hand tremors at rest, gait is normal Peripheral pulses: normal (2+) bilatera lly
[2025-07-01 19:30] VITALS: BP 116/67; PULSE 93; RESP 16; TEMP 36.8; O2SAT 98; BMI 31.0
--- NOTE | 2025-07-01 19:32 | ECG_ITS ---
APPROVED REPORT Exam: Resting ECG HR:92 bpm ECG Measurements Heart Rate 92 AXES IL 200 P 50 QRSd 93 QRS -57 QT 361 T 28 QTc 411 Conclusion Normal sinus rhythm Left axis Normal intervals No STEMI Electronically signed by : Jm Paredes, 07/02/2025 23:20:36
--- NOTE | 2025-07-01 19:34 | PC.NURSE ---
Pt awake alert and oriented Skin pink warm and dry Resp full and easy IV without redness or edema. Pt in SR per continuous heart monitor
[2025-07-01 19:37] VITALS: BP 116/67; PULSE 93; RESP 18; O2SAT 98
--- NOTE | 2025-07-01 19:42 | [facility].EDGENADL ---
Discharge Plan Disposition Patient Disposition: Home, Self-Care Condition: Good Prescriptions Prescriptions: New cephalexin 500 mg capsule 500 mg PO BID 7 Days Qty: 14 0RF No Action aspirin [Adult Low Dose Aspirin] 81 mg tablet,delayed release (DR/EC) 81 mg PO DAILY esomeprazole magnesium 40 mg capsule,delayed release(DR/EC) 40 mg PO QAM Eliquis 5 mg tablet 5 mg PO BID Qty: 180 3RF levothyroxine 50 mcg tablet 50 mcg PO QAM nitroglycerin 0.4 mg tablet, sublingual 0.4 mg sublingual Q5-15M PRN (Reason: chest pain) Qty: 30 5RF Rx Instructions: do not exceed 3 doses per episode amlodipine 5 mg tablet See Rx Instructions .ROUTE .COMPLEX Qty: 30 2RF Dose Instruction: TAKE 1 TABLET BY MOUTH ONCE DAILY Rx Instructions: TAKE 1 TABLET BY MOUTH ONCE DAILY atorvastatin 10 MG tablet 10 mg PO HS bisoprolol fumarate 5 mg tablet 5 mg PO HS cholecalciferol (vitamin D3) [Vitamin D3] 125 mcg (5,000 unit) Tablet 5,000 unit PO WEEKLY Referrals Follow up/Referrals: Matthew Cazares MD [Primary Care Provider, Medical] - See instructions Activity Restrictions/Add. Instructions Additional Instructions/Restrictions: Please drink fluids aggressively at home. You did have a urinary tract infection and I would like for you to take Keflex to treat this. If your symptoms persist or return please return to the emergency department. Otherwise I want you to follow-up with your primary care physician to further monitor your symptoms. Clinical Impressions Clinical Impression: Acute kidney injury, Orthostatic syncope, Dehydration Urinary tract infection Qualifiers: Urinary tract infection type: acute cystitis Hematuria presence: without hematuria Qualified Code(s): N30.00 - Acute cystitis without hematuria Instructions Patient Instructions: DI for Syncope in Adults (Fainting), DI for Syncope in Children (Fainting) Print Language Print Language: Yakut Discharge ED Provider: Jm Paredes Adult HPI <AYLEEN Jolley - Last Filed: 07/01/25 22:01> General Chief complaint: Syncope Stated complaint: Low BP Time Seen by Provider: 07/01/25 19:42 Mode of Arrival: EMS Source of Information: Patient, Significant Other, Relative and EMS Description of Symptoms (Recalled from ER Triage Doc. by RN): PT brought to the ED for evaluation of hypo tension. EMS report a BP of 80/78. PT stated he just started feeling blah . PT stated he had a syncope episode on 06/29/2025. PT had an cardiology appt on this date with [facility]. POT has not taken PO BP meds today History of Present Illness HPI narrative: 79-year-old male presents to the emergency department via EMS for a presyncopal type episode and low blood pressure , today, patient states he took his blood pressure at home, and it was 70 something , systolic. Patient endorses what sounds like a true syncopal episode on 06/29/2025, patient states he went from a sitting to standing position was on the toilet , then walked from the bathroom to the bed, felt lightheaded and ended up having a syncopal episode on the bed, did not strike the head, states he was out for 5 to 10 seconds , this was unwitnessed. Patient since then has had follow-up with cardiology, states has had fatigue malaise, decreased p.o. intake, because of no appetite , since Sunday, lightheadedness, no vertiginous type symptomatology, subjective fever and chills no recorded Tmax, no chest pain no shortness of breath, at this time does have waxing and waning chest pain and shortness of breath at times, denies any abdominal pain does admit to nausea, no vomiting, does admit to constipations for the last 2 days, no diarrhea, no hematuria melena hematochezia hematemesis or hemoptysis, no urinary symptomatology, patient is a non-smoker denies any alcohol or drug use, other past medical history is consistent with coronary artery disease status post stent placement, hyperlipidemia, paroxysmal atrial fibrillation on anticoagulation therapy with Eliquis, GERD, hypothyroidism. Initial triage vitals are unremarkable. Of note, patient had recent cardiology follow-up with what sounds like carotid duplex ultrasounds performed and according to family ember's said that there were no blockages . Also of note patient received 500 mL IV normal saline and route per EMS, patient also today is not yet taking his antihypertensive medication due to concern for his hypotension. Please note that above description of symptoms, in this electronic medical record under categorization of recalled from ER triage doctor by RN are reflective of an initial nursing assessment, however, is not reflective of my full history and physical exam that was personally taken and clarified. Consequentially, this preceding description of symptoms, which may include the patient's categorized chief complaint in the EMR, do not reflect my personal clinical impression, and the ultimate description of history of present illness and patient stated complaints should be deferred to this section of the note. Unless stated otherwise or congruent with this section of the note, additional signs, symptoms, or incongruence should be interpreted as inaccurate with my clinical impression. Onset (ago): day(s) Related Data Home Medications ?Medication ?Instructions ?Recorded ?Confirmed aspirin 81 mg tablet,delayed 81 mg PO DAILY 11/15/17 07/01/25 release (Adult Low Dose Aspirin) atorvastatin 10 mg tablet 10 mg PO HS 07/25/21 07/01/25 bisoprolol fumarate 5 mg tablet 5 mg PO HS 01/22/24 07/01/25 cholecalciferol (vitamin D3) 125 5,000 unit PO WEEKLY 01/22/24 07/01/25 mcg (5,000 unit) tablet (Vitamin D3) esomeprazole magnesium 40 mg 40 mg PO QAM 06/10/25 07/01/25 capsule,delayed release levothyroxine 50 mcg tablet 50 mcg PO QAM 07/01/25 07/01/25 Previous Rx's ?Medication ?Instructions ?Recorded nitroglycerin 0.4 mg sublingual 0.4 mg sublingual Q5-15M PRN chest 05/07/24 tablet pain #30 tabs amlodipine 5 mg tablet See Rx Instructions .Route 07/07/24 .COMPLEX #30 tabs apixaban 5 mg tablet (Eliquis) 5 mg PO BID #180 tabs 06/10/25 cephalexin 500 mg capsule 500 mg PO BID UTI 7 days #14 caps 07/02/25 Allergies Allergy/AdvReac Type Severity Reaction Status Date / Time codeine Allergy Severe Hives Verified 07/01/25 09:55 morphine Allergy Mild Nausea Verified 07/01/25 09:55 Penicillins Allergy Unknown I-HIVES Verified 07/01/25 09:55 ranolazine (From Ranexa) AdvReac Severe Hives Verified 07/01/25 09:55 [facility] <AYLEEN Jolley - Last Filed: 07/01/25 22:01> [facility] Disclaimer: The information contained in this section may have been updated after the patient was seen, as this information can be updated by other users. Medical History HOMERO (acute kidney injury) Paroxysmal A-fib Hypothyroidism Prostate cancer Status post placement of implantable loop recorder Syncope Degenerative joint disease (DJD) of lumbar spine Exposure to COVID-19 virus Diastolic dysfunction Abnormal EKG Bradycardia on ECG GERD (gastroesophageal reflux disease) Diverticulitis HHD (hypertensive heart disease) CAD (coronary artery disease) HLD (hyperlipidemia) Surgical History Hx of cholecystectomy H/O heart artery stent History of cancer surgery History of rotator cuff surgery History of left knee surgery History of right knee joint replacement History of prostatectomy Family History Other Heart attack Hypertension Social History Smoking Status: Never smoker second hand exposure: Yes alcohol intake: never substance use type: denies use current occupational status: retired Travel in the last 8 weeks?: None household members: spouse housing: house 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 current occupational exposures/hazards: No caffeine: No Have you lived/traveled outside [place] in past 30 days?: No Contact w/someone who lives/traveled outside US past 30 days?: No Exposure to someone with infectious disease in past 14 days?: No Do you have a fever (greater than 100.4 F or 38 C)?: No Have you tested positive for COVID-19?: No Exposed to someone with COVID-19 in past 14 days?: No Do you have a sore throat?: No Do you have a cough?: No Do you have any weakness?: No Do you have any diarrhea?: No Are you experiencing any unusual bleeding?: No Do you have any muscle aches/pain?: No Do you have any abdominal pain?: No Are you experiencing loss of taste or smell?: No Other Medical History Have you received the Flu Vaccine for this season: No Have you received the Pneumonia Vaccine: Yes <AYLEEN Jolley - Last Filed: 07/01/25 22:01> ROS Obtained: Yes All systems reviewed & no additional complaints except as documented Physical Exam <AYLEEN Jolley - Last Filed: 07/01/25 22:01> General General appearance: alert and in no apparent distress Head Head exam: atraumatic and normocephalic Eye Eye exam: Present PERRL and EOMI ENT ENT exam: Present mucous membranes moist Neck Neck exam: Present normal inspection Chest Chest inspection: Present normal inspection and symmetric chest wall rise Respiratory Respiratory exam: Present normal lung sounds bilaterally; Absent respiratory distress, wheezes or stridor Cardiovascular Cardiovascular exam: Present regular rate and normal rhythm Abdominal Exam Abdominal exam: Present soft; Absent tenderness, guarding, rebound or rigidity Extremities Exam Extremities exam: Present normal inspection Neurological Exam Neurological exam: Present alert, oriented X3 and other (5 out of 5 strength in the bilateral lower and upper extremities, no focal neurological deficit no gross sensation deficit) Psychiatric Psychiatric exam: Present normal affect Skin Skin exam: Present warm and dry Medical Decision Making <AYLEEN Jolley - Last Filed: 07/01/25 22:01> Medical Records Medical records reviewed: Yes I reviewed the patient's medical records. Screening: Per USPSTF and CDC recommendations, given the prevalence of disease in our region, it is our hospital?s policy to screen for HIV and viral Hepatitis for all patients aged 18 and over and those with ongoing risk factors. Eduard Inquiry Pt receiving controlled substance: No Eduard was queried for this patient: No Vital Signs: 07/01/25 19:30 07/01/25 19:37 07/01/25 20:07 Temperature 98.2 F Temperature Source Oral Pulse Rate 93 H Pulse Rate [Orthostatic Lying] 86 Pulse Rate [Orthostatic Sitting] 87 Pulse Rate [Orthostatic Standing] 94 H Pulse Rate [Right] 93 H Respiratory Rate 16 18 Blood Pressure 116/67 Blood Pressure [Orthostatic Lying] 100/68 L Blood Pressure [Orthostatic Sitting] 102/64 L Blood Pressure [Orthostatic Standing] 103/63 L Blood Pressure [Right Arm] 116/67 Blood Pressure Mean [Right Arm] 83 02 Sat by Pulse Oximetry 98 98 Oxygen Delivery Method Room Air Room Air Lab Data Lab results reviewed: Yes I reviewed the patient's lab results. Lab Results 07/01/25 19:28: WBC 10.1, RBC 4.66, Hgb 14.5, Hct 41.3 L, MCV 88.6, MCH 31.1, MCHC 35.1, RDW 14.0, Plt Count 151, MPV 10.8 H, Neut % (Auto) 85.9 H, Lymph % (Auto) 6.7 L, [place] % (Auto) 6.8, Eos % (Auto) 0.0 L, Baso % (Auto) 0.2, Neut # (Auto) 8.7 H, Lymph # (Auto) 0.7, [place] # (Auto) 0.7, Eos # (Auto) 0.0, Baso # (Auto) 0.0, PT 12.4, INR 1.13 H, Sodium 140, Potassium 3.6, Chloride 109 H, Carbon Dioxide 20 L, Anion Gap 14.6, BUN 16, Creatinine 1.60 H, Estimated Creat Clear 52, Estimated GFR 42 L, Est GFR ( Amer) 51 L, Glucose 129 H, Calcium 8.9, Magnesium 2.0, Total Bilirubin 1.3, AST 50, ALT 45, Alkaline Phosphatase 83, Troponin I < 0.01, NT-Pro-B Natriuret Pep 839 H, Total Protein 7.4, Albumin 4.2, Globulin 3.2, Albumin/Globulin Ratio 1.3, Lipase 53, HCV Ab TERE w/Rflx PCR Qn Negative 07/01/25 20:02: Lactate 0.9 07/01/25 20:16: Urine Color Yellow, Urine Appearance Clear, Urine pH 6.0, Ur Specific Temple 1.025, Urine Protein 1+ A, Urine Glucose (UA) Negative, Urine Ketones 1+, Urine Blood Negative, Urine Nitrate Positive A, Urine Bilirubin Negative, Urine Urobilinogen 1.0, Ur Leukocyte Esterase Negative, Urine WBC Occasional, Ur Squamous Epith Cells 3-5, Urine Bacteria 1+ 07/01/25 22:59: Creatinine 1.30 H, Estimated Creat Clear 64, Estimated GFR 54 L, Est GFR ( Amer) 65 D, Troponin I < 0.01 07/01/25 19:28 07/01/25 22:59 Orders (Tests/Meds): ED MEDICATIONS Discontinued Medications Generic Name Dose Route Start Last Admin Trade Name Freq PRN Reason Stop Dose Admin Ceftriaxone Sodium 2 gm/ 100 mls @ 200 mls/hr 07/01/25 21:25 07/01/25 22:55 Sodium Chloride IV 07/01/25 21:54 Infused ONCE ONE Infusion Sodium Chloride 1,000 mls @ 999 mls/hr 07/01/25 21:28 07/01/25 22:54 Sod Chlor 0.9% 1000ml Bag IV 07/01/25 22:28 Infused .Q1H1M ONE Infusion Iopamidol 80 ml 07/01/25 20:33 07/01/25 20:34 Iopamidol-370 (76%);100ml Bottle IV 07/01/25 20:34 80 ml ONCE ONE Administration Sodium Chloride 50 ml 07/01/25 20:33 07/01/25 20:33 0.9 % Sodium Chloride 50 Ml Vial IV 07/01/25 20:34 50 ml ONCE ONE Administration Sodium Chloride 10 ml 07/01/25 20:33 07/01/25 20:33 Sodium Chloride 0.9% 10ml Syr (Rad Only) IV 07/01/25 20:34 10 ml ONCE ONE Administration ORDERS Category Date Time Status CT angio head Stat Cat Scan 07/01/25 20:[address] angio neck Stat Cat Scan 07/01/25 20:[address] head/brain wo con Stat Cat Scan 07/01/25 20:17 Completed Complete Blood Count Auto Diff Stat Lab 07/01/25 19:28 Completed Comprehensive Metabolic Panel Stat Lab 07/01/25 19:28 Completed Creatinine,Serum Stat Lab 07/01/25 22:59 Completed HIV Combo Stat Lab 07/01/25 20:02 Received Hepatitis C Ab Qual. W/ RFX Stat Lab 07/01/25 19:28 Completed Lactic Acid Stat Lab 07/01/25 20:02 Completed Lipase Stat Lab 07/01/25 19:28 Completed Magnesium Stat Lab 07/01/25 19:28 Completed NT Pro Brain Natriuretic Pep. Stat Lab 07/01/25 19:28 Completed PT INR [Prothrombin Time INR] Stat Lab 07/01/25 19:28 Completed Troponin I Q3H Lab 07/01/25 22:59 Completed Troponin I Q3H Lab 07/02/25 02:00 Ordered Troponin I Stat Lab 07/01/25 19:28 Completed Urinalysis and Microscopic Stat Lab 07/01/25 20:16 Completed Urine Culture Stat Micro 07/01/25 20:16 Received Medical Decision Narrative: 79-year-old male presents the emergency department with presyncope and concern for low blood pressure, and syncopal episode 2 days ago, differential diagnose include but not limited to cardiac arrhythmia, electrolyte disturbance, orthostatic hypotension, cardiogenic syncope, vasovagal syncope, situational syncope, postural syncope, hypovolemia, anemia among others. I discussed this patient's case with the attending physician Dr. Paredes, he saw and examined the patient as well. Will obtain basic laboratory studies lactic acid , lipase magnesium level proBNP PT/, troponin, proBNP urinalysis EKG orthostatic vital signs, will also obtain CT head without contrast, CTA head and neck with without contrast for further evaluation/characterization. CBC is unremarkable Coags nonactionable CMP is notable for elevated creatinine 1.6, which does appear increased outside of his baseline, no troponin within normal limits less than 0.01, proBNP is elevated 839 No lactic acidosis UA is noted for 1+ proteinuria, positive for nitrites, negative for leukocyte esterase, will give 2 g IV Rocephin for UTI. I reviewed the patient's CT head without contrast on the corresponding radiologic report, no acute intracranial findings that there is high clinical concern for acute infarction consider MRI for further evaluation. I reviewed the patient's CTA head and neck with and without contrast on the corresponding radiologic reports, no significant abnormality of the carotid or vertebral arteries, and no significant intracranial arterial abnormality Orthostatic vital signs are negative. Will also give additional dose of 1 liter IV NS. Occasional WBCs, 3-5 squamous of the cells 1+ bacteria is noted on patient's microscopic analysis. I discussed this patient case with Dr. Paredes the attending physician at shift change, he will be assuming amended the patient's care/workup, disposition is pending repeat BMP for creatinine reassessment after IV fluid, if decreased patient will be most likely discharged home to self-care with PCP follow-up <Jm Paredes, DO - Last Filed: 07/02/25 00:06> Vital Signs: 07/01/25 19:30 07/01/25 19:37 07/01/25 20:07 Temperature 98.2 F Temperature Source Oral Pulse Rate 93 H Pulse Rate [Orthostatic Lying] 86 Pulse Rate [Orthostatic Sitting] 87 Pulse Rate [Orthostatic Standing] 94 H Pulse Rate [Right] 93 H Respiratory Rate 16 18 Blood Pressure 116/67 Blood Pressure [Orthostatic Lying] 100/68 L Blood Pressure [Orthostatic Sitting] 102/64 L Blood Pressure [Orthostatic Standing] 103/63 L Blood Pressure [Right Arm] 116/67 Blood Pressure Mean [Right Arm] 83 02 Sat by Pulse Oximetry 98 98 Oxygen Delivery Method Room Air Room Air Lab Data Lab Results 07/01/25 19:28: WBC 10.1, RBC 4.66, Hgb 14.5, Hct 41.3 L, MCV 88.6, MCH 31.1, MCHC 35.1, RDW 14.0, Plt Count 151, MPV 10.8 H, Neut % (Auto) 85.9 H, Lymph % (Auto) 6.7 L, [place] % (Auto) 6.8, Eos % (Auto) 0.0 L, Baso % (Auto) 0.2, Neut # (Auto) 8.7 H, Lymph # (Auto) 0.7, [place] # (Auto) 0.7, Eos # (Auto) 0.0, Baso # (Auto) 0.0, PT 12.4, INR 1.13 H, Sodium 140, Potassium 3.6, Chloride 109 H, Carbon Dioxide 20 L, Anion Gap 14.6, BUN 16, Creatinine 1.60 H, Estimated Creat Clear 52, Estimated GFR 42 L, Est GFR ( Amer) 51 L, Glucose 129 H, Calcium 8.9, Magnesium 2.0, Total Bilirubin 1.3, AST 50, ALT 45, Alkaline Phosphatase 83, Troponin I < 0.01, NT-Pro-B Natriuret Pep 839 H, Total Protein 7.4, Albumin 4.2, Globulin 3.2, Albumin/Globulin Ratio 1.3, Lipase 53, HCV Ab TERE w/Rflx PCR Qn Negative 07/01/25 20:02: Lactate 0.9 07/01/25 20:16: Urine Color Yellow, Urine Appearance Clear, Urine pH 6.0, Ur Specific [place] 1.025, Urine Protein 1+ A, Urine Glucose (UA) Negative, Urine Ketones 1+, Urine Blood Negative, Urine Nitrate Positive A, Urine Bilirubin Negative, Urine Urobilinogen 1.0, Ur Leukocyte Esterase Negative, Urine WBC Occasional, Ur Squamous Epith Cells 3-5, Urine Bacteria 1+ 07/01/25 22:59: Creatinine 1.30 H, Estimated Creat Clear 64, Estimated GFR 54 L, Est GFR ( Amer) 65 D, Troponin I < 0.01 Orders (Tests/Meds): ED MEDICATIONS Discontinued Medications Generic Name Dose Route Start Last Admin Trade Name Freq PRN Reason Stop Dose Admin Ceftriaxone Sodium 2 gm/ 100 mls @ 200 mls/hr 07/01/25 21:25 07/01/25 22:55 Sodium Chloride IV 07/01/25 21:54 Infused ONCE ONE Infusion Sodium Chloride 1,000 mls @ 999 mls/hr 07/01/25 21:28 07/01/25 22:54 Sod Chlor 0.9% 1000ml Bag IV 07/01/25 22:28 Infused .Q1H1M ONE Infusion Iopamidol 80 ml 07/01/25 20:33 07/01/25 20:34 Iopamidol-370 (76%);100ml Bottle IV 07/01/25 20:34 80 ml ONCE ONE Administration Sodium Chloride 50 ml 07/01/25 20:33 07/01/25 20:33 0.9 % Sodium Chloride 50 Ml Vial IV 07/01/25 20:34 50 ml ONCE ONE Administration Sodium Chloride 10 ml 07/01/25 20:33 07/01/25 20:33 Sodium Chloride 0.9% 10ml Syr (Rad Only) IV 07/01/25 20:34 10 ml ONCE ONE Administration ORDERS Category Date Time Status CT angio head Stat Cat Scan 07/01/25 20:[address] angio neck Stat Cat Scan 07/01/25 20:[address] head/brain wo con Stat Cat Scan 07/01/25 20:17 Completed Complete Blood Count Auto Diff Stat Lab 07/01/25 19:28 Completed Comprehensive Metabolic Panel Stat Lab 07/01/25 19:28 Completed Creatinine,Serum Stat Lab 07/01/25 22:59 Completed HIV Combo Stat Lab 07/01/25 20:02 Received Hepatitis C Ab Qual. W/ RFX Stat Lab 07/01/25 19:28 Completed Lactic Acid Stat Lab 07/01/25 20:02 Completed Lipase Stat Lab 07/01/25 19:28 Completed Magnesium Stat Lab 07/01/25 19:28 Completed NT Pro Brain Natriuretic Pep. Stat Lab 07/01/25 19:28 Completed PT INR [Prothrombin Time INR] Stat Lab 07/01/25 19:28 Completed Troponin I Q3H Lab 07/01/25 22:59 Completed Troponin I Q3H Lab 07/02/25 02:00 Ordered Troponin I Stat Lab 07/01/25 19:28 Completed Urinalysis and Microscopic Stat Lab 07/01/25 20:16 Completed Urine Culture Stat Micro 07/01/25 20:16 Received ECG Data Tracing #1: I reviewed this ECG and interpreted as documented below: EKG personally turbid by me demonstrates normal sinus rhythm at a rate of 92 bpm, left axis, FL prolongation consistent with first-degree AV block, narrow QRS, no QTc prolongation. No ST ovation or depression. No overt signs of ischemia or arrhythmia. Medical Decision Narrative: 79-year-old male presents the emergency department with presyncope and concern for low blood pressure, and syncopal episode 2 days ago, differential diagnose include but not limited to cardiac arrhythmia, electrolyte disturbance, orthostatic hypotension, cardiogenic syncope, vasovagal syncope, situational syncope, postural syncope, hypovolemia, anemia among others. I discussed this patient's case with the attending physician Dr. Paredes, he saw and examined the patient as well. Will obtain basic laboratory studies lactic acid , lipase magnesium level proBNP PT/, troponin, proBNP urinalysis EKG orthostatic vital signs, will also obtain CT head without contrast, CTA head and neck with without contrast for further evaluation/characterization. CBC is unremarkable Coags nonactionable CMP is notable for elevated creatinine 1.6, which does appear increased outside of his baseline, no troponin within normal limits less than 0.01, proBNP is elevated 839 No lactic acidosis UA is noted for 1+ proteinuria, positive for nitrites, negative for leukocyte esterase, will give 2 g IV Rocephin for UTI. I reviewed the patient's CT head without contrast on the corresponding radiologic report, no acute intracranial findings that there is high clinical concern for acute infarction consider MRI for further evaluation. I reviewed the patient's CTA head and neck with and without contrast on the corresponding radiologic reports, no significant abnormality of the carotid or vertebral arteries, and no significant intracranial arterial abnormality Orthostatic vital signs are negative. Will also give additional dose of 1 liter IV NS. Occasional WBCs, 3-5 squamous of the cells 1+ bacteria is noted on patient's microscopic analysis. I discussed this patient case with Dr. Paredes the attending physician at shift change, he will be assuming amended the patient's care/workup, disposition is pending repeat BMP for creatinine reassessment after IV fluid, if decreased patient will be most likely discharged home to self-care with PCP follow-up I was consulted by the ALONDRA, and we discussed the complexity of problems being addressed. I approved the treatment and management plan for this patient's care in the emergency department, thus performing a substantive portion of the medical decision making. Jm Paredes, DO This is Dr. Paredes. I did independently evaluate this patient and obtained collateral history myself. The patient tells me that over the course of the last week he is generally felt unwell so he has not been drinking as much oral intake as he normally does. He tells me that at baseline he does not drink hardly any water at all and only drinks caffeinated carbonated beverages. He states that he is continue to drink carbonated beverages and his water intake has dropped off considerably. He states that over the last couple of days every time that he stands up he begins feeling lightheaded and dizzy. He reports passing out on Sunday after standing up quickly. He states that this evening he stood up very quickly and walked to the kitchen and became lightheaded so he sat back down on the couch and his lightheadedness went away. This ultimately prompted his visit here in the emergency department today. He does tell me that he is producing less urine in the setting of less oral intake and he is experiencing no dysuria. On physical examination his heart and lungs are clear to auscultation bilaterally. He has no abdominal tenderness palpation. He is no evidence of peripheral edema. Differential diagnosis included orthostatic syncope, vasovagal syncope, ACS/TX, electrolyte derangement, acute kidney injury, among others. Labs were personally interpreted by me and demonstrate no evidence of leukocytosis, no anemia, he has no electrolyte derangements. The patient did have a creatinine measured at 1.21-month ago, and his creatinine today is 1.6 which is consistent with acute kidney injury. His troponin and delta troponin was less than 0.01. Additionally, his urine is positive for nitrates bacteria, and occasional white blood cells which is consistent with urinary tract infection. Overall, I feel that this patient's presentation is consistent with decreased oral intake leading to dehydration which is caused both urinary stasis contributing to urinary tract infection as well as dehydration contributing to orthostatic hypotension and orthostatic near syncope. The patient did receive 500 mL of IV fluids prior to arrival. Given that he is euvolemic on exam and is experiencing these orthostatic changes I decided to administer an additional 1 L of IV fluids to the patient here in the emergency department. On repeat assessment he was able to ambulate without feeling lightheaded. Additionally, we repeated a troponin after he had completed 1500 mL of fluid in total this evening and his creatinine has improved to 1.3 which also suggest that his elevated creatinine was secondary to volume depletion. We will treat the patient with a prescription for Keflex for urinary tract infection and encourage oral rehydration therapy at home. I have also asked that he follow-up with his primary care physician to ensure that he continues to improve. At this time all questions have been answered and all parties are agreeable with the decision to discharge home Critical Care <AYLEEN Jolley - Last Filed: 07/01/25 22:01> Critical Care Time Critical Care Time: No
--- OUTSIDE RECORDS SUMMARY | 2025-07-01 19:42 | XMS_ITS | Clinical Summary ---
Author Organization [email or web address] ([place], [place], [place], [place], [place]) Address [address] [place] [address] Care Team Providers Care Field Installer Name Role Phone Unavailable Primary Care Provider [...] Date Ron rded Speak language other than Citizen [place] at home Not on file 08/10/2023 Want [...] Health Maintenance Due Date Last Done Comments Depression Screening (12+) 1959 Tobacco Cessation Counseling and Screening (12+) 1957 DTAP/TDAP/TD VACCINES (1 - Tdap) 12/20/1966 Shingles Vaccine (Zoster) (1 of 2) 12/20/1997 Pneumococcal 50+ years (2 of 2 - PCV) 07/12/2022 07/12/2021 Respiratory Syncytial Virus (RSV) Adult or (1 - 1-dose 75+ series) 12/20/2022 Falls Risk Screening 07/23/2024 COVID-19 VACCINE (5 - 2024-2 6 season) 2025 01/12/2022, 06/08/2021, 09/15/2020, Additional history exists Influenza Vaccine (#1) 2025 , 05/04/2020, 05/04/2020, Additional history exists Insurance MEDICARE PART A B BLUE CROSS/BLUE SHIELD Advance Directives For more information, please contact: [phone] * Full Code (Latest Code Status on File) Date Activated Date Inactivated Comments 05/18/2022 7:29 AM 08/17/2022 2:47 PM -Attempt Re suscitation if person has no pulse and is not breathing. -If no pulse or not breathing attempt CPR/CODE. -Call Rapid Response if patient is in distress.
--- OUTSIDE RECORDS SUMMARY | 2025-07-01 19:42 | XMS_ITS | Patient Health Record ---
Author Organization [facility] Address [address] [place] [id number] Care Team Providers Care Customer Service Cashier Name Role Phone Matthew Cazares Primary Care Provider BARTON, DAVID Unavailable Unavailable Allergies Allergen (clinical [...] 56 Performing Lab: Notes/Report: Test performed by [facility] [address] [place] [address] , [address], [place] [address] Pipo Hernandez MD, PhD, [facility], Helpdesk Technician CLIA: [id number] Sodium 140 135-145 mmol/L Potassium 4.3 3.5-5.3 [...] Interpretation:Normal Performing Lab: Notes/Report: Test performed by [facility] [address] [place] [address] [place] [address] Pipo Hernandez MD, PhD, [facility], Helpdesk Technician CLIA: [id number] Thyroxine Free (free T4) 0.98 0.86-1.76 ng/dL P-Lipid Panel Reviewed date:06/23/2025 09:40:30 AM Interpretation:Trigs 235, HDL 32 Performing Lab: Notes/Report: Test performed by [facility] [address] [place] [address] [place] C, [place] [address] Pipo Hernandez MD, PhD, [facility], Helpdesk Technician CLIA: [id number] Lipid Panel Footnote See Below *Based on optimal reference values. Please refer to the DOS for additional information regarding diagnostic lipid reference ranges, patient management based on the recently updated lipid guidelines ([place] [employer]/[place] [employer] Association Task Force on Clinical Practice [...] Interpretation:Normal Performing Lab: Notes/Report: Test performed by [facility] [address], [place] [address] Pipo Hernandez MD, PhD, [facility], Helpdesk Technician CLIA: [id number] Phosphorus 3.0 2.5-4.5 mg/dL P-PSA Reviewed date:06/23/2025 09:40:30 AM Interpretation:Normal Performing Lab: Notes/Report: Test performed by [facility] [address] [place] [address] , [address], [place] [address] Pipo Hernandez MD, PhD, [facility], Helpdesk Technician CLIA: [id number] PSA <0.014 <4.00 ng/mL Please note this is an ultrasensitive PSA assay with a lower limit of detection of 0.014 ng/mL. This test is performed by the [employer] ECLIA methodology. Values obtained with different assay methods or kits cannot be directly compared. P-TSH Reviewed date:06/23/2025 09:40:30 AM Interpretation:7.10 Performing Lab: Notes/Report: Test performed by [facility] [address] [place] [address] , [place] [address] Pipo Hernandez MD, PhD, [facility], Helpdesk Technician CLIA: [id number] TSH 7.10 0.43-5.25 mU/L P-Microalbumin/Creatinine, R andom Urine Sample Reviewed date:06/23/2025 09:40:30 AM Interpretation:Normal Performing Lab: Notes/Report: Test performed by [facility] [address] [place] [address] , [address], [place] [address] Pipo Hernandez MD, PhD, [facility], Helpdesk Technician CLIA: [id number] Albumin/Creatinine Ratio, Urine 4 0-30 ug/mg Microalbumin, Urine, Random 1.1 Creatinine, Urine 270.3 P-Vitamin D 25-Hydroxy Reviewed date:06/23/2025 09:40:30 AM Interpretation:Normal Performing Lab: Notes/Report: Test performed by [facility] [address] [place] [address] , [address], [place] [address] Pipo Hernandez MD, PhD, [facility], Helpdesk Technician CLIA: [id number] Vitamin D 25-Hydroxy 75.7 30.0-100.0 ng/mL Interpretation of Vitamin D 25 OH: < 20 ng/mL - Deficiency 20 - 29 ng/mL - Insufficiency 30 - 100 ng/mL - Sufficiency > 100 ng/mL - Super-therapeutic- toxicity may occur above this level. Clinical correlation required. X ray : Knee, right Reviewed date:04/28/2025 01:36:57 PM Interpretation:Negative Performing Lab: Notes/Report: Negative Glucose (In-House) Reviewed date:07/21/2024 10:13:53 AM Interpretation:117 Performing Lab: Notes/Report: 117 blood glucose 117 74 - 106 mg/dL Glycohemoglobin A1c (in hous e) Reviewed date:07/21/2024 10:13:53 AM Interpretation:5.4% Normal Performing Lab: Notes/Report: 5.4% Normal glycohemoglobin 5.4% 5 - 6.5 % P-CBC With Platelet No Diffe rential Reviewed date:07/21/2024 10:13:53 AM Interpretation: Normal Performing Lab: Notes/Report: Test performed by [facility] [address] [place] [address] , [address], [place] [address] Jewel Lindsay MD, Helpdesk Technician CLIA: [id number] WBC 5.0 3.8-11.5 K/uL Red Blood Cell Count (RBC) 4.85 4.20-5.70 M/mm 3 Hemoglobin (Hgb) 14.7 13.1-17.5 gm/dL Hematocrit (HCT) 44.5 39.0-51.0 % MCV 91.8 79.0-99.0 fL MCH 30.3 26.9-35.0 pg MCHC 33.0 30.4-34.8 g/dL RDW 45.8 38.2-53.0 fL Platelet Count 179 137-397 K/cumm P-Comprehensive Metabolic Pa alysha (CMP) Reviewed date:07/21/2024 10:13:53 AM Interpretation: Normal Performing Lab: Notes/Report: Test performed by [facility] [address] [place] [address] , [address], [place] [address] Jewel Lindsay MD, Helpdesk Technician CLIA: [id number] Sodium 141 135-145 mmol/L Potassium 3.9 3.5-5.3 [...] Normal Performing Lab: Notes/Report: Test performed by [facility] [address] [place] [address] , [address], [place] [address] Jewel Lindsay MD, Helpdesk Technician CLIA: [id number] Thyroxine Free (free T4) 1.05 0.86-1.76 ng/dL P-Lipid Panel Reviewed date:07/21/2024 10:13:53 AM Interpretation:trigs 222, hdl 28 Performing Lab: Notes/Report: Test performed by [facility] [address] [place] [address] , [address], [place] [address] Jewel Lindsay MD, Helpdesk Technician CLIA: [id number] Cholesterol 101 <200 mg/dL Triglycerides 222 <150 [...] Normal Performing Lab: Notes/Report: Test performed by [facility] , [facility], [place] [address] Jewel Lindsay MD, Helpdesk Technician CLIA: [id number] Phosphorus 2.5 2.5-4.5 mg/dL P-TSH Reviewed date:07/21/2024 10:13:53 AM Interpretation: Normal Performing Lab: Notes/Report: Test performed by [facility] , [address], [place] [address] Jewel Lindsay MD, Helpdesk Technician CLIA: [id number] TSH 4.53 0.43-5.25 mU/L P-Microalbumin/Creatinine, R andom Urine Sample Reviewed date:07/21/2024 10:13:53 AM Interpretation: Normal Performing Lab: Notes/Report: Test performed by [facility] , [address], [place] [address] Jewel Lindsay MD, Helpdesk Technician CLIA: [id number] Albumin/Creatinine Ratio, Urine 3 0-30 ug/mg Microalbumin, Urine, Random 0.6 Creatinine, Urine 228.7 P-Vitamin D 25-Hydroxy Reviewed date:07/21/2024 10:13:53 AM Interpretation: Normal Performing Lab: Notes/Report: Test performed by [facility] [address] [place] [address] [place] [address] Jewel Lindsay MD, Helpdesk Technician CLIA: [id number] Vitamin D 25-Hydroxy 76.7 30.0-100.0 ng/mL Interpretation [...] 54 Performing Lab: Notes/Report: Test performed by [facility] [address] [place] [address] [place] [id number] Jewel Lindsay MD, Helpdesk Technician CLIA: [id number] Sodium 141 135-145 mmol/L Potassium 4.4 3.5-5.3 [...] Normal Performing Lab: Notes/Report: Test performed by [facility] [address] [place] [address] [place] [address] Jewel Lindsay MD, Helpdesk Technician CLIA: [id number] Thyroxine Free (free T4) 1.07 0.86-1.76 ng/dL P-Lipid Panel Reviewed date:12/18/2024 08:30:03 AM Interpretation:trigs 198, hdl 31 Performing Lab: Notes/Report: Test performed by [facility] [address] [place] [address] [place] C, [place] [address] Jewel Lindsay MD, Helpdesk Technician CLIA: [id number] Cholesterol 107 <200 mg/dL Triglycerides 198 <150 [...] Normal Performing Lab: Notes/Report: Test performed by [facility] [address] [place], [place] [address] [place] [address] Jewel Lindsay MD, Helpdesk Technician CLIA: [id number] Phosphorus 3.4 2.5-4.5 mg/dL P-TSH Reviewed date:12/18/2024 08:30:03 AM Interpretation: Normal Performing Lab: Notes/Report: Test performed by [facility] [address] [place], [place] [address] [place] [address] Jewel Lindsay MD, Helpdesk Technician CLIA: [id number] TSH 3.89 0.43-5.25 mU/L Medications Medication SIG (Take, Route, Frequency, Duration) Notes Start Date End Date Status Esomeprazole Magnesium 40 MG 1 capsule 1 /2 to 1 hour before morning meal Orally Once a day; Duration: 90 days Active Eliquis 5 MG 1 tablet Orally Twic e a day; Duration: 90 days Active Metoclopramide HCl 5 MG 1 tablet before meals Orally Twice a day; Duration: 90 days Active Metamucil Smooth Texture 58.6 % as directed Orally 12/28/2023 Active Nitroglycerin 0.4 MG 1 tablet as needed for chest pain may repeat every 5 minutes for a total of 3 doses Sublingual 05/07/2024 Active Aspirin Adult Low Dose 81 MG 1 tab(s) or ally once a day Active Bisoprolol Fumarate 5 MG TAKE 1 TABLET B Y MOUTH ONCE DAILY AT BEDTIME; Duration: 90 Active Levothyroxine Sodium 50 MCG 1 tablet in the morning on an empty stomach Orally Once a day; Duration: 90 days 06/24/2025 Active Blood Pressure Monitor - as directed 07/20/2023 Active Atorvastatin Calcium 10 MG Take 1 tablet by mouth once daily; Duration: 90 Active Vitamin D3 1.25 MG (79398 UT) Take 1 capsule by mouth once a week; Duration: 90 Active Voltaren 1 % as directed External ly 3 times a day 04/27/2025 Active Immunizations Vaccine Route Administration Date Status Comme nts xFluzone (6mos and older)-trivalent IM Intramuscular 06/02/2013 Administered Prevnar (PCV20) IM Intramuscular 07/21/2022 Administered Prevnar (PCV20) Unknown 07/21/2022 Administered Prevnar (PCV13) IM Intramuscular 06/16/2013 Administered PNEUMOVAX 23 VACCINE IM Intramuscular 04/03/2016 Administe red PNEUMOVAX 23 VACCINE IM Intramuscular 07/12/2021 Administe red Hepatitis B (20 and more) Unknown 05/20/2007 Administer ed Hepatitis B (20 and more) Unknown 06/20/2007 Administer ed Hepatitis B (20 and more) Unknown 12/02/2007 Administer ed Fluzone Quad-Medicare (6months&older) IM Intramuscular 04/08/2015 Administered Fluzone High Dose (65yr and older) [...] (65yr and older) IM Intramuscular 04/23/2025 Administered COVID 19 Moderna Unknown 08/18/2020 Administered COVID 19 Moderna Unknown 09/15/2020 Administered COVID 19 Moderna Unknown 06/08/2021 Administered COVID 19 Moderna Unknown 01/12/2022 Administered Problems Problem Type SNOMED Code ICD Code Onset Dates Problem Status W/U Status Risk Notes Problem Essential hypertension (60673552) Essential (primary) hypertension (I10) Active confirmed Problem Hypertension (62520238) HTN (hypertension) (I10) Active confirmed Problem Vitamin D deficiency (64232020) Vitamin D deficiency (E55.9) Active confirmed Problem Diverticulitis (49408386) Diverticulitis (K57.92) Active confirmed Problem Hypertriglyceridemia (507031424) Hypertriglyceridemia (E78.1) Active confirmed Problem Arthropathy of lumba r facet joint (850382755) Lumbar facet arthropathy (M47.816) Active confirmed Problem BMI 30+ - obesity (453110123) BMI 32.0-32.9,adult (Z68.32) Active confirmed Problem Impaired fasting glucose (525043242) Impaired fasting glucose (R73.01) Active confirmed Problem Mixed hyperlipidemia (606709139) Mixed hyperlipidemia (E78.2) Active confirmed Problem Chronic pain (66731895) Other chronic pain (G89.29) Active confirmed Problem Sciatica (78859841) Lumbago with sciatica, unspecified side (M54.40) Active confirmed Problem Malignant tumor of prostate (311526091) Prostate cancer (C61) Active confirmed Problem History of polyp of colon (situation) (318084013) History of colon polyps (Z86.010) Active confirmed Problem Acquired hypothyroidism (296024262) Acquired hypothyroidism (E03.9) Active confirmed Problem 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 (817599944827053) 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) Active confirmed Problem Gastroesophageal reflux disease (135014110) Gastroesophageal reflux disease, esophagitis presence not specified (K21.9) Active confirmed Problem Atrial fibrillation (29056541) PAF (paroxysmal atrial fibrillation) (I48.0) Active confirmed Problem Hyperlipidaemia (08529781) Hyperlipidemia, unspecified hyperlipidemia type (E78.5) Active confirmed Problem Hypersomnia (53256775) Hypersomnia (G47.10) Active confirmed Problem Diverticulitis of colon (754144415) Diverticulitis of colon (K57.32) Active confirmed Problem 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 (435360274692422) Atherosclerosis of seneca coronary artery without angina pectoris, unspecified whether seneca or transplanted heart (I25.10) Active confirmed Problem Degenerative disc disease (31179536) DDD (degenerative disc disease), lumbar (M51.36) Active confirmed Problem Elevated PSA (786117635) Elevated PSA (R97.20) Active confirmed Problem Hearing loss (85931932) Hearing loss of left ear, unspecified hearing loss type (H91.92) Active confirmed Problem History of placement of stent for coronary artery disease (situation) (281543826) S/P coronary artery stent placement (Z95.5) Active confirmed Problem Hepatic cyst (74525502) Hepatic cyst (K76.89) Active confirmed Problem Spinal stenosis of lumbar region (13821347) Spinal stenosis of lumbar region, unspecified whether neurogenic claudication present (M48.061) Active confirmed Problem Diverticular disease of colon (325387731) Colon, diverticulosis (K57.30) Active confirmed Problem Diastolic dysfunctio n (9168067) Diastolic dysfunction (I51.89) Active confirmed Problem Gastroesophageal reflux disease (967597051) Gastroesophageal reflux disease, unspecified whether esophagitis present (K21.9) Active confirmed Problem Chronic kidney disease stage 3A (485263983) Stage 3a chronic kidney disease (N18.31) Active confirmed Problem Chronic kidney disease stage 3A (disorder) (486663033) Stage 3a chronic kidney disease (CKD) (N18.31) Active confirmed Vital Signs Heart Rate 58 /min 06/22/2025 Blood pressure diastolic 76 mm Hg 06/22/2025 Height 70 in 06/22/2025 Blood pressure systolic 118 mm Hg 06/22/2025 Weight 215.8 lbs 06/22/2025 BMI 30.96 kg/m2 06/22/2025 Encounters Encounter Location Date Provider Diagnosis [facility] [address] [facility] [address] [place] [id number] 07/18/2024 Matthew [place] HTN (hypertension) I 10 ; Coronary artery disease involving seneca coronary artery of seneca heart without angina pectoris I25.10 ; Stage 3a chronic kidney disease (CKD) N18.31 ; Mixed hyperlipidemia E78.2 ; Hypertriglyceridemia E78.1 ; Vitamin D deficiency E55.9 ; Impaired fasting glucose R73.01 ; Acquired hypothyroidism E03.9 and PAF (paroxysmal atrial fibrillation) I48.0 [facility] [address] [facility] [address] [place] [id number] 12/17/2024 Matthew [place] HTN (hypertension) I 10 ; Acquired hypothyroidism E03.9 ; Impaired fasting glucose R73.01 ; Vitamin D deficiency E55.9 ; Stage 3a chronic kidney disease (CKD) N18.31 ; Mixed hyperlipidemia E78.2 ; Tremor R25.1 ; PAF (paroxysmal atrial fibrillation) I48.0 and BMI 32.0-32.9,adult Z68.32 [facility] [address] [facility] [address] [place] [id number] 04/23/2025 Matthew [place] Encounter for immuni zation Z23 [facility] [address] [facility] [address] [place] [id number] 04/27/2025 Matthew [place] Acute pain of right knee M25.561 [facility] [address] [facility] [address] [place] [id number] 06/22/2025 Matthew [place] HTN (hypertension) I 10 ; Acquired hypothyroidism E03.9 ; Stage 3a chronic kidney disease N18.31 ; Hyperlipidemia, unspecified hyperlipidemia type E78.5 ; Gastroesophageal reflux disease, esophagitis presence not specified K21.9 ; Hypersomnia G47.10 ; Snoring R06.83 ; Prostate cancer screening Z12.5 ; Vitamin D deficiency E55.9 and Tremor R25.1 [facility] [address] [place], [place] [id number] 07/21/2024 Matthew [place] [facility] [address] [place], [place] [id number] 10/08/2024 Matthew [place] [facility] [address] [place], [place] [id number] 12/18/2024 Matthew [place] [facility] [address] [place], [place] [id number] 03/24/2025 Matthew [place] HTN (hypertension) I 10 [facility] [address] [place], [place] [id number] 04/13/2025 Matthew [place] [facility] [address] [place], [place] [id number] 04/28/2025 Matthew [place] [facility] [address] [place], [place] [id number] 06/23/2025 Matthew [place] Acquired hypothyroid ism E03.9 Assessments Encounter Date Diagnosis (ICD Code) Assessment Notes Treatment Notes Treatment Clinical Notes Section Notes 07/18/2024 Coronary artery dise ase involving seneca coronary artery of seneca heart without angina pectoris (ICD-10 - I25.10) 03/24/2025 HTN (hypertension) (ICD-10 - I10) 04/27/2025 Acute pain of right knee (ICD-10 - M25.561) 04/23/2025 Encounter for immunization (ICD-10 - Z23) 06/22/2025 HTN (hypertension) (ICD-10 - I10) 06/22/2025 Acquired hypothyroid ism (ICD-10 - E03.9) 12/17/2024 HTN (hypertension) (ICD-10 - I10) 12/17/2024 Acquired hypothyroid ism (ICD-10 - E03.9) 07/18/2024 HTN (hypertension) (ICD-10 - I10) 06/23/2025 Acquired hypothyroid ism (ICD-10 - E03.9) 06/22/2025 Stage 3a chronic kid guillermo disease (ICD-10 - N18.31) 12/17/2024 Impaired fasting glu cose (ICD-10 - R73.01) 07/18/2024 Stage 3a chronic kid guillermo disease (CKD) (ICD-10 - N18.31) 07/18/2024 Mixed hyperlipidemia (ICD-10 - E78.2) 12/17/2024 Vitamin D deficiency (ICD-10 - E55.9) 06/22/2025 Hyperlipidemia, unspecified hyperlipidemia type (ICD-10 - E78.5) 06/22/2025 Gastroesophageal ref lux disease, esophagitis presence not specified (ICD-10 - K21.9) 12/17/2024 Stage 3a chronic kid guillermo disease (CKD) (ICD-10 - N18.31) 07/18/2024 Hypertriglyceridemia (ICD-10 - E78.1) 07/18/2024 Vitamin D deficiency (ICD-10 - E55.9) 12/17/2024 Mixed hyperlipidemia (ICD-10 - E78.2) 06/22/2025 Hypersomnia (ICD-10 - G47.10) 12/17/2024 Tremor (ICD-10 - R25.1) 06/22/2025 Snoring (ICD-10 - R06.83) 07/18/2024 Impaired fasting glu cose (ICD-10 - R73.01) 07/18/2024 Acquired hypothyroid ism (ICD-10 - E03.9) 06/22/2025 Prostate cancer screening (ICD-10 - Z12.5) 12/17/2024 PAF (paroxysmal atri al fibrillation) (ICD-10 - I48.0) 12/17/2024 BMI 32.0-32.9,adult (ICD-10 - Z68.32) 06/22/2025 Vitamin D deficiency (ICD-10 - E55.9) 07/18/2024 PAF (paroxysmal atri al fibrillation) (ICD-10 - I48.0) 06/22/2025 Tremor (ICD-10 - R25.1) Plan Of Treatment Pending Test Test Name Order Date sleep study 06/22/2025 Next Appt Details Provider Name:Matthew tirado, 2025 09:00:00 AM, [address] [facility], [address], [place], [place], [id number], Insurance Providers Payer Name Payer Address Payer Phone Subscriber Number Group Number Insured Name Patient Relationship to Insured Coverage Start Date Coverage End Date MEDICARE PART B [address] [address] [place] [id number] [phone] [id number] Andrea Bowers Self - patient is the insured [employer] [address] [place] [address] [id number] Andrea Bowers Self - patient is the [...] Total Knee Replacement- right 2007 Heart Cath 2008 RT Rotator Cuff Tear Repair 2010 LT Total Knee Replacement 2011 Knuckle Replacement 2013 Bilateral Cataract Removal 11/2014 C-Scope, Tubular Adenoma - Dr. 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
--- OUTSIDE RECORDS SUMMARY | 2025-07-01 19:44 | XMS_ITS | Encounter Summary ---
Author Organization Healthcare Address [address] [place] [address] Care Team Providers Care Or Manager Name Role Phone Matthew Cazares MD Primary Care Provider [phone] Encounter Details Date Type Department Care Team (Late st Contact Info) Description 04/27/2025 Orders Only External Location [address] [place] [address] Matthew Cazares MD [address] [id number] Social History Tobacco Use Types Packs/Day Years Used Date Smoking Tobacco: Never Assessed Sex and Gender Information Value Date Recorded Sex Assigned at Not on file Legal Sex Male 7:54 PM EDT Gender Identity Not on file Sexual Orientation Not on file documented as of this encounter Plan of Treatment Not on file documented as of this encounter Procedures Procedure Name Priority Date/Time Associated Diagnosis Comments XR MSK OUTSIDE IMAGES 04/27/2025 10:16 AM EDT documented in this encounter Results * XR MSK OUTSIDE IMAGES (04/27/2025 10:16 AM EDT) Anatomical Region Laterality Modality Radiographic Rosaline ging 04/27/2025 10:1 6 AM EDT Matthew Cazares MD IMG XR PROCEDURES Edited Res ult - Final documented in this encounter Visit Diagnoses Not on filedocumented in this encounter Care Teams Or Manager Relationship Specialty Start Date End Date Matthew Cazares MD [address] [facility] [address] [place] [address] PCP - General 12/03/20 documented as of this encounter
--- OUTSIDE RECORDS SUMMARY | 2025-07-01 19:44 | XMS_ITS | Encounter Summary ---
Author Organization Healthcare Address [address] [id number] Care Team Providers Care Electric Power Line Repairer Name Role Phone Matthew Cazares MD Primary Care Provider [phone] Encounter Details Date Type Department Care Team (Latest Contact Info) Description 05/19/2025 Travel Social History Tobacco Use Types Packs/Day Years [...] on file documented as of this encounter Visit Diagnoses Not on filedocumented in this encounter Additional Health Concerns Assessment Noted Time A fall risk assessment has been complete d for the patient 05/19/2025 7:48 AM EDT A Body Mass Index follow-up plan has been documented for the patient 05/19/2025 10:00 AM EDT documented as of this encounter Care Teams Electric Power Line Repairer Relationship Specialty Start Date End Date Matthew Cazares MD [address] [facility] [address] [place] [id number] PCP - General 12/03/20 documented as of this encounter
--- OUTSIDE RECORDS SUMMARY | 2025-07-01 19:44 | XMS_ITS | Clinical Summary ---
Author Organization [facility] Address [address] [place] [address] Care Team Providers Care Software Test And Validation Engineer Name Role Phone Matthew Cazares MD Primary Care Provider [phone] Allergies Active Allergy Reactions Criticality Noted Date Comments Codeine Other - please docum ent in the comment field Low 05/16/2022 Penicillins Rash Low 05/16/2022 Ranolazine Other - please docum ent in the comment field Low 05/16/2022 Medications amLODIPine (Norvasc) 10 MG tablet Take 1 tablet by mouth daily. Active Eliquis 5 MG tablet every 12 hours. Active aspirin 81 MG EC tablet Take 1 tablet by mouth daily. Active atorvastatin (Lipitor) 10 MG tablet Take 1 tablet by mouth daily. Active bisoprolol (Zebeta) 5 MG tablet 1 (one) time each day at the same time. Active cholecalciferol (Vitamin D-3) 1.25 MG (28600 UT) capsule 1 capsule. Active promethazine-de xtromethorphan (Phenergan-DM) 6.25-15 MG/5ML syrup every 6 hours. Active nitroglycerin (NitrolinguaL) 0.4 MG/SPRAY spray Place 1 spray under the tongue every 5 minutes as needed for chest pain. Active Encounters Date Type Department Care Team Description 05/19/2025 8:10 AM EDT Office Visit Medical Office Building [facility] [address] [facility], [address] [place] [address] Deandre Oneal MD Acute pain of right knee (Primary Dx) 05/19/2025 8:05 AM EDT - 05/19/2025 11:59 PM EDT Hospital Encounter Medical Office Building Radiology [address] [place] [id number] Acute pain of right knee Discharge Disposition: Home or Self Care 05/19/2025 Travel 04/27/2025 Orders Only External Location [address] [place] [address] Matthew Cazares MD from Last 3 Months Social History Tobacco Use Types Packs/Day Years [...] Mass Index 31.75 05/19/2025 7:48 AM EDT Plan of Treatment Health Maintenance Due Date Last Done Comments [facility]-Depression Screening 1945 [facility]-Hepatitis C Screening 1945 [facility]-Medicare Annual Wellness (AWV) 1945 [facility]-/Child/Adol SDOH Screenings 1945 [facility]- SDOH Screenings 12/20/1965 [facility]-Adult SDOH Screenings 12/20/1965 [facility]-DTaP,Tdap,and Td Vaccines (1 - Tdap) 12/20/1966 [facility]-Zoster Vaccines (1 of 2) 12/20/1997 [facility]-RSV Vaccine: 60+ Years or (1 - 1-dose 75+ series) 12/20/2022 [id number] Vaccine ( season) 2025 05/07/2024, 06/20/2023, 01/12/2022, Additional history exists [facility]-Pneumococcal Vaccine: 50+ Years Completed 07/21/2022, 07/12/2021, 04/03/2016, Additional history exists [facility]-Influenza Vaccine Completed 04/23/2025 , 05/07/2024, 05/10/2021, Additional history exists [facility]-Obesity Intervention Completed 05/19/2025 HPV Vaccines Aged Out No longer eligi [...] on patient's age to complete this topic Procedures Procedure Name Priority Date/Time Associated Diagnosis Comments XR KNEE RIGHT 1 OR 2 VIEWS Routine 05/19/2025 8:13 AM EDT Acute pain of right knee XR MSK OUTSIDE IMAGES 04/27/2025 10:16 AM EDT from Last 3 Months Results * XR Knee Right 1 or [...] MD IMG XR PROCEDURES Final R esult * XR MSK OUTSIDE IMAGES (04/27/2025 10:16 AM EDT) Anatomical Region Laterality Modality Radiographic Rosaline ging 04/27/2025 10:1 6 AM EDT us Matthew Cazares MD IMG XR PROCEDURES Edited Res ult - Final from Last 3 Months Insurance MEDICARE MARY Member Subscriber Plan / Payer (Ef fective 2024-Present) Name:Andrea Bowers Relation to Subscriber:Self Name:Andrea Bowers Adolfo Payer ID:[id number] (NAIC) Group ID:[id number] Type:Not on file Address: [address] [place] [address] Care Teams Software Test And Validation Engineer Relationship Specialty Start Date End Date Matthew Cazares MD [address] [place] [address] PCP - General 12/03/20
--- OUTSIDE RECORDS SUMMARY | 2025-07-01 19:45 | XMS_ITS | Referral Summary ---
Author Organization [facility] ([place], [place], [place], [place], [place]) Address [address] [place] [address] Care Team Providers Care Stone Crusher Operator Name Role Phone Unavailable Primary Care Provider [...] Date Ron rded Speak language other than [place] at home Not on file 08/10/2023 Want [...] on file Insurance MEDICARE PART A B CROSS/BLUE [facility] Advance Directives For more information, please contact: [phone] * Full Code (Latest Code Status on File) Date Activated Date Inactivated Comments 05/18/2022 7:29 AM 08/17/2022 2:47 PM -Attempt Re suscitation if person has no pulse and is not breathing. -If no pulse or not breathing attempt CPR/CODE. -Call Rapid Response if patient is in distress.
[2025-07-01 19:54] LABS: Hematocrit 41.3 % (42.0-52.0); Hemoglobin 14.5 g/dL (14.1-18.0); Immature Granulocytes % 0.4 %; Mean Corpuscular HGB Conc 35.1 g/dL (31.8-35.4); Mean Corpuscular Hemoglobin 31.1 pg (27.0-31.2); Mean Corpuscular Volume 88.6 fl (80-94); Nucleated Red Blood Cells % 0 %; Platelet Count 151 K/mm3 (142-424); Red Blood Count 4.66 M/mm3 (4.60-6.20); Red Cell Distribution Width-SD 44.9 fL; White Blood Count 10.1 K/mm3 (4.8-10.8)
[2025-07-01 19:56] LABS: Albumin Level 4.2 g/dl (3.5-5.0); Chloride 109 mmol/L (98-107)
[2025-07-01 19:57] LABS: Potassium 3.6 mmoL/L (3.5-5.1); Sodium 140 mmol/L (136-145)
[2025-07-01 19:59] LABS: Alanine Aminotransferase 45 U/L (12-78); Anion Gap 14.6 mEq/L (5-15); Aspartate Amino Transferase 50 U/L (17-59); Blood Urea Nitrogen 16 mg/dl (9-20); Carbon Dioxide 20 mmol/L (22.0-30.0); Creatinine Clearance Estimated 52 mL/min (50-200); Creatinine,Serum 1.60 mg/dl (0.66-1.25); Estimated Glomerular Filt Rate 42 ml/min (>60); GFR (African American) 51 ML/MIN (>60)
[2025-07-01 20:00] LABS: Albumin/Globulin Ratio 1.3 (1.1-1.8); Alkaline Phosphatase 83 U/L (38-126); Bilirubin,Total 1.3 mg/dl (0.2-1.3); Calcium 8.9 mg/dl (8.4-10.2); Globulin 3.2 g/dL (1.3-3.2); Glucose 129 mg/dl (74-100); Lipase 53 U/L (23-300); Magnesium 2.0 mg/dl (1.6-2.3); Total Protein,Serum 7.4 g/dl (6.3-8.2)
[2025-07-01 20:04] LABS: INR 1.13 (0.9-1.1); Prothrombin Time 12.4 seconds (10.1-12.5)
[2025-07-01 20:07] VITALS: BP 100/68; BP 102/64; BP 103/63; PULSE 86; PULSE 87; PULSE 94
[2025-07-01 20:09] LABS: NT Pro Brain Natriuretic Pep. 839 pg/mL (0-450)
--- NOTE | 2025-07-01 20:17 | CT_ITS ---
PROCEDURE INFORMATION: Exam: CT Head Without Contrast Exam date and time: 07/01/2025 8:31 PM Age: 79 years old Clinical indication: Other: Syncope; Additional info: Presyncope/syncopal episodes TECHNIQUE: Imaging protocol: Computed tomography of the head without contrast. Radiation optimization: All CT scans at this facility use at least one of these dose optimization techniques: automated exposure control; mA and/or kV adjustment per patient size (includes targeted exams where dose is matched to clinical indication); or iterative reconstruction. COMPARISON: CT ANGIO HEAD 06/16/2025 1:59 PM FINDINGS: Brain: Mild to moderate chronic brain volume loss and chronic small vessel ischemic changes. Bilateral basal ganglia calcifications. Cerebral ventricles: No ventriculomegaly. Paranasal sinuses: Mild mucosal thickening in the paranasal sinuses. Mastoid air cells: Small right mastoid effusion. Orbital cavities: Status post bilateral cataract surgery. Bones: Unremarkable. No acute fracture. Soft tissues: Unremarkable. IMPRESSION: No acute intracranial findings. If there is high clinical concern for acute infarction, consider MRI for further evaluation. ASSESSMENT: ASPECTS score (Bimble Stroke Program Early CT Score) is 10.
[2025-07-01 20:18] LABS: Troponin I < 0.01 ng/ml (0.00-0.034)
--- NOTE | 2025-07-01 20:18 | CT_ITS ---
PROCEDURE INFORMATION: Exam: CTA Head With Contrast, Arteriography Exam date and time: 07/01/2025 8:33 PM Age: 79 years old Clinical indication: Other: Syncope; Additional info: Presyncope/syncopal episode TECHNIQUE: Imaging protocol: Computed tomographic angiography of the head with contrast. Exam focused on the arteries. 3D rendering (Not supervised by radiologist): MIP and/or 3D reconstructed images were created by the technologist. Radiation optimization: All CT scans at this facility use at least one of these dose optimization techniques: automated exposure control; mA and/or kV adjustment per patient size (includes targeted exams where dose is matched to clinical indication); or iterative reconstruction. Contrast material: ISOVUE; Contrast volume: 80 ml; Contrast route: INTRAVENOUS (IV); COMPARISON: CT ANGIO HEAD 06/16/2025 1:59 PM FINDINGS: ANTERIOR CIRCULATION: Right internal carotid artery: Intracranial segment is patent with no significant stenosis. No aneurysm. Right middle cerebral artery: No occlusion or significant stenosis. No aneurysm. Right anterior cerebral artery: No occlusion or significant stenosis. No aneurysm. Left internal carotid artery: There is an infundibulum of the distal left internal carotid artery. Left middle cerebral artery: No occlusion or significant stenosis. No aneurysm. Left anterior cerebral artery: No occlusion or significant stenosis. No aneurysm. POSTERIOR CIRCULATION: Right vertebral artery: No occlusion or significant stenosis. No aneurysm. Left vertebral artery: No occlusion or significant stenosis. No aneurysm. Basilar artery: No occlusion or significant stenosis. No aneurysm. Right posterior cerebral artery: Codominant right CHILD DEVELOPMENT DIRECTOR. Left posterior cerebral artery: No occlusion or significant stenosis. No aneurysm. Brain: No definite mass, mass effect, or midline shift. Cerebral ventricles: No ventriculomegaly. Bones/joints: Unremarkable. No acute fracture. Soft tissues: Unremarkable. IMPRESSION: No significant intracranial arterial abnormality.
--- NOTE | 2025-07-01 20:18 | CT_ITS ---
PROCEDURE INFORMATION: Exam: CTA Neck With Contrast Exam date and time: 07/01/2025 8:33 PM Age: 79 years old Clinical indication: Other: Syncope; Additional info: Presyncope/syncopal episode TECHNIQUE: Imaging protocol: Computed tomographic angiography of the neck with contrast. Exam focused on the cervical segments of the vasculature. 3D rendering (Not supervised by radiologist): MIP and/or 3D reconstructed images were created by the technologist. Radiation optimization: All CT scans at this facility use at least one of these dose optimization techniques: automated exposure control; mA and/or kV adjustment per patient size (includes targeted exams where dose is matched to clinical indication); or iterative reconstruction. Contrast material: ISOVUE; Contrast volume: 80 ml; Contrast route: INTRAVENOUS (IV); COMPARISON: CT ANGIO NECK 06/16/2025 1:59 PM FINDINGS: Right common carotid artery: No stenosis. No dissection or occlusion. Right internal carotid artery: 0% stenosis of the right internal carotid artery per NASCET criteria. Right external carotid artery: No occlusion or stenosis of the origin. Left common carotid artery: Mild atherosclerotic changes of the left carotid bifurcation with 0% stenosis of the internal carotid artery per NASCET criteria. Left internal carotid artery: No stenosis of the extracranial segment. No dissection or occlusion. Left external carotid artery: No occlusion or stenosis of the origin. Right vertebral artery: No stenosis. No dissection or occlusion. Left vertebral artery: No stenosis. No dissection or occlusion. Soft tissues: Normal. No significant soft tissue swelling. Bones/joints: Multilevel degenerative changes of the cervical spine producing multiple levels of mild spinal canal stenosis. Lungs: Bilateral apical scarring. IMPRESSION: No significant abnormality of the carotid and vertebral arteries. REFERENCES: NASCET CRITERIA. The degree of stenosis in the cervical segment of the internal carotid artery is based on NASCET criteria. Normal is no stenosis. Mild is less than 50% stenosis. Moderate is 50-69% stenosis. Severe is 70% to 99% stenosis. Total occlusion is no detectable patent lumen.
[2025-07-01 20:21] LABS: Microscopic, Urine URINE MICROSCOPIC (MICROSCOPIC)
[2025-07-01 20:33] LABS: Color,Urine YELLOW (Yellow); Glucose,Urine (UA) Negative (Negative); Ketones,Urine 1+ (Negative); Leukocyte Esterase,Urine Negative (Negative); PH,Urine 6.0 (5.0-8.5); Protein,Urine 1+ (Negative); Specific Gravity, Urine 1.025 (1.005-1.030); Urobilinogen,Urine 1.0 EU/dl (0.2)
[2025-07-01] MEDS: 0.9 % SODIUM CHLORIDE 50 ML VIAL IV (20:33)
[2025-07-01] MEDS: SODIUM CHLORIDE 0.9% 10ML SYR (RAD ONLY) 10 ML IV (20:33)
[2025-07-01] MEDS: IOPAMIDOL-370 (76%);100ML BOTTLE 80 ML IV (20:34)
[2025-07-01 20:40] LABS: Bilirubin,Urine Negative (Negative)
[2025-07-01 20:48] LABS: Hepatitis C Ab Qual. W/ RFX NEGATIVE (Negative)
[2025-07-01] MEDS: 0.9 % SODIUM CHLORIDE 1000ML 1,000 ML 999 ML IV (21:43)
[2025-07-01 21:49] LABS: Bacteria,Urine 1+ /lpf; WBC,Urine Occasional #/hpf (0-3)
[2025-07-01 23:39] LABS: Troponin I < 0.01 ng/ml (0.00-0.034)
[2025-07-01 23:50] LABS: Creatinine Clearance Estimated 64 mL/min (50-200); Creatinine,Serum 1.30 mg/dl (0.66-1.25); Estimated Glomerular Filt Rate 54 ml/min (>60); GFR (African American) 65 ML/MIN (>60)
[2025-07-02 00:13] VITALS: BP 113/67; PULSE 87; RESP 18; TEMP 36.8; O2SAT 100
== END 2025-07-02 00:19 | disposition home or self-care (01) ==
PROVIDERS: Physician Assistant; Emergency Provider Student in an Organized Health Care Education/Training Program; PCP Family Medicine
DX: I95.1 Orthostatic hypotension (principal); E86.0 Dehydration; N30.00 Acute cystitis without hematuria; N17.9 Acute kidney failure, unspecified; I11.9 Hypertensive heart disease without heart failure; I51.89 Other ill-defined heart diseases
CPT/HCPCS: 70450; 70496; 70498; 80053; 81001; 82565; 83605; 83690; 83735; 83880; 84484; 85025; 85610; 86803; 87086; 87389; 93005; 96365; 99285; J0696; J7030; Q9967

== ENCOUNTER 2025-07-08 09:43 | Outpatient (RCR) | payer MEDICARE, BC, SELFPAY ==
--- NOTE | 2025-07-08 12:57 | HMH.PTOPEV ---
PT Evaluation Rehab PT Outpatient Evaluation Start: 07/08/25 12:35 Freq: Status: Active Protocol: Document 07/08/25 12:35 PHORNE (Rec: 07/08/25 12:56 PHORNE [email or web address]) E-signed By Fortino Cruz, PT Outpatient Therapy Subjective History Subjective History This is the initial PT eval for Andrea Bowers, 79 yowm who presents with c/o dizziness and feeling lightheaded intermittently x ~ 1 yr. He reports no c/o vertigo and feels only lightheaded. He reports his symptoms last 5-10 seconds at a time, occur more with bending forward or tilting his head back, but not every time he performs these movements. He reports mildly decreased hearing in his L ear, no significant sinus issues, and no visual disturbances. He has PMH of HTN controlled with medications, CAD with 1 stent placed, a -fib, hyperthyroid. Chief Complaint Other Vertigo Eval Oculomotor Examination Smooth Pursuits: Normal Saccades: Normal Gaze-Evoked Present Nystagmus: Vergence: Normal Skew Deviation: Absent Vestibular-Ocular Reflex (VOR) VOR Horizontal: Intact VOR Vertical: Intact Head Thrust Test Negative Right: Head Thrust Test Negative Left: Motion Sensitivity Testing Symptoms Provoked By Lying to sitting : Positional Testing Amarilys-Hallpike Right: Negative Amarilys-Hallpike Left: Negative Roll Test Right: Negative Roll Test Left: Negative Comment: Pt has no nystagmus noted with any testing. No symptoms reproduced with any testing this date. Balance Testing Romberg Eyes Opened Normal (EO): Romberg Eyes Closed Impaired (EC): Single Leg Stance in 25 Seconds Right (R): Single Leg Stance in 18 Seconds Left (L): Gait Assessment Assistive Device: None Gait Quality Normal Outpatient Therapy Assessment Impairments Problems/ Impaired Recreational Activities,Impaired Balance, Impairmments Impaired Self Care/Self Management Prognosis Rehab Potential Innapropriate for Skilled Therapy Comment Pt currently reports less frequent symptoms since HTN medication changes. High likelihood that combination of HTN medication and cardiac issues contributed to his symptom occurrence, No current identified skilled therapy needs at this time. Clinical Impression Consistent with Yes Diagnosis PT Patient Goals PT Patient Goals PT Short Term No goals needed at this time. Patient Goals Outpatient Therapy Plan of Care Treatment Plan May Include Eval/Re-Eval Yes Frequency Times per week 0 Duration Number of Weeks 0 Addendums This patient is a No candidate for social or vocational rehab ? Patient/Guardian Yes verbally acknowledges understanding of treatment program and consents to further treatment? Patient/Guardian Yes verbally acknowledges understanding of diagnosis, prognosis and goals for treatment? Eval Complexity PT Charges 82664 - Moderate Complexity Shoulder/Elbow Eval Shoulder Objective Measurements Elbow Objective Measurements PHYSICIAN CERTIFICATION: I certify the specified therapy services for Andrea Bowers are required, authorized, and reviewed every 30 days.
== END 2025-07-08 23:59 | disposition home or self-care (01) ==
LOC: PT 09:43
PROVIDERS: PCP Family Medicine; Visit Provider Physician Assistant
DX: R42 Dizziness and giddiness (principal)
CPT/HCPCS: 97162